=== PATIENT | male | born 1950 | race Caucasian/White ===

== ENCOUNTER 2020-09-11 13:47 | Emergency (ER) | payer MEDICARE, MEDICAID, SELFPAY ==
[2020-09-11 14:03] VITALS: BP 134/76; PULSE 73; RESP 18; TEMP 36.7; O2SAT 97; BMI 24.0
[2020-09-11] MEDS: Cyclobenzaprine HCl 10 MG TABLET PO (14:23)
[2020-09-11] MEDS: Acetaminophen 325 MG TABLET 975 MG PO (14:23)
[2020-09-11] MEDS: oxyCODONE HCl Immed Release 5 MG TABLET PO (14:23)
[2020-09-11] MEDS: Ketorolac Tromethamine 30 MG/ML VIAL IM (14:23)
--- NOTE | 2020-09-11 14:23 | XR_ITS ---
EXAMINATION: XR LUMBOSACRAL SPINE CLINICAL INFORMATION: Low back pain. Injury. COMPARISON: CT abdomen pelvis 05/28/2011. Lumbar spine 08/04/2019. MR lumbar spine 08/28/2020 TECHNIQUE: 3 views of lumbar spine FINDINGS: There is no acute abnormality. There is no fracture or bone destruction. The alignment of the vertebral bodies are normal. There is no spondylolysis or spondylolisthesis. Lumbar disc heights are normal. There is mild multilevel vertebral endplate spurring. There is moderate facet joint arthrosis at the lower lumbar spine which is most significant at L4-L5. Compared to prior study of 08/04/2019 and the MR exam of 08/28/2020 there has not been substantial change. There are vascular calcifications of the abdominal aorta without aneurysm. IMPRESSION: Mild to moderate degenerative spondylosis of lumbar spine. There is no acute abnormality. No change since prior study 08/04/2019.
--- NOTE | 2020-09-11 14:24 | ED_ITS ---
HPI - Back Pain/Injury General Chief Complaint: Back Pain/Injury Stated Complaint: LEFT LOWER BACK PAIN X3DAYS NO INJURY Time Seen by Provider: 09/11/20 14:08 Source: patient and EMS Mode of arrival: EMS Limitations: no limitations History of Present Illness HPI Narrative: 70 y/o male with history of occasional back pain presents with acute onset of left lower back pain that started 3 days ago after he tried movin g an air conditioning unit that was on the floor. He felt his left lower back tense up and pain started immediately. He states the pain shoots down his left leg. He has difficulty walking. He had no numbness, tingling, saddle paresthesieas, urinary or stool incontinence. No IVDA. No fevers. He has been using heat without improvement in pain. MD elicited complaint: back pain and back injury Pertinent past history: prior back pain and recent trauma Onset (ago): day(s) (3) Timing: constant Severity: severe Similar Symptoms Previously: Yes Quality: sharp and aching Location: left lower back Radiation: left leg below the knee Exacerbating factors: movement and walking Relieving factors: immobilization Context: while lifting Associated symptoms: difficulty walking Treatments prior to arrival: heat therapy Work related injury: No Related Data Previous Rx's Medication Instructions Recorded acetaminophen [Tylenol Arthritis 650 mg PO Q8H #30 tab 09/11/20 Pain] cyclobenzaprine 10 mg PO TID PRN #20 tab 09/11/20 lidocaine [Lidoderm] 1 patch TOPICAL DAILY #15 ea 09/11/20 naproxen 500 mg PO BID PRN #20 tab 09/11/20 Allergies Allergy/AdvReac Type Severity Reaction Status Date / Time Penicillins [PCN] Allergy Severe ANAPHYLAXIS Unverified 08/15/20 15:06 codeine [CODEINE] Allergy Mild VOMITING Unverified 08/15/20 15:06 morphine [MORPHINE] Allergy Unknown UNKNOWN Unverified 08/15/20 15:06 penicillin V Allergy Unknown dyspnea Unverified 05/13/20 00:00 Codeine Phosphate Allergy Unknown Uncoded 03/04/20 00:00 Codeine Sulfate Allergy Unknown abdominal Uncoded 05/13/20 00:00 pain Cefuroxime Axetil AdvReac Unknown dyspnea Uncoded 05/13/20 00:00 Review of Systems Review of Systems: Constitutional: No Fever, No Chills Cardiovascular: No Chest Pain, No SOB, No Orthopnea, No Edema Respiratory: No Cough, No Sputu Gastrointestinal: No Nausea, No Vomiting, No Diarrhea, No abdominal Pain Genitourinary: No Dysuria, No Urinary Frequency, No Hematuria Musculoskeletal: + joint pain, + Myalgias Skin: No Skin Lesions, No rash Neuro: + Weakness, No Numbness, No Dizziness, No Headache Heme/Lymph: No Bruising, No Lymphadenopathy Endocrine: No Polyuria, No Polydipsia PMF Past Medical History Attestation statement: The following information was validated with the patient. Medical History (Updated 09/11/20 @ 16:06 by JANIA Diaz) Atrial fibrillation Lumbar radiculopathy Social History Social History Advance Directives: No Advance Directives Information Provided: No Physical Exam Vital Signs: Vital Signs: Vital Signs Temp Pulse Resp BP Pulse Ox 09/11/20 14:03 98.0 F 73 18 134/76 97 Body Mass Index 24.0 Appearance: Alert. Oriented X3. No acute distress. HEENT: normal inspection CVS: Normal heart rate and rhythm. Respiratory: No respiratory distress. Skin: Skin warm and dry. Normal skin color. Normal skin turgor. No rashes. Extremities: no LE edema. Back: left lumbar tenderness over SI joint, soft tissue tenderness left lumbar area, positive straight leg raise Neuro: Oriented X 3. No motor deficit. No sensory deficit. Course Course Course Narrative: XR shows stable mild to moderate degenerative spondylosis of lumbar spine. No change compared to recent imaging. Pain improved with medications here. He is stable for discharge home with plan to f/u with PCP. MDM - Back Pain/Injury Differential Diagnosis Differential diagnosis: Likely lumbar radiculopathy, sciatica and strain of lumbar region Medical Records Attestation: I reviewed the patient's medical records. Discharge Plan Discharge Clinical Impression: Lumbar radiculopathy Low back pain Qualifiers: Chronicity: acute Back pain laterality: bilateral Sciatica presence: without sciatica Qualified Code(s): M54.5 - Low back pain Strain of lumbar region Qualifiers: Encounter type: initial encounter Qualified Code(s): S39.012A - Strain of muscle, fascia and tendon of lower back, initial encounter Patient Disposition: Home, Self-Care Instructions: Acute Low Back Pain (ED), Lumbar Radiculopathy (ED) Additional Instructions: No bending, lifting or twisting. Use ice several times per day for 20 minutes at a time for the next 48 hours and then change to heat. Take medications as prescribed to help with pain and discomfort. Follow up with your Primary Care Doctor this week. If your pain worsens, if you develop new numbness, tingling, weakness, loss of function or incontinence call 911 or come back to the ER right away for evaluation. Prescriptions: New cyclobenzaprine 10 mg tablet 10 mg PO TID PRN (Reason: muscle spasm) Qty: 20 RF: 0 acetaminophen [Tylenol Arthritis Pain] 650 mg tablet extended release 650 mg PO Q8H Qty: 30 RF: 0 lidocaine [Lidoderm] 5 % adhesive patch,medicated 1 patch topical DAILY Qty: 15 RF: 0 naproxen 500 mg tablet 500 mg PO BID PRN (Reason: pain) Qty: 20 RF: 0
== END 2020-09-11 16:47 | disposition home or self-care (01) ==
PROVIDERS: Emergency Provider Emergency Medicine; PCP Internal Medicine
DX: S39.012A Strain of muscle, fascia and tendon of lower back, initial encounter (principal); M54.16 Radiculopathy, lumbar region; X50.0XXA Overexertion from strenuous movement or load, initial encounter; Y93.9 Activity, unspecified; Y92.009 Unspecified place in unspecified non-institutional (private) residence as the place of occurrence of the external cause; Z79.899 Other long term (current) drug therapy
CPT/HCPCS: 72100; 96372; 99282; 99284; J1885

== ENCOUNTER 2021-01-27 09:04 | Outpatient (REF) | payer MEDICARE, MEDICAID, SELFPAY ==
[2021-01-27 09:39] LABS: MANUAL DIFF FLAG NO
[2021-01-27 09:41] LABS: Basophils Absolute Auto 0.1 X10*3/uL (0.0-0.2); Basophils Percent Auto 1.1 % (0-2); Eosinophils Absolute Auto 0.2 X10*3/uL (0.0-0.4); Eosinophils Percent Auto 2.9 % (0-4); Hematocrit 42.3 % (42-52); Hemoglobin 14.2 g/dl (14.0-18.0); Imm Gran Abs Auto 0.02 X10*3/uL (0.00-0.03); Imm Gran Pct Auto 0.2 % (0.0-0.4); Lymphocytes Percent Auto 23.3 % (20-40); Mean Corpuscular HGB Conc 33.6 g/dl (31.0-36.0); Mean Corpuscular Hemoglobin 28.2 pg (27.0-33.0); Mean Corpuscular Volume 84.1 fL (80-98); Mean Platelet Volume 8.6 fL (9.4-12.4); Monocytes Absolute Auto 0.8 X10*3/uL (0.1-1.2); Monocytes Percent Auto 9.1 % (2-11); Neutrophils Absolute Auto 5.3 X10*3/uL (2.0-8.3); Neutrophils Percent Auto 63.4 % (45-73); Platelet Count 284 X10*3/uL (160-400); Red Blood Count 5.03 X10*6/uL (4.60-5.80); Red Cell Distribution Width 13.2 % (11.0-16.0); White Blood Count 8.4 X10*3/uL (4.8-10.8)
[2021-01-27 10:06] LABS: Estimated Average Glucose 111 mg/dL; Hemoglobin A1c % 5.5 %
[2021-01-27 10:22] LABS: Alanine Aminotransferase 11 U/L (0-40); Albumin Level 4.3 g/dL (3.5-5.0); Alkaline Phosphatase 69 U/L (39-117); Anion Gap 11 (12-20); Aspartate Amino Transferase 12 U/L (5-37); Bilirubin Total 0.6 mg/dL (0.0-1.0); Blood Urea Nitrogen 11 mg/dL (9-16); Calcium 9.2 mg/dL (8.4-10.2); Carbon Dioxide 25 mmol/L (22-29); Chloride 105 mmol/L (96-108); Cholesterol 162 mg/dL; Estimated Glomerular Filt Rate > 60; Glucose Fasting 108 mg/dL (60-99); HDL Cholesterol 35 mg/dL; LDL Cholesterol Calculated 98 mg/dl; Potassium 4.5 mmol/L (3.3-5.1); Sodium 136 mmol/L (135-145); Total Protein 7.2 g/dL (6.5-8.0); Triglycerides 148 mg/dL
[2021-01-27 10:25] LABS: B Type Natriuretic Peptide 49 pg/mL (<100)
[2021-01-27 10:41] LABS: Glucose Urine UA NEG (NEG); Leukocyte Esterase Urine NEG (NEG); Nitrite Urine NEG (NEG); Urine Blood TRACE (NEG); Urine Ketones NEG (NEG); Urine Protein NEG (NEG-TRACE)
[2021-01-27 10:44] LABS: Appearance Urine CLEAR; Color Urine YELLOW
[2021-01-27 10:46] LABS: TSH reflex Free T4 1.63 uIU/mL (0.32-4.0)
[2021-01-27 10:49] LABS: RBC Urine 0-2 /HPF (0); WBC Urine 0 /HPF (0-4)
[2021-01-27 10:54] LABS: Folate 13.6 ng/mL (> or = 4.0); Vitamin B12 320 pg/mL (200-900)
== END 2021-01-27 09:05 | disposition home or self-care (01) ==
LOC: HO.LAB 09:04
PROVIDERS: PCP Internal Medicine; Visit Provider Internal Medicine
DX: E78.5 Hyperlipidemia, unspecified (principal); R73.01 Impaired fasting glucose; I42.6 Alcoholic cardiomyopathy; I11.0 Hypertensive heart disease with heart failure; I50.20 Unspecified systolic (congestive) heart failure; G62.9 Polyneuropathy, unspecified; I48.0 Paroxysmal atrial fibrillation; F17.200 Nicotine dependence, unspecified, uncomplicated
CPT/HCPCS: 36415; 80053; 80061; 81001; 82607; 82746; 83036; 83880; 84443; 85025

== ENCOUNTER → 2021-03-12 12:53 | Outpatient (REF) | payer MEDICARE, MEDICAID, SELFPAY ==
--- NOTE | 2021-03-12 12:57 | CA_ITS ---
Transthoracic Echocardiogram Patient (Last, First, Middle): Yung Fuchs M Gender: Male Date of : 1950 Age: 70 Procedure Date: 03/12/2021 Procedure Type: Transthoracic Echocardiogram Location: OP Height: 172.72 cm Weight: 72.58 kg BSA: 1.86 m2 Heart Rate: bpm BP: 136 / 80 mmHg Flute Polisher: LYLA Referring MD: Glen Zeepda MD Symptoms: NON-ISCHEMIC CARDIOMYOPATHY Study Quality: Fair ECG Rhythm: Sinus Conclusions: - The left ventricular systolic function is low normal. The visually estimated ejection fraction is between 50-55%. - No obvious valvular pathology seen on this study. Findings Left Ventricle Normal left ventricular cavity size. There is mildly increased left ventricular wall thickness. The left ventricular systolic function is low normal. The visually estimated ejection fraction is between 50-55%. There is no evidence of regional wall motion abnormalities. There is paradoxical septal motion consistent with a left bundle branch block. Diastolic function is normal for age. Right Ventricle Normal right ventricular cavity size and systolic function. Atria Both atria are normal in size. Aortic Valve There is a normal trileaflet aortic valve. There is mild calcification of the aortic valve. There is no aortic valve regurgitation. Mitral Valve The mitral valve appears normal. There is trace mitral valve regurgitation. There is no mitral valve stenosis. Pulmonic Valve The pulmonic valve was not well visualized. Tricuspid Valve Normal tricuspid valve structure. There is trace tricuspid valve regurgitation. The pulmonary artery systolic pressure is normal. Great Vessels The aortic annulus, sinuses of valsalva, and asc aorta are normal in size. Venous The inferior vena cava is normal in size and collapses greater than 50% with inspiration. Pericardium/Pleural There is no evidence of pericardial effusion. Prior Study Comparison No significant change compared to prior study dated: 03/21/2019. Recommendations, Care & Conclusions No obvious valvular pathology seen on this study. Measurements 2D Linear Measurements IVSd: 1.01 0.6-0.9/0.6-1.0 cm LVIDd: 3.75 3.9-5.3/4.2-5.9 cm LVIDd Index: 2.02 2.4-3.2/2.2-3.1 cm/m2 LVIDs: 2.93 2.0-3.6 cm LVPWd: 1.01 0.7-1.1 cm Ao Root: 3.80 2.1-3.5 cm LA Diam: 2.80 2.7-3.8/3.0-4.0 cm LAIDs Index: 1.51 1.5-2.3 cm/m2 LV Mass: 144.94 67-162/88-224 g LV Mass Index: 77.92 43-95/49-115 g/m2 LVOT Diam: 2.00 3.0+(-)1.3 cm 2D Systolic Function EF 4C: 51.70 >55% EF 2C: 51.30 >55% EF BiP: 52.40 >55% Mitral Valve MV Pk E: 0.55 MV PK A: 0.71 MV Decel Time: 299.00 E/A: 0.80 E'Lateral: 6.58 E'Medial: 4.16 E/E' Med: 13.20 E/E' Lat: 8.30 PHT: 88.00 MVA PHT: 2.50 Decel Summers: 1.83 Aortic Valve AoV Pk Edmund: 1.07 AoV Mn Edmund: 0.78 AoV VTI: 0.23 AoV Pk Grad: 5.00 Aov Mn Grad: 3.00 GISEL Cont.VTI: 2.25 LVOT LVOT Pk Edmund: 0.76 LVOT Mn Edmund: 0.52 LVOT VTI: 0.16 LVOT Pk Grad: 2.00 LVOT Mn Grad: 1.00 LVOT Diam: 2.00 LVOT Area: 3.14 Diastolic Function MV Pk E: 0.55 MV Pk A: 0.71 E/A: 0.80 E'Medial: 4.16 E/E' Med: 13.20 E' Laterial: 6.58 E/E' Lat: 8.30 Tricuspid Valve TR Pk Edmund: 2.13 TR Pk Grad: 18.00 RA Press: 3.00 RVSP: 21.00 Great Vessels Aorta Ao Root-2D: 3.80 2.0-3.7 cm Ao Asc: 3.70 2.1-3.4 cm Ao Arch: 2.90 Updated in Other Vendor System with Status of Final Glen Zepeda MD electronically signed on 03/13/2021 6:07:39 PM with status of Final
== END ==
LOC: HO.CARD 12:53
PROVIDERS: Visit Provider Internal Medicine
DX: I42.8 Other cardiomyopathies (principal)
CPT/HCPCS: 93306

== ENCOUNTER → 2021-03-20 12:55 | Outpatient (BNVA) | payer MEDICARE, MEDICAID, SELFPAY | PROVIDERS: PCP Internal Medicine; Visit Provider Internal Medicine | DX: I42.8 Other cardiomyopathies (principal); I48.0 Paroxysmal atrial fibrillation; I10 Essential (primary) hypertension; J44.9 Chronic obstructive pulmonary disease, unspecified | CPT/HCPCS: 93005; 99212 ==

== ENCOUNTER 2021-05-09 10:24 | Outpatient (REF) | payer MEDICARE, MEDICAID, SELFPAY ==
[2021-05-09 11:37] LABS: MANUAL DIFF FLAG NO
[2021-05-09 11:42] LABS: Basophils Absolute Auto 0.1 X10*3/uL (0.0-0.2); Basophils Percent Auto 1.2 % (0-2); Eosinophils Absolute Auto 0.3 X10*3/uL (0.0-0.4); Eosinophils Percent Auto 3.1 % (0-4); Hematocrit 40.7 % (42-52); Hemoglobin 13.6 g/dl (14.0-18.0); Imm Gran Abs Auto 0.04 X10*3/uL (0.00-0.03); Imm Gran Pct Auto 0.4 % (0.0-0.4); Lymphocytes Absolute Auto 2.3 X10*3/uL (1.2-4.9); Lymphocytes Percent Auto 23.8 % (20-40); Mean Corpuscular HGB Conc 33.4 g/dl (31.0-36.0); Mean Corpuscular Hemoglobin 28.4 pg (27.0-33.0); Mean Platelet Volume 8.8 fL (9.4-12.4); Monocytes Absolute Auto 0.8 X10*3/uL (0.1-1.2); Neutrophils Percent Auto 63.5 % (45-73); Platelet Count 309 X10*3/uL (160-400); Red Blood Count 4.79 X10*6/uL (4.60-5.80); Red Cell Distribution Width 13.2 % (11.0-16.0); White Blood Count 9.5 X10*3/uL (4.8-10.8)
[2021-05-09 12:16] LABS: B Type Natriuretic Peptide 35 pg/mL (<100)
[2021-05-09 12:32] LABS: TSH reflex Free T4 0.67 uIU/mL (0.32-4.0)
[2021-05-09 12:52] LABS: Vitamin B12 255 pg/mL (200-900)
[2021-05-09 13:04] LABS: Alanine Aminotransferase 6 U/L (0-40); Albumin Level 4.2 g/dL (3.5-5.0); Alkaline Phosphatase 76 U/L (39-117); Anion Gap 13 (12-20); Aspartate Amino Transferase 13 U/L (5-37); Bilirubin Total 0.7 mg/dL (0.0-1.0); Blood Urea Nitrogen 12 mg/dL (9-16); Calcium 8.9 mg/dL (8.4-10.2); Carbon Dioxide 24 mmol/L (22-29); Chloride 105 mmol/L (96-108); Cholesterol 148 mg/dL; Estimated Glomerular Filt Rate > 60; Glucose Fasting 98 mg/dL (60-99); HDL Cholesterol 31 mg/dL; LDL Cholesterol Calculated 87 mg/dl; Potassium 4.7 mmol/L (3.3-5.1); Sodium 137 mmol/L (135-145); Total Protein 7.2 g/dL (6.5-8.0); Triglycerides 154 mg/dL
[2021-05-09 13:12] LABS: Estimated Average Glucose 111 mg/dL; Hemoglobin A1c % 5.5 %
[2021-05-09 14:19] LABS: Glucose Urine UA NEG (NEG); Leukocyte Esterase Urine NEG (NEG); Nitrite Urine NEG (NEG); Urine Blood TRACE (NEG); Urine Ketones NEG (NEG); Urine Protein NEG (NEG-TRACE)
[2021-05-09 14:21] LABS: Appearance Urine HAZY; Color Urine YELLOW
[2021-05-09 14:43] LABS: WBC Urine 0 /HPF (0-4)
== END 2021-05-09 10:25 | disposition home or self-care (01) ==
LOC: HO.LAB 10:24
PROVIDERS: PCP Internal Medicine; Visit Provider Internal Medicine
DX: I11.0 Hypertensive heart disease with heart failure (principal); I50.20 Unspecified systolic (congestive) heart failure; E78.00 Pure hypercholesterolemia, unspecified; R73.01 Impaired fasting glucose; G62.9 Polyneuropathy, unspecified; I48.0 Paroxysmal atrial fibrillation; I42.6 Alcoholic cardiomyopathy; F17.200 Nicotine dependence, unspecified, uncomplicated
CPT/HCPCS: 36415; 80053; 80061; 81001; 81003; 82607; 82746; 83036; 83880; 84443; 85025

== ENCOUNTER → 2021-07-15 10:01 | Outpatient (BNVA) | payer MEDICARE, MEDICAID, SELFPAY | PROVIDERS: PCP Internal Medicine; Visit Provider Urology | DX: N48.6 Induration penis plastica (principal) | CPT/HCPCS: 99202 ==

== ENCOUNTER 2021-08-18 11:22 | Outpatient (REF) | payer MEDICARE, MEDICAID, SELFPAY ==
--- NOTE | ~2021-08-18 | US_ITS ---
EXAMINATION: US SOFT TISSUE NECK CLINICAL INFORMATION: Left submandibular swelling/lump COMPARISON: None TECHNIQUE: Ultrasound of the neck soft tissues is performed with high- frequency lewis-scale imaging and color Doppler of the left submandibular region. FINDINGS: There are 2 abnormal left cervical lymph nodes. Level 1B: 1.8 x 1.3 x 1.6 cm. Abnormal rylie architecture with slitlike, hilum, cortical thickening and peripheral vascularity. Level 3 : 1.4 x 0.9 x 1.2 cm. Abnormal rylie architecture with slitlike hilum, cortical thickening and peripheral vascularity. US/US soft tiss head and/or neck IMPRESSION: 2 slightly enlarged abnormal appearing left cervical lymph nodes. This would be amenable to fine-needle aspiration.
== END 2021-08-18 11:23 | disposition home or self-care (01) ==
LOC: HO.HMGCX 11:22
PROVIDERS: PCP Internal Medicine; Visit Provider Internal Medicine
DX: R22.0 Localized swelling, mass and lump, head (principal)
CPT/HCPCS: 76536

== ENCOUNTER 2021-10-25 09:33 | Outpatient (REF) | payer MEDICARE, MEDICAID, SELFPAY ==
[2021-10-25 09:52] LABS: MANUAL DIFF FLAG NO
[2021-10-25 10:36] LABS: Basophils Absolute Auto 0.1 X10*3/uL (0.0-0.2); Basophils Percent Auto 1.1 % (0-2); Eosinophils Absolute Auto 0.4 X10*3/uL (0.0-0.4); Eosinophils Percent Auto 3.7 % (0-4); Hematocrit 44.4 % (42.0-52.0); Hemoglobin 14.2 g/dl (14.0-18.0); Imm Gran Abs Auto 0.03 X10*3/uL (0.00-0.03); Imm Gran Pct Auto 0.3 % (0.0-0.4); Lymphocytes Absolute Auto 2.2 X10*3/uL (1.2-4.9); Lymphocytes Percent Auto 22.6 % (20-40); Mean Corpuscular Hemoglobin 27.4 pg (27.0-33.0); Mean Corpuscular Volume 85.7 fL (80.0-98.0); Mean Platelet Volume 8.6 fL (9.4-12.4); Monocytes Absolute Auto 0.8 X10*3/uL (0.1-1.2); Neutrophils Absolute Auto 6.1 x10*3/uL (2.0-8.3); Neutrophils Percent Auto 64.3 % (45-73); Platelet Count 330 X10*3/uL (160-400); Red Blood Count 5.18 X10*6/uL (4.60-5.80); Red Cell Distribution Width 13.4 % (11.0-16.0); White Blood Count 9.5 X10*3/uL (4.8-10.8)
[2021-10-25 10:41] LABS: Appearance Urine CLEAR; Color Urine YELLOW; Glucose Urine UA NEG (NEG); Leukocyte Esterase Urine NEG (NEG); Nitrite Urine NEG (NEG); UACC Culture Trigger NO; Urine Blood TRACE (NEG); Urine Ketones NEG (NEG); Urine Protein NEG (NEG-TRACE)
[2021-10-25 10:41] LABS: Estimated Average Glucose 111 mg/dL; Hemoglobin A1c % 5.5 %
[2021-10-25 10:51] LABS: RBC Urine 0-2 /HPF (0); WBC Urine 0 /HPF (0-4)
[2021-10-25 10:52] LABS: B Type Natriuretic Peptide 46 pg/mL (<100)
[2021-10-25 10:54] LABS: Alanine Aminotransferase 10 U/L (0-40); Albumin Level 4.2 g/dL (3.5-5.0); Alkaline Phosphatase 73 U/L (39-117); Anion Gap 11 (12-20); Aspartate Amino Transferase 13 U/L (5-37); Bilirubin Total 0.7 mg/dL (0.0-1.0); Blood Urea Nitrogen 12 mg/dL (9-16); Calcium 9.7 mg/dL (8.4-10.2); Carbon Dioxide 26 mmol/L (22-29); Chloride 103 mmol/L (96-108); Cholesterol 169 mg/dL; Estimated Glomerular Filt Rate 59; Glucose Fasting 105 mg/dL (60-99); HDL Cholesterol 34 mg/dL; LDL Cholesterol Calculated 103 mg/dl; Potassium 5.1 mmol/L (3.3-5.1); Sodium 135 mmol/L (135-145); Total Protein 7.4 g/dL (6.5-8.0); Triglycerides 164 mg/dL
[2021-10-25 11:18] LABS: TSH reflex Free T4 1.29 uIU/mL (0.32-4.0); Vitamin D 25-OH Total 19.1 ng/mL (>30)
== END 2021-10-25 09:34 | disposition home or self-care (01) ==
LOC: HO.LAB 09:33
PROVIDERS: PCP Internal Medicine; Visit Provider Internal Medicine
DX: E78.00 Pure hypercholesterolemia, unspecified (principal); E55.9 Vitamin D deficiency, unspecified; I42.6 Alcoholic cardiomyopathy; R73.01 Impaired fasting glucose; I11.0 Hypertensive heart disease with heart failure; I50.20 Unspecified systolic (congestive) heart failure
CPT/HCPCS: 36415; 80053; 80061; 81001; 82306; 83036; 83880; 84443; 85025

== ENCOUNTER → 2021-10-31 11:37 | Outpatient (BNVA) | payer MEDICARE, MEDICAID, SELFPAY | PROVIDERS: PCP Internal Medicine; Visit Provider Surgery | DX: R59.0 Localized enlarged lymph nodes (principal) | CPT/HCPCS: 99202 ==

== ENCOUNTER 2021-12-02 08:29 | Outpatient (REF) | payer MEDICARE, MEDICAID, SELFPAY ==
--- NOTE | ~2021-12-02 | US_ITS ---
EXAMINATION: US SOFT TISSUE NECK CLINICAL INFORMATION: Localized enlarged lymph nodes COMPARISON: Previous exam July 2021 TECHNIQUE: Ultrasound of the neck soft tissues is performed with high- frequency lewis-scale imaging and color Doppler. FINDINGS: There are 2 abnormal appearing left cervical lymph nodes. There is a left submandibular level 1B lymph node. This demonstrates abnormal ultrasound morphology and is diffusely hypoechoic with slitlike hilum and abnormal cortical flow. This measures 1.7 x 1.2 x 2 cm in sagittal AP and transverse dimension compared to 1.8 x 1.3 x 1.6 cm on July 2021 exam. There is a second abnormal left level 3 lymph node. This is also diffusely hypoechoic with loss of normal fatty hilum. This demonstrates mixed hilar and cortical flow. This measures 1.7 x 1.3 x 1.5 cm in dimension compared to 1.4 x 0.8 x 1.2 cm on July 2021 exam. US/US soft tiss head and/or neck IMPRESSION: Interval increase in size in the 2 enlarged abnormal appearing left cervical lymph nodes. Infectious, inflammatory and neoplastic processes should be considered. These would be amenable to ultrasound-guided fine-needle aspiration. Follow-up neck CT or MRI with IV contrast should also be considered.
== END 2021-12-02 08:30 | disposition home or self-care (01) ==
LOC: HO.US 08:29
PROVIDERS: Visit Provider Surgery
DX: R59.0 Localized enlarged lymph nodes (principal)
CPT/HCPCS: 76536

== ENCOUNTER 2021-12-10 10:54 | Outpatient (REF) | payer MEDICARE, MEDICAID, SELFPAY ==
--- NOTE | ~2021-12-10 | US_ITS ---
EXAMINATION: US ULTRASOUND-GUIDED FINE-NEEDLE ASPIRATION NECK, LEFT CLINICAL INFORMATION: Abnormal cervical left neck lymph nodes. COMPARISON: Ultrasound neck 12/02/2021. TECHNIQUE: Following explaining ultrasound-guided left neck lymph node biopsy procedure, benefits and risk, a written consent was obtained. Patient was placed supine on ultrasound stretcher and preliminary ultrasound imaging through the left neck was obtained. The largest lymph node in left neck, anterolateral submandibular region was selected which is clinically palpable. The area on the skin was marked. The marked site was cleaned and draped in usual sterile manner. 1% lidocaine was injected. A 25-gauge needle attached to syringe was inserted into the left neck lymph node under sterile ultrasound guidance. A 5-pass biopsy was performed. Postprocedure complete hemostasis achieved at puncture site. Sterile dressing applied postprocedure. There is an adequate amount of lymph node tissue seen on immediate microscope slide evaluation. Patient tolerated procedure extremely well. FINDINGS: On initial ultrasound images there are at least 3 lymph nodes seen in the left neck. The largest lymph node is in the left anterolateral submandibular space, and additional lymph nodes in level III neck. Ultrasound-guided left anterolateral submandibular space fine-needle lymph node biopsy performed. US/US guided fine needle asp IMPRESSION: Successful ultrasound-guided anterior neck lymph node biopsy performed.
[2021-12-10] MEDS: Lidocaine HCl 1 % MPF 5 ML VIAL 4 ML SUBCUT (12:19)
== END 2021-12-10 10:55 | disposition home or self-care (01) ==
LOC: HO.US 10:54
PROVIDERS: PCP Internal Medicine; Visit Provider Surgery
DX: C96.9 Malignant neoplasm of lymphoid, hematopoietic and related tissue, unspecified (principal)
CPT/HCPCS: 10005; 36415; 88172; 88173; 88177; 88184; 88185; 88305; 88341; 88342

== ENCOUNTER → 2021-12-18 10:31 | Outpatient (BNVA) | payer MEDICARE, MEDICAID, SELFPAY | PROVIDERS: PCP Internal Medicine; Referring Provider Internal Medicine; Visit Provider Surgery | DX: R59.0 Localized enlarged lymph nodes (principal); C77.9 Secondary and unspecified malignant neoplasm of lymph node, unspecified; C80.1 Malignant (primary) neoplasm, unspecified | CPT/HCPCS: 99212 ==

== ENCOUNTER 2022-01-05 09:53 | Outpatient (REF) | payer MEDICARE, MEDICAID, SELFPAY ==
--- NOTE | ~2022-01-05 | CT_ITS ---
EXAMINATION: CT SOFT TISSUE NECK WITH CONTRAST CLINICAL INFORMATION: Cervical lymphadenopathy. Restaging exam. COMPARISON: Soft tissue neck ultrasound from 12/02/2021. CT chest from 01/05/2020. TECHNIQUE: Multidetector helical imaging was performed in the axial plane following the administration of 80 mL of Omnipaque 350 intravenous contrast. Multiple axial reformats and coronal/sagittal reconstructions were created the technologist workstation for review. This CT examination was performed using dose optimization techniques as appropriate, variously including the following: *Automated exposure control. *Adjustment of mA and/or kV according to patient size (this includes techniques or standardized protocols for targeted exams where dose is matched to indication/reason for exam; i.e. extremities or head). *Use of iterative reconstruction technique. DLP: 555 mGy-cm FINDINGS: Moderately motion degraded exam. Left-sided cervical chain lymphadenopathy. A motion obscures left level Ib lymph node measures approximately 1.8 cm in size. A mildly heterogeneous, rounded left level IIa lymph node measures up to 1.3 cm in size. Otherwise, scattered subcentimeter lymph nodes bilaterally, none of which are pathologically enlarged or abnormally enhancing. No significant cutaneous thickening or subcutaneous inflammation. No discrete fluid collection within the deep tissues of the neck. The premaxillary, retromaxillary, pterygopalatine fossa, orbital apical, parapharyngeal, and prelaryngeal adipose tissue is maintained. Normal appearance of the parotid, submandibular, and thyroid glands. No definitively demonstrated focal lesion or abnormal enhancement within the intrinsic tissues of the tongue or floor of mouth. No demonstrated abnormalities of the mucosal contours of the pharynx and larynx without abnormal enhancement although evaluation is partially limited by phonation artifact. Normal appearance of the thyroid cartilage and cartilaginous trachea. The airways remains widely patent. No radiopaque foreign bodies. The atlantooccipital and atlantoaxial articulations remain well aligned. Reversal the normal cervical lordosis centered on C5-C6. No evidence of acute fracture or traumatic subluxation of the cervical spine. The vertebral body heights are well-maintained. Advanced degenerative disc disease at C5-C6 and C6-C7. Moderate degenerative disc disease at C3-C4. Associated disc-osteophyte complex formation. Facet and uncovertebral joint arthropathy leads to osseous encroachment on the neural foramina from C3-C7. No suspicious lytic or sclerotic osseous lesions. No evidence of epidural collection. There is no prevertebral soft tissue swelling. Normal opacification of the cervical arterial and venous structures. The visualized portion of the skull base is without significant abnormalities. Moderate mucosal thickening of the paranasal sinuses, most notably the left maxillary sinus. The mastoid air cells and middle ear cavities are clear. The patient is edentulous. CT Upper Chest: Moderate centrilobular emphysema. Dependent atelectasis of the visualized upper lungs. Otherwise, the upper thorax is better evaluated on concurrent CT of the chest. CT/CT soft tissue neck w con IMPRESSION: Evaluation is partially limited by motion/formation artifact. 1. Within the limitations of this exam, there is nonspecific enlarged left levels Ib and IIa lymphadenopathy. 2. No additional focal lesion, collection, or abnormal enhancement within the soft tissues of the neck. 3. Moderate to advanced multilevel degenerative spinal arthropathy of the cervical spine.
--- NOTE | ~2022-01-05 | CT_ITS ---
EXAMINATION: CT CHEST WITH CONTRAST CLINICAL INFORMATION: Staging COMPARISON: Chest x-ray 02/05/2016 TECHNIQUE: Multidetector volumetric CT imaging of the chest was obtained after the administration of 80 mL of Omnipaque 350 intravenous contrast without immediate adverse reactions. Axial MIP volume rendering provided. Sagittal and coronal reformatted images were obtained. This CT examination was performed using dose optimization techniques as appropriate, variously including the following: *Automated exposure control *Adjustment of mA and/or kV according to patient size (this includes techniques or standardized protocols for targeted exams where dose is matched to indication/reason for exam; i.e. extremities or head) *Use of iterative reconstruction technique DLP: 555 mGy-cm FINDINGS: The heart is normal in size. Coronary artery calcifications are present. There is no pericardial effusion. Normal caliber thoracic aorta. A few mildly prominent but nonpathologically enlarged mediastinal lymph nodes are present, for example a right paratracheal node which measures 1 cm in transverse dimension. No enlarged axillary lymph nodes. Central airways are patent. Lungs are well aerated. There is mild biapical scarring. Mild diffuse emphysematous changes are noted. There is mild dependent atelectasis bilaterally. Small calcified granuloma of the left lower lobe. 3 mm pulmonary nodule of the left lung apex (image [id number], series 7). No pleural effusion or pneumothorax. Visualized portions of the upper abdomen are grossly unremarkable. Mild diffuse degenerative changes of the spine. CT/CT chest w con IMPRESSION: -Mild emphysema. -3 mm pulmonary nodule of the left lung apex. According to the UPDATED 2017 Fleischner Society recommendations, the advised follow-up imaging for solid nodules < 6 mm is: LOW RISK PATIENT: No routine follow-up. HIGH RISK PATIENT: Optional CT at 12 months. Fleischner guidelines were followed.
[2022-01-05] MEDS: iohexoL 350 MG/ML 100 ML INFUS..BTL IV (10:35)
== END 2022-01-05 09:54 | disposition home or self-care (01) ==
LOC: HO.CT 09:53
PROVIDERS: PCP Internal Medicine; Visit Provider Internal Medicine
DX: C77.9 Secondary and unspecified malignant neoplasm of lymph node, unspecified (principal); C80.1 Malignant (primary) neoplasm, unspecified
CPT/HCPCS: 70491; 71260; Q9967

== ENCOUNTER → 2022-03-03 13:57 | Outpatient (BNVA) | payer MEDICARE, MEDICAID, SELFPAY | PROVIDERS: PCP Internal Medicine; Referring Provider Internal Medicine; Visit Provider Internal Medicine | DX: Z01.810 Encounter for preprocedural cardiovascular examination (principal); I42.8 Other cardiomyopathies; I48.0 Paroxysmal atrial fibrillation; I10 Essential (primary) hypertension; Z79.01 Long term (current) use of anticoagulants; Z79.899 Other long term (current) drug therapy | CPT/HCPCS: 93005; 99212 ==

== ENCOUNTER → 2022-09-08 13:56 | Outpatient (BNVA) | payer MEDICARE, MEDICAID, SELFPAY | PROVIDERS: PCP Internal Medicine; Referring Provider Internal Medicine; Visit Provider Internal Medicine | DX: I42.8 Other cardiomyopathies (principal); I48.0 Paroxysmal atrial fibrillation; I10 Essential (primary) hypertension | CPT/HCPCS: 99212 ==

== ENCOUNTER 2023-01-12 07:05 | Outpatient (REF) | payer MEDICARE, MEDICAID, SELFPAY ==
[2023-01-12 07:20] LABS: MANUAL DIFF FLAG NO
[2023-01-12 07:33] LABS: Basophils Percent Auto 0.7 % (0-2); Eosinophils Absolute Auto 0.2 X10*3/uL (0.0-0.4); Eosinophils Percent Auto 3.9 % (0-4); Hematocrit 33.5 % (42.0-52.0); Imm Gran Abs Auto 0.03 X10*3/uL (0.00-0.03); Imm Gran Pct Auto 0.6 % (0.0-0.4); Lymphocytes Percent Auto 18.9 % (20-40); Mean Corpuscular HGB Conc 32.8 g/dl (31.0-36.0); Mean Corpuscular Hemoglobin 28.1 pg (27.0-33.0); Mean Corpuscular Volume 85.5 fL (80.0-98.0); Mean Platelet Volume 8.4 fL (9.4-12.4); Monocytes Absolute Auto 0.6 X10*3/uL (0.1-1.2); Monocytes Percent Auto 10.6 % (2-11); Neutrophils Absolute Auto 3.5 x10*3/uL (2.0-8.3); Neutrophils Percent Auto 65.3 % (45-73); Platelet Count 171 X10*3/uL (160-400); Red Blood Count 3.92 X10*6/uL (4.60-5.80); Red Cell Distribution Width 13.9 % (11.0-16.0); White Blood Count 5.4 X10*3/uL (4.8-10.8)
[2023-01-12 07:53] LABS: Estimated Average Glucose 97 mg/dL
[2023-01-12 08:05] LABS: B Type Natriuretic Peptide 40 pg/mL (<100)
[2023-01-12 08:17] LABS: Alanine Aminotransferase 10 U/L (0-40); Albumin Level 4.2 g/dL (3.5-5.0); Alkaline Phosphatase 64 U/L (39-117); Anion Gap 13 (12-20); Aspartate Amino Transferase 13 U/L (5-37); Bilirubin Total 0.8 mg/dL (0.0-1.0); Blood Urea Nitrogen 14 mg/dL (9-16); Calcium 9.6 mg/dL (8.4-10.2); Carbon Dioxide 25 mmol/L (22-29); Chloride 104 mmol/L (96-108); Cholesterol 153 mg/dL; Estimated Glomerular Filt Rate > 60; Glucose Fasting 107 mg/dL (60-99); HDL Cholesterol 39 mg/dL; LDL Cholesterol Calculated 87 mg/dl; Potassium 4.1 mmol/L (3.3-5.1); Sodium 138 mmol/L (135-145); Total Protein 6.5 g/dL (6.5-8.0); Triglycerides 136 mg/dL
[2023-01-12 08:25] LABS: TSH reflex Free T4 1.82 uIU/mL (0.32-4.0); Vitamin D 25-OH Total 35.6 ng/mL (>30)
[2023-01-12 15:13] LABS: Appearance Urine Clear; Color Urine Yellow; Glucose Urine UA Negative (Negative); Leukocyte Esterase Urine Negative (Negative); Nitrite Urine Negative (Negative); Specific Gravity - Urine 1.015 (1.005-1.025); Urine Blood Negative (Negative); Urine Ketones Negative (Negative); Urine Protein Negative (Neg-Trace)
== END 2023-01-12 07:06 | disposition home or self-care (01) ==
LOC: HO.LAB 07:05
PROVIDERS: PCP Internal Medicine; Visit Provider Internal Medicine
DX: I11.0 Hypertensive heart disease with heart failure (principal); I50.9 Heart failure, unspecified; R73.01 Impaired fasting glucose; E55.9 Vitamin D deficiency, unspecified; E78.00 Pure hypercholesterolemia, unspecified
CPT/HCPCS: 36415; 80053; 80061; 81003; 82306; 83036; 83880; 84443; 85025

== ENCOUNTER → 2023-03-10 12:50 | Outpatient (BNVA) | payer MEDICARE, MEDICAID, SELFPAY | PROVIDERS: PCP Internal Medicine; Referring Provider Internal Medicine; Visit Provider Internal Medicine | DX: I42.8 Other cardiomyopathies (principal); I48.0 Paroxysmal atrial fibrillation; I10 Essential (primary) hypertension | CPT/HCPCS: 93005; 99212 ==

== ENCOUNTER 2023-07-31 09:31 | Outpatient (REF) | payer MEDICARE, MEDICAID, SELFPAY ==
[2023-07-31 09:41] LABS: MANUAL DIFF FLAG NO
[2023-07-31 09:50] LABS: Basophils Absolute Auto 0.1 X10*3/uL (0.0-0.2); Basophils Percent Auto 0.6 % (0-2); Eosinophils Absolute Auto 0.3 X10*3/uL (0.0-0.4); Eosinophils Percent Auto 2.7 % (0-4); Hemoglobin 12.3 g/dl (14.0-18.0); Imm Gran Abs Auto 0.05 X10*3/uL (0.00-0.03); Imm Gran Pct Auto 0.5 % (0.0-0.4); Lymphocytes Percent Auto 10.4 % (20-40); Mean Corpuscular HGB Conc 32.4 g/dl (31.0-36.0); Mean Corpuscular Hemoglobin 27.9 pg (27.0-33.0); Mean Corpuscular Volume 86.2 fL (80.0-98.0); Mean Platelet Volume 8.5 fL (9.4-12.4); Monocytes Absolute Auto 0.8 X10*3/uL (0.1-1.2); Monocytes Percent Auto 7.9 % (2-11); Neutrophils Absolute Auto 7.6 x10*3/uL (2.0-8.3); Neutrophils Percent Auto 77.9 % (45-73); Platelet Count 211 X10*3/uL (160-400); Red Blood Count 4.41 X10*6/uL (4.60-5.80); Red Cell Distribution Width 13.5 % (11.0-16.0); White Blood Count 9.7 X10*3/uL (4.8-10.8)
[2023-07-31 10:11] LABS: B Type Natriuretic Peptide 73 pg/mL (<100)
[2023-07-31 10:27] LABS: Alanine Aminotransferase 9 U/L (0-40); Albumin Level 4.3 g/dL (3.5-5.0); Alkaline Phosphatase 54 U/L (39-117); Anion Gap 15 (12-20); Aspartate Amino Transferase 14 U/L (5-37); Bilirubin Total 0.6 mg/dL (0.0-1.0); Blood Urea Nitrogen 15 mg/dL (9-16); Calcium 10.2 mg/dL (8.4-10.2); Carbon Dioxide 25 mmol/L (22-29); Chloride 103 mmol/L (96-108); Cholesterol 160 mg/dL (<200); Estimated Glomerular Filt Rate > 60; Glucose Fasting 136 mg/dL (60-99); HDL Cholesterol 48 mg/dL (>40); LDL Cholesterol Calculated 91 mg/dL (<100); Potassium 4.6 mmol/L (3.3-5.1); Sodium 138 mmol/L (135-145); Total Protein 7.2 g/dL (6.5-8.0); Triglycerides 109 mg/dL (<150)
[2023-07-31 10:44] LABS: TSH reflex Free T4 1.52 uIU/mL (0.32-4.0); Vitamin D 25-OH Total 43.7 ng/mL (>30)
== END 2023-07-31 09:32 | disposition home or self-care (01) ==
LOC: HO.LAB 09:31
PROVIDERS: PCP Internal Medicine; Visit Provider Internal Medicine
DX: I50.9 Heart failure, unspecified (principal); I11.0 Hypertensive heart disease with heart failure; E55.9 Vitamin D deficiency, unspecified; E78.00 Pure hypercholesterolemia, unspecified
CPT/HCPCS: 36415; 80053; 80061; 82306; 83880; 84443; 85025

== ENCOUNTER 2023-08-03 12:24 | Outpatient (AMB) | payer MEDICARE, MEDICAID, SELFPAY ==
[2023-08-03 12:29] VITALS: BP 110/64; PULSE 63; O2SAT 98; BMI 21.9
--- NOTE | 2023-08-03 12:29 | MHC.PC.OV ---
Vital Signs 08/03/23 12:29 Height 5 ft 8 in Weight 144 lb BMI 21.9 BP 110/64 Blood Pressure Location Lt brachial Position Sitting Pulse 63 Pulse Source Pulse Oximeter Pulse Oximetry (%) 98 Oxygen Delivery Method Room Air Intake Visit Reasons: 3mth f/u [employer] Supervisor Required: No Accompanied by: Self / Same As Patient Allergies Penicillins [PCN] Allergy (Severe, Verified 08/03/23 12:48) dyspnea codeine [CODEINE] Allergy (Mild, Verified 08/03/23 12:48) VOMITING cefuroxime Allergy (Unknown, Verified 08/03/23 12:48) cefuroxime axetil- dyspnea morphine [MORPHINE] Allergy (Unknown, Verified 08/03/23 12:48) UNKNOWN Medication List - Last Reconciled 08/03/23 by Albert Chan MD apixaban (Eliquis) 5 mg PO BID carvedilol 3.125 mg PO BID cevimeline PO cholecalciferol (vitamin D3) 25 mcg PO DAILY 90 days omeprazole 20 mg PO DAILY [oxycodone 15 mg PO 8XD] oxycodone 1 to 2 tablets orally 6 to 7 times a day as needed for severe pain (no more than 8 tablets per day) 28 days rosuvastatin 20 mg PO DAILY sacubitril-valsartan 24-26 mg (Entresto) 1 tab PO BID Tobacco use date assessed: 08/03/23 Fall risk assessment: No Falls in past year Last assessed Fall Risk: 08/03/23 Dental Screening Dental Screen Date: 08/03/23 Did you have a dental visit in the last 12 months?: No Did you have a dental problem in the last 6 months where you did not have access to dental care?: No Was dental information given to patient?: No HPI 3mth f/u HPI Details Patient comes in today for his follow up visit States that he continues to experience on and off trouble swallowing as well as symptoms of dry mouth/throat but otherwise feels okay Was seen by oncology for follow up last month and was given a clean bill of health with regards to his cancer Still has occasional dizziness when he moves too fast but denies any headaches He denies any chest pains, no SOB No nausea/vomiting, no abdominal pain No change in bowel habits noted States that his chronic right inguinal pain remains adequately controlled on his current meds and he's had no issues or side effects from his medication so far Had his follow up labs done yesterday - to discuss his results [facility] Medical History Atrial fibrillation Benign essential hypertension Chronic pain of right inguinal region COPD (chronic obstructive pulmonary disease) Dilated cardiomyopathy secondary to alcohol Dysphagia Essential hypertension Impaired fasting glucose Lumbar radiculopathy Lumbar spondylosis Neuropathy NICM (nonischemic cardiomyopathy) Paroxysmal atrial fibrillation Peyronie's disease Pure hypercholesterolemia Smoker Systolic congestive heart failure Vitamin D deficiency Surgical History History of inguinal hernia repair History of percutaneous endoscopic gastrostomy History of tonsillectomy Hx of colonoscopy (~03/26/17) Family History Father Cancer Mother CVD (cardiovascular disease) Social History Household Members: Family Housing: House Are you a primary care clinician to a significant other at home: No Do you presently have visiting nurse or other home services: No Alcohol intake: never Patient Tobacco Use Status: Former Tobacco user Quit Date: 02/21/2022 Tobacco use type: Cigarette e-Cigarette/Vaping Use: Currently Using Second Hand Smoke Exposure: Yes service: Yes ([employer]) Current occupational status: retired 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 1. Little interest or pleasure in doing things: not at all 2. Feeling down, depressed, or hopeless: several days 3. Trouble falling or staying asleep, or sleeping too much: several days 4. Feeling tired or having little energy: several days 5. Poor appetite or overeating: more than half the days 6. Feeling bad about yourself - or that you are a failure or have let yourself or your family down: not at all 7. Trouble concentrating on things, such as reading the newspaper or watching television: not at all 8. Moving or speaking so slowly that other people could have noticed. Or the opposite - being so fidgety or restless that you have been moving around a lot more than usual: not at all 9. Thoughts that you would be better off or of hurting yourself in some way: not at all Total score: 5 Depression Screening Interpretation: Positive Depression Screening Follow-up: Existing condition and Declines treatment 83900 - PHQ-9 Billing: Yes Source: Developed by Drs. Yung Childress, Trish Prasad, Nelson Perez and colleagues, with an educational nan from [employer] Thrive Questionnaire Date Thrive assessed: 08/03/23 I am a: Patient What is your living situation today?: I have a steady place to live Within the past 12 months, did the food you bought not last and you didn't have the money to get more?: Never true Within the past 12 months, did you worry whether your food would run out before you got money to buy more?: Never true Do you have trouble paying for medicines?: No Do you have trouble getting transportation to medical appointments?: No Do you have trouble paying your heating and electricity bill?: No Do you have trouble taking care of your child, family member or friend?: No Do you have trouble with day-to-day activities such as bathing, preparing meals, shopping, managing finances, etc.?: No Are you currently unemployed and looking for a job?: No Are you interested in more education?: No Please select the resources that you would like help with: None Currently or been in a relationship where the following occur: no concerns reported AUDIT C Alcohol Use Questionnaire (AUDIT-C) 1. How often do you have a drink containing alcohol?: Never 3. How often do you have six or more drinks on one occasion?: Never Total Score: 0 Score Reviewed/Action Taken: Yes FILIPE-7 AMB Questionnaire FILIPE-7 Date FILIPE - 7 assessed: 08/03/23 Feeling nervous, anxious, or on edge: 0 = Not at all Not being able to stop or control worryin = Not at all Worrying too much about different things: 0 = Not at all Trouble relaxin = Not at all Being so restless that it is hard to sit still: 0 = Not at all Becoming easily annoyed or irritable: 0 = Not at all Feeling afraid as if something awful might happen: 0 = Not at all Total FILIPE-7 score (0-4 normal; 5-9 mild; 10-14 moderate; 15-21 severe): 0 Source: Developed by Drs. Yung Childress, Trish Prasad, Nelson Perez and colleagues, with an educational nan from [employer] Review of Systems Const Reports fatigue, Denies fever(s) and Denies headache(s) ENT Reports dysphagia (mild, mostly due to dry throat symptoms), Reports dizziness (occasionally, mostly when he moves too fast), Reports dry mouth (and dry throat), Denies otalgia, Denies headache(s), Denies neck pain, Denies odynophagia and Denies sore throat Card Denies chest pain, Denies palpitations and Denies dyspnea Resp Denies cough, Denies dyspnea and Denies wheezing GI Denies abdominal pain (but (+) chronic increased pain over the right inguinal area), Denies constipation, Reports dysphagia (mild, mostly due to dry throat symptoms), Denies heartburn, Denies diarrhea, Denies nausea, Denies odynophagia and Denies vomiting Denies dysuria, Denies nocturia and Denies urinary frequency Musc Reports back pain (occasional ) and Denies neck pain Neuro Reports dizziness (occasionally, mostly when he moves too fast), Denies headache(s) and Reports radicular pain (on the soles of both feet) Endo Reports fatigue and Denies palpitations Aller/Immun Denies wheezing Physical exam (Primary Care) Vital Signs: Last Vital Signs Pulse 63 08/03/23 12:29 BP 110/64 08/03/23 12:29 Pulse Ox 98 08/03/23 12:29 Oxygen Delivery Method Room Air 08/03/23 12:29 BMI result Body Mass Index 21.9 Tobacco/Smoking Status: Tobacco use Status Tobacco use date assessed 08/03/23 08/03/23 12:36 Patient Tobacco Use Status Former Tobacco user 08/03/23 12:36 Tobacco use type Cigarette 08/03/23 12:36 e-Cigarette/Vaping Use Currently Using 08/03/23 12:36 PHQ-9: PHQ-9 Score PHQ-9: Total score 5 08/03/23 12:36 Depression Screening Interpretation: Positive Depression Screening Follow-up: Existing condition and Declines treatment Thrive Assessment: Date of Thrive Assessment Date Thrive assessed 08/03/23 08/03/23 12:36 Currently or been in a relationship where the following occur: no concerns reported Const General: no acute distress and alert HENMT Ears: TM's normal bilaterally and EAC's normal Throat: Yes posterior oropharynx normal and Yes tonsils normal Neck Neck: Yes supple and No lymphadenopathy Resp Auscultation: clear to auscultation bilaterally, no rales and no wheezes Cardio Rate: regular rate Rhythm: regular rhythm Heart sounds: no murmurs GI Palpation (GI): Soft to palpation and Tenderness to palpation present (GI) (over the right inguinal area - chronic) Auscultation: normal bowel sounds Back/Spine/Pelvis Thoracic/Lumbar Spine: lumbar spinal tenderness (mild) Extrem General: Yes no clubbing, cyanosis or edema Results Reviewed Results Reviewed: Laboratory Tests 07/31/23 07/31/23 07/31/23 09:40 09:40 09:40 WBC 9.7 Hgb 12.3 L Hct 38.0 L Plt Count 211 Sodium 138 Potassium 4.6 Creatinine 1.05 Estimated GFR > 60 Fasting Glucose 136 H Calcium 10.2 D AST 14 ALT 9 B-Natriuretic Peptide 73 Triglycerides 109 Cholesterol 160 LDL Cholesterol, Calc 91 HDL Cholesterol 48 25-OH Vitamin D Total 43.7 TSH 1.52 Assessment and Plan Assessment & Plan (1) 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 Diop and completed Cisplatin-based chemotherapy and concurrent radiation therapy in June 2022 (05/11/2022 to 06/30/2022) Follow up with oncology and ENT as scheduled for continuing management/treatment and surveillance - states that he is scheduled for another follow up PET / CT again in a few weeks (2) Dysphagia: Code(s): R13.10 - Dysphagia, unspecified Qualifiers: Dysphagia type: unspecified Qualified Code(s): R13.10 - Dysphagia, unspecified Plan: Continues to complain of dysphagia, dysgeusia and dry throat symptoms Underwent esophageal dilation with Dr. Hernández on 10/27/22 and more recently in March 2023; patient states that dilation helps temporarily Follow up with ENT and with Dr. Hernández as scheduled - states that he is scheduled for another dilatation on 08/11/[address] Hernández (3) Paroxysmal atrial fibrillation: Code(s): I48.0 - Paroxysmal atrial fibrillation Plan: Patient currently remains in sinus rhythm Continue Eliquis 5 mg twice a day for thromboembolism prophylaxis Follow-up with cardiology as scheduled (4) Dilated cardiomyopathy secondary to alcohol: Code(s): I42.6 - Alcoholic cardiomyopathy Plan: Continue Entresto 24-26 mg 1 tablet BID Follow up with cardiology as scheduled (5) Systolic congestive heart failure: Comment: Echocardiogram done on 05/03/2018 showed visually estimated EF between 30-35% with an impaired relaxation filling pattern. Cardiac valvular dopplers and RV systolic pressure were all within normal range. Repeat echocardiogram on 03/12/21 revealed (+) normal LV cavity size, with mildly increased LV wall thickness. LV systolic function is low normal and visually estimated EF is between 50 to 55%. Diastolic function is normal for age. Code(s): I50.20 - Unspecified systolic (congestive) heart failure Qualifiers: Heart failure chronicity: unspecified Qualified Code(s): I50.20 - Unspecified systolic (congestive) heart failure Plan: Cardiac function appears to have improved significantly with treatment over the past few years and patient current appears compensated Continue Entresto 24-26 mg 1 tablet BID and Carvedilol 3.125 mg BID Follow up with Cardiology as scheduled (6) Pure hypercholesterolemia: Code(s): E78.00 - Pure hypercholesterolemia, unspecified Plan: Results of his labs done yesterday reviewed and discussed with patient Reinforced low cholesterol diet Continue Rosuvastatin 20 mg QD Will recheck his labs and fasting lipids in 3 months for follow up (7) Benign essential hypertension: Code(s): I10 - Essential (primary) hypertension Plan: Reinforced low sodium diet - goal is systolic BP of at least 120-130 mm or less Continue Carvedilol 3.125 mg 1 tablet BID; is also on Entresto 24-26 mg BID (8) Impaired fasting glucose: Code(s): R73.01 - Impaired fasting glucose Plan: FBS was elevated at 136 mg/dl on his labs done yesterday; HgbA1c was normal at 5.0% when previously checked a few months ago Reinforced low calorie diet /exercise as tolerated (9) COPD (chronic obstructive pulmonary disease): Code(s): J44.9 - Chronic obstructive pulmonary disease, unspecified Qualifiers: COPD type: unspecified COPD Qualified Code(s): J44.9 - Chronic obstructive pulmonary disease, unspecified Plan: Continue Albuterol HFA 2 puffs 4 times a day as needed (10) Chronic pain of right inguinal region: Comment: (+) Post-herniorrhaphy syndrome - had right inguinal herniorrhaphy in the past and recovery was complicated with increased pain and adverse effects, resulting in chronic and worse pain States that his chronic pain has been adequately controlled on his current pain med regimen - this is a WORKER'S COMP - related issue Code(s): R10.31 - Right lower quadrant pain; G89.29 - Other chronic pain Plan: Continue Oxycodone 15 mg 1 to 2 tablets 6 tro 7 times a day as needed for severe pain (no more than 8 tablets/day), 28 days, # 224 tablets, refills 0 (11) Lumbar spondylosis: Code(s): M47.816 - Spondylosis without myelopathy or radiculopathy, lumbar region Plan: Reinforced activity and weight-lifting restrictions (12) Neuropathy: Code(s): G62.9 - Polyneuropathy, unspecified Plan: Symptoms remain tolerable lately Could not tolerate Gabapentin in the past and Amitriptyline did not help him much (13) Vitamin D deficiency: Code(s): E55.9 - Vitamin D deficiency, unspecified Plan: Continue Vitamin D3 1000 units QD Plan Follow up in 3 months Will also schedule him for a worker's comp follow up in 1 month; was last seen for worker's comp follow up back in November 2021 and he has not been seen since for WC follow up as he was undergoing cancer treatment over the past couple of years Orders: Orders B Type Natriuretic Peptide 3 Months I50.9 - Heart failure, unspecified Comprehensive [place]. 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
== END 2023-08-03 13:25 | disposition home or self-care (01) ==
PROVIDERS: PCP Internal Medicine; Visit Provider Internal Medicine
DX: I48.0 Paroxysmal atrial fibrillation (principal); C77.9 Secondary and unspecified malignant neoplasm of lymph node, unspecified; E55.9 Vitamin D deficiency, unspecified; I10 Essential (primary) hypertension; J44.9 Chronic obstructive pulmonary disease, unspecified; C80.1 Malignant (primary) neoplasm, unspecified; I50.20 Unspecified systolic (congestive) heart failure; I42.6 Alcoholic cardiomyopathy; R13.10 Dysphagia, unspecified; E78.00 Pure hypercholesterolemia, unspecified; R73.01 Impaired fasting glucose
CPT/HCPCS: 99214

== ENCOUNTER 2023-09-21 12:26 | Outpatient (AMB) | payer OTHER, MEDICARE, MEDICAID, SELFPAY ==
[2023-09-21 12:41] VITALS: BP 118/78; PULSE 62; O2SAT 99; BMI 21.3
--- NOTE | 2023-09-21 12:41 | MHC.PC.OV ---
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 Accompanied by: Self / Same As Patient Allergies Penicillins [PCN] Allergy (Severe, Verified 09/21/23 13:02) dyspnea codeine [CODEINE] Allergy (Mild, Verified 09/21/23 13:02) VOMITING cefuroxime Allergy (Unknown, Verified 09/21/23 13:02) cefuroxime axetil- dyspnea morphine [MORPHINE] Allergy (Unknown, Verified 09/21/23 13:02) UNKNOWN Medication List - Last Reconciled 09/21/23 by Albert Chan MD apixaban (Eliquis) 5 mg PO BID carvedilol 3.125 mg PO BID cholecalciferol (vitamin D3) 25 mcg PO DAILY 90 days omeprazole 20 mg PO DAILY oxycodone 1 to 2 tablets orally 6 to 7 times a day as needed for severe pain (no more than 8 tablets per day) 28 days rosuvastatin 20 mg PO DAILY sacubitril-valsartan 24-26 mg (Entresto) 1 tab PO BID Tobacco use date assessed: 09/21/23 Fall risk assessment: No Falls in past year Last assessed Fall Risk: 09/21/23 Dental Screening Dental Screen Date: 09/21/23 Did you have a dental visit in the last 12 months?: No Did you have a dental problem in the last 6 months where you did not have access to dental care?: No Was dental information given to patient?: No HPI work comp 1 month HPI Details Patient comes in today for his?worker's comp follow up visit - these were interrupted since early last year when he was diagnosed with left-sided neck cancer States that he continues to experience increased pain (chronic) over his right inguinal area, and that his overall situation is mostly unchanged from previous States that his current pain meds (Oxycodone 15 mg) - dosed up to 6 to 7 times a day - is helping with his pain but sometimes barely He has no other acute issues or complaints related to his worker's comp case at present He denies any headaches or dizziness Denies any chest pains, no increased SOB No nausea/vomiting, no abdominal pain No change in bowel habits noted [facility] Medical History Dysphagia Vitamin D deficiency Peyronie's disease Essential hypertension NICM (nonischemic cardiomyopathy) Smoker Neuropathy Impaired fasting glucose Benign essential hypertension Pure hypercholesterolemia Systolic congestive heart failure Dilated cardiomyopathy secondary to alcohol COPD (chronic obstructive pulmonary disease) Paroxysmal atrial fibrillation Lumbar spondylosis Chronic pain of right inguinal region Lumbar radiculopathy Atrial fibrillation Surgical History Hx of colonoscopy (~03/26/17) History of percutaneous endoscopic gastrostomy History of tonsillectomy History of inguinal hernia repair Family History Father Cancer Mother CVD (cardiovascular disease) Social History Household Members: Family Housing: House Are you a primary child care attendant to a significant other at home: No Do you presently have visiting nurse or other home services: No Alcohol intake: never Patient Tobacco Use Status: Former Tobacco user Quit Date: 02/21/2022 Tobacco use type: Cigarette e-Cigarette/Vaping Use: Currently Using Second Hand Smoke Exposure: Yes service: Yes ([employer]) Current occupational status: retired 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 1. Little interest or pleasure in doing things: not at all 2. Feeling down, depressed, or hopeless: several days 3. Trouble falling or staying asleep, or sleeping too much: several days 4. Feeling tired or having little energy: several days 5. Poor appetite or overeating: more than half the days 6. Feeling bad about yourself - or that you are a failure or have let yourself or your family down: not at all 7. Trouble concentrating on things, such as reading the newspaper or watching television: not at all 8. Moving or speaking so slowly that other people could have noticed. Or the opposite - being so fidgety or restless that you have been moving around a lot more than usual: not at all 9. Thoughts that you would be better off or of hurting yourself in some way: not at all Total score: 5 Depression Screening Interpretation: Positive Depression Screening Follow-up: Existing condition and Declines treatment Depression Screening Done: Yes 73487 - PHQ-9 Billing: Yes Source: Developed by Drs. Yung Chlidress, Trish Prasad, Nelson Perez and colleagues, with an educational nan from [employer]. Thrive Questionnaire Date Thrive assessed: 09/21/23 I am a: Patient What is your living situation today?: I have a steady place to live Within the past 12 months, did the food you bought not last and you didn't have the money to get more?: Never true Within the past 12 months, did you worry whether your food would run out before you got money to buy more?: Never true Do you have trouble paying for medicines?: No Do you have trouble getting transportation to medical appointments?: No Do you have trouble paying your heating and electricity bill?: No Do you have trouble taking care of your child, family member or friend?: No Do you have trouble with day-to-day activities such as bathing, preparing meals, shopping, managing finances, etc.?: No Are you currently unemployed and looking for a job?: No Are you interested in more education?: No Please select the resources that you would like help with: None Currently or been in a relationship where the following occur: no concerns reported AUDIT C Alcohol Use Questionnaire (AUDIT-C) 1. How often do you have a drink containing alcohol?: Never 3. How often do you have six or more drinks on one occasion?: Never Total Score: 0 Score Reviewed/Action Taken: Yes FILIPE-7 AMB Questionnaire FILIPE-7 Date FILIPE - 7 assessed: 09/21/23 Feeling nervous, anxious, or on edge: 0 = Not at all Not being able to stop or control worryin = Not at all Worrying too much about different things: 0 = Not at all Trouble relaxin = Not at all Being so restless that it is hard to sit still: 0 = Not at all Becoming easily annoyed or irritable: 0 = Not at all Feeling afraid as if something awful might happen: 0 = Not at all Total FILIPE-7 score (0-4 normal; 5-9 mild; 10-14 moderate; 15-21 severe): 0 Source: Developed by Drs. Yung Childress, Trish Prasad, Nelson Perez and colleagues, with an educational nan from [employer]. Review of Systems Const Denies chills, Reports fatigue, Denies fever(s) and Denies headache(s) ENT Reports dysphagia, Denies dizziness, Reports dry mouth, Denies otalgia, Denies headache(s), Denies neck pain, Denies odynophagia and Denies sore throat Card Denies chest pain, Denies palpitations and Denies dyspnea Resp Denies cough and Denies dyspnea GI Denies abdominal pain (but (+) chronic increased pain over the right inguinal area), Denies constipation, Reports dysphagia, Denies heartburn, Denies diarrhea, Denies nausea, Denies odynophagia and Denies vomiting Denies dysuria, Denies nocturia and Denies urinary frequency Musc Reports back pain (occasional ) and Denies neck pain Neuro Denies dizziness, Denies headache(s) and Reports radicular pain (on the soles of both feet) Endo Reports fatigue and Denies palpitations Physical exam (Primary Care) Vital Signs: Last Vital Signs Pulse 62 09/21/23 12:41 BP 118/78 09/21/23 12:41 Pulse Ox 99 09/21/23 12:41 Oxygen Delivery Method Room Air 09/21/23 12:41 BMI result Body Mass Index 21.3 Tobacco/Smoking Status: Tobacco use Status Tobacco use date assessed 09/21/23 09/21/23 12:47 Patient Tobacco Use Status Former Tobacco user 09/21/23 12:47 Tobacco use type Cigarette 09/21/23 12:47 e-Cigarette/Vaping Use Currently Using 09/21/23 12:47 PHQ-9: PHQ-9 Score PHQ-9: Total score 5 09/21/23 12:47 Depression Screening Interpretation: Positive Depression Screening Follow-up: Existing condition and Declines treatment Thrive Assessment: Date of Thrive Assessment Date Thrive assessed 09/21/23 09/21/23 12:47 Currently or been in a relationship where the following occur: no concerns reported Const General: no acute distress and alert HENMT Ears: TM's normal bilaterally and EAC's normal Throat: Yes posterior oropharynx normal and Yes tonsils normal Neck Neck: Yes supple and No lymphadenopathy Resp Auscultation: clear to auscultation bilaterally, no rales and no wheezes Cardio Rate: regular rate Rhythm: regular rhythm Heart sounds: no murmurs GI Palpation (GI): Soft to palpation and Tenderness to palpation present (GI) (over the right inguinal area - chronic) Auscultation: normal bowel sounds Back/Spine/Pelvis Thoracic/Lumbar Spine: lumbar spinal tenderness (mild) Extrem General: Yes no clubbing, cyanosis or edema Assessment and Plan Assessment & Plan (1) Chronic pain of right inguinal region: Comment: (+) Post-herniorrhaphy syndrome - had right inguinal herniorrhaphy in the past and recovery was complicated with increased pain and adverse effects, resulting in chronic and worse pain States that his chronic pain has been adequately controlled on his current pain med regimen - this is a WORKER'S COMP - related issue Code(s): R10.31 - Right lower quadrant pain; G89.29 - Other chronic pain Plan: Continue Oxycodone 15 mg 1 to 2 tablets 6 to 7 times a day (no more than 8 tablets a day) as needed for severe pain (28 days, #224 tablets) and Tizanidine 4 mg TID PRN Plan Follow up in 4 months - follow up Coding Level of Care Code Est Pt Level 3 (57936) Diagnoses Chronic pain of right inguinal region R10.31; G89.29
== END 2023-09-21 13:14 | disposition home or self-care (01) ==
PROVIDERS: PCP Internal Medicine; Visit Provider Internal Medicine
DX: R10.31 Right lower quadrant pain (principal); G89.29 Other chronic pain; Z04.2 Encounter for examination and observation following work accident
CPT/HCPCS: 99213

== ENCOUNTER 2023-10-29 08:57 | Outpatient (REF) | payer OTHER, MEDICARE, MEDICAID, SELFPAY ==
[2023-10-29 09:13] LABS: MANUAL DIFF FLAG NO
[2023-10-29 09:51] LABS: Basophils Percent Auto 0.6 % (0-2); Eosinophils Absolute Auto 0.2 X10*3/uL (0.0-0.4); Eosinophils Percent Auto 3.2 % (0-4); Hematocrit 37.8 % (42.0-52.0); Hemoglobin 12.3 g/dl (14.0-18.0); Imm Gran Abs Auto 0.02 X10*3/uL (0.00-0.03); Imm Gran Pct Auto 0.4 % (0.0-0.4); Lymphocytes Absolute Auto 0.5 X10*3/uL (1.2-4.9); Lymphocytes Percent Auto 10.5 % (20-40); Mean Corpuscular HGB Conc 32.5 g/dl (31.0-36.0); Mean Corpuscular Hemoglobin 27.4 pg (27.0-33.0); Mean Corpuscular Volume 84.2 fL (80.0-98.0); Mean Platelet Volume 8.4 fL (9.4-12.4); Monocytes Absolute Auto 0.6 X10*3/uL (0.1-1.2); Monocytes Percent Auto 10.9 % (2-11); Neutrophils Absolute Auto 3.7 x10*3/uL (2.0-8.3); Neutrophils Percent Auto 74.4 % (45-73); Platelet Count 181 X10*3/uL (160-400); Red Blood Count 4.49 X10*6/uL (4.60-5.80); Red Cell Distribution Width 13.5 % (11.0-16.0)
[2023-10-29 10:02] LABS: Estimated Average Glucose 114 mg/dL; Hemoglobin A1c % 5.6 % (<6.0)
[2023-10-29 10:08] LABS: B Type Natriuretic Peptide 50 pg/mL (<100)
[2023-10-29 10:57] LABS: Alanine Aminotransferase 10 U/L (0-40); Albumin Level 4.2 g/dL (3.5-5.0); Alkaline Phosphatase 55 U/L (39-117); Anion Gap 10 (12-20); Aspartate Amino Transferase 14 U/L (5-37); Bilirubin Total 0.6 mg/dL (0.0-1.0); Blood Urea Nitrogen 13 mg/dL (9-16); Calcium 9.5 mg/dL (8.4-10.2); Carbon Dioxide 28 mmol/L (22-29); Chloride 105 mmol/L (96-108); Cholesterol 173 mg/dL (<200); Estimated Glomerular Filt Rate > 60; Glucose Fasting 103 mg/dL (60-99); HDL Cholesterol 45 mg/dL (>40); LDL Cholesterol Calculated 98 mg/dL (<100); Potassium 4.3 mmol/L (3.3-5.1); Sodium 139 mmol/L (135-145); Triglycerides 153 mg/dL (<150)
[2023-10-29 11:02] LABS: Vitamin D 25-OH Total 39.4 ng/mL (>30)
[2023-10-29 11:45] LABS: Appearance Urine Clear; Color Urine Yellow; Glucose Urine UA Negative (Negative); Leukocyte Esterase Urine Negative (Negative); Nitrite Urine Negative (Negative); Urine Blood Negative (Negative); Urine Ketones Negative (Negative); Urine Protein Negative (Neg-Trace)
== END 2023-10-29 08:58 | disposition home or self-care (01) ==
LOC: HO.LAB 08:57
PROVIDERS: PCP Internal Medicine; Visit Provider Internal Medicine
DX: I11.0 Hypertensive heart disease with heart failure (principal); I50.9 Heart failure, unspecified; E55.9 Vitamin D deficiency, unspecified; R73.01 Impaired fasting glucose; E78.00 Pure hypercholesterolemia, unspecified; R30.0 Dysuria
CPT/HCPCS: 36415; 80053; 80061; 81003; 82306; 83036; 83880; 85025

== ENCOUNTER 2023-11-01 13:58 | Outpatient (AMB) | payer MEDICARE, MEDICAID, SELFPAY ==
[2023-11-01 14:02] VITALS: BP 110/80; PULSE 67; O2SAT 97; BMI 22.3
--- NOTE | 2023-11-01 14:02 | A.OFFPC_ITS ---
Vital Signs 11/01/23 14:02 Height 5 ft 8 in Weight 147 lb BMI 22.3 BP 110/80 Blood Pressure Location Lt brachial Position Sitting Pulse 67 Pulse Source Pulse Oximeter Pulse Oximetry (%) 97 Oxygen Delivery Method Room Air Intake Visit Reasons: CHF, hyperlipidemia, COPD Survival Specialist Required: No Accompanied by: Self / Same As Patient Allergies Penicillins [PCN] Allergy (Severe, Verified 11/01/23 14:58) dyspnea codeine [CODEINE] Allergy (Mild, Verified 11/01/23 14:58) VOMITING cefuroxime Allergy (Unknown, Verified 11/01/23 14:58) cefuroxime axetil- dyspnea morphine [MORPHINE] Allergy (Unknown, Verified 11/01/23 14:58) UNKNOWN Medication List - Last Reconciled 11/01/23 by Albert Chan MD apixaban (Eliquis) 5 mg PO BID carvedilol 3.125 mg PO BID cholecalciferol (vitamin D3) 25 mcg PO DAILY 90 days omeprazole 20 mg PO DAILY oxycodone 1 to 2 tablets orally 6 to 7 times a day as needed for severe pain (no more than 8 tablets per day) 28 days rosuvastatin 20 mg PO DAILY sacubitril-valsartan 24-26 mg (Entresto) 1 tab PO BID Tobacco use date assessed: 11/01/23 Fall risk assessment: No Falls in past year Last assessed Fall Risk: 11/01/23 Dental Screening Dental Screen Date: 11/01/23 Did you have a dental visit in the last 12 months?: No Did you have a dental problem in the last 6 months where you did not have access to dental care?: No Was dental information given to patient?: No HPI CHF, hyperlipidemia, COPD HPI Details Patient comes in today for his follow up visit States that he continues to experience recurrent trouble swallowing in his throat area, mostly because of his dry mouth/throat symptoms Had esophageal dilatation with Dr. Hernández again in July 2023 and states that the procedure helped a lot as well States that he feels okay otherwise He denies any headaches; still has occasional dizziness mostly when he moves around too quickly He denies any chest pains, no SOB No nausea/vomiting, no abdominal pain No change in bowel habits noted States that his chronic right inguinal pain remains adequately controlled on his current meds and he's had no issues or side effects from his medication so far Had his follow up labs done a few days ago - to discuss his results [facility] Medical History Dysphagia Vitamin D deficiency Peyronie's disease Essential hypertension NICM (nonischemic cardiomyopathy) Smoker Neuropathy Impaired fasting glucose Benign essential hypertension Pure hypercholesterolemia Systolic congestive heart failure Dilated cardiomyopathy secondary to alcohol COPD (chronic obstructive pulmonary disease) Paroxysmal atrial fibrillation Lumbar spondylosis Chronic pain of right inguinal region Lumbar radiculopathy Atrial fibrillation Surgical History Hx of colonoscopy (~03/26/17) History of percutaneous endoscopic gastrostomy History of tonsillectomy History of inguinal hernia repair Family History Father Cancer Mother CVD (cardiovascular disease) Social History Household Members: Family Housing: House Are you a primary home care giver to a significant other at home: No Do you presently have visiting nurse or other home services: No Alcohol intake: never Patient Tobacco Use Status: Former Tobacco user Quit Date: 02/21/2022 Tobacco use type: Cigarette e-Cigarette/Vaping Use: Currently Using Second Hand Smoke Exposure: Yes service: Yes ([employer]) Current occupational status: retired Current occupation: [employer] Cognitive needs: No Hearing needs: No Vision needs: No Questionnaire PHQ-9 Over the last 2 weeks, how often have you been bothered by any of the following problems? 1. Little interest or pleasure in doing things: not at all 2. Feeling down, depressed, or hopeless: several days 3. Trouble falling or staying asleep, or sleeping too much: several days 4. Feeling tired or having little energy: several days 5. Poor appetite or overeating: more than half the days 6. Feeling bad about yourself - or that you are a failure or have let yourself or your family down: not at all 7. Trouble concentrating on things, such as reading the newspaper or watching television: not at all 8. Moving or speaking so slowly that other people could have noticed. Or the opposite - being so fidgety or restless that you have been moving around a lot more than usual: not at all 9. Thoughts that you would be better off or of hurting yourself in some way: not at all Total score: 5 Depression Screening Interpretation: Positive Depression Screening Follow-up: Existing condition and Declines treatment Depression Screening Done: Yes 78444 - PHQ-9 Billing: Yes Source: Developed by Drs. Yung Childress, Trish Prasad, Nelson Perez and colleagues, with an educational nan from [email or web address] Thrive Questionnaire Date Thrive assessed: 11/01/23 I am a: Patient What is your living situation today?: I have a steady place to live Within the past 12 months, did the food you bought not last and you didn't have the money to get more?: Never true Within the past 12 months, did you worry whether your food would run out before you got money to buy more?: Never true Do you have trouble paying for medicines?: No Do you have trouble getting transportation to medical appointments?: No Do you have trouble paying your heating and electricity bill?: No Do you have trouble taking care of your child, family member or friend?: No Do you have trouble with day-to-day activities such as bathing, preparing meals, shopping, managing finances, etc.?: No Are you currently unemployed and looking for a job?: No Are you interested in more education?: No Please select the resources that you would like help with: None Currently or been in a relationship where the following occur: no concerns reported AUDIT C Alcohol Use Questionnaire (AUDIT-C) 1. How often do you have a drink containing alcohol?: Never 3. How often do you have six or more drinks on one occasion?: Never Total Score: 0 Score Reviewed/Action Taken: Yes FILIPE-7 AMB Questionnaire FILIPE-7 Date FILIPE - 7 assessed: 11/01/23 Feeling nervous, anxious, or on edge: 0 = Not at all Not being able to stop or control worryin = Not at all Worrying too much about different things: 0 = Not at all Trouble relaxin = Not at all Being so restless that it is hard to sit still: 0 = Not at all Becoming easily annoyed or irritable: 0 = Not at all Feeling afraid as if something awful might happen: 0 = Not at all Total FILIPE-7 score (0-4 normal; 5-9 mild; 10-14 moderate; 15-21 severe): 0 Source: Developed by Drs. Yung Childress, Trish Prasad, Nelson Perez and colleagues, with an educational nan from [email or web address] Review of Systems Const Denies chills, Reports fatigue, Denies fever(s) and Denies headache(s) ENT Reports dysphagia (mild, mostly due to dry throat symptoms), Reports dizziness (occasionally, mostly when he moves too fast), Reports dry mouth (and dry throat), Denies otalgia, Denies headache(s), Denies neck pain, Denies odynophagia and Denies sore throat Card Denies chest pain, Denies palpitations and Denies dyspnea Resp Denies cough, Denies dyspnea and Denies wheezing GI Denies abdominal pain (but (+) chronic increased pain over the right inguinal area), Denies constipation, Reports dysphagia (mild, mostly due to dry throat symptoms), Denies heartburn, Denies diarrhea, Denies nausea, Denies odynophagia and Denies vomiting Denies dysuria, Denies nocturia and Denies urinary frequency Musc Reports back pain (occasional ) and Denies neck pain Neuro Reports dizziness (occasionally, mostly when he moves too fast), Denies headache(s) and Reports radicular pain (on the soles of both feet) Endo Reports fatigue and Denies palpitations Aller/Immun Denies wheezing Physical exam (Primary Care) Vital Signs: Last Vital Signs Pulse 67 11/01/23 14:02 BP 110/80 11/01/23 14:02 Pulse Ox 97 11/01/23 14:02 Oxygen Delivery Method Room Air 11/01/23 14:02 BMI result Body Mass Index 22.3 Tobacco/Smoking Status: Tobacco use Status Tobacco use date assessed 11/01/23 11/01/23 14:04 Patient Tobacco Use Status Former Tobacco user 11/01/23 14:04 Tobacco use type Cigarette 11/01/23 14:04 e-Cigarette/Vaping Use Currently Using 11/01/23 14:04 PHQ-9: PHQ-9 Score PHQ-9: Total score 5 11/01/23 14:13 Depression Screening Interpretation: Positive Depression Screening Follow-up: Existing condition and Declines treatment Thrive Assessment: Date of Thrive Assessment Date Thrive assessed 11/01/23 11/01/23 14:04 Currently or been in a relationship where the following occur: no concerns reported Const General: no acute distress and alert HENMT Ears: TM's normal bilaterally and EAC's normal Throat: Yes posterior oropharynx normal and Yes tonsils normal Neck Neck: Yes supple and No lymphadenopathy Resp Auscultation: clear to auscultation bilaterally, no rales and no wheezes Cardio Rate: regular rate Rhythm: regular rhythm Heart sounds: no murmurs GI Palpation (GI): Soft to palpation and Tenderness to palpation present (GI) (over the right inguinal area - chronic) Auscultation: normal bowel sounds Back/Spine/Pelvis Thoracic/Lumbar Spine: lumbar spinal tenderness (mild) Extrem General: Yes no clubbing, cyanosis or edema Results Reviewed Results Reviewed: Laboratory Tests 10/29/23 10/29/23 10/29/23 09:10 09:10 11:10 WBC 5.0 Hgb 12.3 L Hct 37.8 L Plt Count 181 Sodium 139 Potassium 4.3 Creatinine 1.06 Estimated GFR > 60 Fasting Glucose 103 H Hemoglobin A1c % 5.6 Calcium 9.5 D AST 14 ALT 10 B-Natriuretic Peptide 50 Triglycerides 153 H Cholesterol 173 LDL Cholesterol, Calc 98 HDL Cholesterol 45 25-OH Vitamin D Total 39.4 Ur Specific [place] 1.010 Urine Protein Negative Urine Glucose (UA) Negative Urine Blood Negative Assessment and Plan Assessment & Plan (1) 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 Diop and completed Cisplatin-based chemotherapy and concurrent radiation therapy in June 2022 (05/11/2022 to 06/30/2022) Follow up with oncology and ENT as scheduled for continuing management/treatment and surveillance - states that he is scheduled for another follow up PET / CT again in a couple of months (December 2023) (2) Dysphagia: Code(s): R13.10 - Dysphagia, unspecified Qualifiers: Dysphagia type: unspecified Qualified Code(s): R13.10 - Dysphagia, unspecified Plan: Patient continues to complain of dysphagia, dysgeusia and dry throat symptoms Underwent esophageal dilation with Dr. Hernández on 10/27/22, in March 2023 and more recently in July 2023; patient states that dilation helps temporarily with his symptoms Follow up with ENT and with Dr. Hernández as scheduled (3) Paroxysmal atrial fibrillation: Code(s): I48.0 - Paroxysmal atrial fibrillation Plan: Patient currently remains in sinus rhythm Continue Eliquis 5 mg twice a day for thromboembolism prophylaxis Follow-up with cardiology as scheduled (4) Dilated cardiomyopathy secondary to alcohol: Code(s): I42.6 - Alcoholic cardiomyopathy Plan: Continue Entresto 24-26 mg 1 tablet BID Follow up with cardiology as scheduled (5) Systolic congestive heart failure: Comment: Echocardiogram done on 05/03/2018 showed visually estimated EF between 30-35% with an impaired relaxation filling pattern. Cardiac valvular dopplers and RV systolic pressure were all within normal range. Repeat echocardiogram on 03/12/21 revealed (+) normal LV cavity size, with mildly increased LV wall thickness. LV systolic function is low normal and visually estimated EF is between 50 to 55%. Diastolic function is normal for age. Code(s): I50.20 - Unspecified systolic (congestive) heart failure Qualifiers: Heart failure chronicity: unspecified Qualified Code(s): I50.20 - Unspecified systolic (congestive) heart failure Plan: Cardiac function appears to have improved significantly with treatment over the past few years and patient current appears compensated His recent BNP level came back normal Continue Entresto 24-26 mg 1 tablet BID and Carvedilol 3.125 mg BID Follow up with Cardiology as scheduled (6) Pure hypercholesterolemia: Code(s): E78.00 - Pure hypercholesterolemia, unspecified Plan: Results of his labs done a few days ago reviewed and discussed with patient - cautioned that his serum triglycerides have increased from previous Reinforced low cholesterol diet Continue Rosuvastatin 20 mg QD Will recheck his labs and fasting lipids in 3 months for follow up (7) Benign essential hypertension: Code(s): I10 - Essential (primary) hypertension Plan: Reinforced low sodium diet - goal is systolic BP of at least 120-130 mm or less Continue Carvedilol 3.125 mg 1 tablet BID; is also on Entresto 24-26 mg BID (8) Impaired fasting glucose: Code(s): R73.01 - Impaired fasting glucose Plan: HgbA1c was at 5.6% on his labs done a few days ago; was previously at 5.0% a few months ago Reinforced low calorie diet /exercise as tolerated (9) COPD (chronic obstructive pulmonary disease): Code(s): J44.9 - Chronic obstructive pulmonary disease, unspecified Qualifiers: COPD type: unspecified COPD Qualified Code(s): J44.9 - Chronic obstructive pulmonary disease, unspecified Plan: Continue Albuterol HFA 2 puffs 4 times a day as needed (10) Chronic pain of right inguinal region: Comment: (+) Post-herniorrhaphy syndrome - had right inguinal herniorrhaphy in the past and recovery was complicated with increased pain and adverse effects, resulting in chronic and worse pain States that his chronic pain has been adequately controlled on his current pain med regimen - this is a WORKER'S COMP - related issue Code(s): R10.31 - Right lower quadrant pain; G89.29 - Other chronic pain Plan: Continue Oxycodone 15 mg 1 to 2 tablets 6 tro 7 times a day as needed for severe pain (no more than 8 tablets/day), 28 days, # 224 tablets, refills 0 (11) Lumbar spondylosis: Code(s): M47.816 - Spondylosis without myelopathy or radiculopathy, lumbar region Plan: Reinforced activity and weight-lifting restrictions (12) Neuropathy: Code(s): G62.9 - Polyneuropathy, unspecified Plan: Symptoms remain tolerable lately Could not tolerate Gabapentin in the past and Amitriptyline did not help him much (13) Vitamin D deficiency: Code(s): E55.9 - Vitamin D deficiency, unspecified Plan: Continue Vitamin D3 1000 units QD Plan Follow up in 3 months Orders: Orders Complete Blood Count Auto Diff 3 Months I10 - Essential (primary) hypertension Lipid Panel 3 Months E78.00 - Pure hypercholesterolemia, unspecified Hemoglobin A1c 3 Months R73.01 - Impaired fasting glucose Comprehensive [place]. 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
== END 2023-11-01 14:59 | disposition home or self-care (01) ==
PROVIDERS: PCP Internal Medicine; Visit Provider Internal Medicine
DX: C77.9 Secondary and unspecified malignant neoplasm of lymph node, unspecified (principal); C80.1 Malignant (primary) neoplasm, unspecified; I48.0 Paroxysmal atrial fibrillation; I42.6 Alcoholic cardiomyopathy; I50.20 Unspecified systolic (congestive) heart failure; R13.10 Dysphagia, unspecified; E78.00 Pure hypercholesterolemia, unspecified; I10 Essential (primary) hypertension; R73.01 Impaired fasting glucose; J44.9 Chronic obstructive pulmonary disease, unspecified; R10.31 Right lower quadrant pain; G89.29 Other chronic pain
CPT/HCPCS: 99214

== ENCOUNTER 2024-01-21 14:13 | Outpatient (AMB) | payer OTHER, MEDICARE, MEDICAID, SELFPAY ==
--- NOTE | 2024-01-21 14:29 | MHC.PC.OV ---
Vital Signs 01/21/24 14:44 Height 5 ft 8 in Weight 146 lb 6 oz BMI 22.3 BP 110/62 Blood Pressure Location Lt brachial Position Sitting Respiration 16 Pulse 62 Pulse Source Pulse Oximeter Pulse Oximetry (%) 98 Oxygen Delivery Method Room Air Intake Visit Reasons: worker's comp follow up Book Binder Required: No Accompanied by: Self / Same As Patient Allergies Penicillins [PCN] Allergy (Severe, Verified 01/21/24 14:57) dyspnea codeine [CODEINE] Allergy (Mild, Verified 01/21/24 14:57) VOMITING cefuroxime Allergy (Unknown, Verified 01/21/24 14:57) cefuroxime axetil- dyspnea morphine [MORPHINE] Allergy (Unknown, Verified 01/21/24 14:57) UNKNOWN Medication List - Last Reconciled 01/21/24 by Albert Chan MD apixaban (Eliquis) 5 mg PO BID carvedilol 3.125 mg PO BID cholecalciferol (vitamin D3) 25 mcg PO DAILY 90 days omeprazole 20 mg PO DAILY oxycodone 1 to 2 tablets orally 6 to 7 times a day as needed for severe pain (no more than 8 tablets per day) 28 days rosuvastatin 20 mg PO DAILY sacubitril-valsartan 24-26 mg (Entresto) 1 tab PO BID Tobacco use date assessed: 01/21/24 Fall risk assessment: No Falls in past year Last assessed Fall Risk: 01/21/24 Dental Screening Dental Screen Date: 01/21/24 Did you have a dental visit in the last 12 months?: No Did you have a dental problem in the last 6 months where you did not have access to dental care?: No Was dental information given to patient?: No HPI worker's comp follow up HPI Details Patient comes in today for his?worker's comp follow up visit States that he continues to experience increased pain (chronic) over his right inguinal area, and that his overall situation is mostly unchanged from previous States that his current pain med (Oxycodone 15 mg dosed up to 6 to 7 times a day) is mostly helping adequately with his pain He has no other acute issues or complaints related to his worker's comp case at present He denies any headaches or dizziness Denies any chest pains, no increased SOB No nausea/vomiting, no abdominal pain No change in bowel habits noted [facility] Medical History Dysphagia Vitamin D deficiency Peyronie's disease Essential hypertension NICM (nonischemic cardiomyopathy) Smoker Neuropathy Impaired fasting glucose Benign essential hypertension Pure hypercholesterolemia Systolic congestive heart failure Dilated cardiomyopathy secondary to alcohol COPD (chronic obstructive pulmonary disease) Paroxysmal atrial fibrillation Lumbar spondylosis Chronic pain of right inguinal region Lumbar radiculopathy Atrial fibrillation Surgical History Hx of colonoscopy (~03/26/17) History of percutaneous endoscopic gastrostomy History of tonsillectomy History of inguinal hernia repair Family History Father Cancer Mother CVD (cardiovascular disease) Social History Household Members: Family Housing: House Are you a primary care professionals to a significant other at home: No Do you presently have visiting nurse or other home services: No Alcohol intake: never Patient Tobacco Use Status: Former Tobacco user Quit Date: 02/21/2022 Tobacco use type: Cigarette e-Cigarette/Vaping Use: Currently Using Second Hand Smoke Exposure: Yes service: Yes ([employer]) Current occupational status: retired 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 1. Little interest or pleasure in doing things: not at all 2. Feeling down, depressed, or hopeless: not at all 3. Trouble falling or staying asleep, or sleeping too much: not at all 4. Feeling tired or having little energy: not at all 5. Poor appetite or overeating: not at all 7. Trouble concentrating on things, such as reading the newspaper or watching television: not at all 8. Moving or speaking so slowly that other people could have noticed. Or the opposite - being so fidgety or restless that you have been moving around a lot more than usual: not at all 9. Thoughts that you would be better off or of hurting yourself in some way: not at all Depression Screening Interpretation: Negative Depression Screening Done: Yes 84662 - PHQ-9 Billing: Yes Source: Developed by Trish Doshi Kurt Kroenke and colleagues, with an educational nan from [employer]. Thrive Questionnaire Date Thrive assessed: 01/21/24 I am a: Patient What is your living situation today?: I have a steady place to live Within the past 12 months, did the food you bought not last and you didn't have the money to get more?: Never true Within the past 12 months, did you worry whether your food would run out before you got money to buy more?: Never true Do you have trouble paying for medicines?: No Do you have trouble getting transportation to medical appointments?: No Do you have trouble paying your heating and electricity bill?: No Do you have trouble taking care of your child, family member or friend?: No Do you have trouble with day-to-day activities such as bathing, preparing meals, shopping, managing finances, etc.?: No Are you currently unemployed and looking for a job?: No Are you interested in more education?: No Please select the resources that you would like help with: None Currently or been in a relationship where the following occur: no concerns reported THRIVE Score: 0 AUDIT C Alcohol Use Questionnaire (AUDIT-C) 1. How often do you have a drink containing alcohol?: Never 3. How often do you have six or more drinks on one occasion?: Never Total Score: 0 Score Reviewed/Action Taken: Yes FILIPE-7 AMB Questionnaire FILIPE-7 Date FILIPE - 7 assessed: 01/21/24 Feeling nervous, anxious, or on edge: 0 = Not at all Not being able to stop or control worryin = Not at all Worrying too much about different things: 0 = Not at all Trouble relaxin = Not at all Being so restless that it is hard to sit still: 0 = Not at all Becoming easily annoyed or irritable: 0 = Not at all Feeling afraid as if something awful might happen: 0 = Not at all Total FILIPE-7 score (0-4 normal; 5-9 mild; 10-14 moderate; 15-21 severe): 0 Source: Developed by Trish Doshi Kurt Kroenke and colleagues, with an educational nan from [employer]. FILIPE-7 Assessment Billing FILIPE-7 Assessment Tool: FILIPE-7 Assessment 37708 Review of Systems Const Reports fatigue, Denies fever(s) and Denies headache(s) ENT Reports dysphagia, Denies dizziness, Reports dry mouth, Denies headache(s), Denies neck pain, Denies odynophagia and Denies sore throat Card Denies chest pain, Denies palpitations and Denies dyspnea Resp Denies cough and Denies dyspnea GI Denies abdominal pain (but (+) chronic increased pain over the right inguinal area), Denies constipation, Reports dysphagia, Denies heartburn, Denies diarrhea, Denies nausea, Denies odynophagia and Denies vomiting Denies dysuria, Denies nocturia and Denies urinary frequency Musc Reports back pain (occasional ) and Denies neck pain Skin/Breast Denies rash Neuro Denies dizziness, Denies headache(s) and Reports radicular pain (on the soles of both feet) Endo Reports fatigue and Denies palpitations Physical exam (Primary Care) Vital Signs: Last Vital Signs Pulse 62 01/21/24 14:44 Resp 16 01/21/24 14:44 BP 110/62 01/21/24 14:44 Pulse Ox 98 01/21/24 14:44 Oxygen Delivery Method Room Air 01/21/24 14:44 BMI result Body Mass Index 22.3 Tobacco/Smoking Status: Tobacco use Status Tobacco use date assessed 01/21/24 01/21/24 14:49 Patient Tobacco Use Status Former Tobacco user 01/21/24 14:30 Tobacco use type Cigarette 01/21/24 14:30 e-Cigarette/Vaping Use Currently Using 01/21/24 14:30 Depression Screening Interpretation: Negative Thrive Assessment: Date of Thrive Assessment Date Thrive assessed 01/21/24 01/21/24 14:49 Currently or been in a relationship where the following occur: no concerns reported Const General: no acute distress and alert HENMT Ears: TM's normal bilaterally and EAC's normal Throat: Yes posterior oropharynx normal and Yes tonsils normal Neck Neck: Yes supple and No lymphadenopathy Resp Auscultation: clear to auscultation bilaterally, no rales and no wheezes Cardio Rate: regular rate Rhythm: regular rhythm Heart sounds: no murmurs GI Palpation (GI): Soft to palpation and Tenderness to palpation present (GI) (over the right inguinal area - chronic) Auscultation: normal bowel sounds Back/Spine/Pelvis Thoracic/Lumbar Spine: lumbar spinal tenderness (mild) Extrem General: Yes no clubbing, cyanosis or edema Assessment and Plan Assessment & Plan (1) Chronic pain of right inguinal region: Comment: (+) Post-herniorrhaphy syndrome - had right inguinal herniorrhaphy in the past and recovery was complicated with increased pain and adverse effects, resulting in chronic and worse pain States that his chronic pain has been adequately controlled on his current pain med regimen - this is a WORKER'S COMP - related issue Code(s): R10.31 - Right lower quadrant pain; G89.29 - Other chronic pain Plan: Continue Oxycodone 15 mg 1 to 2 tablets 6 to 7 times a day (no more than 8 tablets a day) as needed for severe pain (28 days, #224 tablets) and Tizanidine 4 mg TID PRN Plan Follow up in 4 months - follow up Coding Level of Care Code Est Pt Level 3 (09039) Diagnoses Chronic pain of right inguinal region R10.31; G89.29 Additional Codes FILIPE-7 Assessment Billing - FILIPE-7 Assessment Tool: FILIPE-7 Assessment 33594 ([id number])
[2024-01-21 14:44] VITALS: BP 110/62; PULSE 62; RESP 16; O2SAT 98; BMI 22.3
== END 2024-01-21 15:04 | disposition home or self-care (01) ==
PROVIDERS: PCP Internal Medicine; Visit Provider Internal Medicine
DX: R10.31 Right lower quadrant pain (principal); G89.29 Other chronic pain
CPT/HCPCS: 99213

== ENCOUNTER 2024-01-26 09:33 | Outpatient (REF) | payer MEDICARE, MEDICAID, SELFPAY ==
[2024-01-26 11:18] LABS: MANUAL DIFF FLAG NO
[2024-01-26 11:22] LABS: Basophils Absolute Auto 0.1 X10*3/uL (0.0-0.2); Basophils Percent Auto 1.2 % (0-2); Eosinophils Absolute Auto 0.2 X10*3/uL (0.0-0.4); Eosinophils Percent Auto 3.7 % (0-4); Hematocrit 36.6 % (42.0-52.0); Imm Gran Abs Auto 0.02 X10*3/uL (0.00-0.03); Imm Gran Pct Auto 0.5 % (0.0-0.4); Lymphocytes Absolute Auto 0.9 X10*3/uL (1.2-4.9); Lymphocytes Percent Auto 20.5 % (20-40); Mean Corpuscular HGB Conc 32.8 g/dl (31.0-36.0); Mean Corpuscular Hemoglobin 27.3 pg (27.0-33.0); Mean Corpuscular Volume 83.2 fL (80.0-98.0); Mean Platelet Volume 8.6 fL (9.4-12.4); Monocytes Absolute Auto 0.5 X10*3/uL (0.1-1.2); Monocytes Percent Auto 11.6 % (2-11); Neutrophils Absolute Auto 2.7 x10*3/uL (2.0-8.3); Neutrophils Percent Auto 62.5 % (45-73); Platelet Count 204 X10*3/uL (160-400); Red Cell Distribution Width 13.3 % (11.0-16.0); White Blood Count 4.3 X10*3/uL (4.8-10.8)
[2024-01-26 12:30] LABS: Alanine Aminotransferase 7 U/L (0-40); Albumin Level 4.3 g/dL (3.5-5.0); Alkaline Phosphatase 56 U/L (39-117); Anion Gap 10 (12-20); Aspartate Amino Transferase 12 U/L (5-37); Bilirubin Total 0.4 mg/dL (0.0-1.0); Blood Urea Nitrogen 12 mg/dL (9-16); Calcium 9.5 mg/dL (8.4-10.2); Carbon Dioxide 26 mmol/L (22-29); Chloride 105 mmol/L (96-108); Cholesterol 176 mg/dL (<200); Estimated Glomerular Filt Rate > 60; Glucose Fasting 102 mg/dL (60-99); HDL Cholesterol 45 mg/dL (>40); LDL Cholesterol Calculated 108 mg/dL (<100); Potassium 3.8 mmol/L (3.3-5.1); Sodium 137 mmol/L (135-145); TSH reflex Free T4 3.39 uIU/mL (0.32-4.0); Total Protein 7.1 g/dL (6.5-8.0); Triglycerides 115 mg/dL (<150); Vitamin D 25-OH Total 41.9 ng/mL (>30)
[2024-01-26 12:54] LABS: Estimated Average Glucose 108 mg/dL; Hemoglobin A1c % 5.4 % (<6.0)
[2024-01-26 13:48] LABS: Appearance Urine Clear; Color Urine Yellow; Glucose Urine UA Negative (Negative); Leukocyte Esterase Urine Negative (Negative); Nitrite Urine Negative (Negative); PH 5.5 (5.0-9.0); Urine Blood Negative (Negative); Urine Ketones Negative (Negative); Urine Protein Negative (Neg-Trace)
== END 2024-01-26 09:34 | disposition home or self-care (01) ==
LOC: HO.HMGCLDS 09:33
PROVIDERS: PCP Internal Medicine; Visit Provider Internal Medicine
DX: I10 Essential (primary) hypertension (principal); E55.9 Vitamin D deficiency, unspecified; R30.0 Dysuria; E78.00 Pure hypercholesterolemia, unspecified; R73.01 Impaired fasting glucose
CPT/HCPCS: 36415; 80053; 80061; 81003; 82306; 83036; 84443; 85025

== ENCOUNTER 2024-01-31 14:17 | Outpatient (AMB) | payer MEDICARE, MEDICAID, SELFPAY ==
[2024-01-31 14:20] VITALS: BP 116/64; PULSE 63; O2SAT 99; BMI 22.4
--- NOTE | 2024-01-31 14:20 | MHC.PC.OV ---
Vital Signs 01/31/24 14:20 Height 5 ft 8 in Weight 147 lb 0.2 oz BMI 22.4 BP 116/64 Blood Pressure Location Lt brachial Position Sitting Pulse 63 Pulse Source Pulse Oximeter Temp Source Skin Pulse Oximetry (%) 99 Oxygen Delivery Method Room Air Intake Visit Reasons: 3MTH F/U [employer] Required: No Allergies Penicillins [PCN] Allergy (Severe, Verified 01/31/24 14:49) dyspnea codeine [CODEINE] Allergy (Mild, Verified 01/31/24 14:49) VOMITING cefuroxime Allergy (Unknown, Verified 01/31/24 14:49) cefuroxime axetil- dyspnea morphine [MORPHINE] Allergy (Unknown, Verified 01/31/24 14:49) UNKNOWN Medication List - Last Reconciled 01/31/24 by Albert Chan MD apixaban (Eliquis) 5 mg PO BID carvedilol 3.125 mg PO BID cholecalciferol (vitamin D3) 25 mcg PO DAILY 90 days omeprazole 20 mg PO DAILY oxycodone 1 to 2 tablets orally 6 to 7 times a day as needed for severe pain (no more than 8 tablets per day) 28 days rosuvastatin 20 mg PO DAILY sacubitril-valsartan 24-26 mg (Entresto) 1 tab PO BID Tobacco use date assessed: 01/31/24 Fall risk assessment: No Falls in past year Last assessed Fall Risk: 01/31/24 HPI 3MTH F/U HPI Details Patient comes in today for his follow up visit States that he feels okay Still has some recurrent trouble swallowing that is mostly due to his dry mouth/throat symptoms Had esophageal dilatation last done with Dr. Hernández in July 2023 - relates that the procedure helped a lot and he will get the dilation done again on an as needed basis He denies any headaches or dizziness He denies any chest pains, no SOB No nausea/vomiting, no abdominal pain No change in bowel habits noted States that his chronic right inguinal pain remains adequately controlled on his current meds and he's had no issues so far from his medication Had his follow up labs done last week - to discuss his results REPLACED BY [facility] Medical History Dysphagia Vitamin D deficiency Peyronie's disease Essential hypertension NICM (nonischemic cardiomyopathy) Smoker Neuropathy Impaired fasting glucose Benign essential hypertension Pure hypercholesterolemia Systolic congestive heart failure Dilated cardiomyopathy secondary to alcohol COPD (chronic obstructive pulmonary disease) Paroxysmal atrial fibrillation Lumbar spondylosis Chronic pain of right inguinal region Lumbar radiculopathy Atrial fibrillation Surgical History Hx of colonoscopy (~03/26/17) History of percutaneous endoscopic gastrostomy History of tonsillectomy History of inguinal hernia repair Family History Father Cancer Mother CVD (cardiovascular disease) Social History Household Members: Family Housing: House Are you a primary healthcare manager to a significant other at home: No Do you presently have visiting nurse or other home services: No Alcohol intake: never Patient Tobacco Use Status: Former Tobacco user Quit Date: 02/21/2022 Tobacco use type: Cigarette e-Cigarette/Vaping Use: Currently Using Second Hand Smoke Exposure: Yes service: Yes ([employer]) Current occupational status: retired 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 1. Little interest or pleasure in doing things: not at all 2. Feeling down, depressed, or hopeless: not at all 3. Trouble falling or staying asleep, or sleeping too much: not at all 4. Feeling tired or having little energy: not at all 5. Poor appetite or overeating: not at all 6. Feeling bad about yourself - or that you are a failure or have let yourself or your family down: not at all 7. Trouble concentrating on things, such as reading the newspaper or watching television: not at all 8. Moving or speaking so slowly that other people could have noticed. Or the opposite - being so fidgety or restless that you have been moving around a lot more than usual: not at all 9. Thoughts that you would be better off or of hurting yourself in some way: not at all Total score: 0 Depression Screening Interpretation: Negative Depression Screening Done: Yes [id number] - PHQ-9 Billing: Yes Source: Developed by Drs. Yung Childress, Trish Prasad, Nelson Perez and colleagues, with an educational nan from [employer]. Thrive Questionnaire Date Thrive assessed: 01/31/24 I am a: Patient What is your living situation today?: I have a steady place to live Within the past 12 months, did the food you bought not last and you didn't have the money to get more?: Never true Within the past 12 months, did you worry whether your food would run out before you got money to buy more?: Never true Do you have trouble paying for medicines?: No Do you have trouble getting transportation to medical appointments?: No Do you have trouble paying your heating and electricity bill?: No Do you have trouble taking care of your child, family member or friend?: No Do you have trouble with day-to-day activities such as bathing, preparing meals, shopping, managing finances, etc.?: No Are you currently unemployed and looking for a job?: No Are you interested in more education?: No Please select the resources that you would like help with: None Currently or been in a relationship where the following occur: no concerns reported THRIVE Score: 0 AUDIT C Alcohol Use Questionnaire (AUDIT-C) 1. How often do you have a drink containing alcohol?: Never 3. How often do you have six or more drinks on one occasion?: Never Total Score: 0 Score Reviewed/Action Taken: Yes FILIPE-7 AMB Questionnaire FILIPE-7 Date FILIPE - 7 assessed: 01/21/24 Source: Developed by Drs. Yung Childress, Trish Prasad, Nelson Perez and colleagues, with an educational nan from [employer]. Review of Systems Const Denies chills, Reports fatigue, Denies fever(s) and Denies headache(s) ENT Reports dysphagia, Denies dizziness, Reports dry mouth, Denies headache(s), Denies neck pain, Denies odynophagia and Denies sore throat Card Denies chest pain, Denies palpitations and Denies dyspnea Resp Denies cough and Denies dyspnea GI Denies abdominal pain (but (+) chronic increased pain over the right inguinal area), Denies constipation, Reports dysphagia, Denies heartburn, Denies diarrhea, Denies nausea, Denies odynophagia and Denies vomiting Denies dysuria, Denies nocturia and Denies urinary frequency Musc Reports back pain (occasional ) and Denies neck pain Skin/Breast Denies rash Neuro Denies dizziness, Denies headache(s) and Reports radicular pain (on the soles of both feet) Endo Reports fatigue and Denies palpitations Physical exam (Primary Care) Vital Signs: Last Vital Signs Pulse 63 01/31/24 14:20 BP 116/64 01/31/24 14:20 Pulse Ox 99 01/31/24 14:20 Oxygen Delivery Method Room Air 01/31/24 14:20 BMI result Body Mass Index 22.4 Tobacco/Smoking Status: Tobacco use Status Tobacco use date assessed 01/31/24 01/31/24 14:21 Patient Tobacco Use Status Former Tobacco user 01/31/24 14:21 Tobacco use type Cigarette 01/31/24 14:21 e-Cigarette/Vaping Use Currently Using 01/31/24 14:21 Depression Screening Interpretation: Negative Thrive Assessment: Date of Thrive Assessment Date Thrive assessed 01/21/24 01/31/24 14:21 Currently or been in a relationship where the following occur: no concerns reported Const General: no acute distress and alert HENMT Ears: TM's normal bilaterally and EAC's normal Throat: Yes posterior oropharynx normal and Yes tonsils normal Neck Neck: Yes supple and No lymphadenopathy Resp Auscultation: clear to auscultation bilaterally, no rales and no wheezes Cardio Rate: regular rate Rhythm: regular rhythm Heart sounds: no murmurs GI Palpation (GI): Soft to palpation and Tenderness to palpation present (GI) (over the right inguinal area - chronic) Auscultation: normal bowel sounds General: Yes no CVA tenderness Back/Spine/Pelvis Back: no CVA tenderness Thoracic/Lumbar Spine: lumbar spinal tenderness (mild) Skin Rashes: no rashes Extrem General: Yes no clubbing, cyanosis or edema Results Reviewed Results Reviewed: Laboratory Tests 01/26/24 09:40 WBC 4.3 L Hgb 12.0 L Hct 36.6 L Plt Count 204 Sodium 137 Potassium 3.8 Creatinine 1.09 Estimated GFR > 60 Fasting Glucose 102 H Hemoglobin A1c % 5.4 Calcium 9.5 AST 12 ALT 7 Triglycerides 115 Cholesterol 176 LDL Cholesterol, Calc 108 H HDL Cholesterol 45 25-OH Vitamin D Total 41.9 TSH 3.39 Ur Specific [place] 1.010 Urine Protein Negative Urine Glucose (UA) Negative Urine Blood Negative Urine Nitrite Negative Ur Leukocyte Esterase Negative Assessment and Plan Assessment & Plan (1) 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 Diop and completed Cisplatin-based chemotherapy and concurrent radiation therapy in June 2022 (05/11/2022 to 06/30/2022) Follow up with oncology and ENT as scheduled for continuing management/treatment and surveillance - states that he is scheduled for another follow up PET / CT again soon (2) Dysphagia: Code(s): R13.10 - Dysphagia, unspecified Qualifiers: Dysphagia type: unspecified Qualified Code(s): R13.10 - Dysphagia, unspecified Plan: Patient continues to complain of dysphagia, dysgeusia and dry throat symptoms Underwent esophageal dilation with Dr. Hernández on 10/27/22, in March 2023 and more recently in July 2023; patient states that dilation helped temporarily with his symptoms Follow up with ENT and with Dr. Hernández as scheduled (3) Paroxysmal atrial fibrillation: Code(s): I48.0 - Paroxysmal atrial fibrillation Plan: Patient currently remains in sinus rhythm Continue Eliquis 5 mg twice a day for thromboembolism prophylaxis Follow-up with cardiology as scheduled (4) Dilated cardiomyopathy secondary to alcohol: Code(s): I42.6 - Alcoholic cardiomyopathy Plan: Continue Entresto 24-26 mg 1 tablet BID Follow up with cardiology as scheduled (5) Systolic congestive heart failure: Comment: Echocardiogram done on 05/03/2018 showed visually estimated EF between 30-35% with an impaired relaxation filling pattern. Cardiac valvular dopplers and RV systolic pressure were all within normal range. Repeat echocardiogram on 03/12/21 revealed (+) normal LV cavity size, with mildly increased LV wall thickness. LV systolic function is low normal and visually estimated EF is between 50 to 55%. Diastolic function is normal for age. Code(s): I50.20 - Unspecified systolic (congestive) heart failure Qualifiers: Heart failure chronicity: unspecified Qualified Code(s): I50.20 - Unspecified systolic (congestive) heart failure Plan: Cardiac function appears to have improved significantly with treatment over the past few years and patient current appears compensated His recent BNP level came back normal Continue Entresto 24-26 mg 1 tablet BID and Carvedilol 3.125 mg BID Follow up with Cardiology as scheduled (6) Benign essential hypertension: Code(s): I10 - Essential (primary) hypertension Plan: Reinforced low sodium diet - goal is systolic BP of at least 120-130 mm or less Continue Carvedilol 3.125 mg 1 tablet BID; he is also on Entresto 24-26 mg BID (7) Pure hypercholesterolemia: Code(s): E78.00 - Pure hypercholesterolemia, unspecified Plan: Results of his labs done last week reviewed and discussed with patient - cautioned that his LDL cholesterol level has been slowly and steadily going up over the past few months Reinforced low cholesterol diet Continue Rosuvastatin 20 mg QD Will recheck his labs and fasting lipids in 3 months for follow up (8) Impaired fasting glucose: Code(s): R73.01 - Impaired fasting glucose Plan: HgbA1c was at 5.4% on his labs done last week; was previously at 5.6% a few months ago Reinforced low calorie diet /exercise as tolerated (9) COPD (chronic obstructive pulmonary disease): Code(s): J44.9 - Chronic obstructive pulmonary disease, unspecified Qualifiers: COPD type: unspecified COPD Qualified Code(s): J44.9 - Chronic obstructive pulmonary disease, unspecified Plan: Continue Albuterol HFA 2 puffs 4 times a day as needed (10) Chronic pain of right inguinal region: Comment: (+) Post-herniorrhaphy syndrome - had right inguinal herniorrhaphy in the past and recovery was complicated with increased pain and adverse effects, resulting in chronic and worse pain States that his chronic pain has been adequately controlled on his current pain med regimen - this is a WORKER'S COMP - related issue Code(s): R10.31 - Right lower quadrant pain; G89.29 - Other chronic pain Plan: Continue Oxycodone 15 mg 1 to 2 tablets 6 to 7 times a day as needed for severe pain (no more than 8 tablets/day), 28 days, # 224 tablets, refills 0 (11) Lumbar spondylosis: Code(s): M47.816 - Spondylosis without myelopathy or radiculopathy, lumbar region Plan: Reinforced activity and weight-lifting restrictions (12) Neuropathy: Code(s): G62.9 - Polyneuropathy, unspecified Plan: Symptoms remain tolerable lately Could not tolerate Gabapentin in the past and Amitriptyline did not help him much (13) Vitamin D deficiency: Code(s): E55.9 - Vitamin D deficiency, unspecified Plan: Continue Vitamin D3 1000 units QD Plan Follow up in 3 months Orders: Orders Lipid Panel 3 Months E78.00 - Pure hypercholesterolemia, unspecified Comprehensive Madeline. 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
== END 2024-01-31 15:03 | disposition home or self-care (01) ==
PROVIDERS: PCP Internal Medicine; Visit Provider Internal Medicine
DX: I48.0 Paroxysmal atrial fibrillation (principal); C77.9 Secondary and unspecified malignant neoplasm of lymph node, unspecified; C80.1 Malignant (primary) neoplasm, unspecified; I50.20 Unspecified systolic (congestive) heart failure; J44.9 Chronic obstructive pulmonary disease, unspecified; I10 Essential (primary) hypertension; E78.00 Pure hypercholesterolemia, unspecified; R73.01 Impaired fasting glucose; R10.31 Right lower quadrant pain; M47.816 Spondylosis without myelopathy or radiculopathy, lumbar region; G62.9 Polyneuropathy, unspecified; E55.9 Vitamin D deficiency, unspecified
CPT/HCPCS: 99214

== ENCOUNTER 2024-05-05 08:55 | Outpatient (REF) | payer MEDICARE, MEDICAID, SELFPAY ==
[2024-05-05 09:09] LABS: MANUAL DIFF FLAG NO
[2024-05-05 09:47] LABS: Basophils Absolute Auto 0.1 X10*3/uL (0.0-0.2); Basophils Percent Auto 1.1 % (0-2); Eosinophils Absolute Auto 0.3 X10*3/uL (0.0-0.4); Eosinophils Percent Auto 4.8 % (0-4); Hematocrit 36.7 % (42.0-52.0); Hemoglobin 12.2 g/dl (14.0-18.0); Imm Gran Abs Auto 0.01 X10*3/uL (0.00-0.03); Imm Gran Pct Auto 0.2 % (0.0-0.4); Lymphocytes Absolute Auto 0.9 X10*3/uL (1.2-4.9); Lymphocytes Percent Auto 16.6 % (20-40); Mean Corpuscular HGB Conc 33.2 g/dl (31.0-36.0); Mean Corpuscular Hemoglobin 27.9 pg (27.0-33.0); Mean Corpuscular Volume 83.8 fL (80.0-98.0); Mean Platelet Volume 8.3 fL (9.4-12.4); Monocytes Absolute Auto 0.6 X10*3/uL (0.1-1.2); Monocytes Percent Auto 11.1 % (2-11); Neutrophils Absolute Auto 3.8 x10*3/uL (2.0-8.3); Neutrophils Percent Auto 66.2 % (45-73); Platelet Count 192 X10*3/uL (160-400); Red Blood Count 4.38 X10*6/uL (4.60-5.80); Red Cell Distribution Width 13.1 % (11.0-16.0); White Blood Count 5.7 X10*3/uL (4.8-10.8)
[2024-05-05 09:53] LABS: Appearance Urine Clear; Color Urine Yellow; Glucose Urine UA Negative (Negative); Leukocyte Esterase Urine Negative (Negative); Nitrite Urine Negative (Negative); Specific Gravity - Urine <= 1.005 (1.005-1.025); Urine Blood Negative (Negative); Urine Ketones Negative (Negative); Urine Protein Negative (Neg-Trace)
[2024-05-05 09:57] LABS: Estimated Average Glucose 114 mg/dL; Hemoglobin A1c % 5.6 % (<6.0)
[2024-05-05 10:28] LABS: B Type Natriuretic Peptide 56 pg/mL (<100)
[2024-05-05 10:29] LABS: Alanine Aminotransferase 8 U/L (0-40); Albumin Level 4.2 g/dL (3.5-5.0); Alkaline Phosphatase 55 U/L (39-117); Anion Gap 12 (12-20); Aspartate Amino Transferase 13 U/L (5-37); Bilirubin Total 0.5 mg/dL (0.0-1.0); Blood Urea Nitrogen 8 mg/dL (9-16); Calcium 9.2 mg/dL (8.4-10.2); Carbon Dioxide 24 mmol/L (22-29); Chloride 106 mmol/L (96-108); Cholesterol 171 mg/dL (<200); Estimated Glomerular Filt Rate > 60; Glucose Fasting 108 mg/dL (60-99); HDL Cholesterol 35 mg/dL (>40); LDL Cholesterol Calculated 101 mg/dL (<100); Potassium 4.2 mmol/L (3.3-5.1); Sodium 138 mmol/L (135-145); Total Protein 6.8 g/dL (6.5-8.0); Triglycerides 179 mg/dL (<150)
[2024-05-05 10:48] LABS: TSH reflex Free T4 2.74 uIU/mL (0.32-4.0); Vitamin D 25-OH Total 38.3 ng/mL (>30)
== END 2024-05-05 08:56 | disposition home or self-care (01) ==
LOC: HO.LAB 08:55
PROVIDERS: PCP Internal Medicine; Visit Provider Internal Medicine
DX: E78.00 Pure hypercholesterolemia, unspecified (principal); E55.9 Vitamin D deficiency, unspecified; R30.0 Dysuria; R73.01 Impaired fasting glucose; D64.9 Anemia, unspecified; I50.9 Heart failure, unspecified
CPT/HCPCS: 36415; 80053; 80061; 81003; 82306; 83036; 83880; 84443; 85025

== ENCOUNTER 2024-05-08 14:20 | Outpatient (AMB) | payer MEDICARE, MEDICAID, SELFPAY ==
--- NOTE | 2024-05-08 14:34 | MHC.PC.OV ---
Vital Signs 05/08/24 14:35 Height 5 ft 8 in Weight 147 lb BMI 22.3 BP 120/66 Blood Pressure Location Lt brachial Position Sitting Pulse 70 Pulse Source Pulse Oximeter Pulse Oximetry (%) 99 Oxygen Delivery Method Room Air Intake Visit Reasons: 3mth f/u Intake Note: Patient is here to follow up on Neuropathy, IFG, HTN, Hypercholesterolemia. Toll Gate Tender Required: No Anesthetist: Not Required per policy Accompanied by: Self / Same As Patient Allergies Penicillins [PCN] Allergy (Severe, Verified 05/08/24 15:06) dyspnea codeine [CODEINE] Allergy (Mild, Verified 05/08/24 15:06) VOMITING cefuroxime Allergy (Unknown, Verified 05/08/24 15:06) cefuroxime axetil- dyspnea morphine [MORPHINE] Allergy (Unknown, Verified 05/08/24 15:06) UNKNOWN Medication List - Last Reconciled 05/08/24 by Albert Chan MD apixaban (Eliquis) 5 mg PO BID carvedilol 3.125 mg PO BID cholecalciferol (vitamin D3) 25 mcg PO DAILY 90 days omeprazole 20 mg PO DAILY oxycodone 1 to 2 tablets orally 6 to 7 times a day as needed for severe pain (no more than 8 tablets per day) 28 days rosuvastatin 20 mg PO DAILY sacubitril-valsartan 24-26 mg (Entresto) 1 tab PO BID Tobacco use date assessed: 05/08/24 Fall risk assessment: No Falls in past year Last assessed Fall Risk: 05/08/24 Dental Screening Dental Screen Date: 01/21/24 HPI 3mth f/u HPI Details Patient comes in today for his follow up visit States that he feels okay He still has some recurrent trouble swallowing but states that this is mostly due to his dry mouth/throat symptoms He had esophageal dilatation last done with Dr. Hernández in July 2023 - relates that the procedure helped a lot and he will get the dilation done again on an as needed basis He has a follow up appt scheduled with Dr. Hernández later this month He denies any headaches or dizziness He denies any chest pains, no SOB No nausea/vomiting, no abdominal pain No change in bowel habits noted States that his chronic right inguinal pain remains adequately controlled on his current meds and he's had no issues so far from his medication Had his follow up labs done a few days ago - to discuss his results [facility] Medical History Dysphagia Vitamin D deficiency Peyronie's disease Essential hypertension NICM (nonischemic cardiomyopathy) Smoker Neuropathy Impaired fasting glucose Benign essential hypertension Pure hypercholesterolemia Systolic congestive heart failure Dilated cardiomyopathy secondary to alcohol COPD (chronic obstructive pulmonary disease) Paroxysmal atrial fibrillation Lumbar spondylosis Chronic pain of right inguinal region Lumbar radiculopathy Atrial fibrillation Surgical History Hx of colonoscopy (~03/26/17) History of percutaneous endoscopic gastrostomy History of tonsillectomy History of inguinal hernia repair Family History Father Cancer Mother CVD (cardiovascular disease) Social History Household Members: Family Housing: House Are you a primary respiratory care specialist to a significant other at home: No Do you presently have visiting nurse or other home services: No Alcohol intake: never Patient Tobacco Use Status: Former Tobacco user Tobacco use type: Cigarette e-Cigarette/Vaping Use: Former Use Second Hand Smoke Exposure: Yes service: Yes ([employer]) Current occupational status: retired 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 Yung Childress, Trish Prasad, Nelson Perez and colleagues, with an educational nan from [employer]. Review of Systems Const Denies chills, Reports fatigue, Denies fever(s) and Denies headache(s) ENT Reports dysphagia, Denies dizziness, Reports dry mouth, Denies otalgia, Denies headache(s), Denies neck pain, Denies odynophagia and Denies sore throat Card Denies chest pain, Denies palpitations and Denies dyspnea Resp Denies cough and Denies dyspnea GI Denies abdominal pain (but (+) chronic increased pain over the right inguinal area), Denies constipation, Reports dysphagia, Denies heartburn, Denies diarrhea, Denies nausea, Denies odynophagia and Denies vomiting Denies dysuria, Denies nocturia and Denies urinary frequency Musc Reports back pain (occasional ) and Denies neck pain Skin/Breast Denies rash Neuro Denies dizziness, Denies headache(s) and Reports radicular pain (on the soles of both feet) Endo Reports fatigue and Denies palpitations Physical exam (Primary Care) Vital Signs: Last Vital Signs Pulse 70 05/08/24 14:35 BP 120/66 05/08/24 14:35 Pulse Ox 99 05/08/24 14:35 Oxygen Delivery Method Room Air 05/08/24 14:35 BMI result Body Mass Index 22.3 Tobacco/Smoking Status: Tobacco use Status Tobacco use date assessed 05/08/24 05/08/24 14:40 Patient Tobacco Use Status Former Tobacco user 05/08/24 14:40 Tobacco use type Cigarette 05/08/24 14:40 e-Cigarette/Vaping Use Former Use 05/08/24 14:40 Thrive Assessment: Date of Thrive Assessment Date Thrive assessed 01/31/24 05/08/24 14:40 Const General: no acute distress and alert HENMT Ears: TM's normal bilaterally and EAC's normal Throat: Yes posterior oropharynx normal and Yes tonsils normal Neck Neck: Yes supple and No lymphadenopathy Resp Auscultation: clear to auscultation bilaterally, no rales and no wheezes Cardio Rate: regular rate Rhythm: regular rhythm Heart sounds: no murmurs GI Palpation (GI): Soft to palpation and Tenderness to palpation present (GI) (over the right inguinal area - chronic) Auscultation: normal bowel sounds General: Yes no CVA tenderness Back/Spine/Pelvis Back: no CVA tenderness Thoracic/Lumbar Spine: lumbar spinal tenderness (mild) Skin Rashes: no rashes Extrem General: Yes no clubbing, cyanosis or edema Results Reviewed Results Reviewed: Laboratory Tests 05/05/24 05/05/24 09:07 09:26 WBC 5.7 Hgb 12.2 L Hct 36.7 L Plt Count 192 Sodium 138 Potassium 4.2 Creatinine 1.11 Estimated GFR > 60 Fasting Glucose 108 H Hemoglobin A1c % 5.6 Calcium 9.2 AST 13 ALT 8 Triglycerides 179 H Cholesterol 171 LDL Cholesterol, Calc 101 H HDL Cholesterol 35 L 25-OH Vitamin D Total 38.3 TSH 2.74 Ur Specific [place] <= 1.005 Urine Protein Negative Urine Glucose (UA) Negative Urine Blood Negative Urine Nitrite Negative Ur Leukocyte Esterase Negative Assessment and Plan Assessment & Plan (1) 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 Diop and completed Cisplatin-based chemotherapy and concurrent radiation therapy in June 2022 (05/11/2022 to 06/30/2022) Follow up with oncology and ENT as scheduled for continuing management/treatment and surveillance (2) Dysphagia: Code(s): R13.10 - Dysphagia, unspecified Qualifiers: Dysphagia type: unspecified Qualified Code(s): R13.10 - Dysphagia, unspecified Plan: Patient continues to complain of dysphagia, dysgeusia and dry throat symptoms He underwent esophageal dilation with Dr. Hernández on 10/27/22, in March 2023 and more recently in July 2023; patient states that dilation helped temporarily with his symptoms Relates that he also had his throat dilated by ENT a few months ago Follow up with ENT and with Dr. Hernández as scheduled (3) Dilated cardiomyopathy secondary to alcohol: Code(s): I42.6 - Alcoholic cardiomyopathy Plan: Continue Entresto 24-26 mg 1 tablet BID Follow up with cardiology as scheduled (4) Systolic congestive heart failure: Comment: Echocardiogram done on 05/03/2018 showed visually estimated EF between 30-35% with an impaired relaxation filling pattern. Cardiac valvular dopplers and RV systolic pressure were all within normal range. Repeat echocardiogram on 03/12/21 revealed (+) normal LV cavity size, with mildly increased LV wall thickness. LV systolic function is low normal and visually estimated EF is between 50 to 55%. Diastolic function is normal for age. Code(s): I50.20 - Unspecified systolic (congestive) heart failure Qualifiers: Heart failure chronicity: unspecified Qualified Code(s): I50.20 - Unspecified systolic (congestive) heart failure Plan: His cardiac function has improved significantly with treatment over the past few years and patient currently appears compensated His BNP level came back normal on his recent labs Continue Entresto 24-26 mg 1 tablet BID and Carvedilol 3.125 mg BID Follow up with Cardiology as scheduled (5) Paroxysmal atrial fibrillation: Code(s): I48.0 - Paroxysmal atrial fibrillation Plan: Patient currently remains in sinus rhythm Continue Eliquis 5 mg twice a day for thromboembolism prophylaxis Follow-up with cardiology as scheduled (6) Benign essential hypertension: Code(s): I10 - Essential (primary) hypertension Plan: Reinforced low sodium diet - goal is systolic BP of at least 120-130 mm or less Continue Carvedilol 3.125 mg 1 tablet BID and Entresto 24-26 mg BID (7) Pure hypercholesterolemia: Code(s): E78.00 - Pure hypercholesterolemia, unspecified Plan: Results of his labs done a few days ago reviewed and discussed with patient - advised that his cholesterol levels have improved slightly from previous Reinforced low cholesterol diet Continue Rosuvastatin 20 mg QD Will recheck his labs and fasting lipids in 3 months for follow up (8) Impaired fasting glucose: Code(s): R73.01 - Impaired fasting glucose Plan: HgbA1c was at 5.4% and 5.6% when previously checked Reinforced low calorie diet /exercise as tolerated (9) COPD (chronic obstructive pulmonary disease): Code(s): J44.9 - Chronic obstructive pulmonary disease, unspecified Qualifiers: COPD type: unspecified COPD Qualified Code(s): J44.9 - Chronic obstructive pulmonary disease, unspecified Plan: Continue Albuterol HFA 2 puffs 4 times a day as needed (10) Chronic pain of right inguinal region: Comment: (+) Post-herniorrhaphy syndrome - had right inguinal herniorrhaphy in the past and recovery was complicated with increased pain and adverse effects, resulting in chronic and worse pain States that his chronic pain has been adequately controlled on his current pain med regimen - this is a WORKER'S COMP - related issue Code(s): R10.31 - Right lower quadrant pain; G89.29 - Other chronic pain Plan: Continue Oxycodone 15 mg 1 to 2 tablets 6 to 7 times a day as needed for severe pain (no more than 8 tablets/day), 28 days, # 224 tablets, refills 0 (11) Lumbar spondylosis: Code(s): M47.816 - Spondylosis without myelopathy or radiculopathy, lumbar region Plan: Reinforced activity and weight-lifting restrictions (12) Neuropathy: Code(s): G62.9 - Polyneuropathy, unspecified Plan: Symptoms remain tolerable lately Could not tolerate Gabapentin in the past and Amitriptyline did not help him much (13) Vitamin D deficiency: Code(s): E55.9 - Vitamin D deficiency, unspecified Plan: Continue Vitamin D3 1000 units QD Plan Follow up in 3 months Orders: Orders TSH reflex Free T4 3 Months E78.00 - Pure hypercholesterolemia, unspecified UA CC w/rflx Micro + Cult 3 Months R30.0 - Dysuria Vitamin D 25-OH Total 3 Months E55.9 - Vitamin D deficiency, unspecified B Type Natriuretic Peptide 3 Months I50.9 - Heart failure, unspecified Complete Blood Count Auto Diff 3 Months D64.9 - Anemia, unspecified Comprehensive [place]. 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
[2024-05-08 14:35] VITALS: BP 120/66; PULSE 70; O2SAT 99; BMI 22.3
== END 2024-05-08 15:23 | disposition home or self-care (01) ==
PROVIDERS: PCP Internal Medicine; Visit Provider Internal Medicine
DX: I50.20 Unspecified systolic (congestive) heart failure (principal); C77.9 Secondary and unspecified malignant neoplasm of lymph node, unspecified; C80.1 Malignant (primary) neoplasm, unspecified; I42.6 Alcoholic cardiomyopathy; I48.0 Paroxysmal atrial fibrillation; J44.9 Chronic obstructive pulmonary disease, unspecified; R13.10 Dysphagia, unspecified; I10 Essential (primary) hypertension; E78.00 Pure hypercholesterolemia, unspecified; R73.01 Impaired fasting glucose; R10.31 Right lower quadrant pain; G89.29 Other chronic pain
CPT/HCPCS: 99214

== ENCOUNTER 2024-05-26 14:43 | Outpatient (AMB) | payer OTHER, MEDICARE, MEDICAID, SELFPAY ==
--- NOTE | 2024-05-26 14:46 | A.OFFPC_ITS ---
Vital Signs 05/26/24 14:47 Height 5 ft 8 in Weight 147 lb 6 oz BMI 22.4 BP 110/70 Blood Pressure Location Lt brachial Position Sitting Pulse 61 Pulse Source Pulse Oximeter Pulse Oximetry (%) 99 Oxygen Delivery Method Room Air Intake Visit Reasons: workers comp follow up Intake Note: Patient is here to follow up on workers comp injury since 08/2002. Shift Production Associate Required: No Oracle Scm Consultant: Not Required per policy Accompanied by: Self / Same As Patient Allergies Penicillins [PCN] Allergy (Severe, Verified 05/26/24 15:14) dyspnea codeine [CODEINE] Allergy (Mild, Verified 05/26/24 15:14) VOMITING cefuroxime Allergy (Unknown, Verified 05/26/24 15:14) cefuroxime axetil- dyspnea morphine [MORPHINE] Allergy (Unknown, Verified 05/26/24 15:14) UNKNOWN Medication List - Last Reconciled 05/26/24 by Albert Chan MD apixaban (Eliquis) 5 mg PO BID carvedilol 3.125 mg PO BID cholecalciferol (vitamin D3) 25 mcg PO DAILY 90 days omeprazole 20 mg PO DAILY oxycodone 1 to 2 tablets orally 6 to 7 times a day as needed for severe pain (no more than 8 tablets per day) 28 days rosuvastatin 20 mg PO DAILY sacubitril-valsartan 24-26 mg (Entresto) 1 tab PO BID Tobacco use date assessed: 05/26/24 Fall risk assessment: No Falls in past year Last assessed Fall Risk: 05/26/24 Dental Screening Dental Screen Date: 01/21/24 HPI workers comp follow up HPI Details Patient comes in today for his?worker's comp follow up visit States that he still has the chronic increased pain over his right inguinal area, and that his condition is unchanged from previous States that his Oxycodone 15 mg 6 to 7 times a day is mostly helping adequately control and manage his pain and he will need his Rx refilled today He denies any headaches or dizziness Denies any chest pains, no increased SOB No nausea/vomiting, no abdominal pain No change in bowel habits noted PFSH Medical History Dysphagia Vitamin D deficiency Peyronie's disease Essential hypertension NICM (nonischemic cardiomyopathy) Smoker Neuropathy Impaired fasting glucose Benign essential hypertension Pure hypercholesterolemia Systolic congestive heart failure Dilated cardiomyopathy secondary to alcohol COPD (chronic obstructive pulmonary disease) Paroxysmal atrial fibrillation Lumbar spondylosis Chronic pain of right inguinal region Lumbar radiculopathy Atrial fibrillation Surgical History Hx of colonoscopy (~03/26/17) History of percutaneous endoscopic gastrostomy History of tonsillectomy History of inguinal hernia repair Family History Father Cancer Mother CVD (cardiovascular disease) Social History Household Members: Family Housing: House Are you a primary director career to a significant other at home: No Do you presently have visiting nurse or other home services: No Alcohol intake: never Patient Tobacco Use Status: Former Tobacco user Tobacco use type: Cigarette e-Cigarette/Vaping Use: Former Use Second Hand Smoke Exposure: Yes service: Yes ([employer]) Current occupational status: retired 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 Yung Childress, Trish Prasad, Nelson Perez and colleagues, with an educational nan from [employer]. Review of Systems Const Denies chills, Reports fatigue, Denies fever(s) and Denies headache(s) ENT Reports dysphagia, Denies dizziness, Reports dry mouth, Denies headache(s), De nies neck pain, Denies odynophagia and Denies sore throat Card Denies chest pain, Denies palpitations and Denies dyspnea Resp Denies cough and Denies dyspnea GI Denies abdominal pain (but (+) chronic increased pain over the right inguinal area), Denies constipation, Reports dysphagia, Denies heartburn, Denies diarrhea, Denies nausea, Denies odynophagia and Denies vomiting Denies dysuria, Denies nocturia and Denies urinary frequency Musc Reports back pain (occasional ) and Denies neck pain Skin/Breast Denies rash Neuro Denies dizziness, Denies headache(s) and Reports radicular pain (on the soles of both feet) Endo Reports fatigue and Denies palpitations Physical exam (Primary Care) Vital Signs: Last Vital Signs Pulse 61 05/26/24 14:47 BP 110/70 05/26/24 14:47 Pulse Ox 99 05/26/24 14:47 Oxygen Delivery Method Room Air 05/26/24 14:47 BMI result Body Mass Index 22.4 Tobacco/Smoking Status: Tobacco use Status Tobacco use date assessed 05/26/24 05/26/24 14:51 Patient Tobacco Use Status Former Tobacco user 05/26/24 14:51 Tobacco use type Cigarette 05/26/24 14:51 e-Cigarette/Vaping Use Former Use 05/26/24 14:51 Thrive Assessment: Date of Thrive Assessment Date Thrive assessed 01/31/24 05/26/24 14:51 Const General: no acute distress and alert HENMT Ears: TM's normal bilaterally and EAC's normal Throat: Yes posterior oropharynx normal and Yes tonsils normal Neck Neck: Yes supple and No lymphadenopathy Resp Auscultation: clear to auscultation bilaterally, no rales and no wheezes Cardio Rate: regular rate Rhythm: regular rhythm Heart sounds: no murmurs GI Palpation (GI): Soft to palpation and Tenderness to palpation present (GI) (over the right inguinal area - chronic) Auscultation: normal bowel sounds Back/Spine/Pelvis Thoracic/Lumbar Spine: lumbar spinal tenderness (mild) Extrem General: Yes no clubbing, cyanosis or edema Assessment and Plan Assessment & Plan (1) Chronic pain of right inguinal region: Comment: (+) Post-herniorrhaphy syndrome - had right inguinal herniorrhaphy in the past and recovery was complicated with increased pain and adverse effects, resulting in chronic and worse pain States that his chronic pain has been adequately controlled on his current pain med regimen - this is a WORKER'S COMP - related issue Code(s): R10.31 - Right lower quadrant pain; G89.29 - Other chronic pain Plan: Continue Oxycodone 15 mg 1 to 2 tablets 6 to 7 times a day (no more than 8 tablets a day) as needed for severe pain (28 days, #224 tablets) and Tizanidine 4 mg TID PRN Plan Follow up in 4 months - follow up Medications: Refilled oxycodone 1 to 2 tablets orally 6 to 7 times a day as needed for severe pain (no more than 8 tablets per day) 224 tabs 0RF pain 28 days G89.29 - Other chronic pain, R10.31 - Right lower quadrant pain Coding Level of Care Code Est Pt Level 3 (02542) Diagnoses Chronic pain of right inguinal region R10.31; G89.29
[2024-05-26 14:47] VITALS: BP 110/70; PULSE 61; O2SAT 99; BMI 22.4
== END 2024-05-26 15:23 | disposition home or self-care (01) ==
PROVIDERS: PCP Internal Medicine; Visit Provider Internal Medicine
DX: R10.31 Right lower quadrant pain (principal); G89.29 Other chronic pain
CPT/HCPCS: 99213

== ENCOUNTER 2024-05-30 13:57 | Outpatient (AMB) | payer MEDICARE, MEDICAID, SELFPAY ==
[2024-05-30 13:58] VITALS: BP 130/62; PULSE 64; BMI 22.5
--- NOTE | 2024-05-30 13:58 | A.OFFVIS_ITS ---
Vital Signs 05/30/24 13:58 Height 5 ft 8 in Weight 147 lb 11.355 oz BMI 22.5 BP 130/62 Blood Pressure Location Lt brachial Position Sitting Pulse 64 Pulse Source Monitor Intake Visit Reasons: r/s from [id number] Mobile Nurse Required: No Accompanied by: Self / Same As Patient Allergies Penicillins [PCN] Allergy (Severe, Verified 05/26/24 15:14) dyspnea codeine [CODEINE] Allergy (Mild, Verified 05/26/24 15:14) VOMITING cefuroxime Allergy (Unknown, Verified 05/26/24 15:14) cefuroxime axetil- dyspnea morphine [MORPHINE] Allergy (Unknown, Verified 05/26/24 15:14) UNKNOWN Medication List - Last Reconciled 05/30/24 by Glen Zepeda MD apixaban (Eliquis) 5 mg PO BID carvedilol 3.125 mg PO BID cholecalciferol (vitamin D3) 25 mcg PO DAILY 90 days omeprazole 20 mg PO DAILY oxycodone 1 to 2 tablets orally 6 to 7 times a day as needed for severe pain (no more than 8 tablets per day) 28 days rosuvastatin 20 mg PO DAILY sacubitril-valsartan 24-26 mg (Entresto) 1 tab PO BID HPI Comments Details: Yung returns for follow-up regarding atrial fibrillation and cardiomyopathy. To recall, he was hospitalized in 2016 after having incidentally detected atrial fibrillation during PCP visit. Then converted to sinus in the hospital. Echocardiogram had revealed LVEF of 35-40%. Was initially on Amiodarone for a while that was then stopped. He remains on Coreg and Entresto. 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 Overall, he is generally doing okay. No clear-cut cardiac concerns at this time. [facility] Medical History (Updated 05/30/24 @ 14:16 by Glen Zepeda MD) LBBB (left bundle branch block) Dysphagia Vitamin D deficiency Peyronie's disease Essential hypertension NICM (nonischemic cardiomyopathy) Smoker Neuropathy Impaired fasting glucose Benign essential hypertension Pure hypercholesterolemia Systolic congestive heart failure Dilated cardiomyopathy secondary to alcohol COPD (chronic obstructive pulmonary disease) Paroxysmal atrial fibrillation Lumbar spondylosis Chronic pain of right inguinal region Lumbar radiculopathy Atrial fibrillation Surgical History Hx of colonoscopy (~03/26/17) History of percutaneous endoscopic gastrostomy History of tonsillectomy History of inguinal hernia repair Family History Father Cancer Mother CVD (cardiovascular disease) Social History Household Members: Family Housing: House Are you a primary child care education coordinator to a significant other at home: No Do you presently have visiting nurse or other home services: No Alcohol intake: never Patient Tobacco Use Status: Former Tobacco user Tobacco use type: Cigarette e-Cigarette/Vaping Use: Former Use Second Hand Smoke Exposure: Yes service: Yes ([email or web address]) Current occupational status: retired 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 Cognitive needs: Yes (Cane) Hearing needs: No Vision needs: No Review of Systems Const Denies chills, Denies fatigue, Denies fever(s), Denies frequent falls, Denies weakness, Denies weight gain and Denies weight loss ENT Denies dizziness Card Denies chest pain, Denies leg edema, Denies lightheadedness, Denies palpitations, Denies dyspnea and Denies dyspnea on exertion Resp Denies cough, Denies dyspnea and Denies dyspnea on exertion GI Denies hematochezia Musc Denies abnormal gait, Denies muscle weakness, Denies numbness, Denies radiating pain into limb and Denies tingling Neuro Denies abnormal gait, Denies dizziness, Denies frequent falls, Denies numbness, Denies tingling and Denies weakness Endo Denies fatigue and Denies palpitations Physical Exam Vital Signs: Last Vital Signs Pulse 64 05/30/24 13:58 BP 130/62 05/30/24 13:58 BMI result Body Mass Index 22.5 Const General: comfortable and no acute distress Orientation/consciousness: patient oriented x3 HEENT Other: Unremarkable Head: Yes normal to inspection Neck Neck: Yes normal visual inspection Chest Chest palpation & inspection: normal inspection of the chest Resp Auscultation: clear to auscultation bilaterally Cardio Palpation: normal PMI Heart sounds: S1 normal heart sound present, S2 normal heart sound present, no gallops, no murmurs and no rubs GI Palpation (GI): Soft to palpation Back/Spine/Pelvis Other: unremarkable Skin General skin exam: no rashes or lesions noted Neuro General: patient oriented x3 Extrem General: Yes normal to inspection Psych Mental Status: mental status grossly normal Office Procedures EKG Details: EKG with sinus rhythm at 64/Min; left bundle-branch block pattern. [id number], Complete Assessment & Plan Assessment & Plan (1) NICM (nonischemic cardiomyopathy): Code(s): I42.8 - Other cardiomyopathies Category: Medical Plan: In the last echocardiogram, LVEF 50-55% much improved from prior. Clinically, he does not have any heart failure symptoms or signs. Continue Coreg and Entresto. (2) Paroxysmal atrial fibrillation: Code(s): I48.0 - Paroxysmal atrial fibrillation Category: Medical Plan: Continue beta-blockers as above. Continue anticoagulation. (3) LBBB (left bundle branch block): Code(s): I44.7 - Left bundle-branch block, unspecified Category: Medical Plan: Chronic finding on EKG. (4) Essential hypertension: Code(s): I10 - Essential (primary) hypertension Category: Medical Plan: Stable. Orders: Orders CA echo transthoracic complete 1 Year I42.8 - Other cardiomyopathies Coding Level of Care Code Est Pt Level 4 (95637) Diagnoses NICM (nonischemic cardiomyopathy) I42.8 Paroxysmal atrial fibrillation I48.0 LBBB (left bundle branch block) I44.7 Essential hypertension I10 CPT Codes EKG - CPT: 07013-[id number], Complete ([id number])
== END 2024-05-30 14:53 | disposition home or self-care (01) ==
LOC: HO.HCS 13:57
PROVIDERS: PCP Internal Medicine; Visit Provider Internal Medicine
DX: I42.8 Other cardiomyopathies (principal); I48.0 Paroxysmal atrial fibrillation; I44.7 Left bundle-branch block, unspecified; I10 Essential (primary) hypertension
CPT/HCPCS: 93010; 99214

== ENCOUNTER → 2024-05-30 13:57 | Outpatient (BNVA) | payer OTHER, MEDICARE, MEDICAID, SELFPAY | PROVIDERS: PCP Internal Medicine; Visit Provider Internal Medicine | DX: I42.8 Other cardiomyopathies (principal); I48.0 Paroxysmal atrial fibrillation; I44.7 Left bundle-branch block, unspecified; I10 Essential (primary) hypertension; Z79.01 Long term (current) use of anticoagulants; Z79.899 Other long term (current) drug therapy | CPT/HCPCS: 93005 ==

== ENCOUNTER 2024-08-14 12:56 | Outpatient (AMB) | payer MEDICARE, MEDICAID, SELFPAY ==
[2024-08-14 13:28] VITALS: BP 110/64; PULSE 63; O2SAT 98; BMI 22.5
--- NOTE | 2024-08-14 13:28 | AM.OFFWIN_ITS ---
Intake Vital Signs 08/14/24 13:28 08/14/24 14:26 08/14/24 14:26 Height 5 ft 8 in Weight 148 lb BMI 22.5 BP 110/64 92/60 92/56 L Blood Pressure Location Lt brachial Position Sitting Sitting Standing Pulse 63 Pulse Source Pulse Oximeter Pulse Oximetry (%) 98 Oxygen Delivery Method Room Air Intake Visit Reasons: EP-vertigo Intake Note: Patient here for vertigo that has been present since Wednesday morning. Patient Tobacco Use Status: Former Tobacco user Allergies Penicillins [PCN] Allergy (Severe, Verified 08/14/24 13:31) dyspnea codeine [CODEINE] Allergy (Mild, Verified 08/14/24 13:31) VOMITING cefuroxime Allergy (Unknown, Verified 08/14/24 13:31) cefuroxime axetil- dyspnea morphine [MORPHINE] Allergy (Unknown, Verified 08/14/24 13:31) UNKNOWN Do you need a note to return to daycare/school/sports/work: No HPI EP-vertigo HPI Details This note is constructed using voice recognition software. 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 The patient is a 74 year old male who presents to the clinic today with vertigo for the past 3 days. He reports that he woke up feeling dizzy on Wednesday, and it was worse when he was lying on his right side, improving when he rolled to his back or to his left side. He called his primary care provider this morning, thinking he could have an ear infection as that typically would lead to symptoms of vertigo, and antibiotics were sent to the pharmacy to avoid having a visit. When he called his primary care office, the nurse had advised him to be seen in the walk-in clinic, and did not know if the primary care provider would send an antibiotic at that time, so he arranged a ride to get here to be seen today. He denies fever, chills, cough, shortness of breath, body aches. He does note that last week he had a lot of sneezing and had contacted his ear nose and throat provider who never returned call to him. He denies trauma to his head, confusion, headache. He does report that he is on blood thinners. [facility] Medical History (Updated 05/30/24 @ 14:16 by Glen Zepeda MD) LBBB (left bundle branch block) Dysphagia Vitamin D deficiency Peyronie's disease Essential hypertension NICM (nonischemic cardiomyopathy) Smoker Neuropathy Impaired fasting glucose Benign essential hypertension Pure hypercholesterolemia Systolic congestive heart failure Dilated cardiomyopathy secondary to alcohol COPD (chronic obstructive pulmonary disease) Paroxysmal atrial fibrillation Lumbar spondylosis Chronic pain of right inguinal region Lumbar radiculopathy Atrial fibrillation Surgical History Hx of colonoscopy (~03/26/17) History of percutaneous endoscopic gastrostomy History of tonsillectomy History of inguinal hernia repair Family History Father Cancer Mother CVD (cardiovascular disease) Social History Household Members: Family Housing: House Are you a primary care management assistant to a significant other at home: No Do you presently have visiting nurse or other home services: No Alcohol intake: never Patient Tobacco Use Status: Former Tobacco user Tobacco use type: Cigarette e-Cigarette/Vaping Use: Former Use Second Hand Smoke Exposure: Yes service: Yes ([employer]) Current occupational status: retired 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 Cognitive needs: Yes (Cane) Hearing needs: No Vision needs: No Review of Systems Const All systems reviewed & are unremarkable except as noted in HPI and below Physical Exam Vital Signs: Last Vital Signs Pulse 63 08/14/24 13:28 BP 110/64 08/14/24 13:28 Pulse Ox 98 08/14/24 13:28 Oxygen Delivery Method Room Air 08/14/24 13:28 BMI result Body Mass Index 22.5 Const General: cooperative, healthy appearing, comfortable, no acute distress and alert Orientation/consciousness: patient oriented x3 Limitations: no limitations HEENT Head: Yes normal to inspection and Yes normocephalic Ears: hearing grossly normal bilaterally General nose exam: Normal external nose present Face and sinus: Yes normal facial exam and Yes sinuses nontender Mouth: Normal oral and palatal mucosa present and tongue normal Teeth and gingiva: dentition normal Throat: Yes posterior oropharynx normal Eyes General: appearance normal, both eyes and all related structures EOM: Nystagmus present (Horizontal) Neck Neck: Yes normal visual inspection, Yes full ROM and Yes no lymphadenopathy Resp Effort & Inspection: normal respiratory effort and able to speak in complete sentences Auscultation: clear to auscultation bilaterally Cardio Jugular venous distension: no JVD Palpation: normal PMI Rate: regular rate Rhythm: abnormal rhythm irregularly irregular Heart sounds: S1 normal heart sound present, S2 normal heart sound present, no click, no gallops, no murmurs and no rubs Skin General skin exam: no rashes or lesions noted, elasticity normal and turgor normal Neuro General: patient oriented x3 Cranial nerves: Yes Nystagmus present (Horizontal) Psych Appearance: grossly normal Mental Status: mental status grossly normal Speech and movement: Normal speech and movement present Affect: normal affect Assessment & Plan Assessment & Plan (1) BPPV (benign paroxysmal positional vertigo): Code(s): H81.10 - Benign paroxysmal vertigo, unspecified ear Qualifiers: Laterality: unspecified laterality Qualified Code(s): H81.10 - Benign paroxysmal vertigo, unspecified ear Plan: Does not appear to have infection based on physical examination today, does have nystagmus consistent with vertigo. We will try a as needed meclizine for symptomatic management. Advised follow up with PCP with worsening or failure to resolve. Advised ER with sudden worsening or lack of resolution as this may be signs of more serious conditions. Plan See above for full details and plan. Medications: New meclizine 12.5 mg PO TID PRN 10 tabs 0RF dizziness Coding Level of Care Code Est Pt Level 3 (89672) Diagnoses Benign paroxysmal positional vertigo, unspecified laterality H81.10 Laterality: unspecified laterality
[2024-08-14 14:26] VITALS: BP 92/56; BP 92/60
== END 2024-08-14 14:27 | disposition home or self-care (01) ==
PROVIDERS: PCP Internal Medicine; Visit Provider Registered Nurse
DX: H81.10 Benign paroxysmal vertigo, unspecified ear (principal)

== ENCOUNTER → 2024-08-14 12:56 | Outpatient (BNVA) | payer MEDICARE, MEDICAID, OTHER, SELFPAY | PROVIDERS: PCP Internal Medicine | DX: H81.10 Benign paroxysmal vertigo, unspecified ear (principal) | CPT/HCPCS: 99212 ==

== ENCOUNTER 2024-08-19 07:59 | Outpatient (REF) | payer MEDICARE, MEDICAID, SELFPAY ==
[2024-08-19 11:00] LABS: Appearance Urine Clear; Color Urine Yellow; Glucose Urine UA Negative (Negative); Leukocyte Esterase Urine Negative (Negative); Nitrite Urine Negative (Negative); Specific Gravity - Urine <= 1.005 (1.005-1.025); Urine Blood Negative (Negative); Urine Ketones Negative (Negative); Urine Protein Negative (Neg-Trace)
[2024-08-19 11:21] LABS: MANUAL DIFF FLAG NO
[2024-08-19 11:29] LABS: Basophils Absolute Auto 0.1 X10*3/uL (0.0-0.2); Basophils Percent Auto 1.7 % (0-2); Eosinophils Absolute Auto 0.5 X10*3/uL (0.0-0.4); Eosinophils Percent Auto 9.6 % (0-4); Hematocrit 38.5 % (42.0-52.0); Hemoglobin 12.4 g/dl (14.0-18.0); Imm Gran Abs Auto 0.02 X10*3/uL (0.00-0.03); Imm Gran Pct Auto 0.4 % (0.0-0.4); Lymphocytes Percent Auto 19.2 % (20-40); Mean Corpuscular HGB Conc 32.2 g/dl (31.0-36.0); Mean Corpuscular Hemoglobin 27.6 pg (27.0-33.0); Mean Corpuscular Volume 85.6 fL (80.0-98.0); Mean Platelet Volume 8.6 fL (9.4-12.4); Monocytes Absolute Auto 0.7 X10*3/uL (0.1-1.2); Monocytes Percent Auto 13.2 % (2-11); Neutrophils Percent Auto 55.9 % (45-73); Platelet Count 203 X10*3/uL (160-400); Red Cell Distribution Width 13.5 % (11.0-16.0); White Blood Count 5.3 X10*3/uL (4.8-10.8)
[2024-08-19 11:44] LABS: Alanine Aminotransferase 8 U/L (0-40); Albumin Level 4.1 g/dL (3.5-5.0); Alkaline Phosphatase 52 U/L (39-117); Anion Gap 11 (12-20); Aspartate Amino Transferase 13 U/L (5-37); Bilirubin Total 0.5 mg/dL (0.0-1.0); Blood Urea Nitrogen 13 mg/dL (9-16); Calcium 9.2 mg/dL (8.4-10.2); Carbon Dioxide 26 mmol/L (22-29); Chloride 106 mmol/L (96-108); Cholesterol 158 mg/dL (<200); Estimated Glomerular Filt Rate 59; Glucose Fasting 101 mg/dL (60-99); HDL Cholesterol 37 mg/dL (>40); LDL Cholesterol Calculated 90 mg/dL (<100); Potassium 4.8 mmol/L (3.3-5.1); Sodium 138 mmol/L (135-145); Total Protein 6.8 g/dL (6.5-8.0); Triglycerides 158 mg/dL (<150)
[2024-08-19 12:06] LABS: Vitamin D 25-OH Total 42.5 ng/mL (>30)
[2024-08-19 12:15] LABS: B Type Natriuretic Peptide 90 pg/mL (<100)
[2024-08-19 13:14] LABS: Free T4 (Free Thyroxine) 0.81 ng/dL (0.71-1.85)
== END 2024-08-19 08:00 | disposition home or self-care (01) ==
LOC: HO.HMGCLDS 07:59
PROVIDERS: PCP Internal Medicine; Visit Provider Internal Medicine
DX: I50.9 Heart failure, unspecified (principal); E78.00 Pure hypercholesterolemia, unspecified; R30.0 Dysuria; E55.9 Vitamin D deficiency, unspecified; D64.9 Anemia, unspecified
CPT/HCPCS: 36415; 80053; 80061; 81003; 82306; 83880; 84439; 84443; 85025

== ENCOUNTER 2024-08-21 14:20 | Outpatient (AMB) | payer MEDICARE, MEDICAID, SELFPAY ==
[2024-08-21 14:37] VITALS: BP 118/62; PULSE 70; O2SAT 98; BMI 22.7
--- NOTE | 2024-08-21 14:37 | MHC.PC.OV ---
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 Accompanied by: Self / Same As Patient Allergies Penicillins [PCN] Allergy (Severe, Verified 08/24/24 14:32) dyspnea codeine [CODEINE] Allergy (Mild, Verified 08/24/24 14:32) VOMITING cefuroxime Allergy (Unknown, Verified 08/24/24 14:32) cefuroxime axetil- dyspnea morphine [MORPHINE] Allergy (Unknown, Verified 08/24/24 14:32) UNKNOWN Medication List - Last Reconciled 08/21/24 by Albert Chan MD apixaban (Eliquis) 5 mg PO BID carvedilol 3.125 mg PO BID cholecalciferol (vitamin D3) 25 mcg PO DAILY 90 days doxycycline hyclate 100 mg PO BID 10 days meclizine 12.5 mg PO TID PRN omeprazole 20 mg PO DAILY oxycodone 1 to 2 tablets orally 6 to 7 times a day as needed for severe pain (no more than 8 tablets per day) 28 days rosuvastatin 20 mg PO DAILY sacubitril-valsartan 24-26 mg (Entresto) 1 tab PO BID Tobacco use date assessed: 08/21/24 Fall risk assessment: No Falls in past year Last assessed Fall Risk: 08/21/24 Dental Screening Dental Screen Date: 08/21/24 Did you have a dental visit in the last 12 months?: No Did you have a dental problem in the last 6 months where you did not have access to dental care?: No Was dental information given to patient?: No HPI hyperlipidemia, CHF, GERD HPI Details Patient comes in today for his follow up visit States that he has been experiencing recurrent vertigo/dizziness for the past 2 weeks Notes that his symptoms seem to occur most often when he lies down or when he stands up (changes in position) and tends to subside temporarily in the late morning He denies any headaches Denies any chest pains, no increased SOB Relates (+) nausea at times when his vertigo increases; no vomiting, no abdominal pain and no change in bowel habits noted He had his follow up labs done a couple of days ago - to discuss his results [facility] Medical History LBBB (left bundle branch block) Dysphagia Vitamin D deficiency Peyronie's disease Essential hypertension NICM (nonischemic cardiomyopathy) Smoker Neuropathy Impaired fasting glucose Benign essential hypertension Pure hypercholesterolemia Systolic congestive heart failure Dilated cardiomyopathy secondary to alcohol COPD (chronic obstructive pulmonary disease) Paroxysmal atrial fibrillation Lumbar spondylosis Chronic pain of right inguinal region Lumbar radiculopathy Atrial fibrillation Surgical History Hx of colonoscopy (~03/26/17) History of percutaneous endoscopic gastrostomy History of tonsillectomy History of inguinal hernia repair Family History Father Cancer Mother CVD (cardiovascular disease) Social History Household Members: Family Housing: House Are you a primary veterinarian laboratory animal care to a significant other at home: No Do you presently have visiting nurse or other home services: No Alcohol intake: never Patient Tobacco Use Status: Former Tobacco user Tobacco use type: Cigarette e-Cigarette/Vaping Use: Former Use Second Hand Smoke Exposure: Yes service: Yes ([employer]) Current occupational status: retired 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 1. Little interest or pleasure in doing things: not at all 2. Feeling down, depressed, or hopeless: not at all 3. Trouble falling or staying asleep, or sleeping too much: not at all 4. Feeling tired or having little energy: not at all 5. Poor appetite or overeating: not at all 6. Feeling bad about yourself - or that you are a failure or have let yourself or your family down: not at all 7. Trouble concentrating on things, such as reading the newspaper or watching television: not at all 8. Moving or speaking so slowly that other people could have noticed. Or the opposite - being so fidgety or restless that you have been moving around a lot more than usual: not at all 9. Thoughts that you would be better off or of hurting yourself in some way: not at all Total score: 0 Depression Screening Interpretation: Negative Depression Screening Done: Yes [id number] - PHQ-9 Billing: Yes Source: Developed by Drs. Yung Childress, Trish Prasad, Nelson Perez and colleagues, with an educational nan from [employer]. Thrive Questionnaire Date Thrive assessed: 08/21/24 I am a: Patient What is your living situation today?: I have a steady place to live Within the past 12 months, did the food you bought not last and you didn't have the money to get more?: Never true Within the past 12 months, did you worry whether your food would run out before you got money to buy more?: Never true Do you have trouble paying for medicines?: No Do you have trouble getting transportation to medical appointments?: No Do you have trouble paying your heating and electricity bill?: No Do you have trouble taking care of your child, family member or friend?: No Do you have trouble with day-to-day activities such as bathing, preparing meals, shopping, managing finances, etc.?: No Are you currently unemployed and looking for a job?: No Are you interested in more education?: No Please select the resources that you would like help with: None Currently or been in a relationship where the following occur: No concerns reported THRIVE Score: 0 AUDIT C Alcohol Use Questionnaire (AUDIT-C) 1. How often do you have a drink containing alcohol?: Never 3. How often do you have six or more drinks on one occasion?: Never Total Score: 0 Score Reviewed/Action Taken: Yes FILIPE-7 AMB Questionnaire FILIPE-7 Date FILIPE - 7 assessed: 08/21/24 Feeling nervous, anxious, or on edge: 0 = Not at all Not being able to stop or control worryin = Not at all Worrying too much about different things: 0 = Not at all Trouble relaxin = Not at all Being so restless that it is hard to sit still: 0 = Not at all Becoming easily annoyed or irritable: 0 = Not at all Feeling afraid as if something awful might happen: 0 = Not at all Total FILIPE-7 score (0-4 normal; 5-9 mild; 10-14 moderate; 15-21 severe): 0 Source: Developed by Drs. Yung Childress, Trish Prasad, Nelson Perez and colleagues, with an educational nan from [employer]. Review of Systems Const Denies chills, Reports fatigue, Denies fever(s) and Denies headache(s) ENT Reports dysphagia, Reports dizziness (recurrent - see HPI), Reports dry mouth, Denies headache(s), Denies neck pain, Denies odynophagia and Denies sore throat Card Denies chest pain, Denies palpitations and Denies dyspnea Resp Denies chest congestion, Denies cough and Denies dyspnea GI Denies abdominal pain (but (+) chronic increased pain over the right inguinal area), Denies constipation, Reports dysphagia, Denies heartburn, Denies diarrhea, Reports nausea (at times, when his dizziness increases), Denies odynophagia and Denies vomiting Denies dysuria, Denies nocturia and Denies urinary frequency Musc Reports back pain (occasional ) and Denies neck pain Skin/Breast Denies rash Neuro Reports dizziness (recurrent - see HPI), Denies headache(s) and Reports radicular pain (on the soles of both feet) Endo Reports fatigue and Denies palpitations Physical exam (Primary Care) Vital Signs: Last Vital Signs Pulse 70 08/21/24 14:37 BP 118/62 08/21/24 14:37 Pulse Ox 98 08/21/24 14:37 Oxygen Delivery Method Room Air 08/21/24 14:37 BMI result Body Mass Index 22.7 Tobacco/Smoking Status: Tobacco use Status Tobacco use date assessed 08/21/24 08/21/24 14:40 Patient Tobacco Use Status Former Tobacco user 08/21/24 14:40 Tobacco use type Cigarette 08/21/24 14:40 e-Cigarette/Vaping Use Former Use 08/21/24 14:40 PHQ-9: PHQ-9 Score PHQ-9: Total score 0 08/21/24 15:25 Depression Screening Interpretation: Negative Thrive Assessment: Date of Thrive Assessment Date Thrive assessed 08/21/24 08/21/24 14:40 Currently or been in a relationship where the following occur: No concerns reported Const General: no acute distress and alert HENMT Ears: TM's normal bilaterally and EAC's normal Throat: Yes posterior oropharynx normal and Yes tonsils normal Neck Neck: Yes supple and No lymphadenopathy Thyroid: Thyroid normal Resp Auscultation: clear to auscultation bilaterally, no rales and no wheezes Cardio Rate: regular rate Rhythm: regular rhythm Heart sounds: no murmurs GI Palpation (GI): Soft to palpation and Tenderness to palpation present (GI) (over the right inguinal area - chronic) Auscultation: normal bowel sounds General: Yes no CVA tenderness Back/Spine/Pelvis Back: no CVA tenderness Thoracic/Lumbar Spine: lumbar spinal tenderness (mild) Skin Rashes: no rashes Extrem General: Yes no clubbing, cyanosis or edema Results Reviewed Results Reviewed: Laboratory Tests 08/19/24 08:06 WBC 5.3 Hgb 12.4 L Hct 38.5 L Plt Count 203 Sodium 138 Potassium 4.8 Creatinine 1.21 Estimated GFR 59 Fasting Glucose 101 H Calcium 9.2 AST 13 ALT 8 B-Natriuretic Peptide 90 Triglycerides 158 H Cholesterol 158 LDL Cholesterol, Calc 90 HDL Cholesterol 37 L 25-OH Vitamin D Total 42.5 TSH 4.40 H Free T4 0.81 Ur Specific [place] <= 1.005 Urine Protein Negative Urine Glucose (UA) Negative Urine Blood Negative Urine Nitrite Negative Ur Leukocyte Esterase Negative Assessment and Plan Assessment & Plan (1) Benign paroxysmal vertigo: Code(s): H81.10 - Benign paroxysmal vertigo, unspecified ear Qualifiers: Laterality: unspecified laterality Qualified Code(s): H81.10 - Benign paroxysmal vertigo, unspecified ear Plan: Will refer him to physical therapy [facility] for canalith positioning Will start him for now on Meclizine 12.5 mg TID PRN although advised that Meclizine may not really help much as it is more for motion sickness than vertigo (2) 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 Diop and he completed Cisplatin-based chemotherapy and concurrent radiation therapy in June 2022 (05/11/2022 to 06/30/2022) Follow up with oncology and ENT as scheduled for continuing management/treatment and surveillance (3) Dysphagia: Code(s): R13.10 - Dysphagia, unspecified Qualifiers: Dysphagia type: unspecified Qualified Code(s): R13.10 - Dysphagia, unspecified Plan: Patient continues to complain of dysphagia, dysgeusia and dry throat symptoms He underwent esophageal dilation with Dr. Hernández on 10/27/22, in March 2023 and more recently in July 2023; patient states that dilation helped temporarily with his symptoms Relates that he also had his throat dilated by ENT a few months ago Follow up with ENT and with Dr. Hernández as scheduled (4) Dilated cardiomyopathy secondary to alcohol: Code(s): I42.6 - Alcoholic cardiomyopathy Plan: Continue Entresto 24-26 mg 1 tablet BID Follow up with cardiology as scheduled (5) Systolic congestive heart failure: Comment: Echocardiogram done on 05/03/2018 showed visually estimated EF between 30-35% with an impaired relaxation filling pattern. Cardiac valvular dopplers and RV systolic pressure were all within normal range. Repeat echocardiogram on 03/12/21 revealed (+) normal LV cavity size, with mildly increased LV wall thickness. LV systolic function is low normal and visually estimated EF is between 50 to 55%. Diastolic function is normal for age. Code(s): I50.20 - Unspecified systolic (congestive) heart failure Qualifiers: Heart failure chronicity: unspecified Qualified Code(s): I50.20 - Unspecified systolic (congestive) heart failure Plan: His cardiac function has improved significantly with treatment over the past few years and patient currently appears compensated His BNP level came back normal on his recent labs Continue Entresto 24-26 mg 1 tablet BID and Carvedilol 3.125 mg BID Follow up with Cardiology as scheduled (6) Paroxysmal atrial fibrillation: Code(s): I48.0 - Paroxysmal atrial fibrillation Plan: Patient currently remains in sinus rhythm Continue Eliquis 5 mg twice a day for thromboembolism prophylaxis Follow-up with cardiology as scheduled (7) Benign essential hypertension: Code(s): I10 - Essential (primary) hypertension Plan: Reinforced low sodium diet - goal is systolic BP of at least 120-130 mm or less Continue Carvedilol 3.125 mg 1 tablet BID and Entresto 24-26 mg BID (8) Pure hypercholesterolemia: Code(s): E78.00 - Pure hypercholesterolemia, unspecified Plan: Results of his labs done a couple of days ago reviewed and discussed with patient - advised that his cholesterol levels have improved slightly from previous Reinforced low cholesterol diet Continue Rosuvastatin 20 mg QD Will recheck his labs and fasting lipids in 3 months for follow up (9) Impaired fasting glucose: Code(s): R73.01 - Impaired fasting glucose Plan: HgbA1c was at 5.4% and 5.6% when previously checked Reinforced low calorie diet /exercise as tolerated (10) COPD (chronic obstructive pulmonary disease): Code(s): J44.9 - Chronic obstructive pulmonary disease, unspecified Qualifiers: COPD type: unspecified COPD Qualified Code(s): J44.9 - Chronic obstructive pulmonary disease, unspecified Plan: Continue Albuterol HFA 2 puffs 4 times a day as needed (11) Chronic pain of right inguinal region: Comment: (+) Post-herniorrhaphy syndrome - had right inguinal herniorrhaphy in the past and recovery was complicated with increased pain and adverse effects, resulting in chronic and worse pain States that his chronic pain has been adequately controlled on his current pain med regimen - this is a WORKER'S COMP - related issue Code(s): R10.31 - Right lower quadrant pain; G89.29 - Other chronic pain Plan: Continue Oxycodone 15 mg 1 to 2 tablets 6 to 7 times a day as needed for severe pain (no more than 8 tablets/day), 28 days, # 224 tablets, refills 0 (12) Lumbar spondylosis: Code(s): M47.816 - Spondylosis without myelopathy or radiculopathy, lumbar region Plan: Reinforced activity and weight-lifting restrictions to avoid aggravating his low back pain (13) Neuropathy: Code(s): G62.9 - Polyneuropathy, unspecified Plan: His symptoms remain tolerable lately He could not tolerate Gabapentin in the past and Amitriptyline did not help him much (14) Vitamin D deficiency: Code(s): E55.9 - Vitamin D deficiency, unspecified Plan: Continue Vitamin D3 1000 units QD Plan Follow up in 3 months Orders: Orders PT Evaluation and Treatment 08/21/24 H81.10 - Benign paroxysmal vertigo, unspecified ear Comprehensive [place]. Panel Fast 3 Months E78.00 - Pure hypercholesterolemia, unspecified Vitamin D 25-OH Total 3 Months E55.9 - Vitamin D deficiency, unspecified Complete Blood Count Auto Diff 3 Months D64.9 - Anemia, unspecified Lipid Panel 3 Months E78.00 - Pure hypercholesterolemia, unspecified Hemoglobin A1c 3 Months R73.01 - Impaired fasting glucose UA CC w/rflx Micro + Cult 3 Months R30.0 - Dysuria Vitamin B12 and Folate 3 Months E53.8 - Deficiency of other specified B group vitamins B Type Natriuretic Peptide 3 Months I50.9 - Heart failure, unspecified Medications: New meclizine 12.5 mg PO TID PRN 30 tabs 1RF dizziness Coding Level of Care Code Est Pt Level 4 (42983) Complex EM visit Add On G2211 Diagnoses Benign paroxysmal vertigo, unspecified laterality H81.10 Laterality: unspecified laterality 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
== END 2024-08-21 15:34 | disposition home or self-care (01) ==
PROVIDERS: PCP Internal Medicine; Visit Provider Internal Medicine
DX: I50.20 Unspecified systolic (congestive) heart failure (principal); C77.9 Secondary and unspecified malignant neoplasm of lymph node, unspecified; C80.1 Malignant (primary) neoplasm, unspecified; I42.6 Alcoholic cardiomyopathy; I48.0 Paroxysmal atrial fibrillation; J44.9 Chronic obstructive pulmonary disease, unspecified; R13.10 Dysphagia, unspecified; I10 Essential (primary) hypertension; E78.00 Pure hypercholesterolemia, unspecified; R73.01 Impaired fasting glucose; R10.31 Right lower quadrant pain; G89.29 Other chronic pain

== ENCOUNTER → 2024-08-21 14:20 | Outpatient (BNVA) | payer MEDICARE, MEDICAID, OTHER, SELFPAY | PROVIDERS: PCP Internal Medicine; Visit Provider Internal Medicine | DX: H91.10 Presbycusis, unspecified ear (principal); C77.9 Secondary and unspecified malignant neoplasm of lymph node, unspecified; C80.1 Malignant (primary) neoplasm, unspecified; R13.10 Dysphagia, unspecified; I42.6 Alcoholic cardiomyopathy; I11.0 Hypertensive heart disease with heart failure; I50.20 Unspecified systolic (congestive) heart failure; I48.0 Paroxysmal atrial fibrillation; E78.00 Pure hypercholesterolemia, unspecified; R73.01 Impaired fasting glucose; J44.9 Chronic obstructive pulmonary disease, unspecified; M47.816 Spondylosis without myelopathy or radiculopathy, lumbar region; G62.9 Polyneuropathy, unspecified; E55.9 Vitamin D deficiency, unspecified | CPT/HCPCS: 96127; 99212 ==

== ENCOUNTER 2024-08-24 13:00 | Outpatient (AMB) | payer MEDICARE, MEDICAID, SELFPAY ==
[2024-08-24 13:06] VITALS: BP 120/78; PULSE 63; O2SAT 98; BMI 22.5
--- NOTE | 2024-08-24 13:06 | MHC.OFFWIV ---
Intake Vital Signs 08/24/24 13:06 Height 5 ft 8 in Weight 148 lb BMI 22.5 BP 120/78 Blood Pressure Location Lt brachial Position Sitting Pulse 63 Pulse Source Pulse Oximeter Pulse Oximetry (%) 98 Oxygen Delivery Method Room Air Intake Visit Reasons: EP need stiches on his left ear Intake Note: Patient here for left ear wound as he ended up having vertigo and his his ear on a gas pipe and is on blood thinners. Patient Tobacco Use Status: Former Tobacco user Allergies Penicillins [PCN] Allergy (Severe, Verified 08/24/24 13:23) dyspnea codeine [CODEINE] Allergy (Mild, Verified 08/24/24 13:23) VOMITING cefuroxime Allergy (Unknown, Verified 08/24/24 13:23) cefuroxime axetil- dyspnea morphine [MORPHINE] Allergy (Unknown, Verified 08/24/24 13:23) UNKNOWN Do you need a note to return to daycare/school/sports/work: No HPI EP need stiches on his left ear HPI Details This is a 74-year-old male patient who presents to the walk-in clinic today with his son neat present. He reports that about an hour and a half ago, he became very dizzy and fell, and hit the back of his head is/the back of his left ear on a gas pipe. He does not think he lost consciousness. He is anticoagulated on Eliquis, history of AFib. He denies any current dizziness, nausea, lightheadedness, chest pain, palpitations, shortness of breath. [facility] Medical History LBBB (left bundle branch block) Dysphagia Vitamin D deficiency Peyronie's disease Essential hypertension NICM (nonischemic cardiomyopathy) Smoker Neuropathy Impaired fasting glucose Benign essential hypertension Pure hypercholesterolemia Systolic congestive heart failure Dilated cardiomyopathy secondary to alcohol COPD (chronic obstructive pulmonary disease) Paroxysmal atrial fibrillation Lumbar spondylosis Chronic pain of right inguinal region Lumbar radiculopathy Atrial fibrillation Surgical History Hx of colonoscopy (~03/26/17) History of percutaneous endoscopic gastrostomy History of tonsillectomy History of inguinal hernia repair Family History Father Cancer Mother CVD (cardiovascular disease) Social History Household Members: Family Housing: House Are you a primary career center director to a significant other at home: No Do you presently have visiting nurse or other home services: No Alcohol intake: never Patient Tobacco Use Status: Former Tobacco user Tobacco use type: Cigarette e-Cigarette/Vaping Use: Former Use Second Hand Smoke Exposure: Yes service: Yes ([employer]) Current occupational status: retired 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 Cognitive needs: Yes (Cane) Hearing needs: No Vision needs: No Review of Systems Const All systems reviewed & are unremarkable except as noted in HPI and below Physical Exam Vital Signs: Last Vital Signs Pulse 63 08/24/24 13:06 BP 120/78 08/24/24 13:06 Pulse Ox 98 08/24/24 13:06 Oxygen Delivery Method Room Air 08/24/24 13:06 BMI result Body Mass Index 22.5 Const General: cooperative and no acute distress Orientation/consciousness: patient oriented x3 HEENT Other: laceration along posterior left ear, scant amount of bloody drainage at this time Head: Yes normocephalic Ears: hearing grossly normal bilaterally Resp Effort & Inspection: normal respiratory effort Auscultation: clear to auscultation bilaterally Cardio Rate: regular rate Rhythm: regular rhythm Neuro General: patient oriented x3, gait normal, tone normal and no focal motor deficits Extrem General: Yes no clubbing, cyanosis or edema Psych Appearance: grossly normal Mental Status: mental status grossly normal Speech and movement: Normal speech and movement present Assessment & Plan Assessment & Plan (1) Status post fall: Code(s): Z91.81 - History of falling Plan: Patient is status post fall about an hour and a half ago, landed on his head/left ear on a gas pipe. Anticoagulated on Eliquis. Discussed need for imaging of head with CT, in which case patient will need to go to emergency department. He will also likely need suturing of laceration on posterior left ear. New gauze/tape applied at this time in office. Patient and son Lobo who was present with him at visit verbalized understanding of this, and will go to the [facility] emergency department at this time. They are opting to go via private vehicle as opposed to via EMS which was offered. Expect call made to Marbella LIRIANO at [facility] ED. (2) On anticoagulant therapy: Code(s): Z79.01 - [facility] (current) use of anticoagulants Plan: As above. No focal neuro deficits. (3) Laceration of left ear, external: Code(s): S01.312A - Laceration without foreign body of left ear, initial encounter Qualifiers: Encounter type: initial encounter Qualified Code(s): S01.312A - Laceration without foreign body of left ear, initial encounter Plan: Will likely need repair. Going to [facility] ED for eval. Coding Level of Care Code Est Pt Level 4 (37174) Diagnoses Status post fall Z91.81 On anticoagulant therapy Z79.01 Laceration of left external ear, initial encounter S01.312A Encounter type: initial encounter
== END 2024-08-24 13:41 | disposition home or self-care (01) ==
PROVIDERS: PCP Internal Medicine; Visit Provider Nurse Practitioner Family
DX: Z91.81 History of falling (principal); Z79.01 Long term (current) use of anticoagulants; S01.312A Laceration without foreign body of left ear, initial encounter

== ENCOUNTER → 2024-08-24 13:00 | Outpatient (BNVA) | payer MEDICARE, MEDICAID, OTHER, SELFPAY | PROVIDERS: PCP Internal Medicine ==

== ENCOUNTER 2024-08-24 13:49 | Emergency (ER) | payer MEDICARE, MEDICAID, SELFPAY ==
--- NOTE | ~2024-08-24 | CT_ITS ---
EXAMINATION: CT HEAD WITHOUT CONTRAST CT CERVICAL SPINE WITHOUT CONTRAST CLINICAL INFORMATION: Fall. Pain. Vertigo. COMPARISON: CT head and cervical spine February 02, 2019 TECHNIQUE: Imaging was performed from the skull base to vertex without intravenous administration of contrast. In addition, helical noncontrast CT imaging was acquired through the cervical spine and source images were reviewed along with axial reconstructions and sagittal and coronal MPRs. [This CT examination was performed using dose optimization techniques as appropriate, variously including the following: *Automated exposure control *Adjustment of mA and/or kV according to patient size (this includes techniques or standardized protocols for targeted exams where dose is matched to indication/reason for exam; i.e. extremities or head) *Use of iterative reconstruction technique] DLP: 932 mGy-cm FINDINGS: HEAD: No intracranial mass, hemorrhage, or midline shift is visualized. The ventricles and sulci are proportional. No extra-axial collections are identified. The paranasal sinuses and mastoid air cells are well aerated. CERVICAL SPINE: There is no evidence of acute cervical spine fracture. Vertebral bodies remain normal in height. Cervical vertebrae have normal alignment. There is multilevel degenerative spondylosis of the cervical spine with disc height narrowing and endplate spurs and facet joint arthrosis No pre- or paravertebral soft tissue abnormality is identified. Mild paraseptal emphysematous change of the lung apices. CT/CT head/brain wo IV con IMPRESSION: 1. No acute intracranial pathology. 2. No CT evidence of acute cervical spine fracture or traumatic subluxation Electronically signed by: Titus Knapp MD 08/24/2024 04:42 PM EDT
--- NOTE | ~2024-08-24 | CT_ITS ---
EXAMINATION: CT HEAD WITHOUT CONTRAST CT CERVICAL SPINE WITHOUT CONTRAST CLINICAL INFORMATION: Fall. Pain. Vertigo. COMPARISON: CT head and cervical spine February 02, 2019 TECHNIQUE: Imaging was performed from the skull base to vertex without intravenous administration of contrast. In addition, helical noncontrast CT imaging was acquired through the cervical spine and source images were reviewed along with axial reconstructions and sagittal and coronal MPRs. [This CT examination was performed using dose optimization techniques as appropriate, variously including the following: *Automated exposure control *Adjustment of mA and/or kV according to patient size (this includes techniques or standardized protocols for targeted exams where dose is matched to indication/reason for exam; i.e. extremities or head) *Use of iterative reconstruction technique] DLP: 932 mGy-cm FINDINGS: HEAD: No intracranial mass, hemorrhage, or midline shift is visualized. The ventricles and sulci are proportional. No extra-axial collections are identified. The paranasal sinuses and mastoid air cells are well aerated. CERVICAL SPINE: There is no evidence of acute cervical spine fracture. Vertebral bodies remain normal in height. Cervical vertebrae have normal alignment. There is multilevel degenerative spondylosis of the cervical spine with disc height narrowing and endplate spurs and facet joint arthrosis No pre- or paravertebral soft tissue abnormality is identified. Mild paraseptal emphysematous change of the lung apices. CT/CT cervical spine wo IV con IMPRESSION: 1. No acute intracranial pathology. 2. No CT evidence of acute cervical spine fracture or traumatic subluxation Electronically signed by: Titus Knapp MD 08/24/2024 04:42 PM EDT
[2024-08-24 14:31] VITALS: BP 139/76; PULSE 56; RESP 16; TEMP 36.7; O2SAT 99; BMI 22.8
--- NOTE | 2024-08-24 14:36 | ECG_ITS ---
Test Reason : DIZZINESS Blood Pressure : / mmHG Vent. Rate : 053 BPM Atrial Rate : 053 BPM P-R Int : 202 ms QRS Dur : 126 ms QT Int : 462 ms P-R-T Axes : 044 -17 093 degrees QTc Int : 433 ms Sinus bradycardia Left bundle branch block Abnormal ECG When compared with ECG of 06-FEB-2016 11:18, Vent. rate has decreased BY 30 BPM T wave inversion no longer evident in Lateral leads QT has shortened Referred By: Blas Tavares Electronically Signed By:YANI SANTO
--- NOTE | 2024-08-24 14:38 | ED_ITS ---
HPI - General Adult General Chief complaint: Fall Stated complaint: Ear lac - sent from urgent care Time Seen by Provider: 08/24/24 19:37 Source: patient Mode of arrival: wheelchair Limitations: no limitations History of Present Illness ED Provider: Madi Wagoner PA-C HPI narrative: 74 yo M with a PMH of paroxysmal atrial fibrillation, COPD, dilated cardiomyopathy, CHF, LBBB, HTN, HDL, Peyronie's disease, metastatic SCC, and newly diagnosed benign paroxysmal vertigo presents to the ED today with intermittent dizziness and laceration to the posterior left ear. Patient reports that he was recently diagnosed with benign paroxysmal vertigo 1 week ago by his PCP and had an episode of dizziness after changing positions while doing laundry in his basement. Patient reports that he fell to the ground striking his ear on a water heater gas pipe. He states that he has been taking his newly prescribed Meclizine without improvement in his symptoms and is going to start PT soon . Patient denies loss of consciousness. He is on anticoagulation- Eliquis. Is not dizzy currently. Denies MILES, neck pain, back pain, chest pain, abdominal pain, n/v. MD complaint: fall, dizziness Onset (ago): hour(s) Location: head Severity: moderate Severity scale (1-10): 5 Quality: burning and sharp Pain Consistency: constant Relieving factors: none Exacerbating factors: movement Associated symptoms: denies other symptoms Treatments prior to arrival: none Related Data Previous Rx's ?Medication ?Instructions ?Recorded carvedilol 3.125 mg tablet 3.125 mg PO BID #180 tabs 09/13/23 rosuvastatin 20 mg tablet 20 mg PO DAILY #90 tabs 04/22/24 cholecalciferol (vitamin D3) 25 25 mcg PO DAILY 90 days #90 caps 04/25/24 mcg (1,000 unit) capsule apixaban 5 mg tablet (Eliquis) 5 mg PO BID #180 tabs 04/26/24 sacubitril 24 mg-valsartan 26 mg 1 tab PO BID #180 tabs 04/26/24 tablet (Entresto) doxycycline hyclate 100 mg capsule 100 mg PO BID 10 days #20 caps 08/14/24 meclizine 12.5 mg tablet 12.5 mg PO TID PRN dizziness #10 08/14/24 tabs oxycodone 15 mg tablet See Rx Instructions PO .COMPLEX 08/18/24 pain 28 days #224 tabs omeprazole 20 mg capsule,delayed 20 mg PO DAILY #90 caps 08/19/24 release Allergies Allergy/AdvReac Type Severity Reaction Status Date / Time Penicillins [PCN] Allergy Severe dyspnea Verified 08/24/24 14:32 codeine [CODEINE] Allergy Mild VOMITING Verified 08/24/24 14:32 cefuroxime Allergy Unknown cefuroxime Verified 08/24/24 14:32 axetil- dyspnea morphine [MORPHINE] Allergy Unknown UNKNOWN Verified 08/24/24 14:32 Review of Systems 2 Review of Systems: Yes all other systems are reviewed and are negative [facility] Past Medical History Medical History LBBB (left bundle branch block) Dysphagia Vitamin D deficiency Peyronie's disease Essential hypertension NICM (nonischemic cardiomyopathy) Smoker Neuropathy Impaired fasting glucose Benign essential hypertension Pure hypercholesterolemia Systolic congestive heart failure Dilated cardiomyopathy secondary to alcohol COPD (chronic obstructive pulmonary disease) Paroxysmal atrial fibrillation Lumbar spondylosis Chronic pain of right inguinal region Lumbar radiculopathy Atrial fibrillation Surgical History Hx of colonoscopy (~03/26/17) History of percutaneous endoscopic gastrostomy History of tonsillectomy History of inguinal hernia repair Family History Family History Father Cancer Mother CVD (cardiovascular disease) Social History Social History Household Members: Family Housing: House Are you a primary palliative care coordinator to a significant other at home: No Do you presently have visiting nurse or other home services: No Alcohol intake: never Patient Tobacco Use Status: Former Tobacco user Tobacco use type: Cigarette e-Cigarette/Vaping Use: Former Use Second Hand Smoke Exposure: Yes Advance Directives: No Advance Directives Information Provided: No Do you have a plan to hurt others: No Plan service: Yes ([employer]) Current occupational status: retired 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 Oriented X3. Pleasant elderly male sitting in stretcher in mild distress. Head: normocephalic, atraumatic. Eyes: Pupils equal, round and reactive to light. ENT: No abnormalities to external neck. Laceration to left postauricular ear. Neck: Normal inspection. Neck supple. no midline tenderness CVS: Normal heart rate and rhythm. Pulses normal. Respiratory: No respiratory distress. Breath sounds normal. Abdomen: No obvious abnormalities. Skin: Skin warm and dry. Normal skin color. Normal skin turgor. No rashes. Extremities: No lower extremity edema. No joint swelling. Neuro/psych: Oriented X 3. No motor deficit. No sensory deficit. CN II-XII grossly intact. Normal speech and cognition. steady gait Course Course Course Narrative: RME: Done by Antony Tavares. 61-year-old male history of AFib and vertigo presents to the ED for fall and left ear laceration. Patient states he felt dizzy and then fell to the ground hitting his head on a gas bite. Patient was sent from clinic for evaluation. No neuro deficits. Positive for left posterior ear laceration. We will do EKG and imaging and labs. Medications Administered Discontinued Medications Generic Name Dose Route Start Last Admin Trade Name Freq PRN Reason Stop Dose Admin Diphtheria/Tetanus/Acell Pertussis 0.5 ml 08/24/24 20:16 08/24/24 20:32 Diphth,Pertus(Acell),Tet Adult 0.5 Ml Syringe IM 08/24/24 20:17 0.5 ml .ONCE ONE Administration Lidocaine HCl 5 ml 08/24/24 19:50 08/24/24 20:33 Lidocaine Hcl 2 % Mpf 5 Ml Vial INFILTRATI 08/24/24 19:51 5 ml ONCE ONE Administration Lidocaine HCl 2 ml 08/24/24 20:05 08/24/24 20:16 Lidocaine Hcl 1 % Mpf 2 Ml Vial INFILTRATI 08/24/24 20:06 Not Given ONCE ONE Lidocaine HCl 2 ml 08/24/24 20:06 08/24/24 20:16 Lidocaine Hcl 1 % Mpf 2 Ml Vial SUBCUT 08/24/24 20:07 Not Given ONCE ONE Procedures Laceration 3 cm irregular shaped laceration to left postauricular ear: Site: other Side (If applicable): left Size (cm): 3 Description: irregular Depth: simple, single layer Local Anesthetic: lidocaine 2% Amount of anesthesia used (mL): 2 Pre-repair: wound explored Skin layer closed with: nylon Size (cm): 5-0 Number of sutures: 6 Technique: simple, interrupted Medical Decision Making Medical Decision Making [facility] Narrative: 74 yo M with a PMH of paroxysmal atrial fibrillation on , COPD, dilated cardiomyopathy, CHF, LBBB, HTN, HDL, Peyronie's disease, metastatic SCC, and newly diagnosed benign paroxysmal vertigo presents to the ED today with intermittent dizziness and laceration to the posterior left ear after he fell during a dizzy episode today. Episode was when he was bending over doing laundry. No other neurologic symptoms. No longer dizzy. Laceration to the left postauricular space required suture repair, 6 sutures were placed. See procedure note. Tdap given. CT scan of his head was unremarkable, no ICH. CT of the cervical spine was unremarkable as well. His lab workup showed stable anemia. Troponin was negative. He has no chest pain. EKG with sinus bradycardia, left bundle-branch block, no ST segment elevations or depressions. Vital signs are stable. He feels well. Comfortable discharge home. His PCP is aware the vertigo, has ordered him physical therapy and meclizine. He is currently asymptomatic. Wound care management discussed. Stable for discharge home with outpatient follow-up. Differential Diagnosis Differential Diagnoses: The differential diagnosis associated with the presentation includes Dizziness due to vertigo, cardiac arrhythmia, anemia, dehydration, orthostatic hypotension, stroke Lab Data [facility] Lab Attestation statement: I reviewed the patient's lab results. 08/24/24 14:49 08/24/24 14:49 Labs: Lab Results 08/24/24 Range/Units 14:49 WBC 5.0 (4.8-10.8) X10*3/uL RBC 4.44 L (4.60-5.80) X10*6/uL Hgb 12.6 L (14.0-18.0) g/dl Hct 37.5 L (42.0-52.0) % MCV 84.5 (80.0-98.0) fL MCH 28.4 (27.0-33.0) pg MCHC 33.6 (31.0-36.0) g/dl RDW 13.5 (11.0-16.0) % Plt Count 202 (160-400) X10*3/uL MPV 8.2 L (9.4-12.4) fL Immature Gran % (Auto) 0.4 (0.0-0.4) % Neut % (Auto) 56.9 (45-73) % Lymph % (Auto) 21.9 (20-40) % Elmore % (Auto) 11.6 H (2-11) % Eos % (Auto) 7.8 H (0-4) % Baso % (Auto) 1.4 (0-2) % Lymph # (Auto) 1.1 L (1.2-4.9) X10*3/uL Elmore # (Auto) 0.6 (0.1-1.2) X10*3/uL Eos # (Auto) 0.4 (0.0-0.4) X10*3/uL Baso # (Auto) 0.1 (0.0-0.2) X10*3/uL Abs Immat Gran (auto) 0.02 (0.00-0.03) X10*3/uL Absolute Neuts (auto) 2.9 (2.0-8.3) x10*3/uL Absolute Nucleated RBC 0.000 (0.0-0.012) X10*3/uL Nucleated RBC % (auto) 0.0 (0.0-0.2) /100WBC PT 17.6 H (10.9-12.4) SEC INR 1.5 H (0.9-1.1) APTT 38.1 H (26.0-36.8) SEC Sodium 139 (135-145) mmol/L Potassium 4.6 (3.3-5.1) mmol/L Chloride 104 (96-108) mmol/L Carbon Dioxide 27 (22-29) mmol/L Anion Gap 13 (12-20) BUN 13 (9-16) mg/dL Creatinine 1.27 (0.5-1.4) mg/dL Estim Creat Clear Calc 49.7 Estimated GFR 56 Random Glucose 99 (60-115) mg/dL Calcium 10.3 H D (8.4-10.2) mg/dL Total Bilirubin 0.6 (0.0-1.0) mg/dL AST 21 (5-37) U/L ALT 10 (0-40) U/L Alkaline Phosphatase 51 (39-117) U/L Troponin I High Sens < 2.7 (<3.5-35.0) ng/L Total Protein 7.4 (6.5-8.0) g/dL Albumin 4.4 (3.5-5.0) g/dL Independent Interpretation I performed an independent interpretation of an: EKG and CT Scan Interpretation: EKG with sinus bradycardia, ventricular rate 53 beats per minute, prolonged [place] interval 202. Left bundle-branch block present which is unchanged from prior CT head without acute edema or bleed Radiology Impression Discussion of test interpretation with radiology: I have reviewed the radiologist's reading. Radiologist Impression: 7 CT/CT head/brain wo IV con IMPRESSION: 1. No acute intracranial pathology. 2. No CT evidence of acute cervical spine fracture or traumatic subluxation External Record Review External record reviewed: Outpatient record, Prior outpatient labs and Prior outpatient radiology Prescription Management I considered prescription management with: Pain Medication Chronic Conditions Patient?s care impacted by: Other (afib) Critical Care Time Critical Care Time Critical Care Time: No Discharge Plan Discharge Clinical Impression: Fall, Laceration of ear Patient Disposition: Home, Self-Care Instructions: Laceration (DC), Vertigo (DC) Additional Instructions: Your CT scan today were unremarkable. Your lab workup today showed stable anemia. Your EKG and electrolytes were all unremarkable. 6 stitches were used to close your wound today You will need your stitches out in 7 days. See you doctor for this or come back to the ER and we will remove them. Do not get wet for 24 hours, after that you can briefly wash with soap and water then pat dry. Keep wound clean and covered. If you develop signs of infection including increased pain, swelling, redness or drainage of pus come back to the ER for further evaluation. Follow-up with your doctor and try to get physical therapy to help with your vertigo. When you change positions, make sure to do so slowly. If you develop new or worsening symptoms call 911 or come back to the ER for further evaluation. Prescriptions: No Action carvedilol 3.125 mg tablet 3.125 mg PO BID Qty: 180 3RF rosuvastatin 20 mg tablet 20 mg PO DAILY Qty: 90 1RF cholecalciferol (vitamin D3) 25 mcg (1,000 unit) capsule 25 mcg PO DAILY 90 Days Qty: 90 3RF Eliquis 5 mg tablet 5 mg PO BID Qty: 180 1RF Entresto 24-26 mg tablet 1 tab PO BID Qty: 180 2RF doxycycline hyclate 100 mg capsule 100 mg PO BID 10 Days Qty: 20 0RF oxycodone 15 mg tablet See Rx Instructions PO .COMPLEX 28 Days Qty: 224 0RF Rx Instructions: 1 to 2 tablets orally 6 to 7 times a day as needed for severe pain (no more than 8 tablets per day) omeprazole 20 mg capsule,delayed release(DR/EC) 20 mg PO DAILY Qty: 90 0RF meclizine 12.5 mg tablet 12.5 mg PO TID PRN (Reason: dizziness) Qty: 10 0RF Referrals: Albert Chan MD [Primary Care Provider] - Interventions: ED Discharge Assessment Last Done: 08/24/24 20:41 Discharge Date/Time: 08/24/24 20:41 Print Language: Upper Sorbian
[2024-08-24 14:58] LABS: MANUAL DIFF FLAG NO
[2024-08-24 15:01] LABS: Basophils Absolute Auto 0.1 X10*3/uL (0.0-0.2); Basophils Percent Auto 1.4 % (0-2); Eosinophils Absolute Auto 0.4 X10*3/uL (0.0-0.4); Eosinophils Percent Auto 7.8 % (0-4); Hematocrit 37.5 % (42.0-52.0); Hemoglobin 12.6 g/dl (14.0-18.0); Imm Gran Abs Auto 0.02 X10*3/uL (0.00-0.03); Imm Gran Pct Auto 0.4 % (0.0-0.4); Lymphocytes Absolute Auto 1.1 X10*3/uL (1.2-4.9); Lymphocytes Percent Auto 21.9 % (20-40); Mean Corpuscular HGB Conc 33.6 g/dl (31.0-36.0); Mean Corpuscular Hemoglobin 28.4 pg (27.0-33.0); Mean Corpuscular Volume 84.5 fL (80.0-98.0); Mean Platelet Volume 8.2 fL (9.4-12.4); Monocytes Absolute Auto 0.6 X10*3/uL (0.1-1.2); Monocytes Percent Auto 11.6 % (2-11); Neutrophils Absolute Auto 2.9 x10*3/uL (2.0-8.3); Neutrophils Percent Auto 56.9 % (45-73); Platelet Count 202 X10*3/uL (160-400); Red Blood Count 4.44 X10*6/uL (4.60-5.80); Red Cell Distribution Width 13.5 % (11.0-16.0)
[2024-08-24 15:07] LABS: INTERNATIONAL NORM RATIO 1.5 (0.9-1.1); Prothrombin Time 17.6 SEC (10.9-12.4)
[2024-08-24 15:10] LABS: Partial Thromboplastin Time 38.1 SEC (26.0-36.8)
[2024-08-24 15:14] LABS: Alanine Aminotransferase 10 U/L (0-40); Albumin Level 4.4 g/dL (3.5-5.0); Alkaline Phosphatase 51 U/L (39-117); Anion Gap 13 (12-20); Aspartate Amino Transferase 21 U/L (5-37); Bilirubin Total 0.6 mg/dL (0.0-1.0); Blood Urea Nitrogen 13 mg/dL (9-16); Calcium 10.3 mg/dL (8.4-10.2); Carbon Dioxide 27 mmol/L (22-29); Chloride 104 mmol/L (96-108); Creatinine Clr Calc Pharmacy 49.7; Estimated Glomerular Filt Rate 56; Glucose Random 99 mg/dL (60-115); Potassium 4.6 mmol/L (3.3-5.1); Sodium 139 mmol/L (135-145); Total Protein 7.4 g/dL (6.5-8.0)
[2024-08-24 15:26] LABS: Troponin-I High Sensitivity < 2.7 ng/L (<3.5-35.0)
[2024-08-24 16:34] VITALS: BP 115/67; PULSE 55; RESP 15; TEMP 36.2; O2SAT 99
[2024-08-24 19:38] VITALS: BP 137/75; PULSE 61; RESP 13; TEMP 36.6; O2SAT 99
[2024-08-24] MEDS: Diphth,Pertus(ACell),Tet Adult 0.5 ML SYRINGE IM (20:32)
[2024-08-24] MEDS: Lidocaine HCl 2 % MPF 5 ML VIAL INFILTRATI (20:33)
[2024-08-24 20:37] VITALS: BP 142/70; PULSE 60; RESP 16; TEMP 36.8; O2SAT 99
[2024-08-24 20:41] VITALS: BP 142/70; PULSE 60; RESP 16; TEMP 36.8; O2SAT 99
== END 2024-08-24 20:41 | disposition home or self-care (01) ==
PROVIDERS: Physician Assistant; Emergency Provider Internal Medicine; PCP Internal Medicine
DX: S01.312A Laceration without foreign body of left ear, initial encounter (principal); R42 Dizziness and giddiness; R51.9 Headache, unspecified; M54.2 Cervicalgia; W18.39XA Other fall on same level, initial encounter; Y93.E2 Activity, laundry; Y92.098 Other place in other non-institutional residence as the place of occurrence of the external cause; Y99.8 Other external cause status; I10 Essential (primary) hypertension; Z79.01 Long term (current) use of anticoagulants; Z23 Encounter for immunization; Z79.899 Other long term (current) drug therapy
CPT/HCPCS: 12052; 36415; 70450; 72125; 80053; 84484; 85025; 85610; 85730; 90471; 90715; 93005; 99212; 99284

== ENCOUNTER 2024-09-01 13:50 | Outpatient (AMB) | payer MEDICARE, MEDICAID, SELFPAY ==
[2024-09-01 13:52] VITALS: BP 102/60; PULSE 78; O2SAT 99; BMI 22.5
--- NOTE | 2024-09-01 13:52 | A.OFFPC_ITS ---
Vital Signs 09/01/24 13:52 Height 5 ft 8 in Weight 148 lb BMI 22.5 BP 102/60 Blood Pressure Location Lt brachial Position Sitting Pulse 78 Pulse Source Pulse Oximeter Pulse Oximetry (%) 99 Oxygen Delivery Method Room Air Intake Visit Reasons: [facility] 08/24 Ear lac - sent from urgent care Intake Note: Patient is here to follow-up after a visit the emergency department at [facility] on 08/24/24 Diamond Cutter Required: No Allergies Penicillins [PCN] Allergy (Severe, Verified 09/01/24 13:57) dyspnea codeine [CODEINE] Allergy (Mild, Verified 09/01/24 13:57) VOMITING cefuroxime Allergy (Unknown, Verified 09/01/24 13:57) cefuroxime axetil- dyspnea morphine [MORPHINE] Allergy (Unknown, Verified 09/01/24 13:57) UNKNOWN Tobacco use date assessed: 08/21/24 Fall risk assessment: No Falls in past year Last assessed Fall Risk: 09/01/24 Dental Screening Dental Screen Date: 08/21/24 HPI [facility] 08/24 Ear lac - sent from urgent care HPI Details 74-year-old male with past medical histo ry of atrial fibrillation on anticoagulation, COPD, cardiomyopathy, hypercholesterolemia, hypertension, impaired glucose tolerance, BPPV last seen by Dr. Chan coming in for hospital follow up. In review of the notes, patient was seen in walk-in clinic 08/24/2024 status post fall and sent to the emergency department for head CT. 3 cm laceration of left ear was repaired with [address] scan of the head was unremarkable along with lab work and EKG. Patient was discharged home. Patient states he will be starting physical therapy next week for BPPV. He does still have occasional dizziness with certain head movements but has not had recurrent falls. Meclizine seems to be helping with his dizziness. [facility] Medical History LBBB (left bundle branch block) Dysphagia Vitamin D deficiency Peyronie's disease Essential hypertension NICM (nonischemic cardiomyopathy) Smoker Neuropathy Impaired fasting glucose Benign essential hypertension Pure hypercholesterolemia Systolic congestive heart failure Dilated cardiomyopathy secondary to alcohol COPD (chronic obstructive pulmonary disease) Paroxysmal atrial fibrillation Lumbar spondylosis Chronic pain of right inguinal region Lumbar radiculopathy Atrial fibrillation Surgical History Hx of colonoscopy (~03/26/17) History of percutaneous endoscopic gastrostomy History of tonsillectomy History of inguinal hernia repair Family History Father Cancer Mother CVD (cardiovascular disease) Social History Household Members: Family Housing: House Are you a primary customer care manager to a significant other at home: No Do you presently have visiting nurse or other home services: No Alcohol intake: never Patient Tobacco Use Status: Former Tobacco user Tobacco use type: Cigarette e-Cigarette/Vaping Use: Former Use Second Hand Smoke Exposure: Yes service: Yes ([employer]) Current occupational status: retired 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 1. Little interest or pleasure in doing things: not at all 2. Feeling down, depressed, or hopeless: not at all 3. Trouble falling or staying asleep, or sleeping too much: not at all 4. Feeling tired or having little energy: not at all 5. Poor appetite or overeating: not at all 6. Feeling bad about yourself - or that you are a failure or have let yourself or your family down: not at all 7. Trouble concentrating on things, such as reading the newspaper or watching television: not at all 8. Moving or speaking so slowly that other people could have noticed. Or the opposite - being so fidgety or restless that you have been moving around a lot more than usual: not at all 9. Thoughts that you would be better off or of hurting yourself in some way: not at all Total score: 0 Depression Screening Interpretation: Negative Depression Screening Done: Yes 39169 - PHQ-9 Billing: Yes Source: Developed by Drs. Yung Childress, Trish Prasad, Nelson Perez and colleagues, with an educational nan from [employer]. Thrive Questionnaire Date Thrive assessed: 08/21/24 I am a: Patient What is your living situation today?: I have a steady place to live Within the past 12 months, did the food you bought not last and you didn't have the money to get more?: Never true Within the past 12 months, did you worry whether your food would run out before you got money to buy more?: Never true Do you have trouble paying for medicines?: No Do you have trouble getting transportation to medical appointments?: No Do you have trouble paying your heating and electricity bill?: No Do you have trouble taking care of your child, family member or friend?: No Do you have trouble with day-to-day activities such as bathing, preparing meals, shopping, managing finances, etc.?: No Are you currently unemployed and looking for a job?: No Are you interested in more education?: No Please select the resources that you would like help with: None Currently or been in a relationship where the following occur: No concerns reported THRIVE Score: 0 AUDIT C Alcohol Use Questionnaire (AUDIT-C) 1. How often do you have a drink containing alcohol?: Never 3. How often do you have six or more drinks on one occasion?: Never Total Score: 0 Score Reviewed/Action Taken: Yes FILIPE-7 AMB Questionnaire FILIPE-7 Date FILIPE - 7 assessed: 08/21/24 Source: Developed by Drs. Yung Childress, Trish Prasad, Nelson Perez and colleagues, with an educational nan from [employer]. Review of Systems Const Denies fatigue, Denies fever(s), Denies frequent falls and Denies headache(s) Eyes Reports no additional complaints and Denies change in vision ENT Denies dizziness, Denies headache(s) and Denies nasal congestion Card Denies chest pain, Denies syncope, Denies irregular heart rhythm, Denies leg edema, Denies lightheadedness and Denies dyspnea Resp Denies dyspnea GI Denies nausea and Denies vomiting Skin/Breast Reports system reviewed and no additional complaints, except as documented Neuro Denies dizziness, Denies syncope, Denies frequent falls and Denies headache(s) Psych Reports no additional complaints Endo Denies fatigue Physical exam (Primary Care) Vital Signs: Last Vital Signs Pulse 78 09/01/24 13:52 BP 102/60 09/01/24 13:52 Pulse Ox 99 09/01/24 13:52 Oxygen Delivery Method Room Air 10/04/24 13:52 BMI result Body Mass Index 22.5 Tobacco/Smoking Status: Tobacco use Status Tobacco use date assessed 08/21/24 09/01/24 14:01 Patient Tobacco Use Status Former Tobacco user 09/01/24 14:01 Tobacco use type Cigarette 09/01/24 14:01 e-Cigarette/Vaping Use Former Use 09/01/24 14:01 PHQ-9: PHQ-9 Score PHQ-9: Total score 0 09/01/24 14:01 Depression Screening Interpretation: Negative Thrive Assessment: Date of Thrive Assessment Date Thrive assessed 08/21/24 09/01/24 14:01 Currently or been in a relationship where the following occur: No concerns reported Const General: cooperative, healthy appearing, comfortable and no acute distress Orientation/consciousness: patient oriented x3 HENMT Other: Six intact sutures on the postauricular aspect of the left ear without overlying erythema or drainage Head: Yes normocephalic Ears: hearing grossly normal bilaterally General nose exam: Normal external nose present Eyes General: appearance normal, both eyes and all related structures Conjunctivae: conjunctivae normal Neck Neck: Yes full ROM and Yes no lymphadenopathy Resp Effort & Inspection: normal respiratory effort Auscultation: clear to auscultation bilaterally, no crackles, no rales, no rhonchi and no wheezes Cardio Rate: regular rate Rhythm: regular rhythm Skin General skin exam: no rashes or lesions noted Neuro General: patient oriented x3 Gait exam (Neuro): Normal gait present Extrem General: Yes normal to inspection, Yes full ROM and No edema Psych Affect: normal affect Attitude: cooperative Insight: Good insight present (Psych) Judgement: Good judgement present (Psych) Coding Level of Care Code Est Pt Level 3 (93873) Diagnoses Benign paroxysmal vertigo, unspecified laterality H81.10 Laterality: unspecified laterality Laceration of ear S01.312A Encounter type: initial encounter Laterality: left Assessment & Plan Assessment & Plan (1) Benign paroxysmal vertigo: Code(s): H81.10 - Benign paroxysmal vertigo, unspecified ear Category: Medical Qualifiers: Laterality: unspecified laterality Qualified Code(s): H81.10 - Benign paroxysmal vertigo, unspecified ear Plan: Continue on meclizine and advised patient to move slowly when transitioning from sitting to standing and other positional changes to avoid falls. Has physical therapy starting next week. (2) Laceration of ear: Code(s): S01.319A - Laceration without foreign body of unspecified ear, initial encounter Category: Medical Qualifiers: Encounter type: initial encounter Laterality: left Qualified Code(s): S01.312A - Laceration without foreign body of left ear, initial encounter Plan: Six intact sutures were successfully removed today. Patient tolerated procedure well and no evidence of dehiscence of left ear wound. No evidence of infection follow up as needed for this concern. Plan This note was constructed using voice recognition software. While every effort has been made to ensure accuracy and gaming cage worker, still areas may have been included sometimes these areas may affect the content or meeting of the given symptoms. Total time spent caring for the patient today was 20 minutes. This includes time spent before the visit reviewing the chart, time spent during the visit, and time spent after the visit and documentation.
== END 2024-09-01 14:31 | disposition home or self-care (01) ==
PROVIDERS: PCP Internal Medicine
DX: H81.10 Benign paroxysmal vertigo, unspecified ear (principal); S01.312A Laceration without foreign body of left ear, initial encounter

== ENCOUNTER → 2024-09-01 13:50 | Outpatient (BNVA) | payer MEDICARE, MEDICAID, SELFPAY | PROVIDERS: PCP Internal Medicine | DX: H81.10 Benign paroxysmal vertigo, unspecified ear (principal); S01.312A Laceration without foreign body of left ear, initial encounter | CPT/HCPCS: 99212 ==

== ENCOUNTER 2024-09-12 11:00 | Outpatient (RCR) | payer MEDICARE, MEDICAID, SELFPAY ==
[2024-09-08 12:53] VITALS: BP 132/70; PULSE 64; O2SAT 97
--- NOTE | 2024-09-08 13:57 | MHC.PT.EP ---
[facility] [place] Office [place] Office [place] Office [address] Michelle Warren [address] [phone] F: [phone] F: [phone] F: [phone] F: [phone] Physical Therapy Plan of Care Date of Evaluation: 09/08/24 Date of Surgery: Diagnosis: This is a 74 yo male presenting to skilled PT with a script for vertigo. Assessment: This is a 74 yo male presenting to skilled PT with a script for vertigo. About 3-4 weeks ago he was diagnosed by his PCP with vertigo. He noticed it when he rolled over in bed, but did not have any other symptoms for 2 weeks. However they did return after a weeks moving in bed and sitting in the chair. On 08/24 patient became very dizzy and fell when he was bending forward and turning to unload the laundry. With the fall he hit the back of his head/his left ear on a gas pipe. He does not think he lost consciousness. He is anticoagulated on Eliquis, history of AFib. He went to the walk-in who sent him to the ED for imaging and sutures. Patient now reports ongoing symptoms, mainly with transfers, turning his head and bed mobility. Symptoms last no longer than a few seconds and don't occur at rest. He gets lightheaded and loses his balance. Examination shows - oculomotor tests with saccades, (-) VBI B, and stiffness with cervical AROM. He was ? (+) for BPPV with R roll test (torsional) so performed an Scotty for the R and will reassess next time. Balance was normal except for some lightheadedness that was felt with head turns during DGI which may be vertigo or due to deviations in gait and balance from alternative PMHx. S/S consistent with ? R PC BPPV and he may benefit from PT 2x/wk for 4wks to address impairments, implement HEP and optimize functional mobility. Frequency and Duration: The patient will be seen 2x/wk for 4wks Short Term Goals: Punch Operator Goals: I in HEP Negative in all 6 canals for dizziness and nystagmus Return to normal gait pattern without reports fo LOB due to dizziness Treatment Plan: Modalities to reduce pain, spasms and effusion. Manual therapy to restore motion and function. Therapeutic exercise to improve strength and flexibility. Neuromuscular re-education for posture and balance. Therapeutic activities to return to functional activities of daily living. Electronically signed by: Carlota Porras PT Please sign and return to therapist. Thank you for your referral.
--- NOTE | 2024-09-12 11:35 | MHC.PT.DC ---
[facility] [place] Office [place] Office [place] Office [address] [phone] F: [phone] F: [phone] F: [phone] F: [phone] Physical Therapy Discharge Report Diagnosis: This is a 74 yo male presenting to skilled PT with a script for vertigo. Date of Surgery: Date of Evaluation: 09/08/24 Date of Discharge: Treatments to Date: 2 Cancellations to Date: 0 No Shows to Date: 0 Discharge Status: Recommend MD Follow-up Discharge Summary: 09/12: Patient without any nystagmus or symptoms on hallpike or roll test. He was negative for orthostatic hypotension with 132/78 supine and sit. He demos no dizziness with VOR testing in sitting or standing. He demos normal oculomotor tests and balance was grossly normal as well. I explained to him that I do not think he has vertigo, whether this resolved on its own or was never the case in the first place I do not know. He seems to have symptoms when he moves too fast so I encouraged him to slow down and take his time with transfers. At this time I did educate him to follow up with PCP for further evaluation and to call us if symptoms change and he would like to be reassessed. Electronically signed by: Carlota Porras PT Please sign and return to therapist. Thank you for your referral.
--- NOTE | 2024-10-11 14:51 | MHC.PT.DC ---
[facility] [place] [facility] [place] [facility] [place] [facility] [address] [phone] F: [phone] F: [phone] F: [phone] F: [phone] Physical Therapy Discharge Report Diagnosis: This is a 74 yo male presenting to skilled PT with a script for vertigo. Date of Surgery: Date of Evaluation: 09/08/24 Date of Discharge: Treatments to Date: 2 Cancellations to Date: 0 No Shows to Date: 0 Discharge Status: Recommend MD Follow-up Discharge Summary: 09/12: Patient without any nystagmus or symptoms on hallpike or roll test. He was negative for orthostatic hypotension with 132/78 supine and sit. He demos no dizziness with VOR testing in sitting or standing. He demos normal oculomotor tests and balance was grossly normal as well. I explained to him that I do not think he has vertigo, whether this resolved on its own or was never the case in the first place I do not know. He seems to have symptoms when he moves too fast so I encouraged him to slow down and take his time with transfers. At this time I did educate him to follow up with PCP for further evaluation and to call us if symptoms change and he would like to be reassessed. Electronically signed by: Carlota Porras PT Please sign and return to therapist. Thank you for your referral.
== END 2024-10-11 14:51 | disposition home or self-care (01) ==
LOC: HO.PTCHIC 11:00
PROVIDERS: PCP Internal Medicine; Visit Provider Internal Medicine
DX: H81.10 Benign paroxysmal vertigo, unspecified ear (principal)
CPT/HCPCS: 95992; 97110; 97112; 97162

== ENCOUNTER 2024-09-29 13:23 | Outpatient (AMB) | payer OTHER, MEDICARE, MEDICAID, SELFPAY ==
[2024-09-29 13:27] VITALS: BP 100/76; PULSE 64; O2SAT 98; BMI 22.7
--- NOTE | 2024-09-29 13:27 | MHC.PC.OV ---
Vital Signs 09/29/24 13:27 Height 5 ft 8 in Weight 149 lb 6 oz BMI 22.7 BP 100/76 Blood Pressure Location Lt brachial Position Sitting Pulse 64 Pulse Source Pulse Oximeter Pulse Oximetry (%) 98 Oxygen Delivery Method Room Air Intake Visit Reasons: worker's comp follow up Cotton Wringer Required: No Accompanied by: Self / Same As Patient Allergies Penicillins [PCN] Allergy (Severe, Verified 09/29/24 13:52) dyspnea codeine [CODEINE] Allergy (Mild, Verified 09/29/24 13:52) VOMITING cefuroxime Allergy (Unknown, Verified 09/29/24 13:52) cefuroxime axetil- dyspnea morphine [MORPHINE] Allergy (Unknown, Verified 09/29/24 13:52) UNKNOWN Medication List - Last Reconciled 09/29/24 by Albert Chan MD apixaban (Eliquis) 5 mg PO BID carvedilol 3.125 mg PO BID cholecalciferol (vitamin D3) 25 mcg PO DAILY 90 days meclizine 12.5 mg PO TID PRN omeprazole 20 mg PO DAILY oxycodone 1 to 2 tablets orally 6 to 7 times a day as needed for severe pain (no more than 8 tablets per day) 28 days rosuvastatin 20 mg PO DAILY sacubitril-valsartan 24-26 mg (Entresto) 1 tab PO BID Tobacco use date assessed: 09/29/24 Fall risk assessment: 1 Fall in past year Last assessed Fall Risk: 09/29/24 Dental Screening Dental Screen Date: 09/29/24 Did you have a dental visit in the last 12 months?: No Did you have a dental problem in the last 6 months where you did not have access to dental care?: No Was dental information given to patient?: No HPI worker's comp follow up HPI Details Patient comes in today for his worker's comp follow up visit States that he still has the chronic (increased) pain over his right inguinal area, which he's had for years now, and that his condition is mostly unchanged from previous States that his Oxycodone 15 mg 6 to 7 times a day is mostly helping adequately control and manage his pain He denies any headaches; still has recurrent dizziness - was told recently by PT when he was seen that he does not appear to have vertigo and should check back with his PCP for further evaluation if his symptoms continue to recur Denies any chest pains, no increased SOB No nausea/vomiting, no abdominal pain No change in bowel habits noted [facility] Medical History LBBB (left bundle branch block) Dysphagia Vitamin D deficiency Peyronie's disease Essential hypertension NICM (nonischemic cardiomyopathy) Smoker Neuropathy Impaired fasting glucose Benign essential hypertension Pure hypercholesterolemia Systolic congestive heart failure Dilated cardiomyopathy secondary to alcohol COPD (chronic obstructive pulmonary disease) Paroxysmal atrial fibrillation Lumbar spondylosis Chronic pain of right inguinal region Lumbar radiculopathy Atrial fibrillation Surgical History Hx of colonoscopy (~03/26/17) History of percutaneous endoscopic gastrostomy History of tonsillectomy History of inguinal hernia repair Family History Father Cancer Mother CVD (cardiovascular disease) Social History Household Members: Family Housing: House Are you a primary health care social worker to a significant other at home: No Do you presently have visiting nurse or other home services: No Alcohol intake: never Patient Tobacco Use Status: Former Tobacco user Tobacco use type: Cigarette e-Cigarette/Vaping Use: Former Use Second Hand Smoke Exposure: Yes service: Yes ([employer]) Current occupational status: retired 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 1. Little interest or pleasure in doing things: not at all 2. Feeling down, depressed, or hopeless: not at all 3. Trouble falling or staying asleep, or sleeping too much: not at all 4. Feeling tired or having little energy: not at all 5. Poor appetite or overeating: not at all 6. Feeling bad about yourself - or that you are a failure or have let yourself or your family down: not at all 7. Trouble concentrating on things, such as reading the newspaper or watching television: not at all 8. Moving or speaking so slowly that other people could have noticed. Or the opposite - being so fidgety or restless that you have been moving around a lot more than usual: not at all 9. Thoughts that you would be better off or of hurting yourself in some way: not at all Total score: 0 Depression Screening Interpretation: Negative Depression Screening Done: Yes 65811 - PHQ-9 Billing: Yes Source: Developed by Drs. Yung Childress, Trish Prasad, Nelson Perez and colleagues, with an educational nan from [employer]. Thrive Questionnaire Date Thrive assessed: 09/29/24 I am a: Patient What is your living situation today?: I have a steady place to live Within the past 12 months, did the food you bought not last and you didn't have the money to get more?: Never true Within the past 12 months, did you worry whether your food would run out before you got money to buy more?: Never true Do you have trouble paying for medicines?: No Do you have trouble getting transportation to medical appointments?: No Do you have trouble paying your heating and electricity bill?: No Do you have trouble taking care of your child, family member or friend?: No Do you have trouble with day-to-day activities such as bathing, preparing meals, shopping, managing finances, etc.?: No Are you currently unemployed and looking for a job?: No Are you interested in more education?: No Please select the resources that you would like help with: None Currently or been in a relationship where the following occur: No concerns reported THRIVE Score: 0 AUDIT C Alcohol Use Questionnaire (AUDIT-C) 1. How often do you have a drink containing alcohol?: Never 3. How often do you have six or more drinks on one occasion?: Never Total Score: 0 Score Reviewed/Action Taken: Yes FILIPE-7 AMB Questionnaire FILIPE-7 Date FILIPE - 7 assessed: 09/29/24 Feeling nervous, anxious, or on edge: 0 = Not at all Not being able to stop or control worryin = Not at all Worrying too much about different things: 0 = Not at all Trouble relaxin = Not at all Being so restless that it is hard to sit still: 0 = Not at all Becoming easily annoyed or irritable: 0 = Not at all Feeling afraid as if something awful might happen: 0 = Not at all Total FILIPE-7 score (0-4 normal; 5-9 mild; 10-14 moderate; 15-21 severe): 0 Source: Developed by Drs. Yung Childress, Trish Prasad, Nelson Perez and colleagues, with an educational nan from [employer]. Review of Systems Const Denies chills, Reports fatigue, Denies fever(s) and Denies headache(s) ENT Details: (+) on and off dizziness, mostly when he moves too fast - this will be addressed separately as it is not a worker's comp related issue Reports dysphagia, Reports dizziness, Reports dry mouth, Denies headache(s), Denies neck pain, Denies odynophagia and Denies sore throat Card Denies chest pain, Denies palpitations and Denies dyspnea Resp Denies cough and Denies dyspnea GI Denies abdominal pain (but (+) chronic increased pain over the right inguinal area), Denies constipation, Reports dysphagia, Denies heartburn, Denies diarrhea, Denies nausea, Denies odynophagia and Denies vomiting Denies dysuria, Denies nocturia and Denies urinary frequency Musc Reports back pain (occasional ) and Denies neck pain Skin/Breast Denies rash Neuro Reports dizziness, Denies headache(s) and Reports radicular pain (on the soles of both feet) Endo Reports fatigue and Denies palpitations Physical exam (Primary Care) Vital Signs: Last Vital Signs Pulse 64 09/29/24 13:27 BP 100/76 09/29/24 13:27 Pulse Ox 98 09/29/24 13:27 Oxygen Delivery Method Room Air 09/29/24 13:27 BMI result Body Mass Index 22.7 Tobacco/Smoking Status: Tobacco use Status Tobacco use date assessed 09/29/24 09/29/24 13:32 Patient Tobacco Use Status Former Tobacco user 09/29/24 13:32 Tobacco use type Cigarette 09/29/24 13:32 e-Cigarette/Vaping Use Former Use 09/29/24 13:32 PHQ-9: PHQ-9 Score PHQ-9: Total score 0 09/29/24 13:32 Depression Screening Interpretation: Negative Thrive Assessment: Date of Thrive Assessment Date Thrive assessed 09/29/24 09/29/24 13:32 Currently or been in a relationship where the following occur: No concerns reported Const General: no acute distress and alert HENMT Ears: TM's normal bilaterally and EAC's normal Throat: Yes posterior oropharynx normal and Yes tonsils normal Neck Neck: Yes supple and No lymphadenopathy Resp Auscultation: clear to auscultation bilaterally, no rales and no wheezes Cardio Rate: regular rate Rhythm: regular rhythm Heart sounds: no murmurs GI Palpation (GI): Soft to palpation and Tenderness to palpation present (GI) (over the right inguinal area - chronic) Auscultation: normal bowel sounds Back/Spine/Pelvis Thoracic/Lumbar Spine: lumbar spinal tenderness (mild) Extrem General: Yes no clubbing, cyanosis or edema Coding Level of Care Code Est Pt Level 3 (58122) Diagnoses Chronic pain of right inguinal region R10.31; G89.29 Assessment & Plan Assessment & Plan (1) Chronic pain of right inguinal region: Comment: (+) Post-herniorrhaphy syndrome - had right inguinal herniorrhaphy in the past and recovery was complicated with increased pain and adverse effects, resulting in chronic and worse pain States that his chronic pain has been adequately controlled on his current pain med regimen - this is a WORKER'S COMP - related issue Code(s): R10.31 - Right lower quadrant pain; G89.29 - Other chronic pain Category: Medical Plan: Continue Oxycodone 15 mg 1 to 2 tablets 6 to 7 times a day (no more than 8 tablets a day) as needed for severe pain (28 days, #224 tablets) and Tizanidine 4 mg TID PRN Plan Follow up in 4 months
== END 2024-09-29 14:04 | disposition home or self-care (01) ==
LOC: HO.HMCH 13:24
PROVIDERS: PCP Internal Medicine; Visit Provider Internal Medicine
DX: R10.31 Right lower quadrant pain (principal); G89.29 Other chronic pain

== ENCOUNTER → 2024-09-29 13:23 | Outpatient (BNVA) | payer OTHER, MEDICARE, MEDICAID, SELFPAY | PROVIDERS: PCP Internal Medicine; Visit Provider Internal Medicine | DX: R10.31 Right lower quadrant pain (principal); G89.29 Other chronic pain; Z79.891 Long term (current) use of opiate analgesic | CPT/HCPCS: 96127; 99212 ==

== ENCOUNTER 2024-11-20 12:23 | Outpatient (AMB) | payer MEDICARE, MEDICAID, SELFPAY ==
--- OUTSIDE RECORDS SUMMARY | 2024-11-20 12:25 | XMS_ITS | Continuity of Care Document ---
Author Organization [place] - [facility], [facility] Address [address] [place] [address] Care Team Providers Care Motion And Time Study Teacher Name Role Phone RAHEL MARILU Primary Care Provider Assessment No assessment recorded. Plan of Treatment Reminders Order Date Submit Date Provider Last Modified By Organization Details Last Modified Time Details Appointments Establish ed 2024 01:30P M YANI Diamond MD Not available Not available Not available Lab None recorded. Referral None recorded. Procedures None recorded. Surgeries None recorded. Imaging None recorded. Medication Orders ipratropi um bromide 21 mcg (0.03 %) nasal spray 2023 024 [facility] #[id number], [address] [place], [address], 09/26/2024 14:29:32 Patient TargetsNo targets recorded. Patient InstructionsNo instructions recorded. Reason for Referral None Reported. Results Created Date Observation Date Name Description Value Unit Range Abnormal Flag Note LastModifiedBy Organization Detail LastModifiedTime 09/26/2008/24/2024 CT, cervi keyur spine , w/o contr ast No observ ation record ed. [email or web address] [facility] ([facility]) [address] [address], [place], [address], 09/26/2024 17:04:27 09/26/2008/26/2024 CT, head, w/o contr ast No observ ation record ed. [email or web address] Not Available 08/30 17:02:52 Result Notes None recorded. 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, face and neck; Note: Date Diagnosed: 01/13/2022 3:58 PM (C77.0) Not Available [facility] 4 02:50:19 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 67825516 Active 2021 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, face and neck; Note: Date Diagnosed: 01/13/2022 3:58 PM (C77.0) Not Available [facility] 4 02:50:19 Dysphagia 72372706 Active 2021 Other dysphagia; Note: Date Diagnosed: 08/11/2022 2:30 PM (R13.19) Not Available [facility] 4 02:50:17 History of malignant neoplasm 688835920 Active 2021 Personal history of malignant neoplasm, unspecifie d; Note: Changed from Z85 to Z85.819 (08/11/2022 4:01 PM) , Changed from Z85.819 to Z85.9 (08/11/2022 4:02 PM) , Date Diagnosed: 08/11/2022 2:30 PM (Z85) Not Available [facility] 4 02:50:20 Nicotine dependenc e 43317971 Active 2021 Nicotine dependence , unspecifie d, uncomplica elieser; Note: Date Diagnosed: 01/13/2022 3:58 PM (F17.200) Not Available [facility] 4 02:50:15 Antineopl astic chemother apy regimen Active 2021 Encounter for antineopla stic chemothera py; Note: Date Diagnosed: 02/26/2022 3:00 PM (Z51.11) Not Available [facility] 4 02:50:18 Sensorine ural hearing loss of bilateral ears 545298446 Active 2021 Sensorineu ral hearing loss, bilateral; Note: Date Diagnosed: 02/26/2022 3:00 PM (H90.3) Not Available [facility] 4 02:50:19 Follow-up visit Active 2021 Encounter for follow-up examinatio n after completed treatment for malignant neoplasm; Note: Date Diagnosed: 08/11/2022 2:30 PM (Z08) Not Available [facility] 4 02:50:16 Vasomotor rhinitis 0735321 Active 2023 YANI LÓPEZ MD [address] [place] [address], [place], [address] , [facility] 14:26:14 Dizziness and giddiness 887423278 Active 2023 YANI LÓPEZ MD [address] [place] [address], [place], [address] , [facility] 14:28:26 Problem Notes None recorded. Procedures Surgical History Date Name Laterality Status Provider Name and Address Organization Details Recorded Time 09/26/2024 FFL_RE completed YANI LÓPEZ MD [address] [place] [address],[address], [address], [facility] 09/26/2024 14:19:25 05/24/2024 FFL_RE completed YANI LÓPEZ MD [address] [place] [address], [phone], [facility] 05/24/2024 15:24:29 Imaging Results None recorded. Procedure Notes None recorded. Medical Equipment None Reported. Allergies Allergen ID Allergen Name Allergen Category Reaction Reaction Severity Criticality Documentation Date Start Date Code Code System Note Provider Name and Address Organization Details Recorded Time 018285 codeine / pseudoeph edrine / triprolid ine medicatio n other Not available Not available 04/11/2024 86205 1 RxNorm React ion: other react ion, Unkno wn; Not Available [facility] 4 01:09:32 042138 Medicinal product containin g penicilli n and acting as antibacte rial agent (product) medicatio n other Not available Not available 04/11/2024 42338 05 SNOMED React ion: other react ion, Unkno wn; Not Available [facility] 4 01:09:33 Medications Name Sig Start Date Stop Date Status Note LastModified by Organization Details LastModified Time prednisone 10 mg tablet by mouth 2021 active Medicatio n ID: [id number] Pr escribed By Name: Yani diamond MD Brand Name: prednison e Send Method: E-Prescri bed Subs Allowed: subs OK Specia l Instructi on: Take 4 tabs daily for 2 days then 2 tabs daily for 2 days then stop Medi cationGen ericName: prednison e Not Available Not Available Not Available doxycyclin e hyclate 100 mg capsule TAKE 1 CAPSULE ORALLY 2 TIMES A DAY FOR 10 DAYS active Not Available Not Available No t Available meclizine 12.5 mg tablet TAKE 1 TABLET ORALLY 3 TIMES A DAY NEEDED FOR DIZZINESS active Not Available Not Available No t Available pentoxifyl line ER 400 mg tablet,ext ended release 2021 active Medicatio n ID: [id number] Br and Name: pentoxify lline Sen d Method: E-Prescri bed Subs Allowed: subs OK Medica tionGener icName: pentoxify lline Not Available Not Available Not Available carvedilol 3.125 mg tablet TAKE 1 TABLET BY MOUTH TWICE A DAY active Not Available Not Available No t Available oxycodone 15 mg tablet PLEASE SEE ATTACHED FOR DETAILED DIRECTION S active Not Available Not Available No t Available cevimeline 30 mg capsule TAKE 1 CAPSULE BY MOUTH 3 TIMES A DAY FOR 14 DAYS active Not Available Not Available No t Available omeprazole 20 mg capsule,de layed release 20 MG ORALLY DAILY active Not Available Not Available No t Available ipratropiu m bromide 21 mcg (0.03 %) nasal spray INSTILL 2 SPRAYS BY INTRANASA L ROUTE TWICE A DAY active Not Available Not Available No t Available Vitamin D3 25 mcg (1,000 unit) capsule TAKE 1 CAPSULE (25 MCG) ORALLY DAILY FOR 90 DAYS active Not Available Not Available No t Available rosuvastat in 20 mg tablet TAKE 1 TABLET BY MOUTH EVERY DAY active Not Available Not Available No t Available Eliquis 5 mg tablet TAKE 1 TABLET BY MOUTH TWICE A DAY active Not Available Not Available No t Available Entresto 24 mg-26 mg tablet TAKE 1 TABLET BY MOUTH TWICE A DAY active Not Available Not Available No t Available Vitals Date Recorded Body height Body mass index (BMI) Body weight Provider Name and Address Organization Details Last Updated DateTime 09/26/2024 172.72 cm 22 kg/m2 42332.89 g Aisha Casper [place] [facility] 09/26/2024 14:07:28 Social History None recorded. Functional Status None recorded. Mental Status None recorded. Family History Nothing Reported. Medical History No medical history recorded. Past Encounters Encounter ID Performer Location Encounter Start Date Encounter Closed Date Diagnosis/Indication Diagnosis SNOMED-CT Code Diagnosis ICD10 Code [id number] YANI LÓPEZ MD [facility] [address] [address] 09/26/2024 13:59:26 09/26/2024 14:28:02 History of malignant neoplasm of head and/or neck 375160506 Z85.89 Screening for malignant neoplasm of respiratory tract 298390505 Z12.2 Vasomotor rhinitis 93701 03 J30.0 Dizziness and giddiness 475299652 R42 Health Concerns Section Related Observation LastModified by Organization Detai ls LastModified Time None Recorded Concern Status LastModified by Organization Details LastModified Time None Recorded Payers Encounter Date Sequence Insurance Name Policy Number Policy Malone Covered Member ID Malone Member ID Guarantor Name 09/26/2024 1 [employer] ([employer]) [id number] Yani Hoytbranden [id number] Yani Fuchs 09/26/2024 2 [place]IC[place] [employer] Yani Fuchs [id number] Yani Hoytbranden Notes Date Note Type Note Provider Name and Address Organization Details Recorded Time 09/26/2024 text/html He has a hx of S CC of unknown primary (hx of tonsillectomy and biopsies without identifying the primary). Finished definitive [employer] 06/2022. Had a post tx PET that showed resolution of uptake in the head and neck. He needs lots of water to get dry foods down. He has had several esophageal dilations. He is not smoking. No throat or neck pain. He had a fall due to being dizzy. Says he gets light headed. Denies room spinning vertigo.He reports problematic nasal congestion. He has rhinorrhea when he eats with interferes. YANI LÓPEZ MD [address] [place] [address], [phone], [facility] - [facility] 09/26/2024 14:29:34
[2024-11-20 12:31] VITALS: BP 112/72; PULSE 67; O2SAT 98; BMI 22.9
--- NOTE | 2024-11-20 12:31 | A.OFFPC_ITS ---
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 Required: No Accompanied by: Self / Same As Patient Allergies Penicillins [PCN] Allergy (Severe, Verified 11/20/24 12:47) dyspnea codeine [CODEINE] Allergy (Mild, Verified 11/20/24 12:47) VOMITING cefuroxime Allergy (Unknown, Verified 11/20/24 12:47) cefuroxime axetil- dyspnea morphine [MORPHINE] Allergy (Unknown, Verified 11/20/24 12:47) UNKNOWN Medication List - Last Reconciled 11/20/24 by Albert Chan MD apixaban (Eliquis) 5 mg PO BID carvedilol 3.125 mg PO BID cholecalciferol (vitamin D3) 25 mcg PO DAILY 90 days meclizine 12.5 mg PO TID PRN omeprazole 20 mg PO DAILY oxycodone 1 to 2 tablets orally 6 to 7 times a day as needed for severe pain (no more than 8 tablets per day) 28 days rosuvastatin 20 mg PO DAILY sacubitril-valsartan 24-26 mg (Entresto) 1 tab PO BID Tobacco use date assessed: 11/20/24 Fall risk assessment: 1 Fall in past year Last assessed Fall Risk: 11/20/24 Dental Screening Dental Screen Date: 11/20/24 Did you have a dental visit in the last 12 months?: No Did you have a dental problem in the last 6 months where you did not have access to dental care?: No Was dental information given to patient?: No HPI 3mth f/u HPI Details Patient comes in today for his follow up visit States that he feels continues to experience recurrent dizziness that often gets triggered when he gets up and starts walking around He has already fallen a few times due to his recurrent dizziness States that he does not feel dizzy when he is sitting down and even when he turns his head or shakes his head Also relates that it has not occurred at all whenever he is driving his car Adds that he's had increased cough/cold symptoms for the past 4 to 5 days - relates increased nasal and sinus congestion and occasional chest tightness States that he coughs up minimal thick whitish phlegm at times and his cough often feels worse at night He denies any headaches; denies any fever or sore throat Denies any exertional chest pains but reports on and off sharp pains over his left lower rib anteriorly since he cracked' his rib a couple of weeks ago when he was pulling himself up with his left arm and he felt something popped on his left lower chest wall States that he has been experiencing increased sharp pains over the area since and even around the scar on his left upper abdomen where his feeding tube was inserted into when he was having trouble swallowing following his Tx for his throat cancer a couple of years ago No nausea/vomiting, no abdominal pain No change in bowel habits noted States that his chronic right inguinal pain remains adequately controlled on his current Rx He was not able to get his previously ordered follow up labs done yet as he states that he has been sick for the past few days [facility] Medical History LBBB (left bundle branch block) Dysphagia Vitamin D deficiency Peyronie's disease Essential hypertension NICM (nonischemic cardiomyopathy) Smoker Neuropathy Impaired fasting glucose Benign essential hypertension Pure hypercholesterolemia Systolic congestive heart failure Dilated cardiomyopathy secondary to alcohol COPD (chronic obstructive pulmonary disease) Paroxysmal atrial fibrillation Lumbar spondylosis Chronic pain of right inguinal region Lumbar radiculopathy Atrial fibrillation Surgical History Hx of colonoscopy (~03/26/17) History of percutaneous endoscopic gastrostomy History of tonsillectomy History of inguinal hernia repair Family History Father Cancer Mother CVD (cardiovascular disease) Social History Household Members: Family Housing: House Are you a primary care transition manager to a significant other at home: No Do you presently have visiting nurse or other home services: No Alcohol intake: never Patient Tobacco Use Status: Former Tobacco user Tobacco use type: Cigarette e-Cigarette/Vaping Use: Former Use Second Hand Smoke Exposure: Yes service: Yes ([employer]) Current occupational status: retired 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 1. Little interest or pleasure in doing things: not at all 2. Feeling down, depressed, or hopeless: not at all 3. Trouble falling or staying asleep, or sleeping too much: not at all 4. Feeling tired or having little energy: not at all 5. Poor appetite or overeating: not at all 6. Feeling bad about yourself - or that you are a failure or have let yourself or your family down: not at all 7. Trouble concentrating on things, such as reading the newspaper or watching television: not at all 8. Moving or speaking so slowly that other people could have noticed. Or the opposite - being so fidgety or restless that you have been moving around a lot more than usual: not at all 9. Thoughts that you would be better off or of hurting yourself in some way: not at all Total score: 0 Depression Screening Interpretation: Negative Depression Screening Done: Yes 28139 - PHQ-9 Billing: Yes Source: Developed by Drs. Yung Childress, Trish Prasad, Nelson Perez and colleagues, with an educational nan from [employer]. Thrive Questionnaire Date Thrive assessed: 11/20/24 I am a: Patient What is your living situation today?: I have a steady place to live Within the past 12 months, did the food you bought not last and you didn't have the money to get more?: Never true Within the past 12 months, did you worry whether your food would run out before you got money to buy more?: Never true Do you have trouble paying for medicines?: No Do you have trouble getting transportation to medical appointments?: No Do you have trouble paying your heating and electricity bill?: No Do you have trouble taking care of your child, family member or friend?: No Do you have trouble with day-to-day activities such as bathing, preparing meals, shopping, managing finances, etc.?: No Are you currently unemployed and looking for a job?: No Are you interested in more education?: No Please select the resources that you would like help with: None Currently or been in a relationship where the following occur: No concerns repor elieser THRIVE Score: 0 AUDIT C Alcohol Use Questionnaire (AUDIT-C) 1. How often do you have a drink containing alcohol?: Never 3. How often do you have six or more drinks on one occasion?: Never Total Score: 0 Score Reviewed/Action Taken: Yes FILIPE-7 AMB Questionnaire FILIPE-7 Date FILIPE - 7 assessed: 11/20/24 Feeling nervous, anxious, or on edge: 0 = Not at all Not being able to stop or control worryin = Not at all Worrying too much about different things: 0 = Not at all Trouble relaxin = Not at all Being so restless that it is hard to sit still: 0 = Not at all Becoming easily annoyed or irritable: 0 = Not at all Feeling afraid as if something awful might happen: 0 = Not at all Total FILIPE-7 score (0-4 normal; 5-9 mild; 10-14 moderate; 15-21 severe): 0 Source: Developed by Drs. Yung Childress, Trish Prasad, Nelson Perez and colleagues, with an educational nan from [employer]. Review of Systems Const Denies chills, Reports fatigue, Denies fever(s) and Denies headache(s) ENT Reports dysphagia, Reports dizziness (recurrent - see HPI), Denies headache(s), Reports nasal congestion, Denies neck pain, Denies odynophagia and Denies sore throat Card Denies chest pain, Denies palpitations and Reports dyspnea on exertion (mild) Resp Details: (+) sharp pains over the left lower rib anteriorly Reports chest congestion (chest feels tight at times again lately), Reports cough (on and off), Reports dyspnea on exertion (mild) and Denies wheezing GI Denies abdominal pain (but (+) chronic pain over the right inguinal area), Denies constipation, Reports dysphagia, Denies heartburn, Denies diarrhea, Denies nausea, Denies odynophagia and Denies vomiting Denies dysuria, Denies nocturia and Denies urinary frequency Musc Reports back pain (occasional ) and Denies neck pain Skin/Breast Denies rash Neuro Reports dizziness (recurrent - see HPI), Denies headache(s) and Reports radicular pain (on the soles of both feet) Endo Reports fatigue and Denies palpitations Aller/Immun Denies wheezing Physical exam (Primary Care) Vital Signs: Last Vital Signs Pulse 67 11/20/24 12:31 BP 112/72 11/20/24 12:31 Pulse Ox 98 11/20/24 12:31 Oxygen Delivery Method Room Air 11/20/24 12:31 BMI result Body Mass Index 22.9 Tobacco/Smoking Status: Tobacco use Status Tobacco use date assessed 11/20/24 11/20/24 12:34 Patient Tobacco Use Status Former Tobacco user 11/20/24 12:34 Tobacco use type Cigarette 11/20/24 12:34 e-Cigarette/Vaping Use Former Use 11/20/24 12:34 PHQ-9: PHQ-9 Score PHQ-9: Total score 0 11/20/24 12:34 Depression Screening Interpretation: Negative Thrive Assessment: Date of Thrive Assessment Date Thrive assessed 11/20/24 11/20/24 12:34 Currently or been in a relationship where the following occur: No concerns reported Const General: no acute distress and alert HENMT Ears: TM's normal bilaterally and EAC's normal Face and sinus: Yes sinuses nontender Throat: Yes posterior oropharynx normal and Yes tonsils normal Neck Neck: Yes supple and No lymphadenopathy Thyroid: Thyroid normal Chest Other: (+) tenderness on palpation over the left lower rib anteriorly Resp Auscultation: no rales, rhonchi (scattered), no wheezes and diminished lung soun ds bilateral Cardio Rate: regular rate Rhythm: regular rhythm Heart sounds: no murmurs GI Other: (+) tenderness around the scar from his previous G-tube insertion; no drainage noted Palpation (GI): Soft to palpation and Tenderness to palpation present (GI) (over the right inguinal area - chronic) Auscultation: normal bowel sounds General: Yes no CVA tenderness Back/Spine/Pelvis Back: no CVA tenderness Thoracic/Lumbar Spine: lumbar spinal tenderness (mild) Skin Rashes: no rashes Extrem General: Yes no clubbing, cyanosis or edema Coding Level of Care Code Est Pt Level 4 (40743) Complex EM visit Add On G2211 Diagnoses Dizziness of unknown etiology R42 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 C77.9; C80.1 Dysphagia, unspecified type R13.10 Dysphagia type: unspecified Dilated cardiomyopathy secondary to alcohol I42.6 Systolic congestive heart failure, unspecified HF chronicity I50.20 Heart failure chronicity: unspecified Paroxysmal atrial fibrillation I48.0 Benign essential hypertension I10 Pure hypercholesterolemia E78.00 Impaired fasting glucose R73.01 COPD exacerbation J44.1 Chronic pain of right inguinal region R10.31; G89.29 Lumbar spondylosis M47.816 Rib pain on left side R07.81 Neuropathy G62.9 Vitamin D deficiency E55.9 Additional Codes PHQ-9 - 42237 - PHQ-9 Billing: Yes ([id number]) Assessment & Plan Assessment & Plan (1) Dizziness of unknown etiology: Code(s): R42 - Dizziness and giddiness Category: Medical Plan: Patient was seen by ENT about a month ago and was advised that his recurrent dizziness are not consistent with vertigo and that they do not have any good explanation as to the cause of his recurrent symptoms He was advised to speak with his PCP further about this and for further work ups Will go ahead and send him for an MRI of the head for further evaluation of his recurrent dizziness (2) 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 Diop and he completed Cisplatin-based chemotherapy and concurrent radiation therapy in June 2022 (05/11/2022 to 06/30/2022) Follow up with oncology and ENT as scheduled for continuing management/treatment and surveillance (3) Dysphagia: Code(s): R13.10 - Dysphagia, unspecified Category: Medical Qualifiers: Dysphagia type: unspecified Qualified Code(s): R13.10 - Dysphagia, unspecified Plan: Patient continues to complain of dysphagia, dysgeusia and dry throat symptoms He underwent esophageal dilation with Dr. Hernández on 10/27/22, in March 2023 and more recently in July 2023; patient states that dilation helped temporarily with his symptoms Relates that he also had his throat dilated by ENT a few months ago Follow up with ENT (Dr. Diop) and with Dr. Hernández as scheduled (4) Dilated cardiomyopathy secondary to alcohol: Code(s): I42.6 - Alcoholic cardiomyopathy Category: Medical Plan: Continue Entresto 24-26 mg 1 tablet BID Follow up with cardiology as scheduled (5) Systolic congestive heart failure: Comment: Echocardiogram done on 05/03/2018 showed visually estimated EF between 30-35% with an impaired relaxation filling pattern. Cardiac valvular dopplers and RV systolic pressure were all within normal range. Repeat echocardiogram on 03/12/21 revealed (+) normal LV cavity size, with mildly increased LV wall thickness. LV systolic function is low normal and visually estimated EF is between 50 to 55%. Diastolic function is normal for age. Code(s): I50.20 - Unspecified systolic (congestive) heart failure Category: Medical Qualifiers: Heart failure chronicity: unspecified Qualified Code(s): I50.20 - Unspecified systolic (congestive) heart failure Plan: His cardiac function has improved significantly with treatment over the past few years and patient currently appears compensated His BNP level came back normal on his recent labs Continue Entresto 24-26 mg 1 tablet BID and Carvedilol 3.125 mg BID Follow up with Cardiology as scheduled (6) Paroxysmal atrial fibrillation: Code(s): I48.0 - Paroxysmal atrial fibrillation Category: Medical Plan: Patient currently remains in sinus rhythm Continue Eliquis 5 mg twice a day for thromboembolism prophylaxis (7) Benign essential hypertension: Code(s): I10 - Essential (primary) hypertension Category: Medical Plan: Reinforced low sodium diet - goal is systolic BP of at least 120-130 mm or less Continue Carvedilol 3.125 mg 1 tablet BID and Entresto 24-26 mg BID (8) Pure hypercholesterolemia: Code(s): E78.00 - Pure hypercholesterolemia, unspecified Category: Medical Plan: Patient was not able to get his follow up labs done prior to his appointment today and he is encouraged to try to get these done ANDRES as he will need more updated labs when he is scheduled for his MRI Reinforced low cholesterol diet Continue Rosuvastatin 20 mg QD Will recheck his labs and fasting lipids in 3 months for follow up (9) Impaired fasting glucose: Code(s): R73.01 - Impaired fasting glucose Category: Medical Plan: His HgbA1c was at 5.4% and 5.6% when previously checked Reinforced low calorie diet /exercise as tolerated (10) COPD exacerbation: Code(s): J44.1 - Chronic obstructive pulmonary disease with (acute) exacerbation Category: Medical Plan: He likely has URI or bronchitis Will go ahead and start him empirically on Doxycycline 100 mg BID x 10 days Continue Albuterol HFA 2 puffs 4 times a day as needed He is instructed to call if his symptoms persist or get worse over the next 1 to 2 weeks (11) Chronic pain of right inguinal region: Comment: (+) Post-herniorrhaphy syndrome - had right inguinal herniorrhaphy in the past and recovery was complicated with increased pain and adverse effects, resulting in chronic and worse pain States that his chronic pain has been adequately controlled on his current pain med regimen - this is a WORKER'S COMP - related issue Code(s): R10.31 - Right lower quadrant pain; G89.29 - Other chronic pain Category: Medical Plan: Continue Oxycodone 15 mg 1 to 2 tablets 6 to 7 times a day as needed for severe pain (no more than 8 tablets/day) (12) Lumbar spondylosis: Code(s): M47.816 - Spondylosis without myelopathy or radiculopathy, lumbar region Category: Medical Plan: Reinforced activity and weight-lifting restrictions to avoid aggravating his low back pain (13) Rib pain on left side: Code(s): R07.81 - Pleurodynia Category: Medical Plan: Discussed with patient that it is possible that he may have actually cracked/fracture a rib when his injury occurred Have suggested that he get some rib x-rays for further evaluation but he declined States that other than the pain, he has no other concerning symptoms and as there is really nothing else to do for this at this time, he would like to put off any further tests for now and will call if his symptoms get worse He is reminded to avoid any strenuous or exertional activities for now (14) Neuropathy: Code(s): G62.9 - Polyneuropathy, unspecified Category: Medical Plan: His symptoms remain tolerable lately He could not tolerate Gabapentin in the past and Amitriptyline did not help him much (15) Vitamin D deficiency: Code(s): E55.9 - Vitamin D deficiency, unspecified Category: Medical Plan: E55.9 - Vitamin D deficiency, unspecified Plan Follow up in 3 months Orders: Orders Complete Blood Count Auto Diff 3 Months D64.9 - Anemia, unspecified Hemoglobin A1c 3 Months R73.01 - Impaired fasting glucose UA CC w/rflx Micro + Cult 3 Months R30.0 - Dysuria MR head/brain wo con Today R42 - Dizziness and giddiness Comprehensive [place]. Panel Fast 3 Months E78.00 - Pure hypercholesterolemia, unspecified B Type Natriuretic Peptide 3 Months I50.9 - Heart failure, unspecified Lipid Panel 3 Months E78.00 - Pure hypercholesterolemia, unspecified TSH reflex Free T4 3 Months E78.00 - Pure hypercholesterolemia, unspecified Vitamin D 25-OH Total 3 Months E55.9 - Vitamin D deficiency, unspecified Medications: New doxycycline hyclate 100 mg PO BID 10 days 20 caps 0RF
== END 2024-11-20 13:14 | disposition home or self-care (01) ==
PROVIDERS: PCP Internal Medicine; Visit Provider Internal Medicine
DX: R42 Dizziness and giddiness (principal); C77.9 Secondary and unspecified malignant neoplasm of lymph node, unspecified; C80.1 Malignant (primary) neoplasm, unspecified; I42.6 Alcoholic cardiomyopathy; I50.20 Unspecified systolic (congestive) heart failure; I48.0 Paroxysmal atrial fibrillation; J44.1 Chronic obstructive pulmonary disease with (acute) exacerbation; R13.10 Dysphagia, unspecified; I10 Essential (primary) hypertension; E78.00 Pure hypercholesterolemia, unspecified; R73.01 Impaired fasting glucose; R10.31 Right lower quadrant pain

== ENCOUNTER → 2024-11-20 12:23 | Outpatient (BNVA) | payer MEDICARE, MEDICAID, OTHER, SELFPAY | PROVIDERS: PCP Internal Medicine; Visit Provider Internal Medicine | DX: I11.0 Hypertensive heart disease with heart failure (principal); I50.20 Unspecified systolic (congestive) heart failure; R42 Dizziness and giddiness; C77.9 Secondary and unspecified malignant neoplasm of lymph node, unspecified; R13.10 Dysphagia, unspecified; I42.6 Alcoholic cardiomyopathy; I48.0 Paroxysmal atrial fibrillation; E78.00 Pure hypercholesterolemia, unspecified; R73.01 Impaired fasting glucose; J44.1 Chronic obstructive pulmonary disease with (acute) exacerbation; R10.31 Right lower quadrant pain; G89.29 Other chronic pain; M47.816 Spondylosis without myelopathy or radiculopathy, lumbar region; R07.81 Pleurodynia; G62.9 Polyneuropathy, unspecified; E55.9 Vitamin D deficiency, unspecified; D64.9 Anemia, unspecified; R30.0 Dysuria | CPT/HCPCS: 96127; 99212 ==

== ENCOUNTER 2024-12-04 09:03 | Outpatient (REF) | payer MEDICARE, MEDICAID, SELFPAY ==
--- OUTSIDE RECORDS SUMMARY | 2024-12-04 09:25 | XMS_ITS | Data Portability ---
Author Organization [place] - [facility], Allergy Address [address] [address] Care Team Providers Care Agricultural Sales Representative Name Role Phone MARILU MCGINNIS Primary Care Provider [phone] Assessment No assessment recorded. Plan of Treatment Reminders Order Date Submit Date Provider Last Modified By Organization Details Last Modified Time Details Appointments Establish ed 30 2024 01:30P M YANI Diamond MD Not available Not available Not available Lab None recorded. Referral None recorded. Procedures None recorded. Surgeries None recorded. Imaging None recorded. Medication Orders ipratropi um bromide 21 mcg (0.03 %) nasal spray [address] [place] [address]/Pharmacy #[id number], [address] [place], [address], 09/26/2024 14:29:32 Patient TargetsNo targets recorded. Patient InstructionsNo instructions recorded. Reason for Referral None Reported. Results Created Date Observation Date Name Description Value Unit Range Abnormal Flag Note LastModifiedBy Organization Detail LastModifiedTime 07/20/20 24 12/02/2021 imagi ng/di agnos tic resul t No observ ation record ed. [email or web address] Not Available 14:59:57 07/20/20 24 12/10/2021 imagi ng/di agnos tic resul t No observ ation record ed. [email or web address] Not Available 15:00:00 07/20/20 24 12/10/2021 imagi ng/di agnos tic resul t No observ ation record ed. [email or web address] Not Available 15:00:01 07/20/20 24 01/05/2022 imagi ng/di agnos tic resul t No observ ation record ed. [email or web address] Not Available 15:00:05 07/20/20 24 01/05/2022 imagi ng/di agnos tic resul t No observ ation record ed. [email or web address] Not Available 15:00:08 07/20/20 24 01/12/2022 imagi ng/di agnos tic resul t No observ ation record ed. [email or web address] Not Available 15:00:09 07/20/20 24 01/12/2022 imagi ng/di agnos tic resul t No observ ation record ed. [email or web address] Not Available 15:00:10 07/20/20 24 02/13/2022 imagi ng/di agnos tic resul t No observ ation record ed. [email or web address] Not Available 15:00:24 07/20/20 24 02/26/2022 imagi ng/di agnos tic resul t No observ ation record ed. [email or web address] Not Available 15:00:26 07/20/20 24 03/09/2022 imagi ng/di agnos tic resul t No observ ation record ed. [email or web address] Not Available 15:00:30 07/20/20 24 04/06/2022 imagi ng/di agnos tic resul t No observ ation record ed. [email or web address] Not Available 15:00:35 07/20/20 24 10/15/2022 imagi ng/di agnos tic resul t No observ ation record ed. [email or web address] Not Available 15:00:41 07/20/20 24 11/10/2022 imagi ng/di agnos tic resul t No observ ation record ed. [email or web address] Not Available 15:00:42 07/20/20 24 02/26/2022 audio gram No observ ation record ed. [email or web address] Not Available 15:00:58 09/26/20 24 08/24/2024 CT, cervi keyur spine , w/o contr ast No observ ation record ed. [email or web address] [facility] ([facility]) [address], [place], [address], 09/26/2024 17:04:27 09/26/20 24 08/26/2024 CT, head, w/o contr ast No observ ation record ed. [email or web address] Not Available 08/30 17:02:52 Result Notes None recorded. 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, face and neck; Note: Date Diagnosed: 01/13/2022 3:58 PM (C77.0) Not Available [facility] 4 02:50:19 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 51156758 Active 2021 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, face and neck; Note: Date Diagnosed: 01/13/2022 3:58 PM (C77.0) Not Available [facility] 4 02:50:19 Dysphagia 79719639 Active 2021 Other dysphagia; Note: Date Diagnosed: 08/11/2022 2:30 PM (R13.19) Not Available [facility] 4 02:50:17 History of malignant neoplasm 941152285 Active 2021 Personal history of malignant neoplasm, unspecifie d; Note: Changed from Z85 to Z85.819 (08/11/2022 4:01 PM) , Changed from Z85.819 to Z85.9 (08/11/2022 4:02 PM) , Date Diagnosed: 08/11/2022 2:30 PM (Z85) Not Available [facility] 4 02:50:20 Nicotine dependenc e 13603166 Active 2021 Nicotine dependence , unspecifie d, uncomplica elieser; Note: Date Diagnosed: 01/13/2022 3:58 PM (F17.200) Not Available [facility] 4 02:50:15 Antineopl astic chemother apy regimen Active 2021 Encounter for antineopla stic chemothera py; Note: Date Diagnosed: 02/26/2022 3:00 PM (Z51.11) Not Available [facility] 4 02:50:18 Sensorine ural hearing loss of bilateral ears 548293039 Active 2021 Sensorineu ral hearing loss, bilateral; Note: Date Diagnosed: 02/26/2022 3:00 PM (H90.3) Not Available [facility] 4 02:50:19 Follow-up visit Active 2021 Encounter for follow-up examinatio n after completed treatment for malignant neoplasm; Note: Date Diagnosed: 08/11/2022 2:30 PM (Z08) Not Available [facility] 4 02:50:16 Vasomotor rhinitis 2268939 Active 2023 YANI LÓPEZ MD [address] [place] [address], [place], [address] , [facility] - [facility] 4 14:26:14 Dizziness and giddiness 229606410 Active 2023 YANI LÓPEZ MD [address] [place] [address], [place], [address] , [facility] - [facility] 4 14:28:26 Problem Notes None recorded. Procedures Surgical History Date Name Laterality Status Provider Name and Address Organization Details Recorded Time 09/26/2024 FFL_RE completed YANI LÓPEZ MD [address] [place] [address],[place] [address], [address], [place] - [facility] 09/26/2024 14:19:25 05/24/2024 FFL_RE completed YANI LÓPEZ MD [address] [place] [address], [address], [place] - [facility] 05/24/2024 15:24:29 Imaging Results Imaging Date Name Status LastModified by Organiz ation Details LastModified Time 12/02/2021 imaging/diagno stic result completed Information not available 07/20/2024 14:59:57 12/10/2021 imaging/diagno stic result completed Information not available 07/20/2024 15:00:00 12/10/2021 imaging/diagno stic result completed Information not available 07/20/2024 15:00:01 01/05/2022 imaging/diagno stic result completed Information not available 07/20/2024 15:00:05 01/05/2022 imaging/diagno stic result completed Information not available 07/20/2024 15:00:08 01/12/2022 imaging/diagno stic result completed Information not available 07/20/2024 15:00:09 01/12/2022 imaging/diagno stic result completed Information not available 07/20/2024 15:00:10 02/13/2022 imaging/diagno stic result completed Information not available 07/20/2024 15:00:24 02/26/2022 imaging/diagno stic result completed Information not available 07/20/2024 15:00:26 03/09/2022 imaging/diagno stic result completed Information not available 07/20/2024 15:00:30 04/06/2022 imaging/diagno stic result completed Information not available 07/20/2024 15:00:35 10/15/2022 imaging/diagno stic result completed Information not available 07/20/2024 15:00:41 11/10/2022 imaging/diagno stic result completed Information not available 07/20/2024 15:00:42 02/26/2022 audiogram completed Information not available 07/20/2024 15:00:58 08/24/2024 CT, cervical spine, w/o contrast completed [email or web address] [facility] ([facility]) [address], [place], [address], 09/26/2024 17:04:27 08/26/2024 CT, head, w/o contrast completed [email or web address] Information not available 09/26/2024 17:02:52 Procedure Notes None recorded. Medical Equipment None Reported. Allergies Allergen ID Allergen Name Allergen Category Reaction Reaction Severity Criticality Documentation Date Start Date Code Code System Note Provider Name and Address Organization Details Recorded Time 125060 codeine / pseudoeph edrine / triprolid ine medicatio n other Not available Not available 04/11/2024 55321 1 RxNorm React ion: other react ion, Unkno wn; Not Available [facility] 4 01:09:32 555302 Medicinal product containin g penicilli n and acting as antibacte rial agent (product) medicatio n other Not available Not available 04/11/2024 99627 05 SNOMED React ion: other react ion, Unkno wn; Not Available [facility] 4 01:09:33 Medications Name Sig Start Date Stop Date Status Note LastModified by Organization Details LastModified Time prednisone 10 mg tablet by mouth 2021 active Medicatio n ID: [id number] Pr escribed By Name: Yani diamond MD [...] ended release 2021 active Medicatio n ID: [id number] Br and Name: pentoxify lline Sen d [...] and Address Organization Details Last Updated DateTime 05/24/2024 172.72 cm 22 kg/m2 16767.[address] [facility] 05/24/2024 15:02:16 Date Recorded Body height Body mass index (BMI) Body weight Provider Name and Address Organization Details Last Updated DateTime 09/26/2024 172.72 cm 22 kg/m2 50635.[address] [facility] 09/26/2024 14:07:28 Social History None recorded. Functional Status None recorded. Mental Status None recorded. Family History Nothing Reported. Medical History No medical history recorded. Past Encounters Encounter ID Performer Location Encounter Start Date Encounter Closed Date Diagnosis/Indication Diagnosis SNOMED-CT Code Diagnosis ICD10 Code Diagnosis Note [id number] YANI LÓPEZ MD [facility] [address] [place] [address] 05/24/2024 14:45:06 05/24/2024 15:31:19 History of malignant neoplasm of head and/or neck 749382489 Z85.89 Exam and Laryngosco py showed no evidence of disease. We will continue routine surveillan ce. Screening for malignant neoplasm of respiratory tract 968675386 Z12.2 Exam and Laryngosco py showed no evidence of disease. We will continue [place] surveillan [place]. [id number] YANI LÓPEZ MD [facility] [address] [place] [address] 09/26/2024 13:59:26 09/26/2024 14:28:02 History of malignant neoplasm of head and/or neck 509324749 Z85.89 Exam and Laryngosco py showed no evidence of disease. We will continue routine surveillan ce. Screening for malignant neoplasm of respiratory tract 866512569 Z12.2 Exam and Laryngosco py showed no evidence of disease. We will continue routine surveillan ce. Vasomotor rhinitis 33964 03 J30.0 will send ipratropcristhianu mWin Dizziness and giddiness 079155013 R42 reports lightheade dness not true vertigo. I recommend he discuss with his PCP. Health Concerns Section Related Observation LastModified by Organization Detai ls LastModified Time None Recorded Concern Status LastModified by Organization Details LastModified Time None Recorded Advance Directives Directive None Recorded Payers Encounter Date Sequence Insurance Name Policy Number Policy Malone Covered Member ID Malone Member ID Guarantor Name 05/24/2024 1 [employer] ([employer]) [id number] Yani Fuchs [id number] Yani Fuchs 05/24/2024 2 [place] [employer] Yani Fuchs [id number] Yani Fuchs 09/26/2024 1 [employer] ([place]) [id number] Yani Fuchs [id number] Yani Fuchs 09/26/2024 2 [place] [employer] Yani Fuchs [id number] Yani Fuchs Notes Date Note Type Note Provider Name and Address Organization Details Recorded Time 05/24/2024 text/html He has a hx of S CC of unknown primary (hx of tonsillectomy and biopsies without identifying the primary). 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 Had a post tx PET that showed resolution of uptake in the head and neck. He reports continued dysphagia with dry foods. He has had several esophageal dilations. He is not smoking. No throat or neck pain. YANI LÓPEZ MD 100 [facility],[address], [address], [place] - [facility] 05/24/2024 15:30:22 09/26/2024 text/html He has a hx of S CC of unknown primary (hx of tonsillectomy and biopsies without identifying the primary). 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 Had a post tx PET that [...] he eats with interferes. YANI LÓPEZ MD 100 [facility],[place] [address], [place], [address], [place] - [facility] 09/26/2024 14:29:34
--- OUTSIDE RECORDS SUMMARY | 2024-12-04 09:25 | XMS_ITS | Continuity of Care Document ---
Author Organization [place] - [facility], [facility] Address [address] [place] [address] Care Team Providers Care Assistant Reading Teacher Name Role Phone RAHEL MARILU Primary [...] nasal spray 2023 024 [facility]/Ph[facility]acy #[id number], [address] [place], [address], 09/26/2024 14:29:32 Patient TargetsNo targets recorded. Patient InstructionsNo instructions recorded. Reason for Referral None Reported. Results Created Date Observation Date Name Description Value Unit Range Abnormal Flag Note LastModifiedBy Organization Detail LastModifiedTime 09/26/2008/24/2024 CT, cervi keyur spine , w/o contr ast No observ ation record ed. [email or web address] [facility] ([facility]) [address] [place] [address], [place], [address], 09/26/2024 17:04:27 09/26/2008/26/2024 CT, head, w/o contr ast No observ ation record ed. [email or web address] Not Available 08/30 17:02:52 Result Notes None recorded. 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, face and neck; Note: Date Diagnosed: 01/13/2022 3:58 PM (C77.0) Not Available [facility] 4 02:50:19 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 83051650 Active 2021 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, face and neck; Note: Date Diagnosed: 01/13/2022 3:58 PM (C77.0) Not Available [facility] 4 02:50:19 Dysphagia 59679253 Active 2021 Other dysphagia; Note: Date Diagnosed: 08/11/2022 2:30 PM (R13.19) Not Available [facility] 4 02:50:17 History of malignant neoplasm 794000343 Active 2021 Personal history of malignant neoplasm, unspecifie d; Note: Changed from Z85 to Z85.819 (08/11/2022 4:01 PM) , Changed from Z85.819 to Z85.9 (08/11/2022 4:02 PM) , Date Diagnosed: 08/11/2022 2:30 PM (Z85) Not Available [facility] 4 02:50:20 Nicotine dependenc e 00806709 Active 2021 Nicotine dependence , unspecifie d, uncomplica elieser; Note: Date Diagnosed: 01/13/2022 3:58 PM (F17.200) Not Available [facility] 4 02:50:15 Antineopl astic chemother apy regimen Active 2021 Encounter for antineopla stic chemothera py; Note: Date Diagnosed: 02/26/2022 3:00 PM (Z51.11) Not Available [facility] 4 02:50:18 Sensorine ural hearing loss of bilateral ears 656052289 Active 2021 Sensorineu ral hearing loss, bilateral; Note: Date Diagnosed: 02/26/2022 3:00 PM (H90.3) Not Available [facility] 4 02:50:19 Follow-up visit Active 2021 Encounter for follow-up examinatio n after completed treatment for malignant neoplasm; Note: Date Diagnosed: 08/11/2022 2:30 PM (Z08) Not Available [facility] 4 02:50:16 Vasomotor rhinitis 5844072 Active 2023 YANI LÓPEZ MD [address] [place] [address], [place], [address] , [facility] 14:26:14 Dizziness and giddiness 255229010 Active 2023 YANI LÓPEZ MD [address] [place] [address], [place], [address] , [facility] 14:28:26 Problem Notes None recorded. Procedures Surgical History Date Name Laterality Status Provider Name and Address Organization Details Recorded Time 09/26/2024 FFL_RE completed YANI LÓPEZ MD [address] [place] [address],[address], [address], [facility] 09/26/2024 14:19:25 05/24/2024 FFL_RE completed YANI LÓPEZ MD [address] [place] [address], [address], [facility] 05/24/2024 15:24:29 Imaging Results None recorded. Procedure Notes None recorded. Medical Equipment None Reported. Allergies Allergen ID Allergen Name Allergen Category Reaction Reaction Severity Criticality Documentation Date Start Date Code Code System Note Provider Name and Address Organization Details Recorded Time 223850 codeine / pseudoeph edrine / triprolid ine medicatio n other Not available Not available 04/11/2024 89109 1 RxNorm React ion: other react ion, Unkno wn; Not Available [facility] 4 01:09:32 122795 Medicinal product containin g penicilli n and acting as antibacte rial agent (product) medicatio n other Not available Not available 04/11/2024 06058 05 SNOMED React ion: other react ion, Unkno wn; Not Available [facility] 4 01:09:33 Medications Name Sig Start Date Stop Date Status Note LastModified by Organization Details LastModified Time prednisone 10 mg tablet by mouth 2021 active Medicatio n ID: [id number] Pr escribed By Name: Yani diamond MD [...] ended release 2021 active Medicatio n ID: [id number] Br and Name: pentoxify lline Sen d [...] Updated DateTime 09/26/2024 172.72 cm 22 kg/m2 58706.89 g Aisha Casper [place] - [facility] 09/26/2024 14:07:28 Social History None recorded. Functional Status None recorded. Mental Status None recorded. Family History Nothing Reported. Medical History No medical history recorded. Past Encounters Encounter ID Performer Location Encounter Start Date Encounter Closed Date Diagnosis/Indication Diagnosis SNOMED-CT Code Diagnosis ICD10 Code Diagnosis Note [id number] YANI LÓPEZ MD [facility] [address] [address] 09/26/2024 13:59:26 09/26/2024 14:28:02 History of malignant neoplasm of head and/or neck 799823827 Z85.89 Exam and Laryngosco py showed no evidence of disease. We will continue routine surveillan ce. Screening for malignant neoplasm of respiratory tract 966330575 Z12.2 Exam and Laryngosco py showed no evidence of disease. We will continue routine surveillan ce. Vasomotor rhinitis 39281 03 J30.0 will send julia acharya Dizziness and giddiness 432164829 R42 reports lightheade dness not true vertigo. I recommend he discuss with his PCP. Health Concerns Section Related Observation LastModified by Organization Detai ls LastModified Time None Recorded Concern Status LastModified by Organization Details LastModified Time None Recorded Payers Encounter Date Sequence Insurance Name Policy Number Policy Malone Covered Member ID Malone Member ID Guarantor Name 09/26/2024 1 [employer] (PPO) [id number] Yani Fuchs [id number] Yani Fuchs 09/26/2024 2 [place]: [facility] [employer] Yani Laibranden [id number] Yani Fuchs Notes Date Note Type Note Provider Name and Address Organization Details Recorded Time 09/26/2024 text/html He has a hx of S CC of unknown primary (hx of tonsillectomy and biopsies without identifying the primary). 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 Had a post tx PET that [...] he eats with interferes. YANI LÓPEZ MD [address] [place] [address], [place], [address], [place] - [facility] 09/26/2024 14:29:34
[2024-12-04 09:32] LABS: MANUAL DIFF FLAG NO
[2024-12-04 10:16] LABS: Basophils Absolute Auto 0.1 X10*3/uL (0.0-0.2); Basophils Percent Auto 1.4 % (0-2); Eosinophils Absolute Auto 0.4 X10*3/uL (0.0-0.4); Hematocrit 38.3 % (42.0-52.0); Hemoglobin 12.3 g/dl (14.0-18.0); Imm Gran Abs Auto 0.02 X10*3/uL (0.00-0.03); Imm Gran Pct Auto 0.4 % (0.0-0.4); Lymphocytes Percent Auto 19.6 % (20-40); Mean Corpuscular HGB Conc 32.1 g/dl (31.0-36.0); Mean Corpuscular Hemoglobin 27.4 pg (27.0-33.0); Mean Corpuscular Volume 85.3 fL (80.0-98.0); Mean Platelet Volume 8.6 fL (9.4-12.4); Monocytes Absolute Auto 0.7 X10*3/uL (0.1-1.2); Monocytes Percent Auto 14.2 % (2-11); Neutrophils Absolute Auto 2.9 x10*3/uL (2.0-8.3); Neutrophils Percent Auto 57.4 % (45-73); Platelet Count 224 X10*3/uL (160-400); Red Blood Count 4.49 X10*6/uL (4.60-5.80); Red Cell Distribution Width 13.5 % (11.0-16.0)
[2024-12-04 10:45] LABS: Estimated Average Glucose 117 mg/dL; Hemoglobin A1C 117.1239 umol/L; Hemoglobin A1c % 5.7 % (<6.0); Total Hemoglobin (HGBA1C) 3054.9833 umol/L
[2024-12-04 10:50] LABS: B Type Natriuretic Peptide 60 pg/mL (<100)
[2024-12-04 12:13] LABS: Alanine Aminotransferase 11 U/L (0-40); Albumin Level 4.2 g/dL (3.5-5.0); Alkaline Phosphatase 50 U/L (39-117); Anion Gap 10 (12-20); Aspartate Amino Transferase 20 U/L (5-37); Blood Urea Nitrogen 11 mg/dL (9-16); Calcium 9.9 mg/dL (8.4-10.2); Carbon Dioxide 27 mmol/L (22-29); Chloride 107 mmol/L (96-108); Cholesterol 182 mg/dL (<200); Estimated Glomerular Filt Rate 59; Glucose Fasting 112 mg/dL (60-99); HDL Cholesterol 44 mg/dL (>40); LDL Cholesterol Calculated 100 mg/dL (<100); Potassium 5.4 mmol/L (3.3-5.1); Sodium 139 mmol/L (135-145); Total Protein 7.1 g/dL (6.5-8.0); Triglycerides 192 mg/dL (<150)
[2024-12-04 12:21] LABS: Vitamin D 25-OH Total 41.6 ng/mL (>30)
[2024-12-04 12:29] LABS: Bilirubin Total 0.6 mg/dL (0.0-1.0); Folate 11.7 ng/mL (> or = 4.0); Vitamin B12 431 pg/mL (200-900)
== END 2024-12-04 09:04 | disposition home or self-care (01) ==
LOC: HO.LAB 09:03
PROVIDERS: PCP Internal Medicine; Visit Provider Internal Medicine
DX: I50.9 Heart failure, unspecified (principal); E78.00 Pure hypercholesterolemia, unspecified; R73.01 Impaired fasting glucose; E53.8 Deficiency of other specified B group vitamins; E55.9 Vitamin D deficiency, unspecified; D64.9 Anemia, unspecified
CPT/HCPCS: 36415; 80053; 80061; 82306; 82607; 82746; 83036; 83880; 85025

== ENCOUNTER → 2024-12-07 16:28 | Outpatient (BNV) | payer MEDICARE, MEDICAID, SELFPAY | PROVIDERS: PCP Internal Medicine; Visit Provider Radiology Diagnostic Radiology | DX: I73.9 Peripheral vascular disease, unspecified (principal) | CPT/HCPCS: 70551 ==

== ENCOUNTER 2024-12-07 16:29 | Outpatient (REF) | payer MEDICARE, MEDICAID, SELFPAY ==
--- NOTE | ~2024-12-07 | MR_ITS ---
EXAMINATION: MR BRAIN WITHOUT CONTRAST CLINICAL INFORMATION: Dizziness. COMPARISON: No priors. Correlated to CT head dated August 24, 2024. TECHNIQUE: MRI of the brain was obtained using routine sequences without contrast. FINDINGS: Submitted for interpretation in December 11, 2024. No restricted diffusion. No acute intracranial hemorrhage, mass effect, midline shift, hydrocephalus or herniation. Major-white matter differentiation is normal. Bilateral multifocal punctate deep periventricular white matter and subcortical hyperintense T2 FLAIR signal involving centrum semiovale and donaldson radiata. Flow-void signal within the main cerebral vessels is normal. Sellar/suprasellar region demonstrated no gross masses. Craniocervical junction is intact and normal. Prominence of the extra-axial CSF spaces cerebral sulci and ventricles likely central volume loss. Polypoid mucosal thickening, paranasal sinuses. No signal abnormality in the petrous bone. No signal abnormality within the intraconal or extraconal compartments of the orbits. MR/MR head/brain wo con IMPRESSION: Small vessel occlusive disease. No acute stroke/nonhemorrhagic ischemia. No acute intracranial hemorrhage. Electronically signed by: Grady Jeffrey MD 12/11/2024 12:28 PM EST
--- OUTSIDE RECORDS SUMMARY | 2024-12-07 17:20 | XMS_ITS | Data Portability ---
Author Organization [place] - [facility], Allergy Address [address] [address] Care Team Providers Care Control Room Supervisor Name Role Phone MARILU MCGINNIS Primary Care Provider [phone] Assessment No assessment recorded. Plan of Treatment [...] 21 mcg (0.03 %) nasal spray [address] [place] [address]/Pharmacy #[id number], [address] [place], [address], 09/26/2024 14:29:32 Patient TargetsNo targets recorded. Patient [...] ast No observ ation record ed. [email or web address] [facility] ([facility]) [address], [place], [address], 09/26/2024 17:04:27 09/26/20 24 08/26/2024 CT, head, w/o contr ast No observ ation record ed. [email or web address] Not Available 08/30 17:02:52 Result Notes None recorded. 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, face and neck; Note: Date Diagnosed: 01/13/2022 3:58 PM (C77.0) Not Available [facility] 4 02:50:19 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 16829275 Active 2021 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, face and neck; Note: Date Diagnosed: 01/13/2022 3:58 PM (C77.0) Not Available [facility] 4 02:50:19 Dysphagia 02877854 Active 2021 Other dysphagia; Note: Date Diagnosed: 08/11/2022 2:30 PM (R13.19) Not Available [facility] 4 02:50:17 History of malignant neoplasm 952893030 Active 2021 Personal history of malignant neoplasm, unspecifie d; Note: Changed from Z85 to Z85.819 (08/11/2022 4:01 PM) , Changed from Z85.819 to Z85.9 (08/11/2022 4:02 PM) , Date Diagnosed: 08/11/2022 2:30 PM (Z85) Not Available [facility] 4 02:50:20 Nicotine dependenc e 50590897 Active 2021 Nicotine dependence , unspecifie d, uncomplica elieser; Note: Date Diagnosed: 01/13/2022 3:58 PM (F17.200) Not Available [facility] 4 02:50:15 Antineopl astic chemother apy regimen Active 2021 Encounter for antineopla stic chemothera py; Note: Date Diagnosed: 02/26/2022 3:00 PM (Z51.11) Not Available [facility] 4 02:50:18 Sensorine ural hearing loss of bilateral ears 002963436 Active 2021 Sensorineu ral hearing loss, bilateral; Note: Date Diagnosed: 02/26/2022 3:00 PM (H90.3) Not Available [facility] 4 02:50:19 Follow-up visit Active 2021 Encounter for follow-up examinatio n after completed treatment for malignant neoplasm; Note: Date Diagnosed: 08/11/2022 2:30 PM (Z08) Not Available [facility] 4 02:50:16 Vasomotor rhinitis 3417804 Active 2023 YANI LÓPEZ MD [address] [place] [address], [place], [address] , [facility] - [facility] 4 14:26:14 Dizziness and giddiness 054792183 Active 2023 YANI LÓPEZ MD [address] [place] [address], [place], [address] , [facility] - [facility] 4 14:28:26 Problem Notes None recorded. Procedures Surgical History Date Name Laterality Status Provider Name and Address Organization Details Recorded Time 09/26/2024 FFL_RE completed YANI LÓPEZ MD [address] [place] [address],[place] [address] [address], [place] - [facility] 09/26/2024 14:19:25 05/24/2024 FFL_RE completed YANI LÓPEZ MD [address] [place] [address], [address], [place] - [facility] 05/24/2024 15:24:29 Imaging Results Imaging Date Name [...] CT, cervical spine, w/o contrast completed reppsteiner [facility] ([facility]) [address], [place], [address], 09/26/2024 17:04:27 08/26/2024 CT, head, w/o contrast completed reppsteiner Information not available 09/26/2024 17:02:52 Procedure Notes None recorded. Medical Equipment None Reported. Allergies Allergen ID Allergen Name Allergen Category Reaction Reaction Severity Criticality Documentation Date Start Date Code Code System Note Provider Name and Address Organization Details Recorded Time 209376 codeine / pseudoeph edrine / triprolid ine medicatio n other Not available Not available 04/11/2024 74100 1 RxNorm React ion: other react ion, Unkno wn; Not Available [facility] 4 01:09:32 736043 Medicinal product containin g penicilli n and acting as antibacte rial agent (product) medicatio n other Not available Not available 04/11/2024 89229 05 SNOMED React ion: other react ion, Unkno wn; Not Available [facility] 4 01:09:33 Medications Name Sig Start Date Stop Date Status Note LastModified by Organization Details LastModified Time prednisone 10 mg tablet by mouth 2021 active Medicatio n ID: [id number] Pr escribed By Name: Yani diamond MD [...] ended release 2021 active Medicatio n ID: [id number] Br and Name: pentoxify lline Sen d [...] Updated DateTime 05/24/2024 172.72 cm 22 kg/m2 22072.89 g Aisha Casper [facility] 05/24/2024 15:02:16 Date Recorded Body height Body mass index (BMI) Body weight Provider Name and Address Organization Details Last Updated DateTime 09/26/2024 172.72 cm 22 kg/m2 38583.89 g Aisha Casper [facility] 09/26/2024 14:07:28 Social History None recorded. Functional Status None recorded. Mental Status None recorded. Family History Nothing Reported. Medical History No medical history recorded. Past Encounters Encounter ID Performer Location Encounter Start Date Encounter Closed Date Diagnosis/Indication Diagnosis SNOMED-CT Code Diagnosis ICD10 Code Diagnosis Note [id number] YANI LÓPEZ MD [facility] [address] [place] [address] 05/24/2024 14:45:06 05/24/2024 15:31:19 History of malignant neoplasm of head and/or neck 173767082 Z85.89 Exam and Laryngosco py showed no evidence of disease. We will continue routine surveillan ce. Screening for malignant neoplasm of respiratory tract 257868332 Z12.2 Exam and Laryngosco py showed no evidence of disease. We will continue routine surveillan ce. [id number] YANI LÓPEZ MD [facility] [address] [place] [address] 09/26/2024 13:59:26 09/26/2024 14:28:02 History of malignant neoplasm of head and/or neck 362165924 Z85.89 Exam and Laryngosco py showed no evidence of disease. We will continue routine surveillan ce. Screening for malignant neoplasm of respiratory tract 991912495 Z12.2 Exam and Laryngosco py showed no evidence of disease. We will continue routine surveillan ce. Vasomotor rhinitis 22127 03 J30.0 will send ipratropcristhianu mWin Dizziness and giddiness 631222427 R42 reports lightheade dness not true vertigo. [...] ID Guarantor Name 05/24/2024 1 [employer] (PP[employer]) [id number] Yani Fuchs [id number] Yani Fuchs 05/24/2024 2 [place]: [place] [employer] Yani Fuchs [id number] Yani Fuchs 09/26/2024 1 [employer] ([place]) [id number] Yani Fuchs [id number] Yani Fuchs 09/26/2024 2 [place] [place] Yani Fuchs [id number] Yani Fuchs Notes Date Note Type Note Provider Name and Address Organization Details Recorded Time 05/24/2024 text/html He has a hx of S CC of unknown primary (hx of tonsillectomy and biopsies without identifying the primary). 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 Had a post tx PET that showed resolution of uptake in the head and neck. He reports continued dysphagia with dry foods. He has had several esophageal dilations. He is not smoking. No throat or neck pain. YANI LÓPEZ MD [address] [facility],[address], [address], [place] - [facility] 05/24/2024 15:30:22 09/26/2024 text/html He has a hx of S CC of unknown primary (hx of tonsillectomy and biopsies without identifying the primary). 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 Had a post tx PET that [...] eats with interferes. YANI LÓPEZ MD [address] [facility],[place] [address], [place], [address], [place] - [facility] 09/26/2024 14:29:34
== END 2024-12-07 16:30 | disposition home or self-care (01) ==
LOC: HO.MRI 16:29
PROVIDERS: PCP Internal Medicine; Visit Provider Internal Medicine
DX: R42 Dizziness and giddiness (principal)
CPT/HCPCS: 70551

== ENCOUNTER 2024-12-19 14:02 | Outpatient (AMB) | payer MEDICARE, MEDICAID, SELFPAY ==
[2024-12-19 14:25] VITALS: BP 132/74; PULSE 84; TEMP 36.6; O2SAT 97; BMI 22.8
--- NOTE | 2024-12-19 14:25 | MHC.OFFWIV ---
Intake Vital Signs 12/19/24 14:25 Height 5 ft 8 in Weight 150 lb BMI 22.8 BP 132/74 Blood Pressure Location Lt brachial Position Sitting Pulse 84 Pulse Source Pulse Oximeter Temp 97.9 F Temp Source Oral Pulse Oximetry (%) 97 Oxygen Delivery Method Room Air Intake Visit Reasons: EP-sore throat, swollen neck, mouth thrush Intake Note: Pt presents to the office today for c/o sore throat, swollen neck, mouth thrush x1.5 weeks. Patient Tobacco Use Status: Former Tobacco user Allergies Penicillins [PCN] Allergy (Severe, Verified 12/19/24 14:36) dyspnea codeine [CODEINE] Allergy (Mild, Verified 12/19/24 14:36) VOMITING cefuroxime Allergy (Unknown, Verified 12/19/24 14:36) cefuroxime axetil- dyspnea morphine [MORPHINE] Allergy (Unknown, Verified 12/19/24 14:36) UNKNOWN HPI HPI Comments History of Present Illness Details This is a 74-year-old male with a past medical history hypertension, hyperlipidemia, nonischemic cardiomyopathy and atrial fibrillation currently maintained on Eliquis presenting for evaluation of discomfort in his mouth that ?feels like sandpaper?. Patient states that he 1st noted this sensation approximately 1 week ago and now he has difficulty eating or swallowing liquids. Patient denies having any fevers or chills and has not taken any medication for treatment of his symptoms. Patient states he called his primary care physician they called in a mouthwash for him to use however he has not yet picked up the prescription. Patient states that he wanted to be evaluated in person prior to taking any new medication. [facility] Medical History LBBB (left bundle branch block) Dysphagia Vitamin D deficiency Peyronie's disease Essential hypertension NICM (nonischemic cardiomyopathy) Smoker Neuropathy Impaired fasting glucose Benign essential hypertension Pure hypercholesterolemia Systolic congestive heart failure Dilated cardiomyopathy secondary to alcohol COPD (chronic obstructive pulmonary disease) Paroxysmal atrial fibrillation Lumbar spondylosis Chronic pain of right inguinal region Lumbar radiculopathy Atrial fibrillation Surgical History Hx of colonoscopy (~03/26/17) History of percutaneous endoscopic gastrostomy History of tonsillectomy History of inguinal hernia repair Family History Father Cancer Mother CVD (cardiovascular disease) Social History Household Members: Family Housing: House Are you a primary weekend caregiver to a significant other at home: No Do you presently have visiting nurse or other home services: No Alcohol intake: never Patient Tobacco Use Status: Former Tobacco user Tobacco use type: Cigarette e-Cigarette/Vaping Use: Former Use Second Hand Smoke Exposure: Yes service: Yes ([employer]) Current occupational status: retired 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 Cognitive needs: Yes (Cane) Hearing needs: No Vision needs: No Review of Systems Const All systems reviewed & are unremarkable except as noted in HPI and below Reports no additional complaints Eyes Reports no additional complaints ENT Reports as per HPI, Reports mouth lesions, Reports mouth pain, Reports odynophagia, Denies throat swelling and Denies tongue swelling Card Reports no additional complaints Resp Reports no additional complaints GI Reports no additional complaints and Reports odynophagia Reports no additional complaints Musc Reports no additional complaints Skin/Breast Reports system reviewed and no additional complaints, except as documented Neuro Reports no additional complaints Psych Reports no additional complaints Endo Reports no additional complaints Musa/Lymph Reports no additional complaints Aller/Immun Reports no additional complaints, Denies throat swelling and Denies tongue swelling Physical Exam Vital Signs: Last Vital Signs Temp 97.9 F 12/19/24 14:25 Pulse 84 12/19/24 14:25 BP 132/74 12/19/24 14:25 Pulse Ox 97 12/19/24 14:25 Oxygen Delivery Method Room Air 12/19/24 14:25 BMI result Body Mass Index 22.8 Patient is afebrile. Const General: cooperative, healthy appearing, comfortable, no acute distress, well developed, alert, awake and Physically active; No lethargic Nutritional Appearance: average body habitus Orientation/consciousness: patient oriented x3 and No lethargic Limitations: no limitations HEENT Head: Yes normal to inspection and Yes normocephalic Ears: hearing grossly normal bilaterally, external ears normal, TM's normal bilaterally and EAC's normal General nose exam: Normal external nose present Face and sinus: Yes normal facial exam Mouth: moist mucous membranes, no audible dysphonia, no drooling, normal oral mucosae (There are white exudates noted on the soft palate and buccal mucosa), tongue abnormal (Bright erythema without exudates) not edematous and without any white coating and no trismus Neuro General: patient oriented x3 Psych Appearance: grossly normal Mental Status: mental status grossly normal Insight: Good insight present (Psych) Judgement: Good judgement present (Psych) Assessment & Plan Assessment & Plan (1) Oropharyngeal candidiasis: Comment: Patient's clinical examination is consistent with oropharyngeal candidiasis. Patient will be discharged home with clotrimazole troches. Code(s): B37.0 - Candidal stomatitis Plan: Clotrimazole troches 10mg five times daily #70. Medications: New clotrimazole 10 mg mucous membrane .five times daily 70 tabs 0RF Coding Level of Care Code Est Pt Level 3 (09004) Diagnoses Oropharyngeal candidiasis B37.0 Time Spent (min) 20
== END 2024-12-19 15:20 | disposition home or self-care (01) ==
PROVIDERS: PCP Internal Medicine; Visit Provider Physician Assistant
DX: B37.0 Candidal stomatitis (principal)

== ENCOUNTER → 2024-12-19 14:02 | Outpatient (BNVA) | payer MEDICARE, MEDICAID, SELFPAY | PROVIDERS: PCP Internal Medicine; Visit Provider Physician Assistant | DX: B37.0 Candidal stomatitis (principal) | CPT/HCPCS: 99212 ==

== ENCOUNTER 2025-01-27 09:12 | Outpatient (REF) | payer MEDICARE, MEDICAID, SELFPAY ==
--- OUTSIDE RECORDS SUMMARY | 2025-01-27 09:14 | XMS_ITS | Clinical Summary ---
Author Organization [facility] Address [address] [place] [address] Care Team Providers Care Carving Machine Operator Name Role Phone Unavailable Primary Care Provider Unavailabl e Social History Tobacco Use Types Packs/Day Years Used Date Smoking Tobacco: Never Assessed Sex and Gender Information Value Date Recorded Sex Assigned at Not on file Gender Identity Not on file Sexual Orientation Not on file Plan of Treatment Health Maintenance Due Date Last Done Comments Hepatitis C Virus Screening 1950 DTaP/Tdap/Td Vaccines (1 - Tdap) 1970 Pneumococcal Vaccines 50+ (1 of 1 - PCV) 2001 Zoster (Shingles) Vaccine (1 of 2) 2001 COVID-19 Vaccine ( - 2023-2 5 season) 2024 RSV Vaccine 60 years and old er and Patients (1 - 1-dose 75+ series) 2026 Hepatitis B Vaccines Aged Out No long er eligible based on patient's age to complete this topic
--- OUTSIDE RECORDS SUMMARY | 2025-01-27 09:14 | XMS_ITS | Data Portability ---
Author Organization [place] [facility], Allergy Address [address] [address] Care Team Providers Care Director Of Archives Name Role Phone MARILU MCGINNIS Primary Care Provider Assessment No assessment recorded. [...] 21 mcg (0.03 %) nasal spray [address] [place] [address]/Pharmacy #[id number], [address] [place], [address], 09/26/2024 14:29:32 Patient TargetsNo targets recorded. Patient [...] ation record ed. [email or web address] Not Available 15:00:58 09/26/2008/24/2024 CT, cervi keyur spine , w/o contr ast No observ ation record ed. [email or web address] [facility] ([facility]) [address], [place], [address], 09/26/2024 17:04:27 09/26/2008/26/2024 CT, head, w/o contr ast No observ ation record ed. [email or web address] Not Available 08/30 17:02:52 Result Notes None recorded. 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, face and neck; Note: Date Diagnosed: 01/13/2022 3:58 PM (C77.0) Not Available [facility] 4 02:50:19 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 82649464 Active 2021 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, face and neck; Note: Date Diagnosed: 01/13/2022 3:58 PM (C77.0) Not Available [facility] 4 02:50:19 Dysphagia 87859073 Active 2021 Other dysphagia; Note: Date Diagnosed: 08/11/2022 2:30 PM (R13.19) Not Available [facility] 4 02:50:17 History of malignant neoplasm 291906638 Active 2021 Personal history of malignant neoplasm, unspecifie d; Note: Changed from Z85 to Z85.819 (08/11/2022 4:01 PM) , Changed from Z85.819 to Z85.9 (08/11/2022 4:02 PM) , Date Diagnosed: 08/11/2022 2:30 PM (Z85) Not Available [facility] 4 02:50:20 Nicotine dependenc e 23379610 Active 2021 Nicotine dependence , unspecifie d, uncomplica elieser; Note: Date Diagnosed: 01/13/2022 3:58 PM (F17.200) Not Available [facility] 4 02:50:15 Antineopl astic chemother apy regimen Active 2021 Encounter for antineopla stic chemothera py; Note: Date Diagnosed: 02/26/2022 3:00 PM (Z51.11) Not Available [facility] 4 02:50:18 Sensorine ural hearing loss of bilateral ears 734583362 Active 2021 Sensorineu ral hearing loss, bilateral; Note: Date Diagnosed: 02/26/2022 3:00 PM (H90.3) Not Available [facility] 4 02:50:19 Follow-up visit Active 2021 Encounter for follow-up examinatio n after completed treatment for malignant neoplasm; Note: Date Diagnosed: 08/11/2022 2:30 PM (Z08) Not Available [facility] 4 02:50:16 Vasomotor rhinitis 8069603 Active 2023 YANI LÓPEZ MD [address] [place] [address], [place], [address] , [facility] 4 14:26:14 Dizziness and giddiness 552244747 Active 2023 YANI LÓPEZ MD [address] [place] [address], [place], [address] , [facility] 4 14:28:26 Problem Notes None recorded. Procedures Surgical History Date Name Laterality Status Provider Name and Address Organization Details Recorded Time 09/26/2024 FFL_RE completed YANI LÓPEZ MD [address] [place] [address],[place] [address], [address], [place] [facility] 09/26/2024 14:19:25 05/24/2024 FFL_RE completed YANI LÓPEZ MD [address] [place] [address], [address], [place] - [facility] 05/24/2024 15:24:29 Imaging Results Imaging Date [...] CT, cervical spine, w/o contrast completed reppsteiner [facility] ([facility]) [address], [place], [address], 09/26/2024 17:04:27 08/26/2024 CT, head, w/o contrast completed reppsteiner Information not available 09/26/2024 17:02:52 Procedure Notes None recorded. Medical Equipment None Reported. Allergies Allergen ID Allergen Name Allergen Category Reaction Reaction Severity Criticality Documentation Date Start Date Code Code System Note Provider Name and Address Organization Details Recorded Time 041563 codeine / pseudoeph edrine / triprolid ine medicatio n other Not available Not available 04/11/2024 86382 1 RxNorm React ion: other react ion, Unkno wn; Not Available [facility] 4 01:09:32 809766 Product containin g penicilli n (product) medicatio n other Not available Not available 04/11/2024 45578 8001 SNOMED React ion: other react ion, Unkno wn; Not Available [facility] 4 01:09:33 Medications Name Sig Start Date Stop Date Status Note LastModified by Organization Details LastModified Time prednisone 10 mg tablet by mouth 2021 active Medicatio n ID: [id number] Pr escribed By Name: Yani diamond MD [...] ended release 2021 active Medicatio n ID: [id number] Br and Name: pentoxify lline Sen d [...] Updated DateTime 05/24/2024 172.72 cm 22 kg/m2 77673.89 g Aisha Casper [facility] 05/24/2024 15:02:16 Date Recorded Body height Body mass index (BMI) Body weight Provider Name and Address Organization Details Last Updated DateTime 09/26/2024 172.72 cm 22 kg/m2 93562.89 g Aisha Casper [facility] 09/26/2024 14:07:28 Social History None recorded. Functional Status None recorded. Mental Status None recorded. Family History Nothing Reported. Medical History No medical history recorded. Past Encounters Encounter ID Performer Location Encounter Start Date Encounter Closed Date Diagnosis/Indication Diagnosis SNOMED-CT Code Diagnosis ICD10 Code Diagnosis Note [id number] YANI LÓPEZ MD [facility] [address] [address] 05/24/2024 14:45:06 05/24/2024 15:31:19 History of malignant neoplasm of head and/or neck 248394925 Z85.89 Exam and Laryngosco py showed no evidence of disease. We will continue routine surveillan ce. Screening for malignant neoplasm of respiratory tract 042144665 Z12.2 Exam and Laryngosco py showed no evidence of disease. [place]. [id number] YANI LÓPEZ MD [facility] [address] [place] [address] 09/26/2024 13:59:26 09/26/2024 14:28:02 History of malignant neoplasm of head and/or neck 448479095 Z85.89 Exam and Laryngosco py showed no evidence of disease. We will continue routine surveillan ce. Screening for malignant neoplasm of respiratory tract 722479700 Z12.2 Exam and Laryngosco py showed no evidence of disease. We will continue routine surveillan ce. Vasomotor rhinitis 43101 03 J30.0 will send ipratropiu mWin Dizziness and giddiness 654733300 R42 reports lightheade dness not true vertigo. [...] ID Guarantor Name 05/24/2024 1 [employer] (PPO) [id number] Yani Fuchs [id number] Yani Laibranden 05/24/2024 2 [place] [employer] Yani Fuchs [id number] Yani Fuchs 09/26/2024 1 [employer] (PPO) [id number] Yani Fuchs [id number] Yani Fuchs 09/26/2024 2 [place] Yani Fuchs [id number] Yani Fuchs Notes Date Note Type Note Provider Name and Address Organization Details Recorded Time 05/24/2024 text/html He has a hx of S CC of unknown primary (hx of tonsillectomy and biopsies without identifying the primary). 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 Had a post tx PET that showed resolution of uptake in the head and neck. He reports continued dysphagia with dry foods. He has had several esophageal dilations. He is not smoking. No throat or neck pain. YANI LÓPEZ MD 100 [facility],[address], [address], [place] - [facility] 05/24/2024 15:30:22 09/26/2024 text/html He has a hx of S CC of unknown primary (hx of tonsillectomy and biopsies without identifying the primary). 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 Had a post tx PET that [...] eats with interferes. YANI LÓPEZ MD [address] [facility],[place] [address], [place], [address], [place] [facility] 09/26/2024 14:29:34
--- OUTSIDE RECORDS SUMMARY | 2025-01-27 09:14 | XMS_ITS | Encounter Summary ---
Author Organization [facility] Address [address] [place] [address] Care Team Providers Care Watchmaker Apprentice Name Role Phone Unavailable Primary Care Provider Unavailabl e Encounter Details Date Type Department Care Team (Late st Contact Info) Description 10/11/2020 Telephone [facility] [address] [address] Toams James MD [address] [facility] [address] [place] [address] Social History Tobacco Use Types Packs/Day Years Used Date Smoking Tobacco: Never Assessed Sex and Gender Information Value Date Recorded Sex Assigned at Not on file Gender Identity Not on file Sexual Orientation Not on file documented as of this encounter Plan of Treatment Not on file documented as of this encounter Visit Diagnoses Not on filedocumented in this encounter
[2025-01-27 11:46] LABS: MANUAL DIFF FLAG NO
[2025-01-27 11:55] LABS: Basophils Absolute Auto 0.1 X10*3/uL (0.0-0.2); Basophils Percent Auto 1.5 % (0-2); Eosinophils Absolute Auto 0.4 X10*3/uL (0.0-0.4); Eosinophils Percent Auto 6.5 % (0-4); Hematocrit 36.7 % (42.0-52.0); Hemoglobin 11.8 g/dl (14.0-18.0); Imm Gran Abs Auto 0.02 X10*3/uL (0.00-0.03); Imm Gran Pct Auto 0.4 % (0.0-0.4); Lymphocytes Percent Auto 19.4 % (20-40); Mean Corpuscular HGB Conc 32.2 g/dl (31.0-36.0); Mean Corpuscular Hemoglobin 26.8 pg (27.0-33.0); Mean Corpuscular Volume 83.4 fL (80.0-98.0); Mean Platelet Volume 8.3 fL (9.4-12.4); Monocytes Absolute Auto 0.6 X10*3/uL (0.1-1.2); Monocytes Percent Auto 11.7 % (2-11); Neutrophils Absolute Auto 3.3 x10*3/uL (2.0-8.3); Neutrophils Percent Auto 60.5 % (45-73); Platelet Count 242 X10*3/uL (160-400); Red Cell Distribution Width 14.2 % (11.0-16.0); White Blood Count 5.4 X10*3/uL (4.8-10.8)
[2025-01-27 11:59] LABS: Appearance Urine Clear; Color Urine Yellow; Glucose Urine UA Negative (Negative); Leukocyte Esterase Urine Negative (Negative); Nitrite Urine Negative (Negative); PH 6.5 (5.0-9.0); Urine Blood Negative (Negative); Urine Ketones Negative (Negative); Urine Protein Negative (Neg-Trace)
[2025-01-27 12:16] LABS: Estimated Average Glucose 114 mg/dL; Hemoglobin A1C 117.6501 umol/L; Hemoglobin A1c % 5.6 % (<6.0); Total Hemoglobin (HGBA1C) 3132.3162 umol/L
[2025-01-27 12:27] LABS: Alanine Aminotransferase 11 U/L (0-40); Albumin Level 4.1 g/dL (3.5-5.0); Alkaline Phosphatase 57 U/L (39-117); Anion Gap 10 (12-20); Aspartate Amino Transferase 17 U/L (5-37); Bilirubin Total 0.4 mg/dL (0.0-1.0); Blood Urea Nitrogen 10 mg/dL (9-16); Calcium 9.3 mg/dL (8.4-10.2); Carbon Dioxide 25 mmol/L (22-29); Chloride 106 mmol/L (96-108); Cholesterol 175 mg/dL (<200); Estimated Glomerular Filt Rate > 60; Glucose Fasting 103 mg/dL (60-99); HDL Cholesterol 41 mg/dL (>40); LDL Cholesterol Calculated 102 mg/dL (<100); Potassium 4.2 mmol/L (3.3-5.1); Sodium 137 mmol/L (135-145); Total Protein 7.3 g/dL (6.5-8.0); Triglycerides 160 mg/dL (<150)
[2025-01-27 12:44] LABS: TSH reflex Free T4 6.01 uIU/mL (0.32-4.0)
[2025-01-27 14:14] LABS: B Type Natriuretic Peptide 63 pg/mL (<100)
[2025-01-27 14:23] LABS: Free T4 (Free Thyroxine) 0.88 ng/dL (0.71-1.85)
== END 2025-01-27 09:13 | disposition home or self-care (01) ==
LOC: HO.HMGCLDS 09:12
PROVIDERS: PCP Internal Medicine; Visit Provider Internal Medicine
DX: I50.9 Heart failure, unspecified (principal); R30.0 Dysuria; E78.00 Pure hypercholesterolemia, unspecified; D64.9 Anemia, unspecified; R73.01 Impaired fasting glucose; E55.9 Vitamin D deficiency, unspecified
CPT/HCPCS: 36415; 80053; 80061; 81003; 82306; 83036; 83880; 84439; 84443; 85025

== ENCOUNTER 2025-02-02 13:29 | Outpatient (AMB) | payer OTHER, MEDICARE, MEDICAID, SELFPAY ==
--- NOTE | 2025-02-02 13:34 | A.OFFPC_ITS ---
Vital Signs 02/02/25 13:36 02/02/25 13:37 Height 5 ft 8 in 5 ft 8 in Weight 153 lb 2 oz BMI 23.3 BP 124/70 Blood Pressure Location Lt brachial Lt brachial Position Sitting Sitting Respiration 18 Pulse 64 Pulse Source Pulse Oximeter Pulse Oximeter Temp 97.7 F Temp Source Temporal Artery Scan Oral Pulse Oximetry (%) 99 Oxygen Delivery Method Room Air Room Air Intake Visit Reasons: worker's comp f/u Intake Note: Patient is here to follow up on Workers Compensation Claim that occurred in 2001 . Animal Keeper Head Required: No Professor Sculpture: Not Required per policy Accompanied by: Self / Same As Patient Allergies Penicillins [PCN] Allergy (Severe, Verified 02/04/25 19:25) dyspnea codeine [CODEINE] Allergy (Mild, Verified 02/04/25 19:25) VOMITING cefuroxime Allergy (Unknown, Verified 02/04/25 19:25) cefuroxime axetil- dyspnea morphine [MORPHINE] Allergy (Unknown, Verified 02/04/25 19:25) UNKNOWN Medication List - Last Reconciled 02/04/25 by WES Reed apixaban (Eliquis) 5 mg PO BID carvedilol 3.125 mg PO BID cholecalciferol (vitamin D3) 25 mcg PO DAILY 90 days omeprazole 20 mg PO DAILY oxycodone 1 to 2 tablets orally 6 to 7 times a day as needed for severe pain (no more than 8 tablets per day) 28 days rosuvastatin 20 mg PO DAILY sacubitril-valsartan 24-26 mg (Entresto) 1 tab PO BID Tobacco use date assessed: 02/02/25 Fall risk assessment: 1 Fall in past year Last assessed Fall Risk: 02/02/25 Dental Screening Dental Screen Date: 02/02/25 Did you have a dental visit in the last 12 months?: No Did you have a dental problem in the last 6 months where you did not have access to dental care?: No HPI worker's comp f/u HPI Details Patient is a 73-year-old male presenting today for worker's compo follow up visit The patient reports ongoing right groin pain from a recurrent hernia per patient He reports that this is very painful; he uses a cane to assist with ambulation He is currently on oxycodone 15 mg 6 to 7 times a day in order to get adequate pain management The patient describes his situation as an inguinal blockage-feeling like the right testicle is swelling up like a tennis ball The denies sob, chest pain, heart palpitation or dizziness denies any change bowel habits or urinary symptoms [facility] Medical History LBBB (left bundle branch block) Dysphagia Vitamin D deficiency Peyronie's disease Essential hypertension NICM (nonischemic cardiomyopathy) Smoker Neuropathy Impaired fasting glucose Benign essential hypertension Pure hypercholesterolemia Systolic congestive heart failure Dilated cardiomyopathy secondary to alcohol COPD (chronic obstructive pulmonary disease) Paroxysmal atrial fibrillation Lumbar spondylosis Chronic pain of right inguinal region Lumbar radiculopathy Atrial fibrillation Surgical History Hx of colonoscopy (~03/26/17) History of percutaneous endoscopic gastrostomy History of tonsillectomy History of inguinal hernia repair Family History Father Cancer Mother CVD (cardiovascular disease) Social History Household Members: Family Housing: House Are you a primary post acute care registered nurse to a significant other at home: No Do you presently have visiting nurse or other home services: No Alcohol intake: never Patient Tobacco Use Status: Former Tobacco user Tobacco use type: Cigarette e-Cigarette/Vaping Use: Former Use Second Hand Smoke Exposure: Yes service: Yes 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 1. Little interest or pleasure in doing things: not at all 2. Feeling down, depressed, or hopeless: not at all 3. Trouble falling or staying asleep, or sleeping too much: not at all 4. Feeling tired or having little energy: not at all 5. Poor appetite or overeating: not at all 6. Feeling bad about yourself - or that you are a failure or have let yourself or your family down: not at all 7. Trouble concentrating on things, such as reading the newspaper or watching television: not at all 8. Moving or speaking so slowly that other people could have noticed. Or the opposite - being so fidgety or restless that you have been moving around a lot more than usual: not at all 9. Thoughts that you would be better off or of hurting yourself in some way: not at all Total score: 0 Depression Screening Interpretation: Negative Depression Screening Done: Yes 78263 - PHQ-9 Billing: Yes Source: Developed by Drs. Yung Childress, Trish Prasad, Nelson Perez and colleagues, with an educational nan from [employer]. Thrive Questionnaire Date Thrive assessed: 02/02/25 I am a: Patient What is your living situation today?: I have a steady place to live Within the past 12 months, did the food you bought not last and you didn't have the money to get more?: Never true Within the past 12 months, did you worry whether your food would run out before you got money to buy more?: Never true Do you have trouble paying for medicines?: No Do you have trouble getting transportation to medical appointments?: No Do you have trouble paying your heating and electricity bill?: No Do you have trouble taking care of your child, family member or friend?: No Do you have trouble with day-to-day activities such as bathing, preparing meals, shopping, managing finances, etc.?: No Are you currently unemployed and looking for a job?: No Are you interested in more education?: No Please select the resources that you would like help with: None Currently or been in a relationship where the following occur: No concerns reported THRIVE Score: 0 AUDIT C Alcohol Use Questionnaire (AUDIT-C) 1. How often do you have a drink containing alcohol?: Never Total Score: 0 FILIPE-7 AMB Questionnaire FILIPE-7 Date FILIPE - 7 assessed: 02/02/25 Feeling nervous, anxious, or on edge: 0 = Not at all Not being able to stop or control worryin = Not at all Worrying too much about different things: 0 = Not at all Trouble relaxin = Not at all Being so restless that it is hard to sit still: 0 = Not at all Becoming easily annoyed or irritable: 0 = Not at all Feeling afraid as if something awful might happen: 0 = Not at all Total FILIPE-7 score (0-4 normal; 5-9 mild; 10-14 moderate; 15-21 severe): 0 Source: Developed by Drs. Yung Childress, Trish Prasad, Nelson Perez and colleagues, with an educational nan from [employer]. FILIPE-7 Assessment Billing FILIPE-7 Assessment Tool: FILIPE-7 Assessment 73682 Review of Systems Const Details: Denies chills, Denies fatigue, Denies fever(s), Denies headache(s) and Denies weakness HEENT Denies change in vision, Denies dizziness, Denies headache(s), Denies hearing loss, Denies nasal congestion, Denies sinus pain, Denies sinus pressure and Denies sore throat Card Denies chest pain, Denies lightheadedness, Denies dyspnea and Denies other (palpitations) Resp Denies cough, Denies dyspnea and Denies wheezing GI Denies abdominal pain, Denies melena, Denies hematochezia, Denies change in bowel habits, Denies dyspepsia and Denies nausea +right groin pain (chronic ongoing pain) Denies hematuria and Denies dysuria Musc Denies abnormal gait, Denies myalgias, Denies arthralgias, Denies numbness and Denies tingling Skin/Breast Denies rash, Denies unusual bruising and Denies wounds Neuro Denies abnormal gait, Denies dizziness, Denies headache(s), Denies memory loss, Denies numbness, Denies Sensory deficit (Neuro), Denies tingling and Denies weakness Psych Denies anxiety, Denies depression and Denies memory loss Endo Denies cold intolerance, Denies fatigue, Denies heat intolerance, Denies polydipsia and Denies polyuria Musa/Lymph Denies easy bleeding and Denies easy bruising Aller/Immun Denies wheezing Physical exam (Primary Care) Vital Signs: Last Vital Signs Temp 97.7 F 02/02/25 13:37 Pulse 64 02/02/25 13:37 Resp 18 02/02/25 13:37 BP 124/70 02/02/25 13:37 Pulse Ox 99 02/02/25 13:37 Oxygen Delivery Method Room Air 02/02/25 13:37 BMI result Body Mass Index 23.3 Tobacco/Smoking Status: Tobacco use Status Tobacco use date assessed 02/02/25 02/02/25 13:37 Patient Tobacco Use Status Former Tobacco user 02/02/25 13:44 Tobacco use type Cigarette 02/02/25 13:44 e-Cigarette/Vaping Use Former Use 02/02/25 13:44 PHQ-9: PHQ-9 Score PHQ-9: Total score 0 02/02/25 13:51 Depression Screening Interpretation: Negative Thrive Assessment: Date of Thrive Assessment Date Thrive assessed 02/02/25 02/02/25 13:37 Currently or been in a relationship where the following occur: No concerns reported Const Other: General: no acute distress, well developed, alert and awake Nutritional Appearance: well nourished Orientation/consciousness: patient oriented x3 HENMT Head: Yes normocephalic and Yes atraumatic Ears: hearing grossly normal bilaterally and TM's normal bilaterally Eyes Pupils: Equal, round and reactive pupils present and Pupil accommodation reflex normal EOM: EOMs intact bilaterally Neck Neck: Yes normal visual inspection, Yes no lymphadenopathy and Yes trachea midline Thyroid: Thyroid normal Carotids: no bruits Lymphatic: no lymphadenopathy noted Resp Effort & Inspection: normal respiratory effort Auscultation: clear to auscultation bilaterally Cardio Rate: regular rate Rhythm: regular rhythm Heart sounds: S1 normal heart sound present, S2 normal heart sound present, no gallops, no murmurs and no rubs GI Palpation (GI): No Abdominal aortic bruit present, Soft to palpation, nontender, No hepatosplenomegaly present and No Rebound tenderness present Auscultation: normal bowel sounds +pain to palpation for the right groin area General: Yes no CVA tenderness Back/Spine/Pelvis Back: no CVA tenderness Cervical Spine: cervical ROM normal and No Cervical spine tenderness Thoracic/Lumbar Spine: lumbar tenderness Skin General: warm and dry. Normal skin color. Normal skin turgor Lesions: no lesions Nails: normal Neuro General: patient oriented x3, gait normal Cranial nerves: Yes Equal, round and reactive pupils present Cognition (Neuro): normal cognition Gait exam (Neuro): mild limp, uses a cane intermittently Extrem General: Yes normal to inspection, No edema and No calf tenderness Psych Appearance: grossly normal Affect: normal affect Attitude: cooperative Thought process: Normal thought process present Coding Level of Care Code Est Pt Level 3 (87932) Diagnoses Chronic pain of right inguinal region R10.31; G89.29 Additional Codes FILIPE-7 Assessment Billing - FILIPE-7 Assessment Tool: FILIPE-7 Assessment 25253 ([id number]) PHQ-9 - 75366 - PHQ-9 Billing: Yes ([id number]) Time Spent (min) 28 Assessment & Plan Assessment & Plan (1) Chronic pain of right inguinal region: Comment: (+) Post-herniorrhaphy syndrome - had right inguinal herniorrhaphy in the past and recovery was complicated with increased pain and adverse effects, resulting in chronic and worse pain States that his chronic pain has been adequately controlled on his current pain med regimen - this is a WORKER'S COMP - related issue Code(s): R10.31 - Right lower quadrant pain; G89.29 - Other chronic pain Category: Medical Plan: Continue Oxycodone 15 mg 1 to 2 tabs 6 to 7 times a day for severe pain (no more than 8 tabs/day). Plan follow up in 3 months
[2025-02-02 13:37] VITALS: BP 124/70; PULSE 64; RESP 18; TEMP 36.5; O2SAT 99; BMI 23.3
--- OUTSIDE RECORDS SUMMARY | 2025-02-02 15:06 | XMS_ITS | Clinical Summary ---
Author Organization [facility] Address [address] [place] [address] Care Team Providers Care Jar Capper Name Role Phone Unavailable Primary Care Provider [...]
--- OUTSIDE RECORDS SUMMARY | 2025-02-02 15:06 | XMS_ITS | Encounter Summary ---
Author Organization [facility] Address [address] [place] [address] Care Team Providers Care Monotyper Name Role Phone Unavailable Primary Care Provider Unavailabl e Encounter Details Date Type Department Care Team (Late st Contact Info) Description 10/11/2020 Telephone [facility] [address] [address] Tomas James MD 330 [facility] [address] [place] [address] Social History Tobacco Use Types [...]
--- OUTSIDE RECORDS SUMMARY | 2025-02-02 15:07 | XMS_ITS | Continuity of Care Document ---
Author Organization [facility] ancer Care Address [address] [place] [address]- Care Team Providers Care Telecommunication Equipment Repairer Name Role Phone Albert Chan MD Primary Care Physician [facility] [id number] Date(s): 01/02/25 - 02/01/25 [facility] Care [address] [place] [address] Attending Physician: Yasmany Benson Admitting Physician: Yasmany Benson Referring Physician: Admtr [id number] Encounter Type: Triage Allergies, Adverse Reactions, Alerts Substance Criticality Severity Reaction Reaction Severity Status codeine nausea and vomitting Active penicillin difficulty breathing Active morphine unknown reactio n per pt. Active Pilocarpine Hydrochloride 1 Unable to assess criticality Unknown Active 1Vomiting Immunizations Given and Recorded Vaccine Date Status Refusal Reason SARS-CoV-2 (COVID-19) mRNA-1273 vaccine 04/26/21 R ecorded SARS-CoV-2 (COVID-19) mRNA-1273 vaccine 03/29/21 R ecorded Medications Carvedilol 3.125 mg, By Mouth, 2 times a day, Refills 0, Maintenance, 02/17/22 11:11:00 AM EDT, Partial fill upon patient request if the prescription is for a schedule II opioid drug. Start Date: 02/17/22 Status: Ordered Repeat number: 1 Eliquis 5 mg oral tablet 1 tablet = 5 mg, By Mouth, 2 times a day, 0 Refills, Maintenance, 02/17/22 11:11:00 AM EDT, Partial fill upon patient request if the prescription is for a schedule II opioid drug. Start Date: 02/17/22 Status: Ordered Repeat number: 1 Entresto 24 mg-26 mg oral tablet 1 tablet, By Mouth, Daily in AM, 0 Refills, Maintenance, 04/10/22 10:04:00 AM EDT, Partial fill uponpatient request if the prescription is for a schedule II opioid drug. Start Date: 04/10/22 Status: Ordered Repeat number: 1 Omeprazole = 20 mg, By Mouth, Daily in AM, 0 Refills, Maintenance, 02/17/22 11:10:00 AM EDT, Partial fill upon patient request if the prescription is for a schedule II opioid drug. Start Date: 02/17/22 Status: Ordered Repeat number: 1 Oxycodone = 15 mg, By Mouth, Every 3 hours, 0 Refills, Maintenance, 02/17/22 11:10:00 AM EDT, Partial fill upon patient request if the prescription is for a schedule II opioid drug. Start Date: 02/17/22 Status: Ordered Repeat number: 1 Rosuvastatin = 20 mg, By Mouth, Daily in AM, 0 Refills, Maintenance, 02/17/22 11:11:00 AM EDT, Partial fill upon patient request if the prescription is for a schedule II opioid drug. Start Date: 02/17/22 Status: Ordered Repeat number: 1 SalivaMAX oral powder for reconstitution See Instructions, Dissolve 1 packet of SalivaMAX in 1 oz (30 mL) of water. Then swish 1/2 of the solution in mouth x 1 minute & spit out. Repeat with remaining half of the solution. Use entire dose within 3 minutes of dissolving the powder in water., # 90 pack/packet, 2 Refills, Maintenance, 09/08/23 10:50:00 AM EDT, [facility]/pharmacy #[id number], Patient has intolerance to pilocarpine and no effect from Civemeline. Partial fill upon patient request if the prescription is for a schedule II opioid drug., Dissolve 1 packet of SalivaMAX in 1 oz (30 mL) of water. Then swish 1/2 of the solution in mouth x 1 minute & spit out. Repeat with remaining half of the solution. Use entire dose within 3 minutes of dissolving the powder in water., 173, cm, 09/08/23 10:29:00 EDT, Height, 65.4, kg, 09/08/23 10:29:00 EDT, Dry Weight Start Date: 09/08/23 Status: Ordered Quantity: 90.0 Unit: pack/packet Repeat number: 3 Indication: Disturbances of salivary secretion Problem List Condition Confirmation Course Effective Dates Status Health St atus Informant COVID-19 1 Confirmed 07/09/22 Active 1Problem added by Discern Expert Social History Social History Type Response Smoking Status Former smoker, quit more than 30 days ago; Interested in cessation: No; Patient wants NRT during admission No; Other: Quit in 2020; entered on: 06/30/23 Sex Sex Representation Male (finding) Laboratory * Event Display: Non BH Lab Results Authored Date: Radiology * Event Display: CT Scan Chest, Non- BH Authored Date: * Event Display: CT Scan Neck, Non- BH Authored Date: * Event Display: IR Special Procedures, Non-BH Authored Date: * Event Display: Ultrasound Neck, Non-BH Authored Date: Note * Bonita Austin MA: PERFORM, SIGN, VERIFY Event Display: Patient Education/Instruction Authored Date: [id number] [facility] *Heme/Onc Adult Clinical Summary Name YANI ZAMORA Age 71 Years 1950 PCP Not on Staff, PCP PCP Phone Visit Date 04/14/2022 10:04:00 Additional Instructions: Scheduled Appointments?? Future Appointments ?Interventional??Radiology ?[address]??[place],??[place],??[address] ?Phone:??[phone]?Fax:??-- ?Appt. Date:??04/24/2022?1:00 PM ?Scheduled Provider:??[id number] Follow-Up Instructions ?? Diagnosis Medications: Please continue your medications until treatment is completed or stopped by your provider. Discuss any questions related to medications with your provider. Medications to Continue with No Changes These medications were not printed or sent to your pharmacy apixaban (Eliquis 5 mg oral tablet) 1 tab(s) Oral twice a day. Next Dose: Carvedilol 3.125 Milligram Oral twice a day. Next Dose: Omeprazole 20 Milligram Oral Daily. Next Dose: Oxycodone 15 Milligram Oral every 12 hours. Next Dose: Rosuvastatin 20 Milligram Oral Daily. Next Dose: sacubitril-valsartan (Entresto 24 mg-26 mg oral tablet) Oral. Next Dose: Allergy Info:?? morphine; penicillin Medications Given This Visit Future Orders ?CT Soft Tissue Neck W/ Contrast? Order Date:04/18/22?- Complete by?04/25/22 Vital Signs Height Weight BMI Blood Pressure / Temperature Pulse Rate Respiratory Rate 02 Sat Mode of Delivery / You can now view a summary of your hospital visit from the comfort of your home through a free online portal called [employer]. [employer] is a website that allows you to securely view your medical information including discharge summary, medications and follow-up visits. ??You can alsosend a secure electronic message to your doctor???s office to request appointments, renew medications or just ask a question. You can enroll at [email or web address] or register during your next office visit. Disclaimer:?? The information provided is of a general nature and is intended to be used in conjunction with the recommendations and advice of your health care practitioner. ??Every effort has been made to ensure that the information provided is accurate and complete at the time it is provided to you however, as your needs change, or, as new ??information becomes available, different or additional instructions may be required. If you have questions, please consult with your primary care provider or pharmacist, as appropriate. ??This information is not intended to serve as substitution for assessment and evaluation by a qualified health care provider. If you do not have a primary care provider, you may find a [facility] provider by calling [facility] at [phone]. For information about the plan of care including goals and instructions for your diagnosis, please see the patient education orders section of this document. Patient Education Materials?? The content of this educational material or handout may have been modified, supplemented, or adapted from its original content and format to support your individualized medical care. Patient Care team information Care Team Personnel Name: Albert Chan MD Position: Reference Physician Member Role: PCP Address: [address] [place] [address] Telecom: Name: Celena Mas Position: S Onco RN Member Role: Primary Care Nurse Name: Estrella Ba RN Position: S Onco RN Member Role: Primary Care Nurse Name: Karli Rodriguez RN Position: S RN Member Role: Primary Care Nurse Name: Sarah Pittman RN Position: S Onco RN Member Role: Primary Care Nurse Name: Chong Rogers RN Position: S RN Member Role: Primary Care Nurse Care Team Related Persons Name: CELENA ZAMORA Insurance Providers Guarantor name: YANI ZAMORA Health Plan Information #: 1 Payer: NA Member Number: NA Policy Number: NA Group Number: NA Health Plan Information #: 2 Payer: [employer] Member Number: NA Policy Number: NA Group Number: NA
--- OUTSIDE RECORDS SUMMARY | 2025-02-02 15:07 | XMS_ITS | Data Portability ---
Author Organization [place] - [facility], Allergy Address [address] [address] Care Team Providers Care Floor Molder Name Role Phone MARILU MCGINNIS Primary Care [...] 21 mcg (0.03 %) nasal spray [address] [place] [address]/Pharmacy #[id number], [address] [place], [address], 09/26/2024 14:29:32 Patient TargetsNo targets recorded. Patient [...] ast No observ ation record ed. [email or web address] [facility] ([facility]) [address], [place], [address], 09/26/2024 17:04:27 09/26/2008/26/2024 CT, head, w/o contr ast No observ ation record ed. [email or web address] Not Available 08/30 17:02:52 Result Notes None recorded. 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, face and neck; Note: Date Diagnosed: 01/13/2022 3:58 PM (C77.0) Not Available [facility] 4 02:50:19 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 74748500 Active 2021 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, face and neck; Note: Date Diagnosed: 01/13/2022 3:58 PM (C77.0) Not Available [facility] 4 02:50:19 Dysphagia 76930186 Active 2021 Other dysphagia; Note: Date Diagnosed: 08/11/2022 2:30 PM (R13.19) Not Available [facility] 4 02:50:17 History of malignant neoplasm 640330765 Active 2021 Personal history of malignant neoplasm, unspecifie d; Note: Changed from Z85 to Z85.819 (08/11/2022 4:01 PM) , Changed from Z85.819 to Z85.9 (08/11/2022 4:02 PM) , Date Diagnosed: 08/11/2022 2:30 PM (Z85) Not Available [facility] 4 02:50:20 Nicotine dependenc e 03887770 Active 2021 Nicotine dependence , unspecifie d, uncomplica elieser; Note: Date Diagnosed: 01/13/2022 3:58 PM (F17.200) Not Available [facility] 4 02:50:15 Antineopl astic chemother apy regimen Active 2021 Encounter for antineopla stic chemothera py; Note: Date Diagnosed: 02/26/2022 3:00 PM (Z51.11) Not Available [facility] 4 02:50:18 Sensorine ural hearing loss of bilateral ears 827072608 Active 2021 Sensorineu ral hearing loss, bilateral; Note: Date Diagnosed: 02/26/2022 3:00 PM (H90.3) Not Available [facility] 4 02:50:19 Follow-up visit Active 2021 Encounter for follow-up examinatio n after completed treatment for malignant neoplasm; Note: Date Diagnosed: 08/11/2022 2:30 PM (Z08) Not Available [facility] 4 02:50:16 Vasomotor rhinitis 9121878 Active 2023 YANI LÓPEZ MD [address] [place] [address], [place], [address] , [facility] - [facility] 4 14:26:14 Dizziness and giddiness 804110501 Active 2023 YANI LÓPEZ MD [address] [place] [address], [place], [address] , [facility] - [facility] 4 14:28:26 Problem Notes None recorded. Procedures Surgical History Date Name Laterality Status Provider Name and Address Organization Details Recorded Time 09/26/2024 FFL_RE completed YANI LÓPEZ MD [address] [place] [address],[place] [address], [address], [place] - [facility] 09/26/2024 14:19:25 05/24/2024 FFL_RE completed YANI LÓPEZ MD [address] [place] [address], [address], [place] - [facility] 05/24/2024 15:24:29 Imaging Results Imaging Date Name [...] CT, cervical spine, w/o contrast completed reppsteiner [facility] ([facility]) [address], [place], [address], 09/26/2024 17:04:27 08/26/2024 CT, head, w/o contrast completed reppsteiner Information not available 09/26/2024 17:02:52 Procedure Notes None recorded. Medical Equipment None Reported. Allergies Allergen ID Allergen Name Allergen Category Reaction Reaction Severity Criticality Documentation Date Start Date Code Code System Note Provider Name and Address Organization Details Recorded Time 766818 codeine / pseudoeph edrine / triprolid ine medicatio n other Not available Not available 04/11/2024 72796 1 RxNorm React ion: other react ion, Unkno wn; Not Available [facility] 4 01:09:32 709605 Product containin g penicilli n (product) medicatio n other Not available Not available 04/11/2024 42037 8001 SNOMED React ion: other react ion, Unkno wn; Not Available [facility] 4 01:09:33 Medications Name Sig Start Date Stop Date Status Note LastModified by Organization Details LastModified Time prednisone 10 mg tablet by mouth 2021 active Medicatio n ID: [id number] Pr escribed By Name: Yani diamond MD [...] ended release 2021 active Medicatio n ID: [id number] Br and Name: pentoxify lline Sen d [...] Updated DateTime 05/24/2024 172.72 cm 22 kg/m2 48237.89 g Aisha Casper [facility] 05/24/2024 15:02:16 Date Recorded Body height Body mass index (BMI) Body weight Provider Name and Address Organization Details Last Updated DateTime 09/26/2024 172.72 cm 22 kg/m2 63225.89 g Aisha Casper [facility] 09/26/2024 14:07:28 Social History None recorded. Functional Status None recorded. Mental Status None recorded. Family History Nothing Reported. Medical History No medical history recorded. Past Encounters Encounter ID Performer Location Encounter Start Date Encounter Closed Date Diagnosis/Indication Diagnosis SNOMED-CT Code Diagnosis ICD10 Code Diagnosis Note [id number] YANI LÓPEZ MD [facility] [address] [address] 05/24/2024 14:45:06 05/24/2024 15:31:19 History of malignant neoplasm of head and/or neck 585633637 Z85.89 Exam and Laryngosco py showed no evidence of disease. We will continue routine surveillan ce. Screening for malignant neoplasm of respiratory tract 277941891 Z12.2 Exam and Laryngosco py showed no evidence of disease. We will continue routine surveillan ce. [id number] YANI LÓPEZ MD [facility] [address] [place] [address] 09/26/2024 13:59:26 09/26/2024 14:28:02 History of malignant neoplasm of head and/or neck 779802981 Z85.89 Exam and Laryngosco py showed no evidence of disease. We will continue routine surveillan ce. Screening for malignant neoplasm of respiratory tract 560802609 Z12.2 Exam and Laryngosco py showed no evidence of disease. We will continue routine surveillan ce. Vasomotor rhinitis 08967 03 J30.0 will send ipratropiu mWin Dizziness and giddiness 875554163 R42 reports lightheade dness not true vertigo. [...] ID Guarantor Name 05/24/2024 1 [employer] (PPO) [id number] Yani Fuchs [id number] Yani Laibranden 05/24/2024 2 [place] [employer] [employer] Yani Fuchs [id number] Yani Fuchs 09/26/2024 1 [employer] ([place]) [id number] Yani Fuchs [id number] Yani Fuchs 09/26/2024 2 [place] [employer] [employer] Yani Fuchs [id number] Yani Fuchs Notes Date Note Type Note Provider Name and Address Organization Details Recorded Time 05/24/2024 text/html He has a hx of S CC of unknown primary (hx of tonsillectomy and biopsies without identifying the primary). 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 Had a post tx PET that showed resolution of uptake in the head and neck. He reports continued dysphagia with dry foods. He has had several esophageal dilations. He is not smoking. No throat or neck pain. YANI LÓPEZ MD [address] [facility],[address], [address], [place] - [facility] 05/24/2024 15:30:22 09/26/2024 text/html He has a hx of S CC of unknown primary (hx of tonsillectomy and biopsies without identifying the primary). 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 Had a post tx PET that [...] eats with interferes. YANI LÓPEZ MD [address] [facility],[place] [address], [place], [address], [place] - [facility] 09/26/2024 14:29:34
== END 2025-02-02 13:59 | disposition home or self-care (01) ==
PROVIDERS: PCP Internal Medicine
DX: R10.31 Right lower quadrant pain (principal); G89.29 Other chronic pain

== ENCOUNTER → 2025-02-02 13:29 | Outpatient (BNVA) | payer OTHER, MEDICARE, MEDICAID, SELFPAY | PROVIDERS: PCP Internal Medicine | DX: R10.31 Right lower quadrant pain (principal); G89.29 Other chronic pain; Z79.891 Long term (current) use of opiate analgesic | CPT/HCPCS: 96127; 99212 ==

== ENCOUNTER 2025-02-20 12:28 | Outpatient (AMB) | payer MEDICARE, MEDICAID, SELFPAY ==
--- NOTE | 2025-02-20 12:29 | MHC.PC.OV ---
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: No Accompanied by: Self / Same As Patient Allergies Penicillins [PCN] Allergy (Severe, Verified 02/20/25 13:02) dyspnea codeine [CODEINE] Allergy (Mild, Verified 02/20/25 13:02) VOMITING cefuroxime Allergy (Unknown, Verified 02/20/25 13:02) cefuroxime axetil- dyspnea morphine [MORPHINE] Allergy (Unknown, Verified 02/20/25 13:02) UNKNOWN Medication List - Last Reconciled 02/20/25 by Albert Chan MD apixaban (Eliquis) 5 mg PO BID carvedilol 3.125 mg PO BID cholecalciferol (vitamin D3) 25 mcg PO DAILY 90 days omeprazole 20 mg PO DAILY oxycodone 1 to 2 tablets orally 6 to 7 times a day as needed for severe pain (no more than 8 tablets per day) 28 days rosuvastatin 20 mg PO DAILY sacubitril-valsartan 24-26 mg (Entresto) 1 tab PO BID Tobacco use date assessed: 02/20/25 Last assessed Fall Risk: 02/20/25 Dental Screening Dental Screen Date: 02/20/25 HPI Follow Up HPI Details Patient comes in today for follow up of his HTN, hyperlipidemia, CHF/cardiomyopathy, IFG, neuropathy and chronic right inguinal pain Patient states that he feels okay Still has on and off dizziness and would like to know how his brain MRI done a couple of months ago came out He denies any headaches Denies any exertional chest pains No nausea/vomiting, no abdominal pain No change in bowel habits noted States that his chronic right inguinal pain remains adequately controlled on his current Rx He had his follow up labs done a few weeks ago - to discuss his results [facility] Medical History LBBB (left bundle branch block) Dysphagia Vitamin D deficiency Peyronie's disease Essential hypertension NICM (nonischemic cardiomyopathy) Smoker Neuropathy Impaired fasting glucose Benign essential hypertension Pure hypercholesterolemia Systolic congestive heart failure Dilated cardiomyopathy secondary to alcohol COPD (chronic obstructive pulmonary disease) Paroxysmal atrial fibrillation Lumbar spondylosis Chronic pain of right inguinal region Lumbar radiculopathy Atrial fibrillation Surgical History Hx of colonoscopy (~03/26/17) History of percutaneous endoscopic gastrostomy History of tonsillectomy History of inguinal hernia repair Family History Father Cancer Mother CVD (cardiovascular disease) Social History Household Members: Family Housing: House Are you a primary medical care manager to a significant other at home: No Do you presently have visiting nurse or other home services: No Alcohol intake: never Patient Tobacco Use Status: Former Tobacco user Tobacco use type: Cigarette e-Cigarette/Vaping Use: Former Use Second Hand Smoke Exposure: Yes service: Yes Current occupational status: retired 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 1. Little interest or pleasure in doing things: not at all 2. Feeling down, depressed, or hopeless: not at all 3. Trouble falling or staying asleep, or sleeping too much: not at all 4. Feeling tired or having little energy: not at all 5. Poor appetite or overeating: not at all 6. Feeling bad about yourself - or that you are a failure or have let yourself or your family down: not at all 7. Trouble concentrating on things, such as reading the newspaper or watching television: not at all 8. Moving or speaking so slowly that other people could have noticed. Or the opposite - being so fidgety or restless that you have been moving around a lot more than usual: not at all 9. Thoughts that you would be better off or of hurting yourself in some way: not at all Total score: 0 Depression Screening Interpretation: Negative Depression Screening Done: Yes 43658 - PHQ-9 Billing: Yes Source: Developed by Drs. Yung Childress, Trish Prasad, Nelson Perez and colleagues, with an educational nan from [employer]. Thrive Questionnaire Date Thrive assessed: 02/20/25 I am a: Patient What is your living situation today?: I have a steady place to live Within the past 12 months, did the food you bought not last and you didn't have the money to get more?: Never true Within the past 12 months, did you worry whether your food would run out before you got money to buy more?: Never true Do you have trouble paying for medicines?: No Do you have trouble getting transportation to medical appointments?: No Do you have trouble paying your heating and electricity bill?: No Do you have trouble taking care of your child, family member or friend?: No Do you have trouble with day-to-day activities such as bathing, preparing meals, shopping, managing finances, etc.?: No Are you currently unemployed and looking for a job?: No Are you interested in more education?: No Please select the resources that you would like help with: None Currently or been in a relationship where the following occur: No concerns reported THRIVE Score: 0 AUDIT C Alcohol Use Questionnaire (AUDIT-C) 1. How often do you have a drink containing alcohol?: Never 3. How often do you have six or more drinks on one occasion?: Never Total Score: 0 Score Reviewed/Action Taken: Yes FILIPE-7 AMB Questionnaire FILIPE-7 Date FILIPE - 7 assessed: 02/20/25 Feeling nervous, anxious, or on edge: 0 = Not at all Not being able to stop or control worryin = Not at all Worrying too much about different things: 0 = Not at all Trouble relaxin = Not at all Being so restless that it is hard to sit still: 0 = Not at all Becoming easily annoyed or irritable: 0 = Not at all Feeling afraid as if something awful might happen: 0 = Not at all Total FILIPE-7 score (0-4 normal; 5-9 mild; 10-14 moderate; 15-21 severe): 0 Source: Developed by Drs. Yung Childress, Trish Prasad, Nelson Perez and colleagues, with an educational nan from [employer]. FILIPE-7 Assessment Billing FILIPE-7 Assessment Tool: FILIPE-7 Assessment 55028 Review of Systems Const Denies chills, Reports fatigue, Denies fever(s) and Denies headache(s) ENT Denies dysphagia, Reports dizziness (on and off), Denies otalgia, Denies headache(s), Denies neck pain, Denies odynophagia and Denies sore throat Card Denies chest pain, Denies palpitations and Reports dyspnea on exertion (mild) Resp Denies chest congestion, Denies cough and Reports dyspnea on exertion (mild) GI Denies abdominal pain (but (+) chronic pain over the right inguinal area), Denies constipation, Denies dysphagia, Denies heartburn, Denies diarrhea, Denies nausea, Denies odynophagia and Denies vomiting Denies difficulty urinating, Denies dysuria, Denies nocturia and Denies urinary frequency Musc Reports back pain (occasional ) and Denies neck pain Skin/Breast Denies rash Neuro Reports dizziness (on and off), Denies headache(s) and Reports radicular pain (on the soles of both feet) Endo Reports fatigue and Denies palpitations Physical exam (Primary Care) Vital Signs: Last Vital Signs Pulse 59 02/20/25 12:30 BP 114/66 02/20/25 12:30 Pulse Ox 98 02/20/25 12:30 Oxygen Delivery Method Room Air 02/20/25 12:30 BMI result Body Mass Index 22.7 Tobacco/Smoking Status: Tobacco use Status Tobacco use date assessed 02/20/25 02/20/25 12:34 Patient Tobacco Use Status Former Tobacco user 02/20/25 12:34 Tobacco use type Cigarette 02/20/25 12:34 e-Cigarette/Vaping Use Former Use 02/20/25 12:34 PHQ-9: PHQ-9 Score PHQ-9: Total score 0 02/20/25 13:27 Depression Screening Interpretation: Negative Thrive Assessment: Date of Thrive Assessment Date Thrive assessed 02/20/25 02/20/25 12:34 Currently or been in a relationship where the following occur: No concerns reported Const General: no acute distress and alert HENMT Ears: TM's normal bilaterally and EAC's normal Throat: Yes posterior oropharynx normal and Yes tonsils normal Neck Neck: Yes supple and No lymphadenopathy Thyroid: Thyroid normal Resp Auscultation: no crackles, no rales, no wheezes and diminished lung sounds (slightly) bilateral Cardio Rate: regular rate Rhythm: regular rhythm Heart sounds: no murmurs GI Palpation (GI): Soft to palpation and Tenderness to palpation present (GI) (over the right inguinal area - chronic) Auscultation: normal bowel sounds General: Yes no CVA tenderness Back/Spine/Pelvis Back: no CVA tenderness Thoracic/Lumbar Spine: lumbar spinal tenderness (mild) Skin Rashes: no rashes Extrem General: Yes no clubbing, cyanosis or edema Results Reviewed Results Reviewed: Laboratory Tests 12/04/24 01/27/25 09:24 09:35 WBC 5.4 Hgb 11.8 L Hct 36.7 L Plt Count 242 Sodium 137 Potassium 4.2 D Creatinine 1.02 Estimated GFR > 60 Fasting Glucose 103 H Hemoglobin A1c % 5.6 Calcium 9.3 D AST 17 ALT 11 B-Natriuretic Peptide 63 Triglycerides 160 H Cholesterol 175 LDL Cholesterol, Calc 102 H HDL Cholesterol 41 25-OH Vitamin D Total 43.0 Folate 11.7 TSH 6.01 H Free T4 0.88 Ur Specific [place] 1.010 Urine Protein Negative Urine Glucose (UA) Negative Urine Blood Negative Urine Nitrite Negative Ur Leukocyte Esterase Negative Coding Level of Care Code Est Pt Level 4 (16287) Complex EM visit Add On G2211 Diagnoses Dizziness of unknown etiology R42 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 Additional Codes FILIPE-7 Assessment Billing - FILIPE-7 Assessment Tool: FILIPE-7 Assessment 94379 ([id number]) PHQ-9 - 32883 - PHQ-9 Billing: Yes ([id number]) Assessment & Plan Assessment & Plan (1) Dizziness of unknown etiology: Code(s): R42 - Dizziness and giddiness Category: Medical Plan: Patient was seen by ENT last year and was advised that his recurrent dizziness are not consistent with vertigo and that they do not have any good explanation as to the cause of his recurrent symptoms He was advised to speak with his PCP further about this and for further work ups We then sent him for an MRI of the brain, which he finally had done a couple of months ago in November 2024 that revealed (+) small vessel occlusive disease, with no acute stroke/nonhemorrhagic ischemia and no acute intracranial hemorrhage Advised patient that at this point, if his symptoms continue to bother him significantly, then we may need to refer him to neurology for further recommendations (2) 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 Diop and he completed Cisplatin-based chemotherapy and concurrent radiation therapy in June 2022 - was on treatment from 05/11/2022 to 06/30/2022 Follow up with oncology and ENT as scheduled for continuing management/treatment and surveillance (3) Dysphagia: Code(s): R13.10 - Dysphagia, unspecified Category: Medical Qualifiers: Dysphagia type: unspecified Qualified Code(s): R13.10 - Dysphagia, unspecified Plan: Patient continues to complain of dysphagia, dysgeusia and dry throat symptoms He underwent esophageal dilation with Dr. Hernández on 10/27/22, in March 2023 and more recently in July 2023; patient states that dilation helped temporarily with his symptoms Relates that he also had his throat dilated by ENT last year Follow up with ENT (Dr. Diop) and with Dr. Hernández as scheduled (4) Dilated cardiomyopathy secondary to alcohol: Code(s): I42.6 - Alcoholic cardiomyopathy Category: Medical Plan: Continue Entresto 24-26 mg 1 tablet BID and Carvedilol 3.125 mg BID Follow up with cardiology as scheduled (5) Systolic congestive heart failure: Comment: Echocardiogram done on 05/03/2018 showed visually estimated EF between 30-35% with an impaired relaxation filling pattern. Cardiac valvular dopplers and RV systolic pressure were all within normal range. Repeat echocardiogram on 03/12/21 revealed (+) normal LV cavity size, with mildly increased LV wall thickness. LV systolic function is low normal and visually estimated EF is between 50 to 55%. Diastolic function is normal for age. Code(s): I50.20 - Unspecified systolic (congestive) heart failure Category: Medical Qualifiers: Heart failure chronicity: unspecified Qualified Code(s): I50.20 - Unspecified systolic (congestive) heart failure Plan: His cardiac function has improved significantly with treatment over the past few years and patient currently appears compensated His BNP level came back normal on his recent labs Continue Entresto 24-26 mg 1 tablet BID and Carvedilol 3.125 mg BID Follow up with Cardiology as scheduled (6) Paroxysmal atrial fibrillation: Code(s): I48.0 - Paroxysmal atrial fibrillation Category: Medical Plan: Patient currently remains in sinus rhythm Continue Eliquis 5 mg twice a day for thromboembolism prophylaxis (7) Benign essential hypertension: Code(s): I10 - Essential (primary) hypertension Category: Medical Plan: Reinforced low sodium diet - goal is systolic BP of at least 120-130 mm or less Continue Carvedilol 3.125 mg 1 tablet BID and Entresto 24-26 mg BID (8) Pure hypercholesterolemia: Code(s): E78.00 - Pure hypercholesterolemia, unspecified Category: Medical Plan: Results of his labs done a few weeks ago reviewed and discussed with patient Reinforced low cholesterol diet Continue Rosuvastatin 20 mg QD Will recheck his labs and fasting lipids in 3 months for follow up (9) Impaired fasting glucose: Code(s): R73.01 - Impaired fasting glucose Category: Medical Plan: His HgbA1c was at 5.6% on his recent labs; was at 5.4% when previously checked Reinforced low calorie diet /exercise as tolerated (10) COPD (chronic obstructive pulmonary disease): Code(s): J44.9 - Chronic obstructive pulmonary disease, unspecified Category: Medical Qualifiers: COPD type: unspecified COPD Qualified Code(s): J44.9 - Chronic obstructive pulmonary disease, unspecified Plan: Controlled Continue Albuterol HFA 2 puffs 4 times a day as needed (11) Chronic pain of right inguinal region: Comment: (+) Post-herniorrhaphy syndrome - had right inguinal herniorrhaphy in the past and recovery was complicated with increased pain and adverse effects, resulting in chronic and worse pain States that his chronic pain has been adequately controlled on his current pain med regimen - this is a WORKER'S COMP - related issue Code(s): R10.31 - Right lower quadrant pain; G89.29 - Other chronic pain Category: Medical Plan: Continue Oxycodone 15 mg 1 to 2 tablets 6 to 7 times a day as needed for severe pain (no more than 8 tablets/day) (12) Lumbar spondylosis: Code(s): M47.816 - Spondylosis without myelopathy or radiculopathy, lumbar region Category: Medical Plan: Reinforced activity and weight-lifting restrictions to avoid aggravating his low back pain (13) Neuropathy: Code(s): G62.9 - Polyneuropathy, unspecified Category: Medical Plan: His symptoms remain tolerable lately He could not tolerate Gabapentin in the past and Amitriptyline did not help him much (14) Vitamin D deficiency: Code(s): E55.9 - Vitamin D deficiency, unspecified Category: Medical Plan: Continue Vitamin D3 1000 units QD Plan Follow up in 3 months Orders: Orders Comprehensive [place]. Panel Fast 3 Months E78.00 - Pure hypercholesterolemia, unspecified Free T4 (Free Thyroxine) 3 Months R79.89 - Other specified abnormal findings of blood chemistry Thyroid Stimulating Hormone 3 Months R79.89 - Other specified abnormal findings of blood chemistry Hemoglobin A1c 3 Months E11.9 - Type 2 diabetes mellitus without complications Vitamin B12 and Folate 3 Months E53.8 - Deficiency of other specified B group vitamins Complete Blood Count Auto Diff 3 Months D64.9 - Anemia, unspecified Lipid Panel 3 Months E78.00 - Pure hypercholesterolemia, unspecified B Type Natriuretic Peptide 3 Months I50.9 - Heart failure, unspecified UA CC w/rflx Micro + Cult 3 Months R30.0 - Dysuria Vitamin D 25-OH Total 3 Months E55.9 - Vitamin D deficiency, unspecified
[2025-02-20 12:30] VITALS: BP 114/66; PULSE 59; O2SAT 98; BMI 22.7
== END 2025-02-20 13:19 | disposition home or self-care (01) ==
LOC: HO.HMCH 12:28
PROVIDERS: PCP Internal Medicine; Visit Provider Internal Medicine
DX: I50.20 Unspecified systolic (congestive) heart failure (principal); C77.9 Secondary and unspecified malignant neoplasm of lymph node, unspecified; C80.1 Malignant (primary) neoplasm, unspecified; I42.6 Alcoholic cardiomyopathy; J44.9 Chronic obstructive pulmonary disease, unspecified; I48.0 Paroxysmal atrial fibrillation; R42 Dizziness and giddiness; R13.10 Dysphagia, unspecified; I10 Essential (primary) hypertension; E78.00 Pure hypercholesterolemia, unspecified; R73.01 Impaired fasting glucose; R10.31 Right lower quadrant pain

== ENCOUNTER → 2025-02-20 12:28 | Outpatient (BNVA) | payer MEDICARE, MEDICAID, OTHER, SELFPAY | PROVIDERS: PCP Internal Medicine; Visit Provider Internal Medicine | DX: R42 Dizziness and giddiness (principal); C77.9 Secondary and unspecified malignant neoplasm of lymph node, unspecified; C80.1 Malignant (primary) neoplasm, unspecified; R13.10 Dysphagia, unspecified; I42.6 Alcoholic cardiomyopathy; I11.0 Hypertensive heart disease with heart failure; I50.20 Unspecified systolic (congestive) heart failure; I48.0 Paroxysmal atrial fibrillation; E78.00 Pure hypercholesterolemia, unspecified; R73.01 Impaired fasting glucose; J44.9 Chronic obstructive pulmonary disease, unspecified; R10.13 Epigastric pain; G89.29 Other chronic pain; G62.9 Polyneuropathy, unspecified; E55.9 Vitamin D deficiency, unspecified | CPT/HCPCS: 96127; 99212 ==

== ENCOUNTER 2025-04-17 12:34 | Outpatient (REF) | payer MEDICARE, MEDICAID, SELFPAY ==
--- NOTE | ~2025-04-17 | XR_ITS ---
EXAMINATION: XR LUMBOSACRAL SPINE CLINICAL INFORMATION: M54.50 - Low back pain, unspecified COMPARISON: September 11, 2020. TECHNIQUE: Three views of the lumbosacral spine. FINDINGS: S-shaped curvature of the lower lumbar spine. Multilevel marginal osteophyte formation and endplate sclerosis and decreased intervertebral disc height. No acute cortical disruption or malalignment. No lytic or blastic lesions. Sclerosis and the inferior sacroiliac joints. Vascular calcifications. XR/XR lumbar spine 2-3V IMPRESSION: Multilevel spondylosis without acute fracture or listhesis. Atherosclerosis disease. Electronically signed by: Grady Jeffrey MD 04/17/2025 12:58 PM EDT
--- OUTSIDE RECORDS SUMMARY | 2025-04-17 13:40 | XMS_ITS | Encounter Summary ---
Author Organization [facility] Address [address] [place] [id number] Care Team Providers Care Check Processor Name Role Phone Unavailable Primary Care Provider Unavailabl e Encounter Details Date Type Department Care Team (Late st Contact Info) Description 10/11/2020 Telephone [facility] [address] [id number] Tomas James MD [address] [facility] [address] [place] [address] Social History Tobacco Use Types Packs/Day Years Used Date Smoking Tobacco: Never Assessed Sex and Gender Information Value Date Recorded Sex Assigned at Not on file Legal Sex Male 6:47 PM EST Gender Identity Not on file Sexual Orientation Not on file documented as of this encounter Plan of Treatment Not on file documented as of this encounter Visit Diagnoses Not on filedocumented in this encounter
--- OUTSIDE RECORDS SUMMARY | 2025-04-17 13:40 | XMS_ITS | Data Portability ---
Author Organization [place] - [facility], Allergy Address [address] [address] Care Team Providers Care Regional Business Manager Name Role Phone RAHEL, MARILU Primary Care Provider Assessment No assessment recorded. Plan of Treatment Reminders Order Date Submit Date Provider Last Modified By Organization Details Last Modified Time Details Appointments Establish ed 30 2024 01:00P M YANI Diamond MD Not available Not available Not available Lab None recorded. Referral None recorded. Procedures None recorded. Surgeries None recorded. Imaging None recorded. Medication Orders ipratropi um bromide 21 mcg (0.03 %) nasal spray [address] [place] [address]/Pharmacy #[id number], [address] [place], [address], 09/26/2024 14:29:32 Patient TargetsNo targets recorded. Patient InstructionsNo instructions recorded. Reason for Referral None Reported. Results Created Date Observation Date Name Description Value Unit Range Abnormal Flag Note LastModifiedBy Organization Detail LastModifiedTime 07/20/2012/02/2021 imagi ng/di agnos tic resul t No [...] contr ast No observ ation record ed. [facility] [address] [facility] [address], [place], [address], 09/26/2024 17:04:27 09/26/20 24 08/26/2024 CT, head, w/o contr ast No observ ation record ed. [email or web address] Not Available 08/30 17:02:52 02/07/20 25 12/11/2024 MRI, brain + brain stem, w/o contr ast No observ ation record ed. [facility] [address] [facility] [address], [place], [address], 02/07/2025 10:10:38 02/09/20 25 1950 MR, angio gram, brain , w/o contr ast No observ ation record ed. [email or web address] Not Available 01/27 10:10:08 Result Notes None recorded. 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, face and neck; Note: Date Diagnosed: 01/13/2022 3:58 PM (C77.0) Not Available [facility] 4 02:50:19 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 48525576 Active 2021 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, face and neck; Note: Date Diagnosed: 01/13/2022 3:58 PM (C77.0) Not Available [facility] 4 02:50:19 Dysphagia 49043884 Active 2021 Other dysphagia; Note: Date Diagnosed: 08/11/2022 2:30 PM (R13.19) Not Available [facility] 4 02:50:17 History of malignant neoplasm 854733846 Active 2021 Personal history of malignant neoplasm, unspecifie d; Note: Changed from Z85 to Z85.819 (08/11/2022 4:01 PM) , Changed from Z85.819 to Z85.9 (08/11/2022 4:02 PM) , Date Diagnosed: 08/11/2022 2:30 PM (Z85) Not Available [facility] 4 02:50:20 Nicotine dependenc e 76715370 Active 2021 Nicotine dependence , unspecifie d, uncomplica elieser; Note: Date Diagnosed: 01/13/2022 3:58 PM (F17.200) Not Available [facility] 4 02:50:15 Antineopl astic chemother apy regimen Active 2021 Encounter for antineopla stic chemothera py; Note: Date Diagnosed: 02/26/2022 3:00 PM (Z51.11) Not Available [facility] 4 02:50:18 Sensorine ural hearing loss of bilateral ears 051241339 Active 2021 Sensorineu ral hearing loss, bilateral; Note: Date Diagnosed: 02/26/2022 3:00 PM (H90.3) Not Available [facility] 4 02:50:19 Follow-up visit Active 2021 Encounter for follow-up examinatio n after completed treatment for malignant neoplasm; Note: Date Diagnosed: 08/11/2022 2:30 PM (Z08) Not Available [facility] 4 02:50:16 Vasomotor rhinitis 2116338 Active 2023 YANI LÓPEZ MD [address] [place] [address], [place], [address] , [facility] - [facility] 4 14:26:14 Dizziness and giddiness 745880365 Active 2023 YANI LÓPEZ MD [address] [facility],[place] [address], [place], [address] , [place] - [facility] 14:28:26 Problem Notes None recorded. Procedures Surgical History Date Name Laterality Status Provider Name and Address Organization Details Recorded Time 02/06/2025 FFL_RE completed YANI LÓPEZ MD [address] [facility],[place] [address], [place], [address], [place] - [facility] 02/06/2025 13:55:08 09/26/2024 FFL_RE completed YANI LÓPEZ MD [address] [facility],[place] [address], [place], [address], [place] - [facility] 09/26/2024 14:19:25 05/24/2024 FFL_RE completed YANI LÓPEZ MD [address] [facility],[address], [address], [place] - [facility] 05/24/2024 15:24:29 Imaging Results Imaging Date Name [...] CT, cervical spine, w/o contrast completed [email or web address] [address] [facility] [address], [place], [address], 09/26/2024 17:04:27 08/26/2024 CT, head, w/o contrast completed [email or web address] Information not available 09/26/2024 17:02:52 12/11/2024 MRI, brain + brain stem, w/o contrast completed [facility] ([facility]) [address] [facility] [address], [place], [address], 02/07/2025 10:10:38 1950 MR, angiogram, brain, w/o contrast completed [email or web address] Information not available 02/08/2025 10:10:08 Procedure Notes None recorded. Medical Equipment None Reported. Allergies Allergen ID Allergen Name Allergen Category Reaction Reaction Severity Criticality Documentation Date Start Date Code Code System Note Provider Name and Address Organization Details Recorded Time 387309 codeine / pseudoeph edrine / triprolid ine medicatio n other Not available Not available 04/11/2024 83396 1 RxNorm React ion: other react ion, Unkno wn; Not Available [facility] 4 01:09:32 634545 Product containin g penicilli n (product) medicatio n other Not available Not available 04/11/2024 91425 8001 SNOMED React ion: other react ion, Unkno wn; Not Available [facility] 4 01:09:33 Medications Name Sig Start Date Stop Date Status Note LastModified by Organization Details LastModified Time clotrimazo le 10 mg michael DISSOLVE 1 MICHAEL IN MOUTH 5 TIMES DAILY active Not Available Not Available No t Available nystatin 100,000 unit/mL oral suspension PLEASE SEE ATTACHED FOR DETAILED DIRECTION S active Not Available Not Available No t Available prednisone 10 mg tablet by mouth 2021 active Medicatio n ID: [id number] Pr escribed By Name: Yani diamond MD [...] ended release 2021 active Medicatio n ID: [id number] Br and Name: pentoxify lline Sen d Method: E-Prescri bed Subs Allowed: subs OK Medica tionGener icName: pentoxify lline Not Available Not Available Not Available carvedilol 3.125 mg tablet TAKE 1 TABLET BY MOUTH TWICE A DAY active Not Available Not Available No t Available oxycodone 15 mg tablet 1 TO 2 TABLETS ORALLY 6 TO 7 TIMES A DAY NEEDED FOR SEVERE PAIN (NO MORE THAN 8 TABLETS PER DAY) active Not Available Not Available No t Available cevimeline 30 mg capsule TAKE 1 CAPSULE BY MOUTH 3 TIMES A DAY FOR 14 DAYS active Not Available Not Available No t Available omeprazole 20 mg capsule,de layed release TAKE 1 CAPSULE BY MOUTH EVERY DAY active Not Available [...] and Address Organization Details Last Updated DateTime 02/06/2025 172.72 cm 22 kg/m2 23637.89 g Aisha Casper [facility] 02/06/2025 13:39:01 Date Recorded Body height Body mass index (BMI) Body weight Provider Name and Address Organization Details Last Updated DateTime 05/24/2024 172.72 cm 22 kg/m2 83566.89 g Aisha Casper [facility] 05/24/2024 15:02:16 Date Recorded Body height Body mass index (BMI) Body weight Provider Name and Address Organization Details Last Updated DateTime 09/26/2024 172.72 cm 22 kg/m2 80033.89 g Aisha Casper [facility] 09/26/2024 14:07:28 Social History None recorded. Functional Status None recorded. Mental Status None recorded. Family History Nothing Reported. Medical History No medical history recorded. Past Encounters Encounter ID Performer Location Encounter Start Date Encounter Closed Date Diagnosis/Indication Diagnosis SNOMED-CT Code Diagnosis ICD10 Code Diagnosis Note [id number] YANI LÓPEZ MD [facility] [address] [address] 05/24/2024 14:45:06 05/24/2024 15:31:19 History of malignant neoplasm of head and/or neck 037268759 Z85.89 Exam and Laryngosco py showed no evidence of disease. We will continue routine surveillan ce. Screening for malignant neoplasm of respiratory tract 008634750 Z12.2 Exam and Laryngosco py showed no evidence of disease. We will continue routine surveillan ce. [id number] YANI LÓPEZ MD [facility] [address] [address] 09/26/2024 13:59:26 09/26/2024 14:28:02 History of malignant neoplasm of head and/or neck 115178613 Z85.89 Exam and Laryngosco py showed no evidence of disease. We will continue routine surveillan ce. Screening for malignant neoplasm of respiratory tract 588817440 Z12.2 Exam and Laryngosco py showed no evidence of disease. We will continue routine surveillan ce. Vasomotor rhinitis 76422 03 J30.0 will send augustoatrgaelu m. Dizziness and giddiness 697290944 R42 reports lightheade dness not true vertigo. I recommend he discuss with his PCP. [id number] YANI LÓPEZ MD [facility] [address] [address] 02/06/2025 13:29:23 02/06/2025 14:03:07 History of malignant neoplasm of head and/or neck 333784116 Z85.89 Exam and Laryngosco py showed no evidence of disease. We will continue routine surveillan ce. Screening for malignant neoplasm of respiratory tract 328741280 Z12.2 Exam and Laryngosco py showed no evidence of disease. We will continue routine surveillan ce. Dizziness and giddiness 983987882 R42 Juan Hallpike negative. No sign of BPPV on exam today. I recommend observatio n. Health Concerns Section Related Observation LastModified by Organization Detai ls LastModified Time None Recorded Concern Status LastModified by Organization Details LastModified Time None Recorded Advance Directives Directive None Recorded Payers Insurance Date Sequence Insurance Name Policy Number Policy Malone Covered Member ID Malone Member ID Guarantor Name 02/06/2025 1 AETNANCY Fuchs [id number] Yani Fuchs 03/21/2025 1 [employer] (PPO) [id number] Yani Fuchs [id number] Yani Fuchs 02/06/2025 2 [place]ICARE B-[place]: [facility] Yani Fuchs [id number] Yani Fuchs Notes Date Note Type Note Provider Name and Address Organization Details Recorded Time 05/24/2024 text/html He has a hx of S CC of unknown primary (hx of tonsillectomy and biopsies without identifying the primary). 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 Had a post tx PET that showed resolution of uptake in the head and neck. He reports continued dysphagia with dry foods. He has had several esophageal dilations. He is not smoking. No throat or neck pain. YANI LÓPEZ MD [address] [facility],[address], [address], [place] [facility] 05/24/2024 15:30:22 09/26/2024 text/html He has a hx of S CC of unknown primary (hx of tonsillectomy and biopsies without identifying the primary). 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 Had a post tx PET that [...] eats with interferes. YANI L[facility]PEZ MD [facility] [place], [address], [facility] - [facility] 09/26/2024 14:29:34 02/06/2025 text/html He has a hx of S CC of unknown primary (hx of tonsillectomy and biopsies without identifying the primary). 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 Had a post tx PET that showed resolution of uptake in the head and neck. He needs lots of water to get dry foods down. He has had several esophageal dilations but has not needed one recently. He is not smoking. No throat or neck pain. He saw a neurologist about his vertigo. Notes vertigo when he rolls over in bed. YANI LÓPEZ MD [address] [facility] [place], [address], [place] - [facility] 02/06/2025 14:03:47
--- OUTSIDE RECORDS SUMMARY | 2025-04-17 13:40 | XMS_ITS | Clinical Summary ---
Author Organization [facility] Address [address] [place] [address] Care Team Providers Care Fixture Designer Name Role Phone Unavailable Primary Care Provider [...]
== END 2025-04-17 12:35 | disposition home or self-care (01) ==
LOC: HO.XRAY 12:34
PROVIDERS: PCP Internal Medicine; Visit Provider Internal Medicine
DX: M54.50 Low back pain, unspecified (principal)
CPT/HCPCS: 72100

== ENCOUNTER → 2025-04-17 12:39 | Outpatient (BNV) | payer MEDICARE, MEDICAID, SELFPAY | PROVIDERS: PCP Internal Medicine; Visit Provider Radiology Diagnostic Radiology | DX: M51.35 Other intervertebral disc degeneration, thoracolumbar region (principal) | CPT/HCPCS: 72100 ==

== ENCOUNTER → 2025-05-28 12:54 | Outpatient (REF) | payer MEDICARE, MEDICAID, SELFPAY ==
--- NOTE | 2025-05-28 12:57 | CA_ITS ---
Transthoracic Echocardiogram Patient (Last, First, Middle): Yung Fuchs M Gender: Male Date of : 1950 Age: 74 Procedure Date: 05/28/2025 Procedure Type: Transthoracic Echocardiogram Location: OP Height: 172.72 cm Weight: 67.59 kg BSA: 1.80 m2 Heart Rate: 66 bpm BP: 114 / 66 mmHg Chief Embalmer: SB Referring MD: Glen Zepeda MD Director Of Medicare: Michael Coleman MD Symptoms: I42.8 - Other cardiomyopathies Study Quality: Fair ECG Rhythm: Sinus Conclusions: - 1. Normal LV ejection fraction 55-60% with impaired relaxation filling pattern 2. Normal cardiac valvular Dopplers 3. Normal LV systolic pressure 4. Mildly dilated ascending aorta at 4.1 cm 5. No gross pericardial effusion Findings Left Ventricle Normal left ventricular size, thickness, and systolic function. The visually estimated ejection fraction is between 55-60%. There is paradoxical septal motion consistent with a left bundle branch block. Spectral Doppler is indicative of an impaired relaxation filling pattern. E/E prime ratio is between 8 and 15 consistent with indeterminate filling pressures. Right Ventricle Normal right ventricular cavity size and systolic function. Atria The left atrium is normal in size. Interatrial shunt cannot be excluded. The right atrium is normal in size. Aortic Valve There is mild calcification of the aortic valve. There is no aortic valve stenosis. There is no aortic valve regurgitation. Mitral Valve Normal mitral valve structure and function. There is trace mitral valve regurgitation. There is no mitral valve stenosis. Pulmonic Valve The pulmonic valve was not well visualized. Tricuspid Valve Likely normal tricuspid valve structure and function. There is trace tricuspid valve regurgitation. The right ventricular systolic pressure is normal. The right ventricular systolic pressure is 17 mmHg. Normal right atrial pressure. There is no evidence of pulmonary hypertension. Great Vessels The pulmonary artery was not well visualized. There is mild dilatation of the ascending aorta measuring 4.10 cm. Venous The inferior vena cava is normal in size and collapses greater than 50% with inspiration. Pericardium/Pleural There is no evidence of pericardial effusion. Prior Study Comparison Changes noted compared to prior study dated: 03/12/2021. LV ejection fraction has marginally improved. Ascending aorta is mildly dilated Measurements 2D Linear Measurements IVSd: 0.96 0.6-0.9/0.6-1.0 cm LVIDd: 4.43 3.9-5.3/4.2-5.9 cm LVIDd Index: 2.46 2.4-3.2/2.2-3.1 cm/m2 LVIDs: 3.26 2.0-3.6 cm LVPWd: 1.15 0.7-1.1 cm LA Diam: 3.00 2.7-3.8/3.0-4.0 cm LAIDs Index: 1.67 1.5-2.3 cm/m2 LV Mass: 200.10 67-162/88-224 g LV Mass Index: 111.17 43-95/49-115 g/m2 LVOT Diam: 2.10 3.0+(-)1.3 cm 2D Systolic Function EF 4C: 46.90 >55% EF 2C: 59.60 >55% EF BiP: 55.10 >55% Mitral Valve MV Pk E: 0.57 MV PK A: 0.74 MV Decel Time: 303.00 E/A: 0.80 E'Lateral: 6.74 E'Medial: 4.68 E/E' Med: 12.30 E/E' Lat: 8.50 PHT: 89.00 MVA PHT: 2.47 Decel Morgan: 1.89 Aortic Valve AoV Pk Edmund: 1.06 AoV Pk Grad: 4.00 GISEL: 2.69 LVOT LVOT Pk Edmund: 0.84 LVOT Mn Edmund: 0.56 LVOT VTI: 0.15 LVOT Pk Grad: 3.00 LVOT Mn Grad: 1.00 LVOT Diam: 2.10 LVOT Area: 3.46 Diastolic Function MV Pk E: 0.57 MV Pk A: 0.74 E/A: 0.80 E'Medial: 4.68 E/E' Med: 12.30 E' Laterial: 6.74 E/E' Lat: 8.50 Right Ventricle TVS' Edmund: 9.14 Tricuspid Valve TR Pk Edmund: 1.89 TR Pk Grad: 14.00 RA Press: 3.00 RVSP: 17.00 Great Vessels Aorta Sinus of Valsalva: 3.80 2.0-3.5 cm Ao Asc: 4.10 2.1-3.4 cm Pulmonary Valve PV Pk Edmund: 0.93 Peak PV Grad: 3.00 Updated in Other Vendor System with Status of Final Michael Coleman MD electronically signed on 05/29/2025 12:21:10 PM with status of Final
--- OUTSIDE RECORDS SUMMARY | 2025-05-28 13:16 | XMS_ITS | Clinical Summary ---
Author Organization [facility] Address [address] [place] [address] Care Team Providers Care Emergency Medical Service Manager Name Role Phone Unavailable Primary Care Provider [...]
--- OUTSIDE RECORDS SUMMARY | 2025-05-28 13:17 | XMS_ITS | Data Portability ---
Author Organization [place] - [facility], Allergy Address [address] [address] Care Team Providers Care Public Health Epidemiologist Name Role Phone RAHEL MARILU Primary Care [...] mcg (0.03 %) nasal spray 2023 024 [facility] #[id number], [address] [place], [address], 09/26/2024 14:29:32 Patient TargetsNo targets recorded. Patient [...] contr ast No observ ation record ed. [facility] ([facility]) [address], [place], [address], 09/26/2024 17:04:27 09/26/20 24 08/26/2024 CT, head, w/o contr ast No observ ation record ed. [email or web address] Not Available 08/30 17:02:52 02/07/20 25 12/11/2024 MRI, brain + brain stem, w/o contr ast No observ ation record ed. [facility] ([facility]) [address], [place], [address], 02/07/2025 10:10:38 02/09/20 25 1951 MR, angio gram, brain , w/o contr ast No observ ation record ed. [email or web address] Not Available 01/27 10:10:08 Result Notes None recorded. 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, face and neck; Note: Date Diagnosed: 01/13/2022 3:58 PM (C77.0) Not Available [facility] 4 02:50:19 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 48694773 Active 2021 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, face and neck; Note: Date Diagnosed: 01/13/2022 3:58 PM (C77.0) Not Available [facility] 4 02:50:19 Dysphagia 78512368 Active 2021 Other dysphagia; Note: Date Diagnosed: 08/11/2022 2:30 PM (R13.19) Not Available [facility] 4 02:50:17 History of malignant neoplasm 516202276 Active 2021 Personal history of malignant neoplasm, unspecifie d; Note: Changed from Z85 to Z85.819 (08/11/2022 4:01 PM) , Changed from Z85.819 to Z85.9 (08/11/2022 4:02 PM) , Date Diagnosed: 08/11/2022 2:30 PM (Z85) Not Available [facility] 4 02:50:20 Nicotine dependenc e 95828940 Active 2021 Nicotine dependence , unspecifie d, uncomplica elieser; Note: Date Diagnosed: 01/13/2022 3:58 PM (F17.200) Not Available [facility] 4 02:50:15 Antineopl astic chemother apy regimen Active 2021 Encounter for antineopla stic chemothera py; Note: Date Diagnosed: 02/26/2022 3:00 PM (Z51.11) Not Available [facility] 4 02:50:18 Sensorine ural hearing loss of bilateral ears 445479204 Active 2021 Sensorineu ral hearing loss, bilateral; Note: Date Diagnosed: 02/26/2022 3:00 PM (H90.3) Not Available [facility] 4 02:50:19 Follow-up visit Active 2021 Encounter for follow-up examinatio n after completed treatment for malignant neoplasm; Note: Date Diagnosed: 08/11/2022 2:30 PM (Z08) Not Available [facility] 4 02:50:16 Vasomotor rhinitis 2238002 Active 2023 YANI LÓPEZ MD [address] [place] [address], [place], [address] , [facility] - [facility] 4 14:26:14 Dizziness and giddiness 339589454 Active 2023 YANI LÓPEZ MD [address] [address], [place], [address] , [facility] 14:28:26 Problem Notes None recorded. Procedures Surgical History Date Name Laterality Status Provider Name and Address Organization Details Recorded Time 02/06/2025 FFL_RE completed YANI LÓPEZ MD [address] [place] [address], [phone], [facility] 02/06/2025 13:55:08 09/26/2024 FFL_RE completed YANI LÓPEZ MD [address] [place] [address], [phone], [facility] 09/26/2024 14:19:25 05/24/2024 FFL_RE completed YANI LÓPEZ MD [address] [place] [address], [address], [facility] 05/24/2024 15:24:29 Imaging Results None recorded. Procedure Notes None recorded. Medical Equipment None Reported. Allergies Allergen ID Allergen Name Allergen Category Reaction Reaction Severity Criticality Documentation Date Start Date Code Code System Note Provider Name and Address Organization Details Recorded Time 026940 codeine / pseudoeph edrine / triprolid ine medicatio n other Not available Not available 04/11/2024 58259 1 RxNorm React ion: other react ion, Unkno wn; Not Available [facility] 4 01:09:32 512689 Product containin g penicilli n (product) medicatio n other Not available Not available 04/11/2024 24521 8001 SNOMED React ion: other react ion, Unkno wn; Not Available [facility] 4 01:09:33 Medications Name Sig Start [...] by mouth 2021 active Medicatio n ID: [id number] Pr escribed By Name: Yani diamond MD [...] ended release 2021 active Medicatio n ID: [id number] Br and Name: pentoxify lline Sen d [...] Updated DateTime 02/06/2025 172.72 cm 22 kg/m2 12618.89 g Aisha Casper [place] - [facility] 02/06/2025 13:39:01 Date Recorded Body height Body mass index (BMI) Body weight Provider Name and Address Organization Details Last Updated DateTime 05/24/2024 172.72 cm 22 kg/m2 79953.89 g Aisha Casper [facility] 05/24/2024 15:02:16 Date Recorded Body height Body mass index (BMI) Body weight Provider Name and Address Organization Details Last Updated DateTime 09/26/2024 172.72 cm 22 kg/m2 82292.89 g Aisha Casper [facility] 09/26/2024 14:07:28 Social History None recorded. Functional Status None recorded. Mental Status None recorded. Family History Nothing Reported. Medical History No medical history recorded. Past Encounters Encounter ID Performer Location Encounter Start Date Encounter Closed Date Diagnosis/Indication Diagnosis SNOMED-CT Code Diagnosis ICD10 Code Diagnosis Note [id number] YANI LÓPEZ MD [facility] [address] [address] 05/24/2024 14:45:06 05/24/2024 15:31:19 History of malignant neoplasm of head and/or neck 358536838 Z85.89 Exam and Laryngosco py showed no evidence of disease. We will continue routine surveillan ce. Screening for malignant neoplasm of respiratory tract 536483573 Z12.2 Exam and Laryngosco py showed no evidence of disease. We will continue [place] surveillan [place]. [id number] YANI LÓPEZ MD [facility] [address] [address] 09/26/2024 13:59:26 09/26/2024 14:28:02 History of malignant neoplasm of head and/or neck 107541580 Z85.89 Exam and Laryngosco py showed no evidence of disease. We will continue routine surveillan ce. Screening for malignant neoplasm of respiratory tract 201128322 Z12.2 Exam and Laryngosco py showed no evidence of disease. We will continue routine surveillan ce. Vasomotor rhinitis 22261 03 J30.0 will send ipratrgaelu m. Dizziness and giddiness 519455662 R42 reports lightheade dness not true vertigo. I recommend he discuss with his PCP. [id number] YANI LÓPEZ MD [facility] [address] [address] 02/06/2025 13:29:23 02/06/2025 14:03:07 History of malignant neoplasm of head and/or neck 176698197 Z85.89 Exam and Laryngosco py showed no evidence of disease. We will continue routine surveillan ce. Screening for malignant neoplasm of respiratory tract 049594638 Z12.2 Exam and Laryngosco py showed no evidence of disease. We will continue routine surveillan ce. Dizziness and giddiness 477576563 R42 Warren Hallpike negative. No sign of BPPV on exam today. I recommend observatio n. Health Concerns Section Related Observation LastModified by Organization Detai ls LastModified Time None Recorded Concern Status LastModified by Organization Details LastModified Time None Recorded Advance Directives Directive None Recorded Payers Insurance Date Sequence Insurance Name Policy Number Policy Malone Covered Member ID Malone Member ID Guarantor Name 02/06/2025 1 [employer] Yani Hoytbranden [id number] Yani Laibranden 03/21/2025 1 [employer] (PPO) [id number] Yani Hoytbranden [id number] Yani Hoytbranden 02/06/2025 2 [place] [facility] Yani Fuchs [id number] Yani Hoytbranden Notes Date Note Type Note Provider Name and Address Organization Details Recorded Time 05/24/2024 text/html He has a hx of S CC of unknown primary (hx of tonsillectomy and biopsies without identifying the primary). 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 Had a post tx PET that showed resolution of uptake in the head and neck. He reports continued dysphagia with dry foods. He has had several esophageal dilations. He is not smoking. No throat or neck pain. YANI LÓPEZ MD [address] [place] [address], [phone], [facility] - [facility] 05/24/2024 15:30:22 09/26/2024 text/html He has a hx of S CC of unknown primary (hx of tonsillectomy and biopsies without identifying the primary). 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 Had a post tx PET that [...] eats with interferes. YANI LÓPEZ MD 100 [facility],[address], [address], [place] - [facility] 09/26/2024 14:29:34 02/06/2025 text/html He has a hx of S CC of unknown primary (hx of tonsillectomy and biopsies without identifying the primary). 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 Had a post tx PET that [...] over in bed. YANI LÓPEZ MD [address] [facility] [address], [place], [address], [place] [facility] 02/06/2025 14:03:47
== END ==
LOC: HO.CARD 12:54
PROVIDERS: PCP Internal Medicine; Visit Provider Internal Medicine
DX: I42.8 Other cardiomyopathies (principal)
CPT/HCPCS: 93306

== ENCOUNTER → 2025-05-28 12:57 | Outpatient (BNV) | payer MEDICARE, MEDICAID, SELFPAY | PROVIDERS: PCP Internal Medicine; Visit Provider Internal Medicine Cardiovascular Disease | DX: I42.8 Other cardiomyopathies (principal) | CPT/HCPCS: 93306 ==

== ENCOUNTER 2025-06-12 15:27 | Outpatient (AMB) | payer OTHER, SELFPAY ==
[2025-06-12 15:34] VITALS: BP 120/62; PULSE 67; O2SAT 96; BMI 23.9
--- NOTE | 2025-06-12 15:34 | A.OFFPC_ITS ---
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 Required: No Accompanied by: Self / Same As Patient Allergies Penicillins (PCN) Allergy (Severe, Verified 06/12/25 15:54) dyspnea codeine (CODEINE) Allergy (Mild, Verified 06/12/25 15:54) VOMITING cefuroxime Allergy (Unknown, Verified 06/12/25 15:54) cefuroxime axetil- dyspnea morphine (MORPHINE) Allergy (Unknown, Verified 06/12/25 15:54) UNKNOWN Medication List - Last Reconciled 06/12/25 by Albert Chan MD apixaban (Eliquis) 5 mg PO BID carvedilol 3.125 mg PO BID cholecalciferol (vitamin D3) 25 mcg PO DAILY 90 days nystatin 10 mL buccal TID 10 days omeprazole 20 mg PO DAILY oxycodone 1 to 2 tablets orally 6 to 7 times a day as needed for severe pain (no more than 8 tablets per day) 28 days rosuvastatin 20 mg PO DAILY sacubitril-valsartan 24-26 mg (Entresto) 1 tab PO BID Tobacco use date assessed: 06/12/25 Fall risk assessment: No Falls in past year Last assessed Fall Risk: 06/12/25 Dental Screening Dental Screen Date: 06/12/25 Did you have a dental visit in the last 12 months?: No Did you have a dental problem in the last 6 months where you did not have access to dental care?: No Was dental information given to patient?: No HPI Worker's comp HPI Details Patient comes in today for his worker's comp follow up visit States that he still has the chronic (increased) pain over his right inguinal area, which he's had for many years, and that his condition has been mostly unchanged from before States that his Oxycodone Rx at 15 mg 6 to 7 times a day is mostly helping adequately to control and manage his chronic pain He denies any headaches Still has recurrent dizziness and recalls being advised by PT when he was seen that he does not appear to have vertigo and should check back with his PCP for further evaluation if his symptoms continue to recur Denies any chest pains, no increased SOB No nausea/vomiting, no abdominal pain other than his chronic right inguinal pain No change in bowel habits noted COUNT INCLUDES [facility] Medical History LBBB (left bundle branch block) Dysphagia Vitamin D deficiency Peyronie's disease Essential hypertension NICM (nonischemic cardiomyopathy) Smoker Neuropathy Impaired fasting glucose Benign essential hypertension Pure hypercholesterolemia Systolic congestive heart failure Dilated cardiomyopathy secondary to alcohol COPD (chronic obstructive pulmonary disease) Paroxysmal atrial fibrillation Lumbar spondylosis Chronic pain of right inguinal region Lumbar radiculopathy Atrial fibrillation Surgical History Hx of colonoscopy (~03/26/17) History of percutaneous endoscopic gastrostomy History of tonsillectomy History of inguinal hernia repair Family History Father Cancer Mother CVD (cardiovascular disease) Social History Household Members: Family Housing: House Are you a primary critical care specialist to a significant other at home: No Do you presently have visiting nurse or other home services: No Alcohol intake: never Patient Tobacco Use Status: Former Tobacco user Tobacco use type: Cigarette e-Cigarette/Vaping Use: Former Use Second Hand Smoke Exposure: Yes service: Yes Current occupational status: retired Current occupation: [employer] Cognitive needs: Yes Hearing needs: No Vision needs: Yes Questionnaire PHQ-9 Over the last 2 weeks, how often have you been bothered by any of the following problems? 1. Little interest or pleasure in doing things: not at all 2. Feeling down, depressed, or hopeless: not at all 3. Trouble falling or staying asleep, or sleeping too much: not at all 4. Feeling tired or having little energy: not at all 5. Poor appetite or overeating: not at all 6. Feeling bad about yourself - or that you are a failure or have let yourself or your family down: not at all 7. Trouble concentrating on things, such as reading the newspaper or watching television: not at all 8. Moving or speaking so slowly that other people could have noticed. Or the opposite - being so fidgety or restless that you have been moving around a lot more than usual: not at all 9. Thoughts that you would be better off or of hurting yourself in some way: not at all Total score: 0 Depression Screening Interpretation: Negative Depression Screening Done: Yes 67641 - PHQ-9 Billing: Yes Source: Developed by Drs. Yung Childress, Trish Prasad, Nelson Perez and colleagues, with an educational nan from [employer]. Thrive Questionnaire Date Thrive assessed: 06/12/25 I am a: Patient What is your living situation today?: I have a steady place to live Within the past 12 months, did the food you bought not last and you didn't have the money to get more?: Never true Within the past 12 months, did you worry whether your food would run out before you got money to buy more?: Never true Do you have trouble paying for medicines?: No Do you have trouble getting transportation to medical appointments?: No Do you have trouble paying your heating and electricity bill?: No Do you have trouble taking care of your child, family member or friend?: No Do you have trouble with day-to-day activities such as bathing, preparing meals, shopping, managing finances, etc.?: No Are you currently unemployed and looking for a job?: No Are you interested in more education?: No Please select the resources that you would like help with: None Currently or been in a relationship where the following occur: No concerns reported THRIVE Score: 0 AUDIT C Alcohol Use Questionnaire (AUDIT-C) 1. How often do you have a drink containing alcohol?: Never 3. How often do you have six or more drinks on one occasion?: Never Total Score: 0 Score Reviewed/Action Taken: Yes FILIPE-7 AMB Questionnaire FILIPE-7 Date FILIPE - 7 assessed: 06/12/25 Feeling nervous, anxious, or on edge: 0 = Not at all Not being able to stop or control worryin = Not at all Worrying too much about different things: 0 = Not at all Trouble relaxin = Not at all Being so restless that it is hard to sit still: 0 = Not at all Becoming easily annoyed or irritable: 0 = Not at all Feeling afraid as if something awful might happen: 0 = Not at all Total FILIPE-7 score (0-4 normal; 5-9 mild; 10-14 moderate; 15-21 severe): 0 Source: Developed by Drs. Yung Childress, Trish Prasad, Nelson Perez and colleagues, with an educational nan from [employer]. Review of Systems Const Denies chills, Reports fatigue, Denies fever(s) and Denies headache(s) ENT Details: (+) on and off dizziness, mostly when he moves too fast - this will be addressed separately as it is not a worker's comp related issue Reports dysphagia, Reports dizziness, Reports dry mouth, Denies headache(s), D enies neck pain, Denies odynophagia and Denies sore throat Card Denies chest pain, Denies palpitations and Denies dyspnea Resp Denies cough and Denies dyspnea GI Denies abdominal pain (but (+) chronic increased pain over the right inguinal area), Denies constipation, Reports dysphagia, Denies heartburn, Denies diarrhea, Denies nausea, Denies odynophagia and Denies vomiting Denies dysuria, Denies nocturia and Denies urinary frequency Musc Reports back pain (occasional ) and Denies neck pain Skin/Breast Denies rash Neuro Reports dizziness, Denies headache(s) and Reports radicular pain (on the soles of both feet) Endo Reports fatigue and Denies palpitations Physical exam (Primary Care) Vital Signs: Last Vital Signs Pulse 67 06/12/25 15:34 BP 120/62 06/12/25 15:34 Pulse Ox 96 06/12/25 15:34 Oxygen Delivery Method Room Air 06/12/25 15:34 BMI result Body Mass Index 23.9 Tobacco/Smoking Status: Tobacco use Status Tobacco use date assessed 06/12/25 06/12/25 15:41 Patient Tobacco Use Status Former Tobacco user 06/12/25 15:36 Tobacco use type Cigarette 06/12/25 15:36 e-Cigarette/Vaping Use Former Use 06/12/25 15:36 PHQ-9: PHQ-9 Score PHQ-9: Total score 0 06/12/25 15:36 Depression Screening Interpretation: Negative Thrive Assessment: Date of Thrive Assessment Date Thrive assessed 06/12/25 06/12/25 15:41 Currently or been in a relationship where the following occur: No concerns reported Const General: no acute distress and alert Neck Neck: Yes supple and No lymphadenopathy Thyroid: Thyroid normal Resp Auscultation: clear to auscultation bilaterally, no rales and no wheezes Cardio Rate: regular rate Rhythm: regular rhythm Heart sounds: no murmurs GI Palpation (GI): Soft to palpation and Tenderness to palpation present (GI) (over the right inguinal area - chronic) Auscultation: normal bowel sounds Back/Spine/Pelvis Thoracic/Lumbar Spine: lumbar spinal tenderness (mild) Extrem General: Yes no clubbing, cyanosis or edema Coding Level of Care Code Est Pt Level 3 (34369) Diagnoses Chronic pain of right inguinal region R10.31; G89.29 Additional Codes PHQ-9 - 39688 - PHQ-9 Billing: Yes ([id number]) Assessment & Plan Assessment & Plan (1) Chronic pain of right inguinal region: Comment: (+) Post-herniorrhaphy syndrome - had right inguinal herniorrhaphy in the past and recovery was complicated with increased pain and adverse effects, resulting in chronic and worse pain States that his chronic pain has been adequately controlled on his current pain med regimen - this is a WORKER'S COMP - related issue Code(s): R10.31 - Right lower quadrant pain; G89.29 - Other chronic pain Category: Medical Plan: Continue Oxycodone 15 mg 1 to 2 tablets 6 to 7 times a day (no more than 8 tablets a day) as needed for severe pain (28 days, #224 tablets) and Tizanidine 4 mg TID PRN Plan Follow up in 4 months
--- OUTSIDE RECORDS SUMMARY | 2025-06-12 16:31 | XMS_ITS | Clinical Summary ---
Author Organization [facility] Address [address] [place] [address] Care Team Providers Care Wood Floor Layer Name Role Phone Unavailable Primary Care Provider [...]
--- OUTSIDE RECORDS SUMMARY | 2025-06-12 16:31 | XMS_ITS | Data Portability ---
Author Organization [place] - [facility], Allergy Address [address] [address] Care Team Providers Care Supervisor Engine Assembly Name Role Phone RAHEL MARILU Primary Care Provider Assessment No assessment recorded. Plan of Treatment Reminders Order Date Submit Date Provider Last Modified By Organization Details Last Modified Time Details Appointments Establish ed 15 2024 03:00P M YANI Diamond MD Not available Not available Not available Lab None recorded. Referral None recorded. Procedures None recorded. Surgeries None recorded. Imaging None recorded. Medication Orders ipratropi um bromide 21 mcg (0.03 %) nasal spray 2023 024 [facility] #[id number], [address] [place], [address], 09/26/2024 14:29:32 Patient TargetsNo targets recorded. Patient [...] contr ast No observ ation record ed. [facility] ([facility]) [address], [place], [address], 09/26/2024 17:04:27 09/26/20 24 08/26/2024 CT, head, w/o contr ast No observ ation record ed. [email or web address] Not Available 08/30 17:02:52 02/07/20 25 12/11/2024 MRI, brain + brain stem, w/o contr ast No observ ation record ed. [facility] ([facility]) [address], [place], [address], 02/07/2025 10:10:38 02/09/20 25 1951 MR, angio gram, brain , w/o contr ast No observ ation record ed. [email or web address] Not Available 01/27 10:10:08 Result Notes None recorded. 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, face and neck; Note: Date Diagnosed: 01/13/2022 3:58 PM (C77.0) Not Available [facility] 4 02:50:19 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 16849686 Active 2021 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, face and neck; Note: Date Diagnosed: 01/13/2022 3:58 PM (C77.0) Not Available [facility] 4 02:50:19 Dysphagia 43828202 Active 2021 Other dysphagia; Note: Date Diagnosed: 08/11/2022 2:30 PM (R13.19) Not Available [facility] 4 02:50:17 History of malignant neoplasm 639901921 Active 2021 Personal history of malignant neoplasm, unspecifie d; Note: Changed from Z85 to Z85.819 (08/11/2022 4:01 PM) , Changed from Z85.819 to Z85.9 (08/11/2022 4:02 PM) , Date Diagnosed: 08/11/2022 2:30 PM (Z85) Not Available [facility] 4 02:50:20 Nicotine dependenc e 76558737 Active 2021 Nicotine dependence , unspecifie d, uncomplica elieser; Note: Date Diagnosed: 01/13/2022 3:58 PM (F17.200) Not Available [facility] 4 02:50:15 Antineopl astic chemother apy regimen Active 2021 Encounter for antineopla stic chemothera py; Note: Date Diagnosed: 02/26/2022 3:00 PM (Z51.11) Not Available [facility] 4 02:50:18 Sensorine ural hearing loss of bilateral ears 774750641 Active 2021 Sensorineu ral hearing loss, bilateral; Note: Date Diagnosed: 02/26/2022 3:00 PM (H90.3) Not Available [facility] 4 02:50:19 Follow-up visit Active 2021 Encounter for follow-up examinatio n after completed treatment for malignant neoplasm; Note: Date Diagnosed: 08/11/2022 2:30 PM (Z08) Not Available [facility] 4 02:50:16 Vasomotor rhinitis 8910209 Active 2023 YANI LÓPEZ MD [address] [place] [address], [place], [address] , [facility] - [facility] 4 14:26:14 Dizziness and giddiness 786632875 Active 2023 YANI LÓPEZ MD [address] [address], [place], [address] , [facility] - [facility] 4 14:28:26 Oropharyn geal dysphagia 60598946 Active 2024 YANI LÓPEZ MD [address] [place] [address], [phone] , [facility] - [facility] [place] 5 13:35:43 Problem Notes None recorded. Procedures Surgical History Date Name Laterality Status Provider Name and Address Organization Details Recorded Time 06/08/2025 FFL_RE completed YANI LÓPEZ MD [address] [place] [address], [phone], [facility] 06/08/2025 13:23:10 02/06/2025 FFL_RE completed YANI LÓPEZ MD [address] [place] [address], [phone], [facility] 02/06/2025 13:55:08 09/26/2024 FFL_RE completed YANI LÓPEZ MD [address] [place] [address], [phone], [facility] 09/26/2024 14:19:25 05/24/2024 FFL_RE completed YANI LÓPEZ MD [address] [place] [address], [phone], [facility] 05/24/2024 15:24:29 Imaging Results None recorded. Procedure Notes None recorded. Medical Equipment None Reported. Allergies Allergen ID Allergen Name Allergen Category Reaction Reaction Severity Criticality Documentation Date Start Date Code Code System Note Provider Name and Address Organization Details Recorded Time 379397 codeine / pseudoeph edrine / triprolid ine medicatio n other Not available Not available 04/11/2024 15794 1 RxNorm React ion: other react ion, Unkno wn; Not Available [facility] 01:09:32 467017 Product containin g penicilli n (product) medicatio n other Not available Not available 04/11/2024 49970 8001 SNOMED React ion: other react ion, Unkno wn; Not Available [facility] 4 01:09:33 Medications Name Sig Start Date [...] by mouth 2021 active Medicatio n ID: [id number] Pr escribed By Name: Yani diamond MD [...] ended release 2021 active Medicatio n ID: [id number] Br and Name: pentoxify lline Sen d Method: E-Prescri bed Subs Allowed: subs OK Medica tionGener icName: pentoxify lline Not Available Not Available Not Available carvedilol 3.125 mg tablet TAKE 1 TABLET BY MOUTH TWICE A DAY active Not Available Not Available No t Available oxycodone 15 mg tablet TAKE 1 TO 2 TABLETS ORALLY 6 TO 7 TIMES A DAY NEEDED FOR SEVERE PAIN (NO MORE THAN 8 TABLETS/D AY) active Not Available Not Available No t [...] mg tablet TAKE 1 TABLET BY MOUTH DAILY active Not Available Not Available No [...] Updated DateTime 02/06/2025 172.72 cm 22 kg/m2 86739.89 g Aisha Casper [place] [facility] 02/06/2025 13:39:01 Date Recorded Body height Body mass index (BMI) Body weight Provider Name and Address Organization Details Last Updated DateTime 05/24/2024 172.72 cm 22 kg/m2 35786.89 g Aisha Casper [facility] 05/24/2024 15:02:16 Date Recorded Body height Body mass index (BMI) Body weight Provider Name and Address Organization Details Last Updated DateTime 06/08/2025 172.72 cm 22 kg/m2 22058.89 g Aisha Casper [facility] 06/08/2025 12:52:40 Date Recorded Body height Body mass index (BMI) Body weight Provider Name and Address Organization Details Last Updated DateTime 09/26/2024 172.72 cm 22 kg/m2 47205.89 g Aisha Casper [facility] 09/26/2024 14:07:28 Social History None recorded. Functional Status None recorded. Mental Status None recorded. Family History Nothing Reported. Medical History No medical history recorded. Past Encounters Encounter ID Performer Location Encounter Start Date Encounter Closed Date Diagnosis/Indication Diagnosis SNOMED-CT Code Diagnosis ICD10 Code Diagnosis Note [id number] YANI LÓPEZ MD [facility] [address] [address] 05/24/2024 14:45:06 05/24/2024 15:31:19 History of malignant neoplasm of head and/or neck 199591823 Z85.89 Exam and Laryngosco py showed no evidence of disease. We will continue routine surveillan ce. Screening for malignant neoplasm of respiratory tract 266619293 Z12.2 Exam and Laryngosco py showed no evidence of disease. We will continue routine surveillan ce. [id number] YANI LÓPEZ MD [facility] [address] [address] 09/26/2024 13:59:26 09/26/2024 14:28:02 History of malignant neoplasm of head and/or neck 936281547 Z85.89 Exam and Laryngosco py showed no evidence of disease. We will continue routine surveillan ce. Screening for malignant neoplasm of respiratory tract 613326409 Z12.2 Exam and Laryngosco py showed no evidence of disease. We will continue routine surveillan ce. Vasomotor rhinitis 42373 03 J30.0 will send ipratropiu m. Dizziness and giddiness 349349002 R42 reports lightheade dness not true vertigo. I recommend he discuss with his PCP. [id number] YANI LÓPEZ MD [facility] [address] [address] 02/06/2025 13:29:23 02/06/2025 14:03:07 History of malignant neoplasm of head and/or neck 157951623 Z85.89 Exam and Laryngosco py showed no evidence of disease. We will continue routine surveillan ce. Screening for malignant neoplasm of respiratory tract 703216262 Z12.2 Exam and Laryngosco py showed no evidence of disease. We will continue routine surveillan ce. Dizziness and giddiness 206461506 R42 Juan Hallpike negative. No sign of BPPV on exam today. [place]. [id number] YANI LÓPEZ MD [facility] [address] [address] 06/08/2025 12:51:04 06/08/2025 13:34:53 History of malignant neoplasm of head and/or neck 367751472 Z85.89 Exam and Laryngosco py showed no evidence of disease. We will continue routine surveillan ce. Screening for malignant neoplasm of respiratory tract 887461817 Z12.2 Exam and Laryngosco py showed no evidence of disease. We will continue routine surveillan ce. Oropharyng eal dysphagia 05456366 R13.12 stable. I discussed following up with GI. He is unsure if he wants another dilation. Health Concerns Section Related Observation LastModified by Organization Detai ls LastModified Time None Recorded Concern Status LastModified by Organization Details LastModified Time None Recorded Advance Directives Directive None Recorded Payers Insurance Date Sequence Insurance Name Policy Number Policy Malone Covered Member ID Malone Member ID Guarantor Name 06/08/2025 2 [place] [facility] Yani Fuchs [id number] Yani Fuchs 02/06/2025 1 [employer] Yani Fuchs [id number] Yani Fuchs 06/08/2025 1 [employer] (PP[place]) [id number] Yani Fuchs [id number] Yani Fuchs 02/06/2025 2 [place] [employer] Yani Fuchs [id number] Yani Fuchs Notes Date Note Type Note Provider Name and Address Organization Details Recorded Time 05/24/2024 text/html He has a hx of S CC of unknown primary (hx of tonsillectomy and biopsies without identifying the primary). 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 Had a post tx PET that showed resolution of uptake in the head and neck. He reports continued dysphagia with dry foods. He has had several esophageal dilations. He is not smoking. No throat or neck pain. YANI LÓPEZ MD [address] [place] [address], [phone], [place] [facility] 05/24/2024 15:30:22 09/26/2024 text/html He has a hx of S CC of unknown primary (hx of tonsillectomy and biopsies without identifying the primary). 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 Had a post tx PET [...] eats with interferes. YANI LÓPEZ MD 100 [facility],[address], [address], [facility] - [facility] 09/26/2024 14:29:34 02/06/2025 text/html He has a hx of S CC of unknown primary (hx of tonsillectomy and biopsies without identifying the primary). 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 Had a post tx PET [...] over in bed. YANI LÓPEZ MD [address] [facility],[address], [address], [facility] 02/06/2025 14:03:47 06/08/2025 text/html He has a hx of S CC of unknown primary (hx of tonsillectomy and biopsies without identifying the primary). 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 Had a post tx PET that showed resolution of uptake in the head and neck. He needs lots of water to get dry foods down swallowing is challenging but has been stable. He has had several esophageal dilations but has not recently. He is not smoking. No throat or neck pain. No SOB. YANI LÓPEZ MD [address] [facility] [place],[address], [address], [place] [facility] 06/08/2025 13:37:55
== END 2025-06-12 16:03 | disposition home or self-care (01) ==
LOC: HO.HMCH 15:27
PROVIDERS: PCP Internal Medicine; Visit Provider Internal Medicine
DX: R10.31 Right lower quadrant pain (principal); G89.29 Other chronic pain

== ENCOUNTER → 2025-06-12 15:27 | Outpatient (BNVA) | payer OTHER, MEDICARE, MEDICAID, SELFPAY | PROVIDERS: PCP Internal Medicine; Visit Provider Internal Medicine | DX: R10.31 Right lower quadrant pain (principal); G89.29 Other chronic pain | CPT/HCPCS: 96127; 99212 ==

== ENCOUNTER 2025-06-15 09:31 | Outpatient (REF) | payer MEDICARE, MEDICAID, SELFPAY ==
--- OUTSIDE RECORDS SUMMARY | 2025-06-15 09:38 | XMS_ITS | Clinical Summary ---
Author Organization [facility] Address [address] [place] [address] Care Team Providers Care Health Information Management Director Name Role Phone Unavailable Primary Care Provider [...]
--- OUTSIDE RECORDS SUMMARY | 2025-06-15 09:39 | XMS_ITS | Data Portability ---
Author Organization [place] [facility], Allergy Address [address] [address] Care Team Providers Care Scrap Crusher Name Role Phone RAHEL MARILU Primary Care [...] mcg (0.03 %) nasal spray 2023 024 [facility]/Pharmacy #[id number], [address] [place], [address], 09/26/2024 14:29:32 Patient TargetsNo targets recorded. Patient [...] contr ast No observ ation record ed. [facility] ([facility]) [address], [place], [address], 09/26/2024 17:04:27 09/26/20 24 08/26/2024 CT, head, w/o contr ast No observ ation record ed. [email or web address] Not Available 08/30 17:02:52 02/07/20 25 12/11/2024 MRI, brain + brain stem, w/o contr ast No observ ation record ed. [facility] ([facility]) [address], [place], [address], 02/07/2025 10:10:38 02/09/20 25 1950 MR, angio gram, brain , w/o contr ast No observ ation record ed. [email or web address] Not Available 01/27 10:10:08 Result Notes None recorded. 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, face and neck; Note: Date Diagnosed: 01/13/2022 3:58 PM (C77.0) Not Available [facility] 4 02:50:19 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 75452252 Active 2021 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, face and neck; Note: Date Diagnosed: 01/13/2022 3:58 PM (C77.0) Not Available [facility] 4 02:50:19 Nicotine dependenc e 53652282 Active 2021 Nicotine dependence , unspecifie d, uncomplica elieser; Note: Date Diagnosed: 01/13/2022 3:58 PM (F17.200) Not Available [facility] 4 02:50:15 Antineopl astic chemother apy regimen Active 2021 Encounter for antineopla stic chemothera py; Note: Date Diagnosed: 02/26/2022 3:00 PM (Z51.11) Not Available [facility] 4 02:50:18 Sensorine ural hearing loss of bilateral ears 738061412 Active 2021 Sensorineu ral hearing loss, bilateral; Note: Date Diagnosed: 02/26/2022 3:00 PM (H90.3) Not Available [facility] 4 02:50:19 Dysphagia 68882061 Active 2021 Other dysphagia; Note: Date Diagnosed: 08/11/2022 2:30 PM (R13.19) Not Available [facility] 4 02:50:17 History of malignant neoplasm 922789212 Active 2021 Personal history of malignant neoplasm, unspecifie d; Note: Changed from Z85 to Z85.819 (08/11/2022 4:01 PM) , Changed from Z85.819 to Z85.9 (08/11/2022 4:02 PM) , Date Diagnosed: 08/11/2022 2:30 PM (Z85) Not Available [facility] 4 02:50:20 Follow-up visit Active 2021 Encounter for follow-up examinatio n after completed treatment for malignant neoplasm; Note: Date Diagnosed: 08/11/2022 2:30 PM (Z08) Not Available [facility] 4 02:50:16 Vasomotor rhinitis 2356526 Active 2023 YANI LÓPEZ MD [address] [place] [address], [place], [address] , [facility] - [facility] 4 14:26:14 Dizziness and giddiness 251419019 Active 2023 YANI LÓPEZ MD [address] [address], [place], [address] , [facility] - [facility] 4 14:28:26 Oropharyn geal dysphagia 47062253 Active 2024 YANI LÓPEZ MD [address] [place] [address], [phone] , [facility] - [facility] 5 13:35:43 Problem Notes None recorded. Procedures Surgical History Date Name Laterality Status Provider Name and Address Organization Details Recorded Time 06/08/2025 FFL_RE completed YANI LÓPEZ MD [address] [place] [address], [phone], [facility] 06/08/2025 13:23:10 02/06/2025 FFL_RE completed YANI LÓPEZ MD [address] [place] [address], [phone], [facility] 02/06/2025 13:55:08 09/26/2024 FFL_RE completed YANI LÓPEZ MD [address] [place] [address], [phone], [facility] 09/26/2024 14:19:25 05/24/2024 FFL_RE completed YANI LÓPEZ MD [address] [place] [address], [phone], [facility] 05/24/2024 15:24:29 Imaging Results None recorded. Procedure Notes None recorded. Medical Equipment None Reported. Allergies Allergen ID Allergen Name Allergen Category Reaction Reaction Severity Criticality Documentation Date Start Date Code Code System Note Provider Name and Address Organization Details Recorded Time 880929 codeine / pseudoeph edrine / triprolid ine medicatio n other Not available Not available 04/11/2024 67537 1 RxNorm React ion: other react ion, Unkno wn; Not Available [facility] 01:09:32 849118 Product containin g penicilli n (product) medicatio n other Not available Not available 04/11/2024 24556 8001 SNOMED React ion: other react ion, [...] by mouth 2021 active Medicatio n ID: [id number] Pr escribed By Name: Yani diamond MD [...] ended release 2021 active Medicatio n ID: [id number] Br and Name: pentoxify lline Sen d [...] Updated DateTime 02/06/2025 172.72 cm 22 kg/m2 07785.89 g Aisha Casper [place] [facility] 02/06/2025 13:39:01 Date Recorded Body height Body mass index (BMI) Body weight Provider Name and Address Organization Details Last Updated DateTime 05/24/2024 172.72 cm 22 kg/m2 10527.89 g Aisha Casper [facility] 05/24/2024 15:02:16 Date Recorded Body height Body mass index (BMI) Body weight Provider Name and Address Organization Details Last Updated DateTime 06/08/2025 172.72 cm 22 kg/m2 64767.89 g Aisha Casper [facility] 06/08/2025 12:52:40 Date Recorded Body height Body mass index (BMI) Body weight Provider Name and Address Organization Details Last Updated DateTime 09/26/2024 172.72 cm 22 kg/m2 55383.89 g Aisha Casper [facility] 09/26/2024 14:07:28 Social History None recorded. Functional Status None recorded. Mental Status None recorded. Family History Nothing Reported. Medical History No medical history recorded. Past Encounters Encounter ID Performer Location Encounter Start Date Encounter Closed Date Diagnosis/Indication Diagnosis SNOMED-CT Code Diagnosis ICD10 Code Diagnosis Note [id number] YANI LÓPEZ MD [facility] [address] [address] 05/24/2024 14:45:06 05/24/2024 15:31:19 History of malignant neoplasm of head and/or neck 487481983 Z85.89 Exam and Laryngosco py showed no evidence of disease. We will continue routine surveillan ce. Screening for malignant neoplasm of respiratory tract 918589666 Z12.2 Exam and Laryngosco py showed no evidence of disease. We will continue routine surveillan ce. [id number] YANI LÓPEZ MD [facility] [address] [address] 09/26/2024 13:59:26 09/26/2024 14:28:02 History of malignant neoplasm of head and/or neck 718559048 Z85.89 Exam and Laryngosco py showed no evidence of disease. We will continue routine surveillan ce. Screening for malignant neoplasm of respiratory tract 541131448 Z12.2 Exam and Laryngosco py showed no evidence of disease. We will continue routine surveillan ce. Vasomotor rhinitis 99037 03 J30.0 will send ipratropiu m. Dizziness and giddiness 395043641 R42 reports lightheade dness not true vertigo. I recommend he discuss with his PCP. [id number] YANI LÓPEZ MD [facility] [address] [address] 02/06/2025 13:29:23 02/06/2025 14:03:07 History of malignant neoplasm of head and/or neck 323419170 Z85.89 Exam and Laryngosco py showed no evidence of disease. We will continue routine surveillan ce. Screening for malignant neoplasm of respiratory tract 247117487 Z12.2 Exam and Laryngosco py showed no evidence of disease. We will continue routine surveillan ce. Dizziness and giddiness 201316184 R42 Juan Hallpike negative. No sign of BPPV on exam today. [place]. [id number] YANI LÓPEZ MD [facility] [address] [address] 06/08/2025 12:51:04 06/08/2025 13:34:53 History of malignant neoplasm of head and/or neck 305397507 Z85.89 Exam and Laryngosco py showed no evidence of disease. We will continue routine surveillan ce. Screening for malignant neoplasm of respiratory tract 879936772 Z12.2 Exam and Laryngosco py showed no evidence of disease. We will continue routine surveillan ce. Oropharyng eal dysphagia 53154694 R13.12 stable. I discussed following up with [...] Member ID Guarantor Name 06/08/2025 2 [place] [facility] Yani Fuchs [id number] Yani Fuchs 02/06/2025 1 [employer]ET[employer] Yani Fuchs [id number] Yani Fuchs 06/08/2025 1 [employer]ETNA (PPO) [id number] Yani Fuchs [id number] Yani Fuchs 02/06/2025 2 [place] B[place] [employer] Yani Fuchs [id number] Yani Fuchs Notes Date Note Type Note Provider Name and Address Organization Details Recorded Time 05/24/2024 text/html He has a hx of S CC of unknown primary (hx of tonsillectomy and biopsies without identifying the primary). 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 Had a post tx PET that showed resolution of uptake in the head and neck. He reports continued dysphagia with dry foods. He has had several esophageal dilations. He is not smoking. No throat or neck pain. YANI LÓPEZ MD [address] [place] [address], [phone], [place] - [facility] 05/24/2024 15:30:22 09/26/2024 text/html He has a hx of S CC of unknown primary (hx of tonsillectomy and biopsies without identifying the primary). 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 Had a post tx PET that [...] eats with interferes. YANI LÓPEZ MD 100 [facility],[address], [address], [facility] - [facility] 09/26/2024 14:29:34 02/06/2025 text/html He has a hx of S CC of unknown primary (hx of tonsillectomy and biopsies without identifying the primary). 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 Had a post tx PET that [...] over in bed. YANI LÓPEZ MD [facility],[address], [address], [facility] 02/06/2025 14:03:47 06/08/2025 text/html He has a hx of S CC of unknown primary (hx of tonsillectomy and biopsies without identifying the primary). 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 Had a post tx PET that showed resolution of uptake in the head and neck. He needs lots of water to get dry foods down swallowing is challenging but has been stable. He has had several esophageal dilations but has not recently. He is not smoking. No throat or neck pain. No SOB. YANI LÓPEZ MD [facility],[address], [address], [place] - [facility] 06/08/2025 13:37:55
[2025-06-15 12:57] LABS: MANUAL DIFF FLAG NO
[2025-06-15 13:02] LABS: Appearance Urine Clear; Glucose Urine UA Negative (Negative); PH 6.5 (5.0-9.0); Specific Gravity - Urine 1.010 (1.005-1.025)
[2025-06-15 13:03] LABS: Hematocrit 36.9 % (42.0-52.0); Hemoglobin 12.2 g/dl (14.0-18.0); Imm Gran Abs Auto 0.02 X10*3/uL (0.00-0.03); Imm Gran Pct Auto 0.3 % (0.0-0.4); Lymphocytes Absolute Auto 0.9 X10*3/uL (1.2-4.9); Mean Corpuscular HGB Conc 33.1 g/dl (31.0-36.0); Mean Corpuscular Hemoglobin 27.5 pg (27.0-33.0); Mean Corpuscular Volume 83.3 fL (80.0-98.0); NRBC Abs Auto 0.000 X10*3/uL (0.0-0.012); NRBC Pct Auto 0.0 /100WBC (0.0-0.2); Platelet Count 250 X10*3/uL (160-400); Red Blood Count 4.43 X10*6/uL (4.60-5.80); White Blood Count 6.1 X10*3/uL (4.8-10.8)
[2025-06-15 13:18] LABS: Hemoglobin A1C 127.4334 umol/L; Total Hemoglobin (HGBA1C) 3244.6698 umol/L
[2025-06-15 13:28] LABS: B Type Natriuretic Peptide 53 pg/mL (<100)
[2025-06-15 13:32] LABS: Alanine Aminotransferase 11 U/L (0-40); Albumin Level 4.4 g/dL (3.5-5.0); Alkaline Phosphatase 54 U/L (39-117); Anion Gap 11 (12-20); Aspartate Amino Transferase 19 U/L (5-37); Blood Urea Nitrogen 10 mg/dL (9-16); Calcium 9.2 mg/dL (8.4-10.2); Carbon Dioxide 25 mmol/L (22-29); Chloride 107 mmol/L (96-108); Cholesterol 169 mg/dL (<200); Estimated Glomerular Filt Rate 51; HDL Cholesterol 42 mg/dL (>40); Potassium 4.5 mmol/L (3.3-5.1); Sodium 138 mmol/L (135-145); Total Protein 7.1 g/dL (6.5-8.0); Triglycerides 131 mg/dL (<150)
[2025-06-15 13:56] LABS: Folate 11.1 ng/mL (> or = 4.0); Vitamin B12 377 pg/mL (200-900)
[2025-06-15 14:01] LABS: Free T4 (Free Thyroxine) 0.83 ng/dL (0.71-1.85); Thyroid Stimulating Hormone 5.03 uIU/mL (0.32-4.0)
== END 2025-06-15 09:32 | disposition home or self-care (01) ==
LOC: HO.HMGCLDS 09:31
PROVIDERS: PCP Internal Medicine; Visit Provider Internal Medicine
DX: E78.00 Pure hypercholesterolemia, unspecified (principal); E11.9 Type 2 diabetes mellitus without complications; I50.9 Heart failure, unspecified; R30.0 Dysuria; R79.89 Other specified abnormal findings of blood chemistry; E53.8 Deficiency of other specified B group vitamins; D64.9 Anemia, unspecified; E55.9 Vitamin D deficiency, unspecified
CPT/HCPCS: 36415; 80053; 80061; 81003; 82306; 82607; 82746; 83036; 83880; 84439; 84443; 85025

== ENCOUNTER 2025-06-22 12:16 | Outpatient (AMB) | payer OTHER, SELFPAY ==
--- OUTSIDE RECORDS SUMMARY | 2025-06-21 23:59 | XMS_ITS | Continuity of Care Document ---
Author Organization [facility] Address [address] [place] [address]- Care Team Providers Care Patent Attorney Name Role Phone Albert Chan MD Primary Care Physician [phone] [id number] Date(s): 05/22/25 - 06/21/25 [facility] [address] [place] [id number] Attending Physician: Yasmany Benson Admitting [...] 2 Refills, Maintenance, 09/08/23 10:50:00 AM EDT, [facility]/pharmacy #[id number], Patient has intolerance to pilocarpine and [...] Quantity: 90.0 Unit: pack/packet Repeat number: 3 Indications: Disturbances of salivary secretion; Problem List Condition Confirmation Course Effective Dates [...] VERIFY Event Display: Patient Education/Instruction Authored Date: [id number] [facility] *Heme/Onc Adult Clinical Summary Name YANI ZAMORA Age 71 Years 1950 PCP Not on Staff, PCP PCP Phone Visit Date 04/14/2022 10:04:00 Additional Instructions: Scheduled Appointments?? Future Appointments ?Interventional??Radiology ?[address]??[place],??[place],??[address] ?Phone:??[phone]?Fax:??-- ?Appt. Date:??04/24/2022?1:00 PM ?Scheduled Provider:??IL02 Follow-Up Instructions [...] home through a free online portal called [employer]. [employer] is a website that allows you to [...] care provider, you may find a [facility] provider by calling [facility] at [phone]. For information about the plan of care [...] Position: Reference Physician Member Role: PCP Address: [address] [place] [address] Telecom: Name: Celena Mas Position: S Onco [...] Insurance Providers Guarantor name: YANI ZAMORA [facility] Information #: 1 Payer: [email or web address]ER [employer] Payer Identifier: NANCY Member Number: [id number] Group Number: Subscriber Identifier: [id number] Relationship to Subscriber: self Coverage Type: MEDICAID Coverage Verification Date: NA Telecom: NA Address: [facility] Information #: 2 Payer: [employer] MEDICARE ADV PPO Payer Identifier: NANCY Member Number: [id number] Group Number: [id number] Subscriber Identifier: [id number] Relationship to Subscriber: self Coverage Type: Medicare PPO Coverage Verification Date: NANCY Telecom: NANCY Address:
--- OUTSIDE RECORDS SUMMARY | 2025-06-22 12:18 | XMS_ITS | Clinical Summary ---
Author Organization [facility] Address [address] [place] [address] Care Team Providers Care Gastroenterology Technician Name Role Phone Unavailable Primary Care Provider [...]
--- OUTSIDE RECORDS SUMMARY | 2025-06-22 12:19 | XMS_ITS | Data Portability ---
Author Organization [place] - [facility], Allergy Address [address] [address] Care Team Providers Care Cra Name Role Phone RAHEL MARILU Primary Care [...] mcg (0.03 %) nasal spray 2023 024 [facility]armacy #[id number], [address] [place], [address], 09/26/2024 14:29:32 Patient TargetsNo targets recorded. Patient [...] contr ast No observ ation record ed. [facility] ([facility]) [address], [place], [address], 09/26/2024 17:04:27 09/26/20 24 08/26/2024 CT, head, w/o contr ast No observ ation record ed. [email or web address] Not Available 08/30 17:02:52 02/07/20 25 12/11/2024 MRI, brain + brain stem, w/o contr ast No observ ation record ed. [facility] ([facility]) [address], [place], [address], 02/07/2025 10:10:38 02/09/20 25 1951 MR, angio gram, brain , w/o contr ast No observ ation record ed. [email or web address] Not Available 01/27 10:10:08 Result Notes None recorded. 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, face and neck; Note: Date Diagnosed: 01/13/2022 3:58 PM (C77.0) Not Available [facility] 4 02:50:19 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 31127611 Active 2021 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, face and neck; Note: Date Diagnosed: 01/13/2022 3:58 PM (C77.0) Not Available [facility] 4 02:50:19 Nicotine dependenc e 28762554 Active 2021 Nicotine dependence , unspecifie d, uncomplica elieser; Note: Date Diagnosed: 01/13/2022 3:58 PM (F17.200) Not Available [facility] 4 02:50:15 Antineopl astic chemother apy regimen Active 2021 Encounter for antineopla stic chemothera py; Note: Date Diagnosed: 02/26/2022 3:00 PM (Z51.11) Not Available [facility] 4 02:50:18 Sensorine ural hearing loss of bilateral ears 927223420 Active 2021 Sensorineu ral hearing loss, bilateral; Note: Date Diagnosed: 02/26/2022 3:00 PM (H90.3) Not Available [facility] 4 02:50:19 Dysphagia 82343010 Active 2021 Other dysphagia; Note: Date Diagnosed: 08/11/2022 2:30 PM (R13.19) Not Available [facility] 4 02:50:17 History of malignant neoplasm 813249415 Active 2021 Personal history of malignant neoplasm, unspecifie d; Note: Changed from Z85 to Z85.819 (08/11/2022 4:01 PM) , Changed from Z85.819 to Z85.9 (08/11/2022 4:02 PM) , Date Diagnosed: 08/11/2022 2:30 PM (Z85) Not Available [facility] 4 02:50:20 Follow-up visit Active 2021 Encounter for follow-up examinatio n after completed treatment for malignant neoplasm; Note: Date Diagnosed: 08/11/2022 2:30 PM (Z08) Not Available [facility] 4 02:50:16 Vasomotor rhinitis 2381330 Active 2023 YANI LÓPEZ MD [address] [place] [address], [place], [address] , [facility] - [facility] 4 14:26:14 Dizziness and giddiness 166039471 Active 2023 YANI LÓPEZ MD [address] [address], [place], [address] , [facility] - [facility] 4 14:28:26 Oropharyn geal dysphagia 29359105 Active 2024 YANI LÓPEZ MD [address] [place] [address], [address] , [facility] - [facility] 5 13:35:43 Problem Notes None recorded. Procedures Surgical History Date Name Laterality Status Provider Name and Address Organization Details Recorded Time 06/08/2025 FFL_RE completed YANI LÓPEZ MD [address] [place] [address], [phone], [facility] 06/08/2025 13:23:10 02/06/2025 FFL_RE completed YANI LÓPEZ MD [address] [place] [address], [phone], [facility] 02/06/2025 13:55:08 09/26/2024 FFL_RE completed YANI LÓPEZ MD [address] [place] [address], [address], [facility] 09/26/2024 14:19:25 05/24/2024 FFL_RE completed YANI LÓPEZ MD [address] [place] [address], [phone], [facility] 05/24/2024 15:24:29 Imaging Results None recorded. Procedure Notes None recorded. Medical Equipment None Reported. Allergies Allergen ID Allergen Name Allergen Category Reaction Reaction Severity Criticality Documentation Date Start Date Code Code System Note Provider Name and Address Organization Details Recorded Time 732997 codeine / pseudoeph edrine / triprolid ine medicatio n other Not available Not available 04/11/2024 11702 1 RxNorm React ion: other react ion, Unkno wn; Not Available [facility] 01:09:32 961036 Product containin g penicilli n (product) medicatio n other Not available Not available 04/11/2024 46342 8001 SNOMED React ion: other react ion, [...] by mouth 2021 active Medicatio n ID: [id number] Pr escribed By Name: Yani diamond MD [...] ended release 2021 active Medicatio n ID: [id number] Br and Name: pentoxify lline Sen d [...] Updated DateTime 02/06/2025 172.72 cm 22 kg/m2 08465.89 g Aisha Casper [place] - [facility] 02/06/2025 13:39:01 Date Recorded Body height Body mass index (BMI) Body weight Provider Name and Address Organization Details Last Updated DateTime 05/24/2024 172.72 cm 22 kg/m2 01346.89 g Aisha Casper [facility] 05/24/2024 15:02:16 Date Recorded Body height Body mass index (BMI) Body weight Provider Name and Address Organization Details Last Updated DateTime 06/08/2025 172.72 cm 22 kg/m2 70094.89 g Aisha Casper [facility] 06/08/2025 12:52:40 Date Recorded Body height Body mass index (BMI) Body weight Provider Name and Address Organization Details Last Updated DateTime 09/26/2024 172.72 cm 22 kg/m2 16007.89 g Aisha Casper [facility] 09/26/2024 14:07:28 Social History None recorded. Functional Status None recorded. Mental Status None recorded. Family History Nothing Reported. Medical History No medical history recorded. Past Encounters Encounter ID Performer Location Encounter Start Date Encounter Closed Date Diagnosis/Indication Diagnosis SNOMED-CT Code Diagnosis ICD10 Code Diagnosis Note [id number] YANI LÓPEZ MD [facility] [address] [address] 05/24/2024 14:45:06 05/24/2024 15:31:19 History of malignant neoplasm of head and/or neck 933985081 Z85.89 Exam and Laryngosco py showed no evidence of disease. We will continue routine surveillan ce. Screening for malignant neoplasm of respiratory tract 936995989 Z12.2 Exam and Laryngosco py showed no evidence of disease. We will continue routine surveillan ce. [id number] YANI LÓPEZ MD [facility] [address] [address] 09/26/2024 13:59:26 09/26/2024 14:28:02 History of malignant neoplasm of head and/or neck 726168861 Z85.89 Exam and Laryngosco py showed no evidence of disease. We will continue routine surveillan ce. Screening for malignant neoplasm of respiratory tract 313931093 Z12.2 Exam and Laryngosco py showed no evidence of disease. We will continue routine surveillan ce. Vasomotor rhinitis 23375 03 J30.0 will send ipratropiu m. Dizziness and giddiness 155924027 R42 reports lightheade dness not true vertigo. I recommend he discuss with his PCP. [id number] YANI LÓPEZ MD [facility] [address] [address] 02/06/2025 13:29:23 02/06/2025 14:03:07 History of malignant neoplasm of head and/or neck 185139109 Z85.89 Exam and Laryngosco py showed no evidence of disease. We will continue routine surveillan ce. Screening for malignant neoplasm of respiratory tract 572466692 Z12.2 Exam and Laryngosco py showed no evidence of disease. We will continue routine surveillan ce. Dizziness and giddiness 462178502 R42 Juan Hallpike negative. No sign of BPPV on exam today. I recommend observ[place]. [id number] YANI LÓPEZ MD [facility] [address] [address] 06/08/2025 12:51:04 06/08/2025 13:34:53 History of malignant neoplasm of head and/or neck 792585375 Z85.89 Exam and Laryngosco py showed no evidence of disease. We will continue routine surveillan ce. Screening for malignant neoplasm of respiratory tract 356726323 Z12.2 Exam and Laryngosco py showed no evidence of disease. We will continue routine surveillan ce. Oropharyng eal dysphagia 97466842 R13.12 stable. I discussed following up with [...] Guarantor Name 06/08/2025 2 [place] [facility] Yani Fuchs [id number] Yani Fuchs 02/06/2025 1 [employer] Yani Fuchs [id number] Yani Fuchs 06/08/2025 1 [employer] (PPO) [id number] Yani Fuchs [id number] Yani Fuchs 02/06/2025 2 [place]IC[place] B-[place]: [employer] Yani Fuchs [id number] Yani Fuchs Notes Date Note Type Note Provider Name and Address Organization Details Recorded Time 05/24/2024 text/html ROS as noted in the HPI He has a hx of SCC of unknown primary (hx of tonsillectomy and biopsies without identifying the primary). Finished definitive [facility] 06/2022. Had a post tx PET that showed resolution of uptake in the head and neck. He reports continued dysphagia with dry foods. He has had several esophageal dilations. He is not smoking. No throat or neck pain. YANI LÓPEZ MD [address] [place] [address], [phone], [place] - [facility] 05/24/2024 15:30:22 09/26/2024 text/html ROS as noted in the HPI He has a hx of SCC of unknown primary (hx of tonsillectomy and biopsies without identifying the primary). Finished definitive [facility] [facility]ER 06/2022. Had a post tx PET that [...] eats with interferes. YANI LÓPEZ MD [address] [facility],[address], [address], [facility] - [facility] 09/26/2024 14:29:34 02/06/2025 text/html ROS as noted in the HPI He has a hx of SCC of unknown primary (hx of tonsillectomy and biopsies without identifying the primary). Finished definitive [facility] [facility] 06/2022. Had a post tx PET that [...] over in bed. YANI LÓPEZ MD [address] [facility],[address], [address], [facility] 02/06/2025 14:03:47 06/08/2025 text/html ROS as noted in the HPI He has a hx of SCC of unknown primary (hx of tonsillectomy and biopsies without identifying the primary). Finished definitive [facility] 06/2022. Had a post tx PET that showed resolution of uptake in the head and neck. He needs lots of water to get dry foods down swallowing is challenging but has been stable. He has had several esophageal dilations but has not recently. He is not smoking. No throat or neck pain. No SOB. YANI LÓPEZ MD [address] [facility],[address], [address], [place] - [facility] 06/08/2025 13:37:55
[2025-06-22 12:37] VITALS: BP 106/62; PULSE 72; TEMP 36.1; O2SAT 96; BMI 23.4
--- NOTE | 2025-06-22 12:37 | A.OFFPC_ITS ---
Vital Signs 06/22/25 12:37 Height 5 ft 8 in Weight 154 lb BMI 23.4 BP 106/62 Blood Pressure Location Lt brachial Position Sitting Pulse 72 Pulse Source Pulse Oximeter Temp 96.9 F Temp Source Temporal Artery Scan Pulse Oximetry (%) 96 Oxygen Delivery Method Room Air Intake Visit Reasons: 4mt f/u Orthopedic Mechanic Required: No Accompanied by: Self / Same As Patient Allergies Penicillins (PCN) Allergy (Severe, Verified 06/22/25 12:51) dyspnea codeine (CODEINE) Allergy (Mild, Verified 06/22/25 12:51) VOMITING cefuroxime Allergy (Unknown, Verified 06/22/25 12:51) cefuroxime axetil- dyspnea morphine (MORPHINE) Allergy (Unknown, Verified 06/22/25 12:51) UNKNOWN Medication List - Last Reconciled 06/22/25 by Albert Chan MD apixaban (Eliquis) 5 mg PO BID carvedilol 3.125 mg PO BID cholecalciferol (vitamin D3) 25 mcg PO DAILY 90 days nystatin 10 mL buccal TID 10 days omeprazole 20 mg PO DAILY oxycodone 1 to 2 tablets orally 6 to 7 times a day as needed for severe pain (no more than 8 tablets per day) 28 days rosuvastatin 20 mg PO DAILY sacubitril-valsartan 24-26 mg (Entresto) 1 tab PO BID Tobacco use date assessed: 06/22/25 Fall risk assessment: No Falls in past year Last assessed Fall Risk: 06/22/25 Dental Screening Dental Screen Date: 06/22/25 Did you have a dental visit in the last 12 months?: No Did you have a dental problem in the last 6 months where you did not have access to dental care?: No Was dental information given to patient?: No HPI 4mth f/u HPI Details Patient comes in today for follow up of his HTN, hyperlipidemia, CHF/cardiomyopathy, IFG, neuropathy and chronic right inguinal pain Patient states that he feels okay He still has on and off dizziness but his brain MRI done a few months ago came out unrevealing He denies any headaches Denies any exertional chest pains, no increased SOB No nausea/vomiting, no abdominal pain No change in bowel habits noted States that his chronic right inguinal pain remains adequately controlled on his current Rx - needs his pain med Rx refilled today He had his follow up labs done last week - to discuss his results [facility] Medical History LBBB (left bundle branch block) Dysphagia Vitamin D deficiency Peyronie's disease Essential hypertension NICM (nonischemic cardiomyopathy) Smoker Neuropathy Impaired fasting glucose Benign essential hypertension Pure hypercholesterolemia Systolic congestive heart failure Dilated cardiomyopathy secondary to alcohol COPD (chronic obstructive pulmonary disease) Paroxysmal atrial fibrillation Lumbar spondylosis Chronic pain of right inguinal region Lumbar radiculopathy Atrial fibrillation Surgical History Hx of colonoscopy (~03/26/17) History of percutaneous endoscopic gastrostomy History of tonsillectomy History of inguinal hernia repair Family History Father Cancer Mother CVD (cardiovascular disease) Social History Household Members: Family Housing: House Are you a primary respiratory care specialist to a significant other at home: No Do you presently have visiting nurse or other home services: No Alcohol intake: never Patient Tobacco Use Status: Former Tobacco user Tobacco use type: Cigarette e-Cigarette/Vaping Use: Former Use Second Hand Smoke Exposure: Yes service: Yes Current occupational status: retired 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 1. Little interest or pleasure in doing things: not at all 2. Feeling down, depressed, or hopeless: not at all 3. Trouble falling or staying asleep, or sleeping too much: not at all 4. Feeling tired or having little energy: not at all 5. Poor appetite or overeating: not at all 6. Feeling bad about yourself - or that you are a failure or have let yourself or your family down: not at all 7. Trouble concentrating on things, such as reading the newspaper or watching television: not at all 8. Moving or speaking so slowly that other people could have noticed. Or the opposite - being so fidgety or restless that you have been moving around a lot more than usual: not at all 9. Thoughts that you would be better off or of hurting yourself in some way: not at all Total score: 0 Depression Screening Interpretation: Negative Depression Screening Done: Yes 29412 - PHQ-9 Billing: Yes Source: Developed by Drs. Yung Childress, Trish Prasad, Nelson Perez and colleagues, with an educational nan from [employer]. Thrive Questionnaire Date Thrive assessed: 06/22/25 I am a: Patient What is your living situation today?: I have a steady place to live Within the past 12 months, did the food you bought not last and you didn't have the money to get more?: Never true Within the past 12 months, did you worry whether your food would run out before you got money to buy more?: Never true Do you have trouble paying for medicines?: No Do you have trouble getting transportation to medical appointments?: No Do you have trouble paying your heating and electricity bill?: No Do you have trouble taking care of your child, family member or friend?: No Do you have trouble with day-to-day activities such as bathing, preparing meals, shopping, managing finances, etc.?: No Are you currently unemployed and looking for a job?: No Are you interested in more education?: No Please select the resources that you would like help with: None Currently or been in a relationship where the following occur: No concerns reported THRIVE Score: 0 AUDIT C Alcohol Use Questionnaire (AUDIT-C) 1. How often do you have a drink containing alcohol?: Never 3. How often do you have six or more drinks on one occasion?: Never Total Score: 0 Score Reviewed/Action Taken: Yes FILIPE-7 AMB Questionnaire FILIPE-7 Date FILIPE - 7 assessed: 06/22/25 Feeling nervous, anxious, or on edge: 0 = Not at all Not being able to stop or control worryin = Not at all Worrying too much about different things: 0 = Not at all Trouble relaxin = Not at all Being so restless that it is hard to sit still: 0 = Not at all Becoming easily annoyed or irritable: 0 = Not at all Feeling afraid as if something awful might happen: 0 = Not at all Total FILIPE-7 score (0-4 normal; 5-9 mild; 10-14 moderate; 15-21 severe): 0 Source: Developed by Drs. Yung Childress, Trish Prasad, Nelson Perez and colleagues, with an educational nan from [employer]. Review of Systems Const Denies chills, Reports fatigue, Denies fever(s) and Denies headache(s) ENT Denies dysphagia, Reports dizziness (on and off), Denies otalgia, Denies headache(s), Denies neck pain, Denies odynophagia and Denies sore throat Card Denies chest pain, Denies palpitations and Reports dyspnea on exertion (mild) Resp Denies chest congestion, Denies cough and Reports dyspnea on exertion (mild) GI Denies abdominal pain (but (+) chronic pain over the right inguinal area), Denies constipation, Denies dysphagia, Denies heartburn, Denies diarrhea, Denies nausea, Denies odynophagia and Denies vomiting Denies difficulty urinating, Denies dysuria, Denies nocturia and Denies urinary frequency Musc Reports back pain (occasional ) and Denies neck pain Skin/Breast Denies rash Neuro Reports dizziness (on and off), Denies headache(s) and Reports radicular pain (on the soles of both feet) Endo Reports fatigue and Denies palpitations Physical exam (Primary Care) Vital Signs: Last Vital Signs Temp 96.9 F 06/22/25 12:37 Pulse 72 06/22/25 12:37 BP 106/62 06/22/25 12:37 Pulse Ox 96 06/22/25 12:37 Oxygen Delivery Method Room Air 06/22/25 12:37 BMI result Body Mass Index 23.4 Tobacco/Smoking Status: Tobacco use Status Tobacco use date assessed 06/22/25 06/22/25 12:42 Patient Tobacco Use Status Former Tobacco user 06/22/25 12:42 Tobacco use type Cigarette 06/22/25 12:42 e-Cigarette/Vaping Use Former Use 06/22/25 12:42 PHQ-9: PHQ-9 Score PHQ-9: Total score 0 06/22/25 12:49 Depression Screening Interpretation: Negative Thrive Assessment: Date of Thrive Assessment Date Thrive assessed 06/22/25 06/22/25 12:42 Currently or been in a relationship where the following occur: No concerns reported Const General: no acute distress and alert HENMT Ears: TM's normal bilaterally and EAC's normal Throat: Yes posterior oropharynx normal and Yes tonsils normal Neck Neck: Yes supple and No lymphadenopathy Thyroid: Thyroid normal Resp Auscultation: no crackles, no rales, no wheezes and diminished lung sounds (slightly) bilateral Cardio Rate: regular rate Rhythm: regular rhythm Heart sounds: no murmurs GI Palpation (GI): Soft to palpation and Tenderness to palpation present (GI) (over the right inguinal area - chronic) Auscultation: normal bowel sounds General: Yes no CVA tenderness Back/Spine/Pelvis Back: no CVA tenderness Thoracic/Lumbar Spine: lumbar spinal tenderness (mild) Skin Rashes: no rashes Extrem General: Yes no clubbing, cyanosis or edema Results Reviewed Results Reviewed: Laboratory Tests 06/15/25 06/15/25 09:40 11:10 WBC 6.1 Hgb 12.2 L Hct 36.9 L Plt Count 250 Sodium 138 Potassium 4.5 Creatinine 1.37 Estimated GFR 51 Fasting Glucose 111 H Hemoglobin A1c % 5.7 Calcium 9.2 AST 19 ALT 11 B-Natriuretic Peptide 53 Triglycerides 131 Cholesterol 169 LDL Cholesterol, Calc 101 H HDL Cholesterol 42 Vitamin B12 377 25-OH Vitamin D Total 44.4 TSH 5.03 H Free T4 0.83 Ur Specific [place] 1.010 Urine Protein Negative Urine Glucose (UA) Negative Urine Blood Negative Urine Nitrite Negative Ur Leukocyte Esterase Negative Coding Level of Care Code Est Pt Level 4 (35730) Diagnoses Dizziness of unknown etiology R42 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 Additional Codes PHQ-9 - 26967 - PHQ-9 Billing: Yes ([id number]) Assessment & Plan Assessment & Plan (1) Dizziness of unknown etiology: Code(s): R42 - Dizziness and giddiness Category: Medical Plan: Patient was seen by ENT last year and was advised that his recurrent dizziness are not consistent with vertigo and that they do not have any good explanation as to the cause of his recurrent symptoms He was advised to speak with his PCP further about this and for further work ups We then sent him for an MRI of the brain, which he finally had done a couple of months ago in November 2024 that revealed (+) small vessel occlusive disease, with no acute stroke/nonhemorrhagic ischemia and no acute intracranial hemorr ria Advised patient that at this point, if his symptoms continue to bother him significantly, then we may need to refer him to neurology for further recommendations (2) 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 Diop and he completed Cisplatin-based chemotherapy and concurrent radiation therapy in June 2022 - was on treatment from 05/11/2022 to 06/30/2022 Follow up with oncology and ENT as scheduled for continuing management/treatment and surveillance (3) Dysphagia: Code(s): R13.10 - Dysphagia, unspecified Category: Medical Qualifiers: Dysphagia type: unspecified Qualified Code(s): R13.10 - Dysphagia, unspecified Plan: Patient continues to complain of dysphagia, dysgeusia and dry throat symptoms He underwent esophageal dilation with Dr. Hernández on 10/27/22, in March 2023 and more recently in July 2023; patient states that dilation helped temporarily with his symptoms Relates that he also had his throat dilated by ENT last year Follow up with ENT (Dr. Diop) and with Dr. Hernández as scheduled (4) Dilated cardiomyopathy secondary to alcohol: Code(s): I42.6 - Alcoholic cardiomyopathy Category: Medical Plan: Continue Entresto 24-26 mg 1 tablet BID and Carvedilol 3.125 mg BID Follow up with cardiology as scheduled (5) Systolic congestive heart failure: Comment: Echocardiogram done on 05/03/2018 showed visually estimated EF between 30-35% with an impaired relaxation filling pattern. Cardiac valvular dopplers and RV systolic pressure were all within normal range. Repeat echocardiogram on 03/12/21 revealed (+) normal LV cavity size, with mildly increased LV wall thickness. LV systolic function is low normal and visually estimated EF is between 50 to 55%. Diastolic function is normal for age. Code(s): I50.20 - Unspecified systolic (congestive) heart failure Category: Medical Qualifiers: Heart failure chronicity: unspecified Qualified Code(s): I50.20 - Unspecified systolic (congestive) heart failure Plan: His cardiac function has improved significantly with treatment over the past few years and patient currently appears compensated His BNP level came back normal again on his recent labs Continue Entresto 24-26 mg 1 tablet BID and Carvedilol 3.125 mg BID Follow up with Cardiology as scheduled (6) Paroxysmal atrial fibrillation: Code(s): I48.0 - Paroxysmal atrial fibrillation Category: Medical Plan: Patient currently remains in sinus rhythm Continue Eliquis 5 mg BID for thromboembolism prophylaxis (7) Benign essential hypertension: Code(s): I10 - Essential (primary) hypertension Category: Medical Plan: Reinforced low sodium diet - goal is systolic BP of at least 120-130 mm or less Continue Carvedilol 3.125 mg 1 tablet BID and Entresto 24-26 mg BID (8) Pure hypercholesterolemia: Code(s): E78.00 - Pure hypercholesterolemia, unspecified Category: Medical Plan: Results of his labs done last week reviewed and discussed with patient Reinforced low cholesterol diet Continue Rosuvastatin 20 mg QD Will recheck his labs and fasting lipids in 3 months for follow up (9) Impaired fasting glucose: Code(s): R73.01 - Impaired fasting glucose Category: Medical Plan: His HgbA1c was at 5.7% on his recent labs; was at 5.6% when previously checked a few months ago Reinforced low calorie diet /exercise as tolerated (10) COPD (chronic obstructive pulmonary disease): Code(s): J44.9 - Chronic obstructive pulmonary disease, unspecified Category: Medical Qualifiers: COPD type: unspecified COPD Qualified Code(s): J44.9 - Chronic obstructive pulmonary disease, unspecified Plan: Controlled Continue Albuterol HFA 2 puffs 4 times a day as needed (11) Chronic pain of right inguinal region: Comment: (+) Post-herniorrhaphy syndrome - had right inguinal herniorrhaphy in the past and recovery was complicated with increased pain and adverse effects, resulting in chronic and worse pain States that his chronic pain has been adequately controlled on his current pain med regimen - this is a WORKER'S COMP - related issue Code(s): R10.31 - Right lower quadrant pain; G89.29 - Other chronic pain Category: Medical Plan: Continue Oxycodone 15 mg 1 to 2 tablets 6 to 7 times a day as needed for severe pain (no more than 8 tablets/day) (12) Lumbar spondylosis: Code(s): M47.816 - Spondylosis without myelopathy or radiculopathy, lumbar region Category: Medical Plan: Reinforced activity and weight-lifting restrictions to avoid aggravating his low back pain (13) Neuropathy: Code(s): G62.9 - Polyneuropathy, unspecified Category: Medical Plan: His symptoms remain tolerable lately He could not tolerate Gabapentin in the past and Amitriptyline did not help him much (14) Vitamin D deficiency: Code(s): E55.9 - Vitamin D deficiency, unspecified Category: Medical Plan: Continue Vitamin D3 1000 units QD Plan Follow up in 3 months Orders: Orders Complete Blood Count Auto Diff 3 Months D64.9 - Anemia, unspecified Lipid Panel 3 Months E78.00 - Pure hypercholesterolemia, unspecified TSH reflex Free T4 3 Months E78.00 - Pure hypercholesterolemia, unspecified UA CC w/rflx Micro + Cult 3 Months R30.0 - Dysuria Comprehensive [place]. Panel Fast 3 Months E78.00 - Pure hypercholesterolemia, unspecified Hemoglobin A1c 3 Months R73.01 - Impaired fasting glucose Vitamin D 25-OH Total 3 Months E55.9 - Vitamin D deficiency, unspecified Medications: Refilled oxycodone 1 to 2 tablets orally 6 to 7 times a day as needed for severe pain (no more than 8 tablets per day) 224 tabs 0RF pain 28 days G89.29 - Other chronic pain, R10.31 - Right lower quadrant pain
== END 2025-06-22 13:18 | disposition home or self-care (01) ==
LOC: HO.HMCH 12:16
PROVIDERS: PCP Internal Medicine; Visit Provider Internal Medicine
DX: I11.0 Hypertensive heart disease with heart failure (principal); I50.20 Unspecified systolic (congestive) heart failure; C77.9 Secondary and unspecified malignant neoplasm of lymph node, unspecified; C80.1 Malignant (primary) neoplasm, unspecified; I48.0 Paroxysmal atrial fibrillation; I42.6 Alcoholic cardiomyopathy; J44.9 Chronic obstructive pulmonary disease, unspecified; R42 Dizziness and giddiness; R13.10 Dysphagia, unspecified; E78.00 Pure hypercholesterolemia, unspecified; R73.01 Impaired fasting glucose; R10.31 Right lower quadrant pain

== ENCOUNTER → 2025-06-22 12:16 | Outpatient (BNVA) | payer MEDICARE, MEDICAID, OTHER, SELFPAY | PROVIDERS: PCP Internal Medicine; Visit Provider Internal Medicine | DX: I11.0 Hypertensive heart disease with heart failure (principal); I50.20 Unspecified systolic (congestive) heart failure; R42 Dizziness and giddiness; C77.9 Secondary and unspecified malignant neoplasm of lymph node, unspecified; C80.1 Malignant (primary) neoplasm, unspecified; R13.10 Dysphagia, unspecified; I42.6 Alcoholic cardiomyopathy; I48.0 Paroxysmal atrial fibrillation; E78.00 Pure hypercholesterolemia, unspecified; R73.01 Impaired fasting glucose; J44.9 Chronic obstructive pulmonary disease, unspecified; R10.31 Right lower quadrant pain; G89.29 Other chronic pain; M47.816 Spondylosis without myelopathy or radiculopathy, lumbar region; G62.9 Polyneuropathy, unspecified; E55.9 Vitamin D deficiency, unspecified | CPT/HCPCS: 96127; 99212 ==

== ENCOUNTER 2025-07-18 14:18 | Outpatient (AMB) | payer MEDICARE, MEDICAID, SELFPAY ==
--- NOTE | 2025-07-18 14:34 | MHC.OFFVIS ---
Vital Signs 07/18/25 14:35 Height 5 ft 8 in Weight 152 lb 1.903 oz BMI 23.1 BP 120/60 Blood Pressure Location Lt brachial Position Sitting Pulse 54 Pulse Source Monitor Intake Visit Reasons: 1 yr s/p echo Allergies Penicillins (PCN) Allergy (Severe, Verified 06/22/25 12:51) dyspnea codeine (CODEINE) Allergy (Mild, Verified 06/22/25 12:51) VOMITING cefuroxime Allergy (Unknown, Verified 06/22/25 12:51) cefuroxime axetil- dyspnea morphine (MORPHINE) Allergy (Unknown, Verified 06/22/25 12:51) UNKNOWN Medication List - Last Reconciled 07/18/25 by Glen Zepeda MD apixaban (Eliquis) 5 mg PO BID carvedilol 3.125 mg PO BID cholecalciferol (vitamin D3) 25 mcg PO DAILY 90 days nystatin 10 mL buccal TID 10 days omeprazole 20 mg PO DAILY oxycodone 1 to 2 tablets orally 6 to 7 times a day as needed for severe pain (no more than 8 tablets per day) 28 days rosuvastatin 20 mg PO DAILY sacubitril-valsartan 24-26 mg (Entresto) 1 tab PO BID HPI Comments Details: Yung returns for follow-up regarding atrial fibrillation and cardiomyopathy. To recall, he was hospitalized in 2016 after having incidentally detected atrial fibrillation during PCP visit. Then converted to sinus in the hospital. Echocardiogram had revealed LVEF of 35-40%. Was initially on Amiodarone for a while that was then stopped. He remains on Coreg and Entresto. 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 From the cardiac standpoint, he has been quite stable. No new concerns. [facility] Medical History LBBB (left bundle branch block) Dysphagia Vitamin D deficiency Peyronie's disease Essential hypertension NICM (nonischemic cardiomyopathy) Smoker Neuropathy Impaired fasting glucose Benign essential hypertension Pure hypercholesterolemia Systolic congestive heart failure Dilated cardiomyopathy secondary to alcohol COPD (chronic obstructive pulmonary disease) Paroxysmal atrial fibrillation Lumbar spondylosis Chronic pain of right inguinal region Lumbar radiculopathy Atrial fibrillation Surgical History Hx of colonoscopy (~03/26/17) History of percutaneous endoscopic gastrostomy History of tonsillectomy History of inguinal hernia repair Family History Father Cancer Mother CVD (cardiovascular disease) Social History Household Members: Family Housing: House Are you a primary medical care administrator to a significant other at home: No Do you presently have visiting nurse or other home services: No Alcohol intake: never Patient Tobacco Use Status: Former Tobacco user Tobacco use type: Cigarette e-Cigarette/Vaping Use: Former Use Second Hand Smoke Exposure: Yes service: Yes Current occupational status: retired 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 Cognitive needs: Yes Hearing needs: No Vision needs: Yes Review of Systems Const All systems reviewed & are unremarkable except as noted in HPI and below Reports as per HPI and Reports no additional complaints Eyes Reports as per HPI and Denies no additional complaints ENT Denies no additional complaints and Reports as per HPI Card Reports as per HPI, Reports no additional complaints, Denies acrocyanosis, Denies chest pain, Denies leg edema, Denies lightheadedness, Denies palpitations and Denies dyspnea Resp Reports as per HPI, Denies no additional complaints and Denies dyspnea GI Reports as per HPI and Denies no additional complaints Reports no additional complaints and Reports as per HPI Musc Reports no additional complaints and Reports as per HPI Skin/Breast Reports system reviewed and no additional complaints, except as documented Neuro Reports no additional complaints and Reports as per HPI Psych Reports no additional complaints and Reports as per HPI Endo Reports no additional complaints, Reports as per HPI and Denies palpitations Musa/Lymph Reports no additional complaints and Reports as per HPI Aller/Immun Reports no additional complaints and Reports as per HPI Physical Exam Vital Signs: Last Vital Signs Pulse 54 07/18/25 14:35 BP 120/60 07/18/25 14:35 BMI result Body Mass Index 23.1 Const General: comfortable and no acute distress Orientation/consciousness: patient oriented x3 HEENT Other: Unremarkable Head: Yes normal to inspection Neck Neck: Yes normal visual inspection Chest Chest palpation & inspection: normal inspection of the chest Resp Auscultation: clear to auscultation bilaterally Cardio Palpation: normal PMI Heart sounds: S1 normal heart sound present, S2 normal heart sound present, no gallops, no murmurs and no rubs GI Palpation (GI): Soft to palpation Back/Spine/Pelvis Other: unremarkable Skin General skin exam: no rashes or lesions noted Neuro General: patient oriented x3 Extrem General: Yes normal to inspection Psych Mental Status: mental status grossly normal Office Procedures EKG Details: EKG with sinus bradycardia at 54/Min; left bundle-branch block pattern; borderline CA 202 milliseconds; [place]. [id number], Complete Assessment & Plan Assessment & Plan (1) NICM (nonischemic cardiomyopathy): Code(s): I42.8 - Other cardiomyopathies Category: Medical Plan: In the last echocardiogram, LVEF 55-60% much improved from prior. Clinically, he does not have any heart failure symptoms or signs. Continue Coreg and Entresto. (2) Paroxysmal atrial fibrillation: Code(s): I48.0 - Paroxysmal atrial fibrillation Category: Medical Plan: Continue beta-blockers as above. Continue anticoagulation. (3) LBBB (left bundle branch block): Code(s): I44.7 - Left bundle-branch block, unspecified Category: Medical Plan: Chronic finding on EKG. (4) Essential hypertension: Code(s): I10 - Essential (primary) hypertension Category: Medical Plan: Stable. (5) Ascending aorta enlargement: Code(s): I77.89 - Other specified disorders of arteries and arterioles Category: Medical Plan Discussion Notes I discussed with the patient that his echocardiogram shows normal heart function, which is a positive indicator of his cardiovascular health. I recommended that he continue with regular follow-ups and routine lab work with his primary care physician. Patient was informed and verbally consented to the use of an ambient scribe for clinic note documentation during this visit. Orders: Orders CA echo transthoracic complete 1 Year I77.89 - Other specified disorders of arteries and arterioles Patient Instructions: - Continue regular follow-ups for cardiovascular health. - Schedule the next echocardiogram in one year. - Maintain routine check-ups with your primary care physician. Coding Level of Care Code Est Pt Level 4 (61602) Diagnoses NICM (nonischemic cardiomyopathy) I42.8 Paroxysmal atrial fibrillation I48.0 LBBB (left bundle branch block) I44.7 Essential hypertension I10 Ascending aorta enlargement I77.89 CPT Codes EKG - CPT: 68326-[id number], Complete ([id number])
[2025-07-18 14:35] VITALS: BP 120/60; PULSE 54; BMI 23.1
--- OUTSIDE RECORDS SUMMARY | 2025-07-18 15:17 | XMS_ITS | Clinical Summary ---
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
== END 2025-07-18 14:50 | disposition home or self-care (01) ==
PROVIDERS: PCP Internal Medicine; Visit Provider Internal Medicine
DX: I42.8 Other cardiomyopathies (principal); I48.0 Paroxysmal atrial fibrillation; I44.7 Left bundle-branch block, unspecified; I10 Essential (primary) hypertension; I77.89 Other specified disorders of arteries and arterioles
CPT/HCPCS: 93010; 99214

== ENCOUNTER → 2025-07-18 14:18 | Outpatient (BNVA) | payer OTHER, MEDICARE, MEDICAID, SELFPAY | PROVIDERS: PCP Internal Medicine; Visit Provider Internal Medicine | DX: I42.8 Other cardiomyopathies (principal); I48.0 Paroxysmal atrial fibrillation; I44.7 Left bundle-branch block, unspecified; I10 Essential (primary) hypertension; I77.89 Other specified disorders of arteries and arterioles | CPT/HCPCS: 93005; 99212 ==

== ENCOUNTER 2025-08-24 13:25 | Outpatient (AMB) | payer MEDICARE, MEDICAID, SELFPAY ==
[2025-08-24 13:30] VITALS: BP 112/66; PULSE 82; TEMP 36.5; O2SAT 98; BMI 23.7
--- NOTE | 2025-08-24 13:30 | AM.OFFWIN_ITS ---
Intake Vital Signs 08/24/25 13:30 Height 5 ft 8 in Weight 156 lb BMI 23.7 BP 112/66 Blood Pressure Location Lt brachial Position Standing Pulse 82 Pulse Source Pulse Oximeter Temp 97.7 F Temp Source Oral Pulse Oximetry (%) 98 Oxygen Delivery Method Room Air Intake Visit Reasons: EP lower back pain Intake Note: pt presents with low back pain after bending over 3 days ago Patient Tobacco Use Status: Former Tobacco user Allergies Penicillins (PCN) Allergy (Severe, Verified 08/24/25 13:31) dyspnea codeine (CODEINE) Allergy (Mild, Verified 08/24/25 13:31) VOMITING cefuroxime Allergy (Unknown, Verified 08/24/25 13:31) cefuroxime axetil- dyspnea morphine (MORPHINE) Allergy (Unknown, Verified 08/24/25 13:31) UNKNOWN Do you need a note to return to daycare/school/sports/work: No HPI EP lower back pain HPI Details This is a 75-year-old male patient who presents to the walk-in clinic today with his daughter accompanying him, with report of lower back pain and spasms. He states that this started about 3 days ago without any inciting event, lifting, or injury. He reports that standing alleviates pain, and any sitting/bending, or raising up from a seated position elicit pain. Denies any radiation of pain or leg weakness/numbness. Denies any saddle anesthesia. No history of back surgery. Thinks he may have had an XR many years ago. He is on chronic opioid therapy for chronic right inquinal pain. [facility] Medical History LBBB (left bundle branch block) Dysphagia Vitamin D deficiency Peyronie's disease Essential hypertension NICM (nonischemic cardiomyopathy) Smoker Neuropathy Impaired fasting glucose Benign essential hypertension Pure hypercholesterolemia Systolic congestive heart failure Dilated cardiomyopathy secondary to alcohol COPD (chronic obstructive pulmonary disease) Paroxysmal atrial fibrillation Lumbar spondylosis Chronic pain of right inguinal region Lumbar radiculopathy Atrial fibrillation Surgical History Hx of colonoscopy (~03/26/17) History of percutaneous endoscopic gastrostomy History of tonsillectomy History of inguinal hernia repair Family History Father Cancer Mother CVD (cardiovascular disease) Social History Household Members: Family Housing: House Are you a primary neonatal intensive care nurse to a significant other at home: No Do you presently have visiting nurse or other home services: No Alcohol intake: never Patient Tobacco Use Status: Former Tobacco user Tobacco use type: Cigarette e-Cigarette/Vaping Use: Former Use Second Hand Smoke Exposure: Yes service: Yes Current occupational status: retired 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 Cognitive needs: Yes Hearing needs: No Vision needs: Yes Review of Systems Const All systems reviewed & are unremarkable except as noted in HPI and below Physical Exam Vital Signs: Last Vital Signs Temp 97.7 F 08/24/25 13:30 Pulse 82 08/24/25 13:30 BP 112/66 08/24/25 13:30 Pulse Ox 98 08/24/25 13:30 Oxygen Delivery Method Room Air 08/24/25 13:30 BMI result Body Mass Index 23.7 Const General: cooperative, healthy appearing and no acute distress HEENT Head: Yes normal to inspection Ears: hearing grossly normal bilaterally Resp Effort & Inspection: normal respiratory effort Auscultation: clear to auscultation bilaterally Cardio Rate: regular rate Rhythm: regular rhythm Back/Spine/Pelvis Cervical Spine: normal cervical lordosis and cervical ROM normal Thoracic/Lumbar Spine: thoracic and lumbar spine normal to inspection, thoraco-lumbar ROM normal, pain with thoraco-lumbar ROM (flexion/extension, + facet loading b/l L3-5) and thoraco-lumbar spasm bilaterally in the lower lumbar Skin General skin exam: no rashes or lesions noted Neuro General: gait normal and no focal motor deficits Extrem General: Yes capillary refill normal and Yes no clubbing, cyanosis or edema Psych Appearance: grossly normal Mental Status: mental status grossly normal Speech and movement: Normal speech and movement present Assessment & Plan Assessment & Plan (1) Low Back Pain: Code(s): M54.50 - Low back pain, unspecified Qualifiers: Chronicity: acute Back pain laterality: bilateral Sciatica presence: without sciatica Qualified Code(s): M54.50 - Low back pain, unspecified Plan: Symptoms are consistent with lumbar facet arthropathy and lower lumbar muscle spasms. XR revealed: Degenerative disc disease and facet osteoarthritis with incidental finding of atherosclerotic disease. Results were reviewed with patient in the office. Discussion for conservative measures at this time with Tylenol and short course of muscle relaxers. I have prescribed cyclobenzaprine and Tylenol arthritis, for which we have reviewed indications, use, and possible side effects of. He is anticoagulated on Eliquis. Can not take NSAIDs, and does not wish to try prednisone as he is fearful of side effects. We reviewed use of heat application and gentle stretching. If he does not improve with time and conservative measures over the next 1-2 weeks, he may wish to have referral placed for course of physical therapy. He may also be a candidate in the future for lumbar facet injections and possible radiofrequency ablation with pain management office. I encouraged him to discuss this with PCP if indicated. All questions were answered and patient and daughter present at visit both verbalized understanding and agreed to plan. Orders: Orders XR lumbar spine 2-3V Today M54.50 - Low back pain, unspecified Medications: New acetaminophen ER (Tylenol Arthritis Pain) 650 mg PO Q12H PRN 60 tabs 0RF pain 30 days M54.50 - Low back pain, unspecified cyclobenzaprine 10 mg PO BID PRN 14 tabs 0RF muscle spasm 7 days M54.50 - Low back pain, unspecified Coding Level of Care Code Est Pt Level 4 (02581) Diagnoses Acute bilateral low back pain without sciatica M54.50 Chronicity: acute Back pain laterality: bilateral Sciatica presence: without sciatica
--- OUTSIDE RECORDS SUMMARY | 2025-08-24 14:43 | XMS_ITS | Clinical Summary ---
Author Organization [facility] Address [address] [place] [address] Care Team Providers Care Glass Science Engineer Name Role Phone Unavailable Primary Care Provider Unavailabl e Social History Tobacco Use Types Packs/Day Years Used Date Smoking Tobacco: Never Assessed Sex and Gender Information Value Date Recorded Sex Assigned at Not on file Legal Sex Male 6:47 PM EST Gender Identity Not on file Sexual Orientation Not on file Plan of Treatment Health Maintenance Due Date Last Done Comments Advance Care Planning 1950 Hepatitis C Virus Screening 1950 DTaP/Tdap/Td Vaccines (1 - Tdap) 1970 Pneumococcal Vaccines 50+ (1 of 1 - PCV) 2001 Zoster (Shingles) Vaccine (1 of 2) 2001 COVID-19 Vaccine ( - 2023-2 5 season) 2025 RSV Vaccine 60 years and old er and Patients (1 - 1-dose 75+ series) 2026 Hepatitis B Vaccines Aged Out No long er eligible based on patient's age to complete this topic
--- OUTSIDE RECORDS SUMMARY | 2025-08-24 14:43 | XMS_ITS | Encounter Summary ---
Author Organization [facility] Address [address] [place] [id number] Care Team Providers Care Fitness Assistant Name Role Phone Unavailable Primary Care Provider Unavailabl e Encounter Details Date Type Department Care Team (Late st Contact Info) Description 10/11/2020 Telephone [facility] [address] [id number] Tomas James MD [address] [facility] [address] [place] [address] Social History Tobacco Use Types [...]
== END 2025-08-24 14:24 | disposition home or self-care (01) ==
PROVIDERS: PCP Internal Medicine; Visit Provider Nurse Practitioner Family
DX: M54.50 Low back pain, unspecified (principal)

== ENCOUNTER 2025-08-24 13:25 | Outpatient (REF) | payer MEDICARE, MEDICAID, SELFPAY ==
--- NOTE | ~2025-08-24 | XR_ITS ---
EXAMINATION: XR LUMBOSACRAL SPINE CLINICAL INFORMATION: M54.50 - Low back pain, unspecified COMPARISON: April 17, 2025 TECHNIQUE: Three views of the lumbosacral spine. FINDINGS: There is severe atherosclerotic ossification in the aorta and iliac arteries. There are 5 nonrib-bearing lumbar segments. There is mild convex right curvature. L2-3: There is stable mild retrolisthesis and mild disc space narrowing with endplate osteophytes. L3-4: There is stable ibyq-bs-bjiqbbxy disc space narrowing with endplate osteophytes and facet sclerosis. L4-5: There is mild disc space narrowing and facet sclerosis with osteophytes. L5-S1: There is stable mild disc space narrowing. XR/XR lumbar spine 2-3V IMPRESSION: Degenerative disc disease and facet osteoarthritis. Atherosclerotic disease. Electronically signed by: Hugo Waldron MD 08/24/2025 02:06 PM EDT
== END 2025-08-24 13:26 | disposition home or self-care (01) ==
LOC: HO.HMGCX 13:25
PROVIDERS: PCP Internal Medicine; Visit Provider Nurse Practitioner Family
DX: M54.50 Low back pain, unspecified (principal)
CPT/HCPCS: 72100; 99212

== ENCOUNTER → 2025-08-24 13:48 | Outpatient (BNV) | payer MEDICARE, MEDICAID, SELFPAY | PROVIDERS: PCP Internal Medicine; Visit Provider Radiology Diagnostic Radiology | DX: M47.816 Spondylosis without myelopathy or radiculopathy, lumbar region (principal) | CPT/HCPCS: 72100 ==

== ENCOUNTER 2025-09-17 10:02 | Outpatient (REF) | payer MEDICARE, MEDICAID, SELFPAY ==
[2025-09-17 13:22] LABS: MANUAL DIFF FLAG NO
[2025-09-17 13:33] LABS: Hematocrit 40.0 % (42.0-52.0); Hemoglobin 12.8 g/dl (14.0-18.0); Imm Gran Abs Auto 0.03 X10*3/uL (0.00-0.03); Imm Gran Pct Auto 0.5 % (0.0-0.4); Lymphocytes Absolute Auto 1.2 X10*3/uL (1.2-4.9); Mean Corpuscular HGB Conc 32.0 g/dl (31.0-36.0); Mean Corpuscular Hemoglobin 27.0 pg (27.0-33.0); Mean Corpuscular Volume 84.4 fL (80.0-98.0); NRBC Abs Auto 0.000 X10*3/uL (0.0-0.012); NRBC Pct Auto 0.0 /100WBC (0.0-0.2); Platelet Count 248 X10*3/uL (160-400); Red Blood Count 4.74 X10*6/uL (4.60-5.80); White Blood Count 6.2 X10*3/uL (4.8-10.8)
[2025-09-17 14:04] LABS: Alanine Aminotransferase 11 U/L (0-40); Albumin Level 4.4 g/dL (3.5-5.0); Alkaline Phosphatase 53 U/L (39-117); Anion Gap 10 (12-20); Aspartate Amino Transferase 22 U/L (5-37); Blood Urea Nitrogen 13 mg/dL (9-16); Calcium 9.3 mg/dL (8.4-10.2); Carbon Dioxide 26 mmol/L (22-29); Chloride 105 mmol/L (96-108); Cholesterol 167 mg/dL (<200); Estimated Glomerular Filt Rate 51; HDL Cholesterol 43 mg/dL (>40); Potassium 4.3 mmol/L (3.3-5.1); Sodium 137 mmol/L (135-145); Total Protein 6.9 g/dL (6.5-8.0); Triglycerides 145 mg/dL (<150)
[2025-09-17 14:59] LABS: Free T4 (Free Thyroxine) 0.78 ng/dL (0.71-1.85)
== END 2025-09-17 10:03 | disposition home or self-care (01) ==
LOC: HO.HMGCLDS 10:02
PROVIDERS: PCP Internal Medicine; Visit Provider Internal Medicine
DX: R73.01 Impaired fasting glucose (principal); D64.9 Anemia, unspecified; E78.00 Pure hypercholesterolemia, unspecified; E55.9 Vitamin D deficiency, unspecified
CPT/HCPCS: 36415; 80053; 80061; 82306; 83036; 84439; 84443; 85025

== ENCOUNTER 2025-09-18 14:39 | Outpatient (AMB) | payer MEDICARE, MEDICAID, SELFPAY ==
--- NOTE | 2025-09-18 14:42 | A.OFFPC_ITS ---
Vital Signs 09/18/25 14:44 Height 5 ft 8 in Weight 155 lb 2 oz BMI 23.6 BP 124/68 Blood Pressure Location Lt brachial Position Sitting Pulse 76 Pulse Source Pulse Oximeter Pulse Oximetry (%) 97 Oxygen Delivery Method Room Air Intake Visit Reasons: hyperlipidemia, CHF/cardiomyopathy, PAF, IFG Grain Grader Required: No Accompanied by: Self / Same As Patient Allergies Penicillins (PCN) Allergy (Severe, Verified 09/18/25 15:18) dyspnea codeine (CODEINE) Allergy (Mild, Verified 09/18/25 15:18) VOMITING cefuroxime Allergy (Unknown, Verified 09/18/25 15:18) cefuroxime axetil- dyspnea morphine (MORPHINE) Allergy (Unknown, Verified 09/18/25 15:18) UNKNOWN Medication List - Last Reconciled 09/18/25 by Albert Chan MD acetaminophen ER (Tylenol Arthritis Pain) 650 mg PO Q12H PRN 30 days apixaban (Eliquis) 5 mg PO BID carvedilol 3.125 mg PO BID cholecalciferol (vitamin D3) 25 mcg PO DAILY 90 days cyclobenzaprine 10 mg PO BID PRN 7 days nystatin 10 mL buccal TID 10 days omeprazole 20 mg PO DAILY oxycodone 1 to 2 tablets orally 6 to 7 times a day as needed for severe pain (no more than 8 tablets per day) 28 days rosuvastatin 20 mg PO DAILY sacubitril-valsartan 24-26 mg (Entresto) 1 tab PO BID Tobacco use date assessed: 09/18/25 Fall risk assessment: No Falls in past year Last assessed Fall Risk: 09/18/25 Dental Screening Dental Screen Date: 09/18/25 Did you have a dental visit in the last 12 months?: No Did you have a dental problem in the last 6 months where you did not have access to dental care?: No Was dental information given to patient?: No HPI hyperlipidemia, CHF/cardiomyopathy, PAF, IFG HPI Details Patient comes in today for follow up of his HTN, hyperlipidemia, CHF/cardiomyopathy, IFG, neuropathy and chronic right inguinal pain Patient states that he feels okay He continues to experience on and off dizziness but denies any headaches Denies any exertional chest pains, no increased SOB No nausea/vomiting, no abdominal pain No change in bowel habits noted States that his chronic right inguinal pain remains adequately controlled on his current Rx He had his follow up labs done yesterday - to discuss his results [facility] Medical History LBBB (left bundle branch block) Dysphagia Vitamin D deficiency Peyronie's disease Essential hypertension NICM (nonischemic cardiomyopathy) Smoker Neuropathy Impaired fasting glucose Benign essential hypertension Pure hypercholesterolemia Systolic congestive heart failure Dilated cardiomyopathy secondary to alcohol COPD (chronic obstructive pulmonary disease) Paroxysmal atrial fibrillation Lumbar spondylosis Chronic pain of right inguinal region Lumbar radiculopathy Atrial fibrillation Surgical History Hx of colonoscopy (~03/26/17) History of percutaneous endoscopic gastrostomy History of tonsillectomy History of inguinal hernia repair Family History Father Cancer Mother CVD (cardiovascular disease) Social History Household Members: Family Housing: House Are you a primary customer care representative to a significant other at home: No Do you presently have visiting nurse or other home services: No Alcohol intake: never Patient Tobacco Use Status: Former Tobacco user Tobacco use type: Cigarette e-Cigarette/Vaping Use: Former Use Second Hand Smoke Exposure: Yes service: Yes Current occupational status: retired 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 How often do you have a drink containing alcohol?: Never 3. How often do you have six or more drinks on one occasion?: Never Total Score: 0 Score Reviewed/Action Taken: Yes FILIPE-7 AMB Questionnaire FILIPE-7 Date FILIPE - 7 assessed: 06/22/25 Source: Developed by Drs. Yung Childress, Trish Prasad, Nelson Perez and colleagues, with an educational nan from [employer]. Review of Systems Const Denies chills, Reports fatigue, Denies fever(s) and Denies headache(s) ENT Denies dysphagia, Reports dizziness (on and off), Denies otalgia, Denies headache(s), Denies neck pain, Denies odynophagia and Denies sore throat Card Denies chest pain, Denies palpitations and Reports dyspnea on exertion (mild) Resp Denies chest congestion, Denies cough and Reports dyspnea on exertion (mild) GI Denies abdominal pain (but (+) chronic pain over the right inguinal area), Denies constipation, Denies dysphagia, Denies heartburn, Denies diarrhea, Denies nausea, Denies odynophagia and Denies vomiting Denies difficulty urinating, Denies dysuria, Denies nocturia and Denies urinary frequency Musc Reports back pain (occasional ) and Denies neck pain Skin/Breast Denies rash Neuro Reports dizziness (on and off), Denies headache(s) and Reports radicular pain (on the soles of both feet) Endo Reports fatigue and Denies palpitations Physical exam (Primary Care) Vital Signs: Last Vital Signs Pulse 76 09/18/25 14:44 BP 124/68 09/18/25 14:44 Pulse Ox 97 09/18/25 14:44 Oxygen Delivery Method Room Air 09/18/25 14:44 BMI result Body Mass Index 23.6 Tobacco/Smoking Status: Tobacco use Status Tobacco use date assessed 09/18/25 09/18/25 14:47 Patient Tobacco Use Status Former Tobacco user 09/18/25 14:47 Tobacco use type Cigarette 09/18/25 14:47 e-Cigarette/Vaping Use Former Use 09/18/25 14:47 Thrive Assessment: Date of Thrive Assessment Date Thrive assessed 06/22/25 09/18/25 14:47 Const General: no acute distress and alert HENMT Ears: TM's normal bilaterally and EAC's normal Throat: Yes posterior oropharynx normal and Yes tonsils normal Neck Neck: Yes supple and No lymphadenopathy Thyroid: Thyroid normal Resp Auscultation: no crackles, no rales, no wheezes and diminished lung sounds (slightly) bilateral Cardio Rate: regular rate Rhythm: regular rhythm Heart sounds: no murmurs GI Palpation (GI): Soft to palpation and Tenderness to palpation present (GI) (over the right inguinal area - chronic) Auscultation: normal bowel sounds General: Yes no CVA tenderness Back/Spine/Pelvis Back: no CVA tenderness Thoracic/Lumbar Spine: lumbar spinal tenderness (mild) Skin Rashes: no rashes Extrem General: Yes no clubbing, cyanosis or edema Results Reviewed Results Reviewed: Laboratory Tests 09/17/25 10:06 WBC 6.2 Hgb 12.8 L Hct 40.0 L Plt Count 248 Sodium 137 Potassium 4.3 Creatinine 1.36 Estimated GFR 51 Fasting Glucose 115 H Hemoglobin A1c % 6.1 H Calcium 9.3 AST 22 ALT 11 Triglycerides 145 Cholesterol 167 LDL Cholesterol, Calc 95 HDL Cholesterol 43 25-OH Vitamin D Total 54.7 TSH 4.23 H Free T4 0.78 Coding Level of Care Code Est Pt Level 4 (65196) Diagnoses 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 C77.9; C80.1 Dysphagia, unspecified type R13.10 Dysphagia type: unspecified Dizziness of unknown etiology R42 Dilated cardiomyopathy secondary to alcohol I42.6 Systolic congestive heart failure, unspecified HF chronicity I50.20 Heart failure chronicity: unspecified Paroxysmal atrial fibrillation I48.0 Benign essential hypertension I10 Pure hypercholesterolemia E78.00 Impaired fasting glucose R73.01 Chronic obstructive pulmonary disease, unspecified COPD type J44.9 COPD type: unspecified COPD Chronic pain of right inguinal region R10.31; G89.29 Lumbar spondylosis M47.816 Neuropathy G62.9 Vitamin D deficiency E55.9 Assessment & Plan Assessment & Plan (1) 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 Diop and he completed Cisplatin-based chemotherapy and concurrent radiation therapy in June 2022 - was on treatment from 05/11/2022 to 06/30/2022 Follow up with oncology and ENT as scheduled for continuing management/treatment and surveillance (2) Dysphagia: Code(s): R13.10 - Dysphagia, unspecified Category: Medical Qualifiers: Dysphagia type: unspecified Qualified Code(s): R13.10 - Dysphagia, unspecified Plan: Patient continues to complain of dysphagia, dysgeusia and dry throat symptoms - this is likely a sequelae of his radiation Tx a couple of years ago He underwent esophageal dilation with Dr. Hernández on 10/27/22, in March 2023 and more recently in July 2023; patient states that dilation helped temporarily with his symptoms Relates that he also had his throat dilated by ENT last year Follow up with ENT (Dr. Diop) and with Dr. Hernández as scheduled (3) Dizziness of unknown etiology: Code(s): R42 - Dizziness and giddiness Category: Medical Plan: Patient was seen by ENT last year and was advised that his recurrent dizziness are not consistent with vertigo and that they do not have any good explanation as to the cause of his recurrent symptoms MRI of the brain done in November 2024 revealed (+) small vessel occlusive disease, with no findings of acute stroke/nonhemorrhagic ischemia and no acute intracranial hemorrhage Have then advised patient that at this point, if his symptoms continue to bother him a lot, we may consider referring him to neurology for further evaluation and recommendations (4) Dilated cardiomyopathy secondary to alcohol: Code(s): I42.6 - Alcoholic cardiomyopathy Category: Medical Plan: Patient has been asymptomatic from a cardiac standpoint lately Continue Entresto 24-26 mg 1 tablet BID and Carvedilol 3.125 mg BID Follow up with cardiology as scheduled (5) Systolic congestive heart failure: Comment: Echocardiogram done on 05/03/2018 showed visually estimated EF between 30-35% with an impaired relaxation filling pattern. Cardiac valvular dopplers and RV sys tolic pressure were all within normal range. Repeat echocardiogram on 03/12/21 revealed (+) normal LV cavity size, with mildly increased LV wall thickness. LV systolic function is low normal and visually estimated EF is between 50 to 55%. Diastolic function is normal for age. Code(s): I50.20 - Unspecified systolic (congestive) heart failure Category: Medical Qualifiers: Heart failure chronicity: unspecified Qualified Code(s): I50.20 - Unspecified systolic (congestive) heart failure Plan: His cardiac function has improved significantly with treatment over the past few years and patient currently appears compensated His BNP level came back normal again on his recent labs Continue Entresto 24-26 mg 1 tablet BID and Carvedilol 3.125 mg BID Follow up with Cardiology as scheduled (6) Paroxysmal atrial fibrillation: Code(s): I48.0 - Paroxysmal atrial fibrillation Category: Medical Plan: Patient currently remains in sinus rhythm Continue Eliquis 5 mg BID for thromboembolism prophylaxis (7) Benign essential hypertension: Code(s): I10 - Essential (primary) hypertension Category: Medical Plan: Reinforced low sodium diet - goal is systolic BP of at least 120-130 mm or less Continue Carvedilol 3.125 mg 1 tablet BID and Entresto 24-26 mg BID (8) Pure hypercholesterolemia: Code(s): E78.00 - Pure hypercholesterolemia, unspecified Category: Medical Plan: Results of his labs done yesterday reviewed and discussed with patient Reinforced low cholesterol diet Continue Rosuvastatin 20 mg QD Will recheck his labs and fasting lipids in 3 months for follow up (9) Impaired fasting glucose: Code(s): R73.01 - Impaired fasting glucose Category: Medical Plan: His HgbA1c went up to 6.1% on his recent labs; was at 5.7% when previously checked a few months ago Reinforced low calorie diet /exercise as tolerated (10) COPD (chronic obstructive pulmonary disease): Code(s): J44.9 - Chronic obstructive pulmonary disease, unspecified Category: Medical Qualifiers: COPD type: unspecified COPD Qualified Code(s): J44.9 - Chronic obstructive pulmonary disease, unspecified Plan: Controlled Continue Albuterol HFA 2 puffs 4 times a day as needed (11) Chronic pain of right inguinal region: Comment: (+) Post-herniorrhaphy syndrome - had right inguinal herniorrhaphy in the past and recovery was complicated with increased pain and adverse effects, resulting in chronic and worse pain States that his chronic pain has been adequately controlled on his current pain med regimen - this is a WORKER'S COMP - related issue Code(s): R10.31 - Right lower quadrant pain; G89.29 - Other chronic pain Category: Medical Plan: Continue Oxycodone 15 mg 1 to 2 tablets 6 to 7 times a day as needed for severe pain (no more than 8 tablets/day) (12) Lumbar spondylosis: Code(s): M47.816 - Spondylosis without myelopathy or radiculopathy, lumbar region Category: Medical Plan: Reinforced activity and weight-lifting restrictions to avoid aggravating his low back pain (13) Neuropathy: Code(s): G62.9 - Polyneuropathy, unspecified Category: Medical Plan: His symptoms remain tolerable lately He could not tolerate Gabapentin in the past and Amitriptyline did not help him much (14) Vitamin D deficiency: Code(s): E55.9 - Vitamin D deficiency, unspecified Category: Medical Plan: Continue Vitamin D3 1000 units QD Plan Follow up in 3 months Orders: Orders Complete Blood Count Auto Diff 3 Months D64.9 - Anemia, unspecified TSH reflex Free T4 3 Months E78.00 - Pure hypercholesterolemia, unspecified Vitamin D 25-OH Total 3 Months E55.9 - Vitamin D deficiency, unspecified Comprehensive [place]. Panel Fast 3 Months E78.00 - Pure hypercholesterolemia, unspecified Lipid Panel 3 Months E78.00 - Pure hypercholesterolemia, unspecified UA CC w/rflx Micro + Cult 3 Months R30.0 - Dysuria Vitamin B12 and Folate 3 Months E53.8 - Deficiency of other specified B group vitamins Hemoglobin A1c 3 Months R73.01 - Impaired fasting glucose
[2025-09-18 14:44] VITALS: BP 124/68; PULSE 76; O2SAT 97; BMI 23.6
--- OUTSIDE RECORDS SUMMARY | 2025-09-18 19:43 | XMS_ITS | Data Portability ---
Author Organization [place] - [facility], Allergy Address [address] [address] Care Team Providers Care Technical Producer Name Role Phone RAHEL MARILU Primary Care [...] mcg (0.03 %) nasal spray 2023 024 [facility] #[id number], [address] [place], [address], 09/26/2024 14:29:32 Patient TargetsNo targets recorded. Patient [...] [facility] ed. [facility]) [address], [place], [address], 09/26/2024 17:04:27 09/26/20 24 08/26/2024 CT, head, w/o contr ast No observ ation record ed. [email or web address] Not Available 08/30 17:02:52 02/07/20 25 12/11/2024 MRI, brain + brain stem, w/o contr ast No observ ation record ed. [facility]) [address], [place], [address], 02/07/2025 10:10:38 02/09/20 25 1951 MR, angio gram, brain , w/o contr ast No observ ation record ed. [email or web address] Not Available 01/27 10:10:08 Result Notes None recorded. 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 4 02:50:19 Nicotine dependenc e 81491497 Active 2021 Nicotine dependence , unspecifie d, uncomplica elieser; Note: Date Diagnosed: 01/13/2022 3:58 PM (F17.200) Not Available [facility] 4 02:50:15 Antineopl astic chemother apy regimen Active 2021 Encounter for antineopla stic chemothera py; Note: Date Diagnosed: 02/26/2022 3:00 PM (Z51.11) Not Available [facility] 4 02:50:18 Sensorine ural hearing loss of bilateral ears 010268059 Active 2021 Sensorineu ral hearing loss, bilateral; Note: Date Diagnosed: 02/26/2022 3:00 PM (H90.3) Not Available [facility] 4 02:50:19 Dysphagia 73087999 Active 2021 Other dysphagia; Note: Date Diagnosed: 08/11/2022 2:30 PM (R13.19) Not Available [facility] 4 02:50:17 History of malignant neoplasm 298808794 Active 2021 Personal history of malignant neoplasm, unspecifie d; Note: Changed from Z85 to Z85.819 (08/11/2022 4:01 PM) , Changed from Z85.819 to Z85.9 (08/11/2022 4:02 PM) , Date Diagnosed: 08/11/2022 2:30 PM (Z85) Not Available [facility] 4 02:50:20 Follow-up visit Active 2021 Encounter for follow-up examinatio n after completed treatment for malignant neoplasm; Note: Date Diagnosed: 08/11/2022 2:30 PM (Z08) Not Available [facility] 4 02:50:16 Vasomotor rhinitis 0424776 Active 2023 YANI LÓPEZ MD [address] [place] [address], [place], [address] , [facility] - [facility] 4 14:26:14 Dizziness and giddiness 467031637 Active 2023 YANI LÓPEZ MD [address] [address], [place], [address] , [facility] - [facility] 4 14:28:26 Oropharyn geal dysphagia 64023701 Active 2024 YANI LÓPEZ MD [address] [place] [address], [phone] , [facility] - [facility] [place] 5 13:35:43 Problem Notes None recorded. Procedures Surgical History Date Name Laterality Status Provider Name and Address Organization Details Recorded Time 06/08/2025 FFL_RE completed YANI LÓPEZ MD [address] [place] [address], [phone], [facility] 06/08/2025 13:23:10 02/06/2025 FFL_RE completed YANI LÓPEZ MD [address] [place] [address], [phone], [facility] 02/06/2025 13:55:08 09/26/2024 FFL_RE completed YANI LÓPEZ MD [address] [place] [address], [phone], [facility] 09/26/2024 14:19:25 05/24/2024 FFL_RE completed YANI LÓPEZ MD [address] [place] [address], [phone], [facility] 05/24/2024 15:24:29 Imaging Results None recorded. Procedure Notes None recorded. Medical Equipment None Reported. Allergies Allergen ID Allergen Name Allergen Category Reaction Reaction Severity Criticality Documentation Date Start Date Code Code System Note Provider Name and Address Organization Details Recorded Time 295804 codeine / pseudoeph edrine / triprolid ine medicatio n other Not available Not available 04/11/2024 23044 1 RxNorm React ion: other react ion, Unkno wn; Not Available [facility] 01:09:32 140432 Product containin g penicilli n (product) medicatio n other Not available Not available 04/11/2024 95513 8001 SNOMED React ion: other react ion, [...] by mouth 2021 active Medicatio n ID: [id number] Pr escribed By Name: Yani diamond MD [...] ended release 2021 active Medicatio n ID: [id number] Br and Name: pentoxify lline Sen d [...] Updated DateTime 02/06/2025 172.72 cm 22 kg/m2 67662.89 g Aisha [place] [facility] 02/06/2025 13:39:01 Date Recorded Body height Body mass index (BMI) Body weight Provider Name and Address Organization Details Last Updated DateTime 05/24/2024 172.72 cm 22 kg/m2 42493.89 g Aisha [place] [facility] 05/24/2024 15:02:16 Date Recorded Body height Body mass index (BMI) Body weight Provider Name and Address Organization Details Last Updated DateTime 06/08/2025 172.72 cm 22 kg/m2 36837.89 g Aisha [place] [facility] 06/08/2025 12:52:40 Date Recorded Body height Body mass index (BMI) Body weight Provider Name and Address Organization Details Last Updated DateTime 09/26/2024 172.72 cm 22 kg/m2 90381.89 g Aisha [place] [facility] 09/26/2024 14:07:28 Social History None recorded. Functional Status None recorded. Mental Status None recorded. Family History Nothing Reported. Medical History No medical history recorded. Past Encounters Encounter ID Performer Location Encounter Start Date Encounter Closed Date Diagnosis/Indication Diagnosis SNOMED-CT Code Diagnosis ICD10 Code Diagnosis IMO Codes Diagnosis Note [id number] YANI LÓPEZ MD [facility] [address] [address] 05/24/2024 14:45:06 05/24/2024 15:31:19 History of malignant neoplasm of head and/or neck 689398426 Z85.89 Exam and Laryngosco py showed no evidence of disease. We will continue routine surveillan ce. Screening for malignant neoplasm of respiratory tract 329756596 Z12.2 Exam and Laryngosco py showed no evidence of disease. We will continue routine surveillan ce. [id number] YANI LÓPEZ MD [facility] [address] [address] 09/26/2024 13:59:26 09/26/2024 14:28:02 History of malignant neoplasm of head and/or neck 476139060 Z85.89 Exam and Laryngosco py showed no evidence of disease. We will continue routine surveillan ce. Screening for malignant neoplasm of respiratory tract 142510489 Z12.2 Exam and Laryngosco py showed no evidence of disease. We will continue routine surveillan ce. Vasomotor rhinitis 43093 03 J30.0 will send ipratropiu m. Dizziness and giddiness 614508194 R42 reports lightheade dness not true vertigo. I recommend he discuss with his PCP. [id number] YANI LÓPEZ MD [facility] [address] [address] 02/06/2025 13:29:23 02/06/2025 14:03:07 History of malignant neoplasm of head and/or neck 737300521 Z85.89 Exam and Laryngosco py showed no evidence of disease. We will continue routine surveillan ce. Screening for malignant neoplasm of respiratory tract 006441468 Z12.2 Exam and Laryngosco py showed no evidence of disease. We will continue routine surveillan ce. Dizziness and giddiness 262135880 R42 Juan Hallpike negative. No sign of BPPV on exam today. [place]. [id number] YANI LÓPEZ MD [facility] [address] [address] 06/08/2025 12:51:04 06/08/2025 13:34:53 History of malignant neoplasm of head and/or neck 884658963 Z85.89 Exam and Laryngosco py showed no evidence of disease. We will continue routine surveillan ce. Screening for malignant neoplasm of respiratory tract 173474866 Z12.2 Exam and Laryngosco py showed no evidence of disease. We will continue routine surveillan ce. Oropharyng eal dysphagia 85529624 R13.12 8208 stable. I discussed following up with GI. He is unsure if he wants another dilation. Health Concerns Section Related Observation LastModified by Organization Detai ls LastModified Time None Recorded Concern Status LastModified by Organization Details LastModified Time None Recorded Advance Directives Directive None Recorded Payers Insurance Date Sequence Insurance Name Policy Number Policy Malone Covered Member ID Malone Member ID Guarantor Name 08/21/2025 2 [place] [facility] Yani Fuchs [id number] Yani Fuchs 02/06/2025 1 [employer]ET[employer] Yani Fuchs [id number] Yani Fuchs 06/08/2025 1 [employer]ETNA ([place]) [id number] Yani Fuchs [id number] Yani Fuchs 08/21/2025 2 [place] [employer] Yani Fuchs [id number] Yani Fuchs Notes Date Note Type Note Provider Name and Address Organization Details Recorded Time 05/24/2024 text/html ROS as noted in the HPI He has a hx of SCC of unknown primary (hx of tonsillectomy and biopsies without identifying the primary). 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 Had a post tx PET that showed resolution of uptake in the head and neck. He reports continued dysphagia with dry foods. He has had several esophageal dilations. He is not smoking. No throat or neck pain. YANI LÓPEZ MD [address] [place] [address], [address], [place] - [facility] 05/24/2024 15:30:22 09/26/2024 text/html ROS as noted in the HPI He has a hx of SCC of unknown primary (hx of tonsillectomy and biopsies without identifying the primary). 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 Had a post tx PET that [...] eats with interferes. YANI LÓPEZ MD 100 [facility],[address], [address], [facility] - [facility] 09/26/2024 14:29:34 02/06/2025 text/html ROS as noted in the HPI He has a hx of SCC of unknown primary (hx of tonsillectomy and biopsies without identifying the primary). 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 Had a post tx PET that [...] over in bed. YANI LÓPEZ MD 100 [facility],[address], [address], [facility] 02/06/2025 14:03:47 06/08/2025 text/html ROS as noted in the HPI He has a hx of SCC of unknown primary (hx of tonsillectomy and biopsies without identifying the primary). 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 Had a post tx PET that showed resolution of uptake in the head and neck. He needs lots of water to get dry foods down swallowing is challenging but has been stable. He has had several esophageal dilations but has not recently. He is not smoking. No throat or neck pain. No SOB. YANI L[facility]PEZ MD 100 [facility], [address], [facility] - [facility] 06/08/2025 13:37:55
--- OUTSIDE RECORDS SUMMARY | 2025-09-18 19:43 | XMS_ITS | Clinical Summary ---
Author Organization [facility] Address [address] [place] [address] Care Team Providers Care Salvage Inspector Name Role Phone Unavailable Primary Care Provider [...] - 2023-2 5 season) 2025 RSV Vaccine 50 years and old er and Patients (1 - 1-dose 75+ series) 2026 Hepatitis B Vaccines Aged Out No long er eligible based on patient's age to complete this topic
--- OUTSIDE RECORDS SUMMARY | 2025-09-18 19:43 | XMS_ITS | Encounter Summary ---
Author Organization [facility] Address [address] [place] [address] Care Team Providers Care Oracle Applications Analyst Name Role Phone Unavailable Primary Care Provider Unavailabl e Encounter Details Date Type Department Care Team (Late st Contact Info) Description 10/11/2020 Telephone [facility] [address] [address] Tomas James MD 330 [facility] [address] [place] [address] Social History Tobacco Use Types [...]
== END 2025-09-18 15:32 | disposition home or self-care (01) ==
LOC: HO.HMCH 14:40
PROVIDERS: PCP Internal Medicine; Visit Provider Internal Medicine
DX: I48.0 Paroxysmal atrial fibrillation (principal); C77.9 Secondary and unspecified malignant neoplasm of lymph node, unspecified; C80.1 Malignant (primary) neoplasm, unspecified; I42.6 Alcoholic cardiomyopathy; I50.20 Unspecified systolic (congestive) heart failure; J44.9 Chronic obstructive pulmonary disease, unspecified; I11.0 Hypertensive heart disease with heart failure; R13.10 Dysphagia, unspecified; R42 Dizziness and giddiness; E78.00 Pure hypercholesterolemia, unspecified; R73.01 Impaired fasting glucose; R10.31 Right lower quadrant pain

== ENCOUNTER → 2025-09-18 14:39 | Outpatient (BNVA) | payer MEDICARE, MEDICAID, SELFPAY | PROVIDERS: PCP Internal Medicine; Visit Provider Internal Medicine | DX: R13.10 Dysphagia, unspecified (principal); C80.1 Malignant (primary) neoplasm, unspecified; C77.0 Secondary and unspecified malignant neoplasm of lymph nodes of head, face and neck; R42 Dizziness and giddiness; I42.6 Alcoholic cardiomyopathy; I11.0 Hypertensive heart disease with heart failure; I50.20 Unspecified systolic (congestive) heart failure; I48.0 Paroxysmal atrial fibrillation; E78.00 Pure hypercholesterolemia, unspecified; R73.01 Impaired fasting glucose; J44.9 Chronic obstructive pulmonary disease, unspecified; R10.31 Right lower quadrant pain; G89.29 Other chronic pain; M47.816 Spondylosis without myelopathy or radiculopathy, lumbar region; G62.9 Polyneuropathy, unspecified; E55.9 Vitamin D deficiency, unspecified; Z79.01 Long term (current) use of anticoagulants; Z79.899 Other long term (current) drug therapy | CPT/HCPCS: 99212 ==

== ENCOUNTER 2025-10-15 12:55 | Outpatient (AMB) | payer OTHER, SELFPAY ==
[2025-10-15 13:05] VITALS: BP 130/72; PULSE 76; O2SAT 96; BMI 23.0
--- NOTE | 2025-10-15 13:05 | A.OFFPC_ITS ---
Vital Signs 10/15/25 13:05 Height 5 ft 8 in Weight 151 lb 8 oz BMI 23.0 BP 130/72 Blood Pressure Location Lt brachial Position Sitting Pulse 76 Pulse Source Pulse Oximeter Pulse Oximetry (%) 96 Oxygen Delivery Method Room Air Intake Visit Reasons: worker's comp Armor Officer Required: No Accompanied by: Self / Same As Patient Allergies Penicillins (PCN) Allergy (Severe, Verified 10/15/25 13:31) dyspnea codeine (CODEINE) Allergy (Mild, Verified 10/15/25 13:31) VOMITING cefuroxime Allergy (Unknown, Verified 10/15/25 13:31) cefuroxime axetil- dyspnea morphine (MORPHINE) Allergy (Unknown, Verified 10/15/25 13:31) UNKNOWN Medication List - Last Reconciled 10/15/25 by Albert Chan MD acetaminophen ER (Tylenol Arthritis Pain) 650 mg PO Q12H PRN 30 days apixaban (Eliquis) 5 mg PO BID carvedilol 3.125 mg PO BID cholecalciferol (vitamin D3) 25 mcg PO DAILY 90 days cyclobenzaprine 10 mg PO BID PRN 7 days nystatin 10 mL buccal TID 10 days omeprazole 20 mg PO DAILY oxycodone 1 to 2 tablets orally 6 to 7 times a day as needed for severe pain (no more than 8 tablets per day) 28 days rosuvastatin 20 mg PO DAILY sacubitril-valsartan 24-26 mg (Entresto) 1 tab PO BID Tobacco use date assessed: 10/15/25 Fall risk assessment: No Falls in past year Last assessed Fall Risk: 10/15/25 Dental Screening Dental Screen Date: 10/15/25 Did you have a dental visit in the last 12 months?: No Did you have a dental problem in the last 6 months where you did not have access to dental care?: No Was dental information given to patient?: No HPI worker's comp HPI0 Details Patient comes in today for his worker's comp follow up visit States that he still has the chronic (increased) pain over his right inguinal area, which he's had for many years, and that his condition remains mostly unchanged from before States that his Oxycodone Rx 15 mg 6 to 7 times a day is helping adequately with controlling and managing his chronic pain He denies any headaches or dizziness Denies any chest pains, no increased SOB No nausea/vomiting; he has no other abdominal pain/issues other than his chronic right inguinal pain No change in bowel habits noted [facility] Medical History LBBB (left bundle branch block) Dysphagia Vitamin D deficiency Peyronie's disease Essential hypertension NICM (nonischemic cardiomyopathy) Smoker Neuropathy Impaired fasting glucose Benign essential hypertension Pure hypercholesterolemia Systolic congestive heart failure Dilated cardiomyopathy secondary to alcohol COPD (chronic obstructive pulmonary disease) Paroxysmal atrial fibrillation Lumbar spondylosis Chronic pain of right inguinal region Lumbar radiculopathy Atrial fibrillation Surgical History Hx of colonoscopy (~03/26/17) History of percutaneous endoscopic gastrostomy History of tonsillectomy History of inguinal hernia repair Family History Father Cancer Mother CVD (cardiovascular disease) Social History Household Members: Family Housing: House Are you a primary floor care specialist to a significant other at home: No Do you presently have visiting nurse or other home services: No Alcohol intake: never Patient Tobacco Use Status: Former Tobacco user Tobacco use type: Cigarette e-Cigarette/Vaping Use: Former Use Second Hand Smoke Exposure: Yes service: Yes Current occupational status: retired 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 1. Little interest or pleasure in doing things: not at all 2. Feeling down, depressed, or hopeless: not at all 3. Trouble falling or staying asleep, or sleeping too much: not at all 4. Feeling tired or having little energy: not at all 5. Poor appetite or overeating: not at all 6. Feeling bad about yourself - or that you are a failure or have let yourself or your family down: not at all 7. Trouble concentrating on things, such as reading the newspaper or watching television: not at all 8. Moving or speaking so slowly that other people could have noticed. Or the opposite - being so fidgety or restless that you have been moving around a lot more than usual: not at all 9. Thoughts that you would be better off or of hurting yourself in some way: not at all Total score: 0 Depression Screening Interpretation: Negative Depression Screening Done: Yes 43708 - PHQ-9 Billing: Yes Source: Developed by Drs. Yung Childress, Trish Prasad, Nelson Perez and colleagues, with an educational nan from [employer]. Thrive Questionnaire Date Thrive assessed: 10/15/25 I am a: Patient What is your living situation today?: I choose not to answer this question Within the past 12 months, did the food you bought not last and you didn't have the money to get more?: I choose not to answer this question Within the past 12 months, did you worry whether your food would run out before you got money to buy more?: Often true Do you have trouble paying for medicines?: No Do you have trouble getting transportation to medical appointments?: No Do you have trouble paying your heating and electricity bill?: Yes Do you have trouble taking care of your child, family member or friend?: No Do you have trouble with day-to-day activities such as bathing, preparing meals, shopping, managing finances, etc.?: No Are you currently unemployed and looking for a job?: No Are you interested in more education?: No Please select the resources that you would like help with: None Currently or been in a relationship where the following occur: No concerns reported THRIVE Score: 2 AUDIT C Alcohol Use Questionnaire (AUDIT-C) 1. How often do you have a drink containing alcohol?: Never 3. How often do you have six or more drinks on one occasion?: Never Total Score: 0 Score Reviewed/Action Taken: Yes FILIPE-7 AMB Questionnaire FILIPE-7 Date FILIPE - 7 assessed: 10/15/25 Feeling nervous, anxious, or on edge: 0 = Not at all Not being able to stop or control worryin = Not at all Worrying too much about different things: 0 = Not at all Trouble relaxin = Not at all Being so restless that it is hard to sit still: 0 = Not at all Becoming easily annoyed or irritable: 0 = Not at all Feeling afraid as if something awful might happen: 0 = Not at all Total FILIPE-7 score (0-4 normal; 5-9 mild; 10-14 moderate; 15-21 severe): 0 Source: Developed by Drs. Yung Childress, Trish Prasad, Nelson Perez and colleagues, with an educational nan from [employer]. Review of Systems Const Denies chills, Reports fatigue, Denies fever(s) and Denies headache(s) ENT Reports dysphagia, Reports dizziness, Reports dry mouth, Denies headache(s), Denies neck pain, Denies odynophagia and Denies sore throat Card Denies chest pain, Denies palpitations and Denies dyspnea Resp Denies cough and Denies dyspnea GI Denies abdominal pain (but (+) chronic increased pain over the right inguinal area), Denies constipation, Reports dysphagia, Denies heartburn, Denies diarrhea, Denies nausea, Denies odynophagia and Denies vomiting Denies dysuria, Denies nocturia and Denies urinary frequency Musc Reports back pain (occasional ) and Denies neck pain Skin/Breast Denies rash Neuro Reports dizziness, Denies headache(s) and Reports radicular pain (on the soles of both feet) Endo Reports fatigue and Denies palpitations Physical exam (Primary Care) Vital Signs: Last Vital Signs Pulse 76 10/15/25 13:05 BP 130/72 10/15/25 13:05 Pulse Ox 96 10/15/25 13:05 Oxygen Delivery Method Room Air 10/15/25 13:05 BMI result Body Mass Index 23.0 Tobacco/Smoking Status: Tobacco use Status Tobacco use date assessed 10/15/25 10/15/25 13:11 Patient Tobacco Use Status Former Tobacco user 10/15/25 13:11 Tobacco use type Cigarette 10/15/25 13:11 e-Cigarette/Vaping Use Former Use 10/15/25 13:11 PHQ-9: PHQ-9 Score PHQ-9: Total score 0 10/15/25 13:11 Depression Screening Interpretation: Negative Thrive Assessment: Date of Thrive Assessment Date Thrive assessed 10/15/25 10/15/25 13:11 Currently or been in a relationship where the following occur: No concerns reported Const General: no acute distress and alert Neck Neck: Yes supple and No lymphadenopathy Thyroid: Thyroid normal Resp Auscultation: clear to auscultation bilaterally, no rales and no wheezes Cardio Rate: regular rate Rhythm: regular rhythm Heart sounds: no murmurs GI Palpation (GI): Soft to palpation and Tenderness to palpation present (GI) (over the right inguinal area - chronic) Auscultation: normal bowel sounds General: Yes no CVA tenderness Back/Spine/Pelvis Back: no CVA tenderness Thoracic/Lumbar Spine: lumbar spinal tenderness (mild) Skin Rashes: no rashes Extrem General: Yes no clubbing, cyanosis or edema Coding Level of Care Code Est Pt Level 3 (58714) Diagnoses Chronic pain of right inguinal region R10.31; G89.29 Additional Codes PHQ-9 - 62596 - PHQ-9 Billing: Yes ([id number]) Assessment & Plan Assessment & Plan (1) Chronic pain of right inguinal region: Comment: (+) Post-herniorrhaphy syndrome - had right inguinal herniorrhaphy in the past and recovery was complicated with increased pain and adverse effects, resulting in chronic and worse pain States that his chronic pain has been adequately controlled on his current pain med regimen - this is a WORKER'S COMP - related issue Code(s): R10.31 - Right lower quadrant pain; G89.29 - Other chronic pain Category: Medical Plan: Continue Oxycodone 15 mg 1 to 2 tablets 6 to 7 times a day (no more than 8 tablets a day) as needed for severe pain (28 days, #224 tablets) and Tizanidine 4 mg TID PRN Plan Follow up in 4 months
== END 2025-10-15 13:41 | disposition home or self-care (01) ==
LOC: HO.HMCH 12:56
PROVIDERS: PCP Internal Medicine; Visit Provider Internal Medicine
DX: R10.31 Right lower quadrant pain (principal); G89.29 Other chronic pain

== ENCOUNTER → 2025-10-15 12:55 | Outpatient (BNVA) | payer OTHER, MEDICARE, MEDICAID, SELFPAY | PROVIDERS: PCP Internal Medicine; Visit Provider Internal Medicine | DX: R10.31 Right lower quadrant pain (principal); G89.29 Other chronic pain; Z87.19 Personal history of other diseases of the digestive system; Z98.890 Other specified postprocedural states; Z79.891 Long term (current) use of opiate analgesic | CPT/HCPCS: 96127; 99212 ==